=== PATIENT | female | born 1955 | race Caucasian/White ===

== ENCOUNTER 2016-06-16 22:56 | Inpatient (IN) | payer OTHER ==
[2016-06-17] MEDS ORDERED: ONDANSETRON 4 MG/2 ML VIAL IVPUSH ONE ×2 (00:30→09:50)
--- NOTE | 2016-06-17 00:39 | PDOC ---
[id number]/VOMITING Time Seen by Provider: 06/17/16 00:16 - History of Present Illness Travel History: Yes Initial Comments: 06/17/16 00:38 CHIEF COMPLAINT: abdominal pain HISTORY OF PRESENT ILLNESS: 60 year old female with past medical history of chronic pancreatitis, insulin dependent diabetes, and hypertension presents to ED with vomiting and abdominal pain since 5:30 this afternoon. Patient states she has had at least 6 episodes of vomiting. She denies fever but reports chills. She denies diarrhea or rectal bleeding. No recent travel or sick contacts. PAST MEDICAL HISTORY: Denies past medical history FAMILY HISTORY: Denies SOCIAL HISTORY: Lives at home with . Denies tobacco, alcohol, illicit drug use. SURGICAL HISTORY: Denies ALLERGIES: PCN REVIEW OF SYSTEMS General/Constitutional: Chills. Denies fever. Denies weakness, weight change. HEENT: Denies change in vision. Denies ear pain or discharge. Denies sore throat. Cardiovascular: Denies chest pain or shortness of breath. Respiratory: Denies cough, wheezing, or hemoptysis. Gastrointestinal: 6 episodes of vomiting this evening. Denies or constipation. Denies rectal bleeding. Genitourinary: Denies dysuria, frequency, or change in urination. Musculoskeletal: Denies joint or muscle swelling or pain. Denies neck or back pain. Skin: Denies rash or easy bruising. Neurologic: Headache. Denies vertigo, loss of consciousness, or loss of sensation. PHYSICAL EXAM General Appearance: Tearful, appropriately dressed. HEENT: EOMI, PERRLA, normal ENT inspection, normal voice, TMs normal, pharynx normal. No conjunctival pallor. No photophobia, scleral icterus. Neck: Supple. Trachea midline. No tenderness, rigidity, carotid bruit, stridor , lymphadenopathy, or thyromegaly. Respiratory/Chest: Lungs CTAB. Cardiovascular: RRR. S1, S2. Vascular Pulses: Dorsalis-Pedis (R): 2+, Dorsalis-Pedis (L): 2+ Gastrointestinal/Abdominal: Diffuse tenderness to abdomen. Normal bowel sounds. Abdomen soft, non-distended. No organomegaly, pulsatile mass, guarding , hernia, hepatomegaly, splenomegaly. Musculoskeletal/Extremities: Normal inspection. FROM of all extremities, normal capillary refill. Pelvis Stable. No CVA tenderness. No tenderness to extremities, pedal edema, swelling, erythema or deformity. Integumentary: Appropriate color, dry, warm. 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 Fully oriented, alert. Appropriate mood/affect. Motor strength 5/5. No appreciable EOM palsy, facial droop or sensory deficit. 06/17/16 00:39 Past History - Past Medical History Allergies/Adverse Reactions: Allergies Allergy/AdvReac Type Severity Reaction Status Date / Time Penicillins Allergy Verified 11/10/15 15:53 Home Medications: Ambulatory Orders Metformin HCl [Glucophage] 500 mg PO BID 07/06/13 Escitalopram Oxalate [Lexapro -] 10 mg PO DAILY #0 06/22/15 Insulin (Levemir) [Levemir Vial] 33 unit SQ AM #0 11/15/15 Pantoprazole Sodium [Protonix -] 40 mg PO DAILY tablet.ec 11/15/15 Insulin Lispro Protamin/Lispro [Humalog Mix 50-50 Kwikpen] 100 unit SQ ASDIR Telmisartan [Micardis] 80 mg PO DAILY 06/17/16 Levofloxacin [Levaquin -] 500 mg PO DAILY@0600 #2 tablet 06/20/16 Metronidazole [Flagyl -] 500 mg PO TID #6 tablet 06/20/16 Anemia: No Asthma: No Cancer: No CVA: No COPD: No CHF: No Dementia: No Diabetes: Yes GI Disorders: Yes (pancreatitis, sbo, GERD) Disorders: No HTN: Yes Hypercholesterolemia: Yes Liver Disease: No Psychiatric Problems: Yes (DEPRESSION, MEMORY LOSS) Seizures: No Thyroid Disease: No - Surgical History Abdominal Surgery: Yes Appendectomy: Yes Cardiac Surgery: No Cholecystectomy: Yes Lung Surgery: No Neurologic Surgery: No Orthopedic Surgery: No - Family Disease History Family Disease History: Diabetes: Father, Heart Disease: Father - Immunization History Immunization Up to Date: Yes - Psycho/Social/Smoking Cessation Hx Anxiety: No Suicidal Ideation: No Smoking Status: No Smoking History: Never smoked Have you smoked in the past 12 months: No Number of Cigarettes Smoked Daily: 0 If you are a former smoker, when did you quit?: november 2012 Information on smoking cessation initiated: No Hx Alcohol Use: No Drug/Substance Use Hx: No Substance Use Type: None Hx Substance Use Treatment: No *Physical Exam - Vital Signs Last Vital Signs Temp Pulse Resp BP Pulse Ox 98.3 F 86 25 H 138/89 97 06/16/16 23:12 06/16/16 23:12 06/16/16 23:12 06/16/16 23:12 06/16/16 23:12 ED Treatment Course - LABORATORY CBC & Chemistry Diagram: 06/20/16 06:00 06/20/16 06:00 - RADIOLOGY Radiology Studies Ordered: Category Date Time Status ABDOMEN FLAT & UPRIGHT [RAD] Stat Radiology 06/17/16 00:28 Ordered CHEST PA & LAT [RAD] Stat Radiology 06/17/16 00:27 Ordered Medical Decision Making - Medical Decision Making 06/17/16 06:25 60 year old female with past medical history of chronic pancreatitis, insulin dependent diabetes, and hypertension presents to ED with vomiting and abdominal pain since 5:30 this afternoon. -CBC, CMP, lipase, cardiac profile, acetone -CXR, EKG -UA, UCx -IVF, Zofran -4 mg morphine 06/17/16 06:26 Labs: WBC 15.2, BUN 27, otherwise unremarkable Case discussed in detail with oncoming emergency provider including history, physical exam and ancillary studies. In brief, this patient is being seen in the ED for a chief complaint of: abdominal pain, vomiting I have completed the initial assessment interview note and have ordered the following labs: CBC, CMP, lipase, cardiac profile, acetone, CXR, abdominal x-ray I have reviewed the following results: labs, X-rays Pending results: abdomen and pelvis CT Please call PCP: Duy Plan for disposition as follows: pending Oncoming NPA Kristi has assumed care for the patient and will complete the evaluation and treatment. *DC/Admit/Observation/Transfer Diagnosis at time of Disposition: Abdominal pain Qualifiers: Abdominal location: upper abdomen, unspecified Qualified Code(s): R10.10 - Upper abdominal pain, unspecified - Discharge Dispostion Disposition: HOME Condition at time of disposition: Stable - Prescriptions
[2016-06-17] MEDS ORDERED: ONDANSETRON 4 MG/2 ML VIAL ONE ×2 (01:25→09:51)
[2016-06-17 01:59] LABS: BASOPHIL 0.9 % (0-2.0); EOSINOPHIL 0.8 % (0-4.5); MCH 27.6 pg (25.7-33.7); MCHC 33.2 g/dl (32.0-36.0); MEAN CELL VOLUME 83.4 fl (80-96); MEAN PLT VOLUME 7.9 fl (7.5-11.1); NEUTROPHILS 79.4 % (42.8-82.8); PLATELET COUNT 360 K/MM3 (134-434); WHITE BLOOD COUNT 15.2 K/mm3 (4.0-10.0)
[2016-06-17 02:13] LABS: INR 1.05 (0.82-1.09); PROTHROMBIN TIME (PATIENT) 11.6 SEC (9.98-11.88)
[2016-06-17 02:22] LABS: ALBUMIN 4.2 g/dl (3.4-5.0); ALK PHOS 104 U/L (45-117); ANION GAP 13 (8-16); BILIRUBIN,TOTAL 0.7 mg/dL (0.2-1.0); CALCIUM 9.8 mg/dL (8.5-10.1); CO2 26 mmol/L (21-32); GLUCOSE,RANDOM 197 mg/dL (74-106); SGOT/AST 13 U/L (15-37); SGPT/ALT 21 U/L (12-78); TOT PROT 8.1 g/dl (6.4-8.2); TROPONIN I < 0.02 ng/ml (0.00-0.05)
[2016-06-17] MEDS ORDERED: ACETAMINOPHEN 1000 MG/100 ML VIAL (NON FORMULARY) IVPB ONE (02:39)
[2016-06-17] MEDS ORDERED: morphine CARPU-JECT 4 MG/1 ML DISP.SYRIN ONE (02:56)
[2016-06-17] MEDS ORDERED: morphine CARPU-JECT 4 MG/1 ML DISP.SYRIN IVPUSH ONE (02:56)
[2016-06-17] MEDS ORDERED: SODIUM CHLORIDE 0.9% 1000 ML INFUS.BAG IV ONE (03:11)
[2016-06-17 04:15] LABS: URINE APPEARANCE CLEAR; URINE BILIRUBIN NEGATIVE (NEGATIVE); URINE BLOOD NEGATIVE (NEGATIVE); URINE COLOR YELLOW; URINE GLUCOSE (UA) NEGATIVE (NEGATIVE); URINE KETONE TRACE (NEGATIVE); URINE LEUK ESTERASE NEGATIVE (NEGATIVE); URINE NITRITE NEGATIVE (NEGATIVE); URINE UROBILINOGEN NEGATIVE E.U./dl (0.2-1.0)
[2016-06-17 04:18] LABS: URINE PROTEIN 1+ (NEGATIVE)
[2016-06-17 04:19] LABS: URINE HYALINE CAST 4 /lpf; URINE MUCUS FEW; URINE WBC 2 /hpf (3-5)
[2016-06-17] MEDS ORDERED: KETOROLAC TROMETHAMINE 30 MG/1 ML VIAL IVPUSH ONE (07:09)
--- NOTE | 2016-06-17 07:25 | PDOC ---
*Physical Exam - Vital Signs Last Vital Signs Temp Pulse Resp BP Pulse Ox 98.3 F 86 25 H 138/89 97 06/16/16 23:12 06/16/16 23:12 06/16/16 23:12 06/16/16 23:12 06/16/16 23:12 - Physical Exam General Appearance: Yes: Appropriately Dressed. No: Apparent Distress HEENT: positive: Normal Voice Neck: positive: Supple Respiratory/Chest: negative: Respiratory Distress Integumentary: positive: Dry, Warm Neurologic: positive: Fully Oriented, Alert, Normal Mood/Affect ED Treatment Course - LABORATORY CBC & Chemistry Diagram: 06/17/16 01:28 06/17/16 01:28 - ADDITIONAL ORDERS Additional order review: Laboratory Results 06/17/16 06/17/16 06/17/16 04:12 04:08 01:28 INR Sodium Potassium Chloride Carbon Dioxide Anion Gap BUN Creatinine Creat Clearance w eGFR Random Glucose Calcium Total Bilirubin AST ALT Alkaline Phosphatase Creatine Kinase Troponin I Total Protein Albumin Lipase 100 Urine Color Yellow Urine Appearance Clear Urine pH 5.0 Ur Specific [place] 1.026 Urine Protein 1+ H Urine Glucose (UA) Negative Urine Ketones Trace H Urine Blood Negative Urine Nitrite Negative Urine Bilirubin Negative Urine Urobilinogen Negative Ur Leukocyte Esterase Negative Urine RBC None Urine WBC 2 Ur Epithelial Cells Rare Hyaline Casts 4 Urine Mucus Few Acetone, Qual Negative L 06/17/16 06/17/16 01:28 01:28 INR 1.05 Sodium 138 Potassium 4.8 D Chloride 99 Carbon Dioxide 26 Anion Gap 13 BUN 27 H D Creatinine 1.0 D Creat Clearance w eGFR 56.37 Random Glucose 197 H D Calcium 9.8 Total Bilirubin 0.7 D AST 13 L D ALT 21 D Alkaline Phosphatase 104 D Creatine Kinase 115 Troponin I < 0.02 Total Protein 8.1 D Albumin 4.2 D Lipase Urine Color Urine Appearance Urine pH Ur Specific [place] Urine Protein Urine Glucose (UA) Urine Ketones Urine Blood Urine Nitrite Urine Bilirubin Urine Urobilinogen Ur Leukocyte Esterase Urine RBC Urine WBC Ur Epithelial Cells Hyaline Casts Urine Mucus Acetone, Qual 06/17/16 01:28 RBC 5.24 H MCV 83.4 MCHC 33.2 RDW 14.0 MPV 7.9 Neutrophils % 79.4 D Lymphocytes % 13.3 D Monocytes % 5.6 Eosinophils % 0.8 Basophils % 0.9 - Medications Given in the ED: ED Medications Discontinued Medications Generic Name Dose Route Start Last Admin Trade Name Tramaine PRN Reason Stop Dose Admin Acetaminophen 1,000 mg 06/17/16 02:39 06/17/16 04:12 Ofirmev Injection - IVPB 06/17/16 02:40 Not Given ONCE ONE Morphine Sulfate 4 mg 06/17/16 02:56 06/17/16 02:57 Morphine Injection - IVPUSH 06/17/16 02:57 4 mg ONCE ONE Administration Ondansetron HCl 4 mg 06/17/16 00:30 06/17/16 01:40 Zofran Injection IVPUSH 06/17/16 00:31 4 mg ONCE ONE Administration Sodium Chloride 1,000 ml 06/17/16 03:11 06/17/16 04:04 Normal Saline - IV 06/17/16 03:12 1,000 ml ONCE ONE Administration Medical Decision Making - Medical Decision Making 06/17/16 07:23 Signed oout to me by RIDDHI Rai 61-year-old female history of hypertension, diabetes, hyperlipidemia, arthritis , cholecystectomy, chronic pancreatitis, status post bowel obstruction, presenting to the ED with diffuse abdominal pain with nausea vomiting. White count 15, rest of labs unremarkable. CT recently red as cortical hypodensity in lower pole of right kidney, CT, otherwise negative. Will reassess at this time 06/17/16 08:14 Pt continues to c/o pain, mostly located to epigastrium w/ sig ttp on exam. Possibly GERD/Gastritis. Pepcid/maalox and reassess. US r/o R hydro pending 06/17/16 08:16 06/17/16 08:27 06/17/16 09:51 Ultrasound negative for any acute pathology. Patient continues to complain of significant upper abdominal pain,states pain similar to her pancreatitis. Pain meds in progress. Will contact PMD and admit at this time 06/17/16 10:[address] Gordillo, who is covering for patient's PMD Dr. Zuniga. As per Isai, admit to Dr Zuniga *DC/Admit/Observation/Transfer Diagnosis at time of Disposition: Abdominal pain Qualifiers: Abdominal location: upper abdomen, unspecified Qualified Code(s): R10.10 - Upper abdominal pain, unspecified - Discharge Dispostion Condition at time of disposition: Stable Admit: Yes - Referrals Referrals: Preeti Zuniga MD [Primary Care Provider] -
[2016-06-17] MEDS ORDERED: KETOROLAC TROMETHAMINE 30 MG/1 ML VIAL ONE (07:28)
[2016-06-17] MEDS ORDERED: FAMOTIDINE 20 MG/50 ML IVPB 50 ML IVPB ONE ×2 (08:09→08:23)
[2016-06-17] MEDS ORDERED: MAG HYDROX/ALH/SMC/DPHA/LIDO 240 ML MOUTHWASH MM ONE (08:09)
[2016-06-17] MEDS ORDERED: MAG HYDROX/AL HYDROX/SIMETH 30 ML UNIT-DOSE CUP PO ONE (08:09)
[2016-06-17] MEDS ORDERED: MAG HYDROX/AL HYDROX/SIMETH 30 ML UNIT-DOSE CUP ONE (08:23)
[2016-06-17] MEDS ORDERED: HYDROmorphone HCL CARPU-JECT 2 MG/1 ML DISP.SYRIN IVPB ONE (09:50)
[2016-06-17] MEDS ORDERED: HYDROmorphone HCL CARPU-JECT 2 MG/1 ML DISP.SYRIN ONE (09:51)
[2016-06-17] MEDS ORDERED: METOCLOPRAMIDE HCL INJECTION 10 MG/2 ML VIAL IVPB ONE (10:46)
[2016-06-17] MEDS ORDERED: METOCLOPRAMIDE HCL INJECTION 10 MG/2 ML VIAL ONE (11:08)
[2016-06-17 11:17] VITALS: BMI 27.4
--- NOTE | 2016-06-17 11:45 | HP ---
Admitting History and Physical - Admission History of Present Illness: 60 year old female with past medical history of chronic pancreatitis, insulin dependent diabetes, and hypertension presents to ED with vomiting and abdominal pain since 5:30 YESTERDAY Patient states she has had at least 6 episodes of vomiting. She denies fever but reports chills. She denies diarrhea or rectal bleeding. 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 (Pt has been recently w/u for early dementia, which runs in her family.) Cardiovascular: Yes: HTN, Hyperlipdemia Gastrointestinal: Yes: Pancreatitis (?), Other (SBO) ...: No Psych: Yes: Depression, Panic Musculoskeletal: Yes: Osteoarthritis, Other (Knee pain) Endocrine: Yes: Diabetes Mellitus - Past Surgical History Past Surgical History: Yes: Appendectomy, Cholecystectomy, Colonoscopy (neg 2 yrs ago at ), (x2), Hysterectomy - Smoking History Smoking history: Former smoker Have you smoked in the past 12 months: No Aproximately how many cigarettes per day: 0 If you are a former smoker, when did you quit?: november 2012 - Alcohol/Substance Use Hx Alcohol Use: No - Social History ADL: Independent History of Recent Travel: No Home Medications - Allergies Allergies/Adverse Reactions: Allergies Allergy/AdvReac Type Severity Reaction Status Date / Time Penicillins Allergy Verified 11/10/15 15:53 - Home Medications Home Medications: Ambulatory Orders Metformin HCl [Glucophage] 500 mg PO BID 07/06/13 Escitalopram Oxalate [Lexapro -] 10 mg PO DAILY #0 06/22/15 Insulin (Levemir) [Levemir Vial] 33 unit SQ AM #0 11/15/15 Pantoprazole Sodium [Protonix -] 40 mg PO DAILY tablet.ec 11/15/15 Insulin Lispro Protamin/Lispro [Humalog Mix 50-50 Kwikpen] 100 unit SQ ASDIR Telmisartan [Micardis] 80 mg PO DAILY 06/17/16 Family Disease History - Family Disease History Family Disease History: Diabetes: Mother, [place]: Father (pancreatic 78) Review of Systems - Review of Systems Cardiovascular: denies: Chest Pain Respiratory: denies: Cough Gastrointestinal: reports: Abdominal Pain, Diarrhea, Vomiting Physical Examination Vital Signs: Vital Signs Temperature 98.5 F 06/17/16 10:59 Pulse Rate 69 06/17/16 11:32 Respiratory Rate 16 06/17/16 11:32 Blood Pressure 116/79 06/17/16 11:32 O2 Sat by Pulse Oximetry (%) 99 06/17/16 11:32 Cardiovascular: Yes: Regular Rate and Rhythm Respiratory: Yes: Regular, CTA Bilaterally Gastrointestinal: Yes: Normal Bowel Sounds, Soft, Tenderness Imaging - Results Cat Scan: Report Reviewed Problem List - Problems (1) Abdominal pain Assessment/Plan: CT NO SIG FINDINGS--LIPASE NL POSSIBLE GASTRITIS--POSSIBLE GB DS PPI GI CONSULT Code(s): R10.9 - UNSPECIFIED ABDOMINAL PAIN Qualifiers: Abdominal location: upper abdomen, unspecified Qualified Code(s): R10.10 - Upper abdominal pain, unspecified (2) DM2 (diabetes mellitus, type 2) Assessment/Plan: HOLD INSULIN BGM Code(s): E11.9 - TYPE 2 DIABETES MELLITUS WITHOUT COMPLICATIONS (3) Hypertension Assessment/Plan: MONITOR Code(s): I10 - ESSENTIAL (PRIMARY) HYPERTENSION Qualifiers: Hypertension type: essential hypertension Qualified Code(s): I10 - Essential (primary) hypertension (4) Vomiting Assessment/Plan: NPO IVF Code(s): R11.10 - VOMITING, UNSPECIFIED
[2016-06-17] MEDS: SODIUM CHLORIDE 0.45%/POT 1,000 ML IV SCH ×2 (13:00→23:25)
--- NOTE | 2016-06-17 14:40 | CON.GI ---
Consult Consult Specialty:: GASTROENTEROLOGY Reason for Consultation:: VOMITING - History of Present Illness Chief Complaint: VOMITING History of Present Illness: 61 YEAR OLD FEMALE WITH VOMITING SINCE SUNDAY. SHE HAS A HISTORY OF CHRONIC PANCREATITIS. STATES THAT SHE HAD ABDOMINAL DISTENSION, PAIN AND VOMITING. SHE HAD NO HEMATEMESIS AND NO MELENA OR RECTAL BLEEDING. SHE WAS GIVEN ANALGESIA IN THE ed AND NOW FEELS BETTER AND NO FURTHER VOMITING. HER CT SCAN WAS NORMAL WITHOUT PANCREATITIS OR SBO. 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 (Pt has been recently w/u for early dementia, which runs in her family.) Cardio/Vascular: Yes: HTN, Hyperlipdemia Gastrointestinal: Yes: Pancreatitis (?), Other (SBO) ...: No Psych: Yes: Depression, Panic Musculoskeletal: Yes: Osteoarthritis, Other (Knee pain) Endocrine: Yes: Diabetes Mellitus - Past Surgical History Past Surgical History: Yes: Appendectomy, Cholecystectomy, Colonoscopy (neg 2 yrs ago at ), (x2), Hysterectomy - Alcohol/Substance Use Hx Alcohol Use: No - Smoking History Smoking history: Former smoker Have you smoked in the past 12 months: No Aproximately how many cigarettes per day: 0 If you are a former smoker, when did you quit?: november 2012 - Social History Usual Living Arrangement: With Spouse ADL: Independent History of Recent Travel: No Home Medications - Allergies Allergies/Adverse Reactions: Allergies Allergy/AdvReac Type Severity Reaction Status Date / Time Penicillins Allergy Verified 11/10/15 15:53 - Home Medications Home Medications: Ambulatory Orders Metformin HCl [Glucophage] 500 mg PO BID 07/06/13 Escitalopram Oxalate [Lexapro -] 10 mg PO DAILY #0 06/22/15 Insulin (Levemir) [Levemir Vial] 33 unit SQ AM #0 11/15/15 Pantoprazole Sodium [Protonix -] 40 mg PO DAILY tablet.ec 11/15/15 Insulin Lispro Protamin/Lispro [Humalog Mix 50-50 Kwikpen] 100 unit SQ ASDIR Telmisartan [Micardis] 80 mg PO DAILY 06/17/16 Family Disease History - Family Disease History Family Disease History: Diabetes: Mother, [place]: Father (pancreatic 78) Review of Systems - Review of Systems Constitutional: reports: Loss of Appetite, Malaise Eyes: reports: No Symptoms HENT: reports: No Symptoms Neck: reports: No Symptoms Cardiovascular: reports: No Symptoms Respiratory: reports: No Symptoms Gastrointestinal: reports: Abdominal Pain, Vomiting Genitourinary: reports: No Symptoms Musculoskeletal: reports: No Symptoms Integumentary: reports: No Symptoms Neurological: reports: No Symptoms Endocrine: reports: No Symptoms Hematology/Lymphatic: reports: No Symptoms Psychiatric: reports: No Symptoms Physical Exam-GI Vital Signs: Vital Signs Temperature 97.6 F 06/17/16 11:40 Pulse Rate 78 06/17/16 11:40 Respiratory Rate 18 06/17/16 11:40 Blood Pressure 119/60 06/17/16 11:40 O2 Sat by Pulse Oximetry (%) 99 06/17/16 11:32 Constitutional: Yes: Other (OVER SEDATED) Eyes: Yes: Conjunctiva Clear HENT: Yes: Atraumatic Neck: Yes: Supple Cardiovascular: Yes: Regular Rate and Rhythm Respiratory: Yes: Regular Gastrointestinal Inspection: Yes: WNL, Scars ...Auscultate: Yes: Normoactive Bowel Sounds ...Palpate: Yes: Soft Extremities: Yes: WNL Neurological: Yes: Lethargy Psychiatric: Yes: Oriented Labs: INR, PTT INR 1.05 (0.82-1.09) 06/17/16 01:28 Laboratory Tests 06/17/16 06/17/16 06/17/16 01:28 01:28 01:28 WBC 15.2 H D RBC 5.24 H Hgb 14.5 Hct 43.7 MCV 83.4 MCHC 33.2 RDW 14.0 Plt Count 360 MPV 7.9 Lymphocytes % 13.3 D Monocytes % 5.6 Eosinophils % 0.8 Basophils % 0.9 INR 1.05 Sodium 138 Potassium 4.8 D Chloride 99 Carbon Dioxide 26 Anion Gap 13 BUN 27 H D Creatinine 1.0 D Creat Clearance w eGFR 56.37 Random Glucose 197 H D Calcium 9.8 Total Bilirubin 0.7 D AST 13 L D ALT 21 D Alkaline Phosphatase 104 D Creatine Kinase 115 Troponin I < 0.02 Total Protein 8.1 D Albumin 4.2 D Lipase Urine Color Urine Appearance Urine pH Ur Specific [place] Urine Protein Urine Glucose (UA) Urine Ketones Urine Blood Urine Nitrite Urine Bilirubin Urine Urobilinogen Ur Leukocyte Esterase Urine RBC Urine WBC Ur Epithelial Cells Hyaline Casts Urine Mucus Acetone, Qual 06/17/16 06/17/16 06/17/16 01:28 04:08 04:12 WBC RBC Hgb Hct MCV MCHC RDW Plt Count MPV Lymphocytes % Monocytes % Eosinophils % Basophils % INR Sodium Potassium Chloride Carbon Dioxide Anion Gap BUN Creatinine Creat Clearance w eGFR Random Glucose Calcium Total Bilirubin AST ALT Alkaline Phosphatase Creatine Kinase Troponin I Total Protein Albumin Lipase 100 Urine Color Yellow Urine Appearance Clear Urine pH 5.0 Ur Specific [place] 1.026 Urine Protein 1+ H Urine Glucose (UA) Negative Urine Ketones Trace H Urine Blood Negative Urine Nitrite Negative Urine Bilirubin Negative Urine Urobilinogen Negative Ur Leukocyte Esterase Negative Urine RBC None Urine WBC 2 Ur Epithelial Cells Rare Hyaline Casts 4 Urine Mucus Few Acetone, Qual Negative L 06/17/16 12:00 WBC RBC Hgb Hct MCV MCHC RDW Plt Count MPV Lymphocytes % Monocytes % Eosinophils % Basophils % INR Sodium Potassium Chloride Carbon Dioxide Anion Gap BUN Creatinine Creat Clearance w eGFR Random Glucose Calcium Total Bilirubin AST ALT Alkaline Phosphatase Creatine Kinase Troponin I < 0.02 Total Protein Albumin Lipase Urine Color Urine Appearance Urine pH Ur Specific [place] Urine Protein Urine Glucose (UA) Urine Ketones Urine Blood Urine Nitrite Urine Bilirubin Urine Urobilinogen Ur Leukocyte Esterase Urine RBC Urine WBC Ur Epithelial Cells Hyaline Casts Urine Mucus Acetone, Qual Imaging - Results Cat Scan: Image Reviewed (CT NEGATIVE FOR SBO/PANCREATITIS OR ACUTE PATHOLOGY) Problem List - Problems (1) Vomiting bile Assessment/Plan: PROBABLE GASTROENTERITIS ALL STUDIES ARE NEGATIVE! WILL DRAW A LACTATE LEVEL , METFORMIN ON HOLD KEEP NPO FOR NOW AGREE WITH GI PROPHYLAXIS, REPAT LIPASE IN AM Code(s): R11.14 - BILIOUS VOMITING (2) Abdominal pain Code(s): R10.9 - UNSPECIFIED ABDOMINAL PAIN Qualifiers: Abdominal location: upper abdomen, unspecified Qualified Code(s): R10.10 - Upper abdominal pain, unspecified
[2016-06-17] MEDS: INSULIN SLIDING SCALE (NOVOLOG) 1 VIAL SQ SCH ×2 (17:43→22:23)
--- NOTE | 2016-06-17 21:03 | EKG ---
Test Reason : Blood Pressure : / mmHG Vent. Rate : 074 BPM Atrial Rate : 074 BPM P-R Int : 136 ms QRS Dur : 088 ms QT Int : 356 ms P-R-T Axes : 034 025 060 degrees QTc Int : 395 ms NORMAL SINUS RHYTHM CANNOT RULE OUT ANTERIOR INFARCT , AGE UNDETERMINED ABNORMAL ECG WHEN COMPARED WITH ECG OF 13-NOV-2015 09:23, T WAVE AMPLITUDE HAS DECREASED IN ANTERIOR LEADS Confirmed by BARAK GOMEZ, JOSE A ([id number]) on 06/17/2016 9:03:00 PM Referred By: Confirmed By:JOSE A CANCINO MD
[2016-06-17] MEDS: HEPARIN NA (PORCINE) 5,000 UNITS/ML 1ML VIAL SQ SCH (22:21)
--- NOTE | 2016-06-18 00:29 | CONSULT ---
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: Yes: Other (Pt has been recently w/u for early dementia, which runs in her family.) Cardio/Vascular: Yes: HTN, Hyperlipdemia Gastrointestinal: Yes: Pancreatitis (?), Other (SBO) ...: No Psych: Yes: Depression, Panic Musculoskeletal: Yes: Osteoarthritis, Other (Knee pain) Endocrine: Yes: Diabetes Mellitus - Past Surgical History Past Surgical History: Yes: Appendectomy, Cholecystectomy, Colonoscopy (neg 2 yrs ago at ), (x2), Hysterectomy - Alcohol/Substance Use Hx Alcohol Use: No - Smoking History Smoking history: Former smoker Have you smoked in the past 12 months: No Aproximately how many cigarettes per day: 0 If you are a former smoker, when did you quit?: november 2012 - Social History Usual Living Arrangement: With Spouse ADL: Independent History of Recent Travel: No Home Medications - Allergies Allergies/Adverse Reactions: Allergies Allergy/AdvReac Type Severity Reaction Status Date / Time Penicillins Allergy Verified 11/10/15 15:53 - Home Medications Home Medications: Ambulatory Orders Metformin HCl [Glucophage] 500 mg PO BID 07/06/13 Escitalopram Oxalate [Lexapro -] 10 mg PO DAILY #0 06/22/15 Insulin (Levemir) [Levemir Vial] 33 unit SQ AM #0 11/15/15 Pantoprazole Sodium [Protonix -] 40 mg PO DAILY tablet.ec 11/15/15 Insulin Lispro Protamin/Lispro [Humalog Mix 50-50 Kwikpen] 100 unit SQ ASDIR Telmisartan [Micardis] 80 mg PO DAILY 06/17/16 Family Disease History - Family Disease History Family Disease History: Diabetes: Mother, CA: Father (pancreatic 78) Review of Systems - Review of Systems Constitutional: reports: Lethargy Eyes: reports: Blurred Vision HENT: reports: No Symptoms Neck: reports: Decreased ROM Cardiovascular: reports: No Symptoms Respiratory: reports: No Symptoms Gastrointestinal: reports: No Symptoms Genitourinary: reports: No Symptoms Breasts: reports: No Symptoms Reported Musculoskeletal: reports: No Symptoms Integumentary: reports: No Symptoms Neurological: reports: No Symptoms Endocrine: reports: Unexplained Weight Gain Hematology/Lymphatic: reports: No Symptoms Psychiatric: reports: No Symptoms Physical Exam Vital Signs: Vital Signs Temperature 98.6 F 06/17/16 22:00 Pulse Rate 72 06/17/16 22:00 Respiratory Rate 20 06/17/16 22:00 Blood Pressure 109/63 06/17/16 22:00 O2 Sat by Pulse Oximetry (%) 96 06/17/16 20:32 Constitutional: Yes: Anxious Eyes: Yes: EOM Intact HENT: Yes: Normocephalic Neck: Yes: Trachea Midline Respiratory: Yes: CTA Bilaterally Gastrointestinal: Yes: Normal Bowel Sounds ...Rectal Exam: Yes: Deferred Renal/: Yes: WNL Breast(s): Yes: WNL Musculoskeletal: Yes: WNL Extremities: Yes: WNL Integumentary: Yes: WNL Neurological: Yes: Alert, Oriented ...Motor Strength: WNL Problem List - Problems (1) Controlled type 2 diabetes mellitus with diabetic peripheral angiopathy without gangrene Code(s): E11.51 - TYPE 2 DIABETES W DIABETIC PERIPHERAL ANGIOPATH W/O GANGRENE Assessment/Plan Current Active Problems Abdominal pain (Acute) Garza palsy (Acute) Left facial numbness (Acute) UTI (urinary tract infection) (Acute) Vomiting bile (Acute) Zoster (Acute) Zoster encephalitis (Acute) Abnormal Lab Results 06/17/16 06/17/16 06/17/16 01:28 01:28 01:28 WBC 15.2 H D RBC 5.24 H BUN 27 H D Random Glucose 197 H D AST 13 L D Urine Protein Urine Ketones Acetone, Qual Negative L 06/17/16 04:08 WBC RBC BUN Random Glucose AST Urine Protein 1+ H Urine Ketones Trace H Acetone, Qual Laboratory Results - last 24 hr 06/17/16 06/17/16 06/17/16 01:28 01:28 01:28 WBC 15.2 H D RBC 5.24 H Hgb 14.5 Hct 43.7 MCV 83.4 MCHC 33.2 RDW 14.0 Plt Count 360 MPV 7.9 Neutrophils % 79.4 D Lymphocytes % 13.3 D Monocytes % 5.6 Eosinophils % 0.8 Basophils % 0.9 INR 1.05 Sodium 138 Potassium 4.8 D Chloride 99 Carbon Dioxide 26 Anion Gap 13 BUN 27 H D Creatinine 1.0 D Creat Clearance w eGFR 56.37 POC Glucometer Random Glucose 197 H D Lactic Acid Calcium 9.8 Total Bilirubin 0.7 D AST 13 L D ALT 21 D Alkaline Phosphatase 104 D Creatine Kinase 115 Troponin I < 0.02 Total Protein 8.1 D Albumin 4.2 D Lipase Urine Color Urine Appearance Urine pH Ur Specific [place] Urine Protein Urine Glucose (UA) Urine Ketones Urine Blood Urine Nitrite Urine Bilirubin Urine Urobilinogen Ur Leukocyte Esterase Urine RBC Urine WBC Ur Epithelial Cells Hyaline Casts Urine Mucus Acetone, Qual 06/17/16 06/17/16 06/17/16 01:28 04:08 04:12 WBC RBC Hgb Hct MCV MCHC RDW Plt Count MPV Neutrophils % Lymphocytes % Monocytes % Eosinophils % Basophils % INR Sodium Potassium Chloride Carbon Dioxide Anion Gap BUN Creatinine Creat Clearance w eGFR POC Glucometer Random Glucose Lactic Acid Calcium Total Bilirubin AST ALT Alkaline Phosphatase Creatine Kinase Troponin I Total Protein Albumin Lipase 100 Urine Color Yellow Urine Appearance Clear Urine pH 5.0 Ur Specific [place] 1.026 Urine Protein 1+ H Urine Glucose (UA) Negative Urine Ketones Trace H Urine Blood Negative Urine Nitrite Negative Urine Bilirubin Negative Urine Urobilinogen Negative Ur Leukocyte Esterase Negative Urine RBC None Urine WBC 2 Ur Epithelial Cells Rare Hyaline Casts 4 Urine Mucus Few Acetone, Qual Negative L 06/17/16 06/17/16 06/17/16 12:00 15:10 17:42 WBC RBC Hgb Hct MCV MCHC RDW Plt Count MPV Neutrophils % Lymphocytes % Monocytes % Eosinophils % Basophils % INR Sodium Potassium Chloride Carbon Dioxide Anion Gap BUN Creatinine Creat Clearance w eGFR POC Glucometer 139 Random Glucose Lactic Acid 1.308 Calcium Total Bilirubin AST ALT Alkaline Phosphatase Creatine Kinase Troponin I < 0.02 Total Protein Albumin Lipase Urine Color Urine Appearance Urine pH Ur Specific [place] Urine Protein Urine Glucose (UA) Urine Ketones Urine Blood Urine Nitrite Urine Bilirubin Urine Urobilinogen Ur Leukocyte Esterase Urine RBC Urine WBC Ur Epithelial Cells Hyaline Casts Urine Mucus Acetone, Qual 06/17/16 22:21 WBC RBC Hgb Hct MCV MCHC RDW Plt Count MPV Neutrophils % Lymphocytes % Monocytes % Eosinophils % Basophils % INR Sodium Potassium Chloride Carbon Dioxide Anion Gap BUN Creatinine Creat Clearance w eGFR POC Glucometer 142 Random Glucose Lactic Acid Calcium Total Bilirubin AST ALT Alkaline Phosphatase Creatine Kinase Troponin I Total Protein Albumin Lipase Urine Color Urine Appearance Urine pH Ur Specific [place] Urine Protein Urine Glucose (UA) Urine Ketones Urine Blood Urine Nitrite Urine Bilirubin Urine Urobilinogen Ur Leukocyte Esterase Urine RBC Urine WBC Ur Epithelial Cells Hyaline Casts Urine Mucus Acetone, Qual Current Medications Generic Name Dose Route Start Last Admin Trade Name Freq PRN Reason Stop Dose Admin Escitalopram Oxalate 10 mg 06/18/16 10:00 Lexapro - PO DAILY EDILIA Heparin Sodium (Porcine) 5,000 unit 06/17/16 22:00 06/17/16 22:21 Heparin - SQ 5,000 unit BID EDILIA Administration Hydromorphone HCl 1 mg 06/17/16 11:40 Dilaudid Injection - IVPUSH Q4H PRN PAIN Potassium Chloride/Sodium Chloride 1,000 mls @ 83 mls/hr 06/17/16 11:45 23:25 1/2ns+20meq Kcl IV 83 mls/hr ASDIR EDILIA Administration Insulin Aspart 1 vial 06/17/16 16:30 06/17/16 22:23 Novolog Vial Sliding Scale - SQ Not Given ACHS [facility] Protocol Ondansetron HCl 4 mg 06/17/16 11:40 Zofran Injection IVPB Q6H PRN NAUSEA plan: iddm uncontrolled gastroparesis continue bgm insulin sliding scale once tolerating po diet start levemir 15 units am and levemir 10 units hs ck [id number]
[2016-06-18] MEDS: INSULIN SLIDING SCALE (NOVOLOG) 1 VIAL SQ SCH ×4 (06:59→21:33)
[2016-06-18] MEDS: HYDROmorphone HCL CARPU-JECT 1 MG/1 ML DISP.SYRIN IVPUSH PRN ×2 (07:03→11:33)
[2016-06-18 07:11] LABS: BASOPHIL 0.8 % (0-2.0); EOSINOPHIL 0.2 % (0-4.5); MCH 28.5 pg (25.7-33.7); MCHC 33.6 g/dl (32.0-36.0); MEAN CELL VOLUME 84.9 fl (80-96); MEAN PLT VOLUME 7.3 fl (7.5-11.1); NEUTROPHILS 57.8 % (42.8-82.8); PLATELET COUNT 251 K/MM3 (134-434); RDW 13.9 % (11.6-15.6); WHITE BLOOD COUNT 5.5 K/mm3 (4.0-10.0)
[2016-06-18 07:56] LABS: ALBUMIN 3.3 g/dl (3.4-5.0); ANION GAP 8 (8-16); CO2 26 mmol/L (21-32); CREATININE 0.8 mg/dL (0.55-1.02); GLUCOSE,RANDOM 155 mg/dL (74-106); SGOT/AST 166 U/L (15-37); SGPT/ALT 273 U/L (12-78)
[2016-06-18 07:59] LABS: ALK PHOS 178 U/L (45-117); BILIRUBIN,TOTAL 0.8 mg/dL (0.2-1.0); TOT PROT 6.1 g/dl (6.4-8.2)
--- NOTE | 2016-06-18 09:06 | PN ---
Progress Note, Physician History of Present Illness: c/o ruq pain - Current Medication List Current Medications: Active Medications Escitalopram Oxalate (Lexapro -) 10 mg PO DAILY [facility] Heparin Sodium (Porcine) (Heparin -) 5,000 unit SQ BID [facility] Last Admin: 06/17/16 22:21 Dose: 5,000 unit Hydromorphone HCl (Dilaudid Injection -) 1 mg IVPUSH Q4H PRN PRN Reason: PAIN Last Admin: 06/18/16 07:03 Dose: 1 mg Potassium Chloride/Sodium Chloride (1/2ns+20meq Kcl) 1,000 mls @ 83 mls/hr IV ASDIR [facility] Last Admin: 06/17/16 23:25 Dose: 83 mls/hr Insulin Aspart (Novolog Vial Sliding Scale -) 1 vial SQ ACHS [facility] PRN Reason: Protocol Last Admin: 06/18/16 06:59 Dose: Not Given Ondansetron HCl (Zofran Injection) 4 mg IVPB Q6H PRN PRN Reason: NAUSEA - Objective Vital Signs: Vital Signs Temperature 98.8 F 06/18/16 06:00 Pulse Rate 64 06/18/16 06:00 Respiratory Rate 20 06/18/16 06:00 Blood Pressure 141/76 06/18/16 06:00 O2 Sat by Pulse Oximetry (%) 96 06/17/16 20:32 Cardiovascular: Yes: Regular Rate and Rhythm Respiratory: Yes: Regular, CTA Bilaterally Gastrointestinal: Yes: Normal Bowel Sounds, Soft, Tenderness Labs: CBC, BMP 06/18/16 06:00 06/18/16 06:00 INR, PTT INR 1.05 (0.82-1.09) 06/17/16 01:28 Problem List - Problems (1) Abdominal pain Assessment/Plan: CT NO SIG FINDINGS--LIPASE NL POSSIBLE GASTRITIS--US STAT PPI GI CONSULT Code(s): R10.9 - UNSPECIFIED ABDOMINAL PAIN Qualifiers: Abdominal location: upper abdomen, unspecified Qualified Code(s): R10.10 - Upper abdominal pain, unspecified (2) DM2 (diabetes mellitus, type 2) Assessment/Plan: HOLD INSULIN BGM Code(s): E11.9 - TYPE 2 DIABETES MELLITUS WITHOUT COMPLICATIONS (3) Hypertension Assessment/Plan: MONITOR Code(s): I10 - ESSENTIAL (PRIMARY) HYPERTENSION Qualifiers: Hypertension type: essential hypertension Qualified Code(s): I10 - Essential (primary) hypertension (4) Vomiting Assessment/Plan: NPO IVF Code(s): R11.10 - VOMITING, UNSPECIFIED (5) Abnormal LFTs Assessment/Plan: US GI F/U Code(s): R79.89 - OTHER SPECIFIED ABNORMAL FINDINGS OF BLOOD CHEMISTRY
[2016-06-18] MEDS: HEPARIN NA (PORCINE) 5,000 UNITS/ML 1ML VIAL SQ SCH ×2 (11:37→21:32)
[2016-06-18] MEDS: ESCITALOPRAM OXALATE 10 MG TABLET (FP) PO SCH (11:38)
[2016-06-18] MEDS: SODIUM CHLORIDE 0.45%/POT 1,000 ML IV SCH (12:13)
[2016-06-18] MEDS: ONDANSETRON 4 MG/2 ML VIAL IVPB PRN (12:13)
--- NOTE | 2016-06-18 14:14 | PN ---
GI Progress Note Subjective: GASTROENTEROLOGY STILL AD RUQ PAIN TO BACK YESTERDAY WITH NORMAL LFT'S. LFT'S REPEATED THIS AM. STILL HAS RUQ PAIN TO BACK AND NOW ACUTE 10X RISE IN TRANSAMINASES. ALK PHOS HAS ALSO RISEN - Objective Vital Signs: Vital Signs Temperature 98.4 F 06/18/16 09:57 Pulse Rate 66 06/18/16 09:57 Respiratory Rate 18 06/18/16 09:57 Blood Pressure 125/80 06/18/16 09:57 O2 Sat by Pulse Oximetry (%) 96 06/17/16 20:32 Constitutional: Mild Distress Eyes: Yes: Conjunctiva Clear HENT: Yes: Normocephalic Neck: Yes: Supple Cardiovascular: Yes: Regular Rate and Rhythm Respiratory: Yes: Regular ...Auscultate: Yes: Normoactive Bowel Sounds ...Palpate: Yes: Tenderness (RUQ) Musculoskeletal: Yes: WNL Extremities: Yes: WNL Neurological: Yes: Alert, Oriented Labs: CBC, BMP 06/18/16 06:00 06/18/16 06:00 INR, PTT INR 1.05 (0.82-1.09) 06/17/16 01:28 Laboratory Tests 06/17/16 06/17/16 06/18/16 01:28 04:12 06:00 Calcium 8.0 L Total Bilirubin 0.7 D 0.8 AST 13 L D 166 H D ALT 21 D 273 H D Alkaline Phosphatase 104 D 178 H D Total Protein 6.1 L D Albumin 3.3 L D Lipase 100 - ....Imaging Cat Scan: Image Reviewed Ultrasound: Image Reviewed MRI: Pending Problem List - Problems (1) RUQ abdominal pain Assessment/Plan: WITH NEW RISE IN LFT'S AND RUQ PAIN WILL ORDER AN MRI/MRCP SPOKE WITH DAUGHTER AND PATIENT ORDERS PLACED FOR TODAY NURSING INFORMED Code(s): R10.11 - RIGHT UPPER QUADRANT PAIN (2) Elevated LFTs Code(s): R79.89 - OTHER SPECIFIED ABNORMAL FINDINGS OF BLOOD CHEMISTRY (3) Abdominal pain Code(s): R10.9 - UNSPECIFIED ABDOMINAL PAIN Qualifiers: Abdominal location: upper abdomen, unspecified Qualified Code(s): R10.10 - Upper abdominal pain, unspecified (4) Vomiting bile Code(s): R11.14 - BILIOUS VOMITING
[2016-06-18] MEDS: HYDROmorphone HCL CARPU-JECT 2 MG/1 ML DISP.SYRIN IVPB PRN (15:13)
--- NOTE | 2016-06-18 17:52 | PN ---
Progress Note (short form) - Note Progress Note: ID Consult dictated Abdominal pain syndrome, elevated LFTs Leukocytosis- possible sepsis secondary to biliary focus PCN allergy Obtain blood c/s For MRCP Empiric levaquin/ flagyl
[2016-06-18] MEDS: METRONIDAZOLE 500 MG PREMIXED 100 ML IVPB SCH (18:09)
[2016-06-18] MEDS: LEVOFLOXACIN 500 MG IVPB 100 ML IVPB SCH (18:09)
--- NOTE | 2016-06-18 18:31 | CONS ---
DATE OF CONSULTATION: 06/18/2015 The patient is a 61-year-old female with a history of recurrent abdominal pain syndrome, chronic pancreatitis, and diabetes, evaluated for elevated white blood cell count. She was admitted to the hospital on June 17, 2016, with onset of abdominal pain, distention, nausea, and vomiting. She presented to the emergency room where she was found to have an elevated white blood cell count of 15,000. CT scan of the abdomen and pelvis was unrevealing. Her course has been complicated now by elevated liver enzymes. She was seen in consultation by GI and an MRCP is ordered to rule out biliary tract pathology. At the present time, she complains of pain in the epigastrium and right upper quadrant. No history of vomiting of marin red blood, hematemesis, marin red blood per rectum, or melena. She denies any recent febrile illness or shaking chills. PAST MEDICAL HISTORY: Positive for chronic pancreatitis, insulin-dependent diabetes mellitus, hypertension. PAST SURGICAL HISTORY: Status post admission in October of 2015 for bowel obstruction, history of cholecystectomy, appendectomy, section, hysterectomy. ALLERGIES: PENICILLIN. MEDICATIONS: Lexapro, heparin, Dilaudid, NovoLog. SOCIAL HISTORY: Former smoker. Lives at home with family members. SYSTEMS REVIEW: Neurologic: No loss of consciousness, seizure activity, focal weakness. Cardiac: Negative for chest pain or palpitations. Respiratory: Negative for cough or sputum production. Gastrointestinal: As per HPI. Genitourinary: Negative for urinary tract infection. LABORATORY DATA: White count 15.2 on admission, presently 5.5, hematocrit 36.4, platelet count 251, BUN 18, creatinine 0.8, total bilirubin 0.8, alkaline phosphatase 178, AST 166, ALT 273. PHYSICAL EXAMINATION: General: She is lying still in bed, complaining of epigastric discomfort. Vital signs: Temperature 98.3, blood pressure 135/53, pulse 64 and regular, respirations 20 per minute. HEENT: Sclerae anicteric. Heart: S1, S2. Lungs: Clear. Abdomen: Soft. There is epigastric and right upper quadrant tenderness. No rebound or rigidity. Extremities: Negative for edema. IMPRESSION: 1. Abdominal pain syndrome with elevated liver enzymes, possible biliary sepsis. 2. Leukocytosis. 3. PENICILLIN ALLERGY. PLAN: Obtain blood cultures. Empiric antibiotic coverage of biliary tract pathogens in this PENICILLIN ALLERGIC patient with Levaquin and Flagyl. Patient is scheduled for an MRCP. Await culture results. I will follow. Thank you for the kind referral. RICK MUHAMMAD M.D. [id number]
[2016-06-19] MEDS: METRONIDAZOLE 500 MG PREMIXED 100 ML IVPB SCH ×3 (01:04→18:11)
[2016-06-19] MEDS ORDERED: IBUPROFEN 800 MG/8 ML IJ IVPB PRN (01:30)
[2016-06-19] MEDS: SODIUM CHLORIDE 0.45%/POT 1,000 ML IV SCH ×2 (03:49→11:53)
[2016-06-19] MEDS: HYDROmorphone HCL CARPU-JECT 2 MG/1 ML DISP.SYRIN IVPB PRN ×2 (04:10→11:58)
[2016-06-19] MEDS: INSULIN SLIDING SCALE (NOVOLOG) 1 VIAL SQ SCH ×4 (06:24→21:30)
[2016-06-19] MEDS ORDERED: PT OWN MED DRAWER 7, Y5N ONE (10:00)
[2016-06-19] MEDS: ESCITALOPRAM OXALATE 10 MG TABLET (FP) PO SCH (10:18)
[2016-06-19] MEDS: HEPARIN NA (PORCINE) 5,000 UNITS/ML 1ML VIAL SQ SCH ×2 (10:19→21:29)
[2016-06-19] MEDS: LEVOFLOXACIN 500 MG IVPB 100 ML IVPB SCH (10:19)
--- NOTE | 2016-06-19 12:02 | CONSULT ---
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: Other (Pt has been recently w/u for early dementia, which runs in her family.) Cardio/Vascular: Yes: HTN, Hyperlipdemia Gastrointestinal: Yes: Pancreatitis (?), Other (SBO) ...: No Psych: Yes: Depression, Panic Musculoskeletal: Yes: Osteoarthritis, Other (Knee pain) Endocrine: Yes: Diabetes Mellitus - Past Surgical History Past Surgical History: Yes: Appendectomy, Cholecystectomy, Colonoscopy (neg 2 yrs ago at ), (x2), Hysterectomy - Alcohol/Substance Use Hx Alcohol Use: No - Smoking History Smoking history: Former smoker Have you smoked in the past 12 months: No Aproximately how many cigarettes per day: 0 If you are a former smoker, when did you quit?: november 2012 - Social History Usual Living Arrangement: With Spouse ADL: Independent History of Recent Travel: No Home Medications - Allergies Allergies/Adverse Reactions: Allergies Allergy/AdvReac Type Severity Reaction Status Date / Time Penicillins Allergy Verified 11/10/15 15:53 - Home Medications Home Medications: Ambulatory Orders Metformin HCl [Glucophage] 500 mg PO BID 07/06/13 Escitalopram Oxalate [Lexapro -] 10 mg PO DAILY #0 06/22/15 Insulin (Levemir) [Levemir Vial] 33 unit SQ AM #0 11/15/15 Pantoprazole Sodium [Protonix -] 40 mg PO DAILY tablet.ec 11/15/15 Insulin Lispro Protamin/Lispro [Humalog Mix 50-50 Kwikpen] 100 unit SQ ASDIR Telmisartan [Micardis] 80 mg PO DAILY 06/17/16 Family Disease History - Family Disease History Family Disease History: Diabetes: Mother, CA: Father (pancreatic 78) Review of Systems - Review of Systems Constitutional: denies: Chills, Fever HENT: reports: No Symptoms Cardiovascular: denies: Chest Pain Respiratory: denies: Cough Gastrointestinal: reports: Abdominal Pain, Nausea, Vomiting. denies: Diarrhea Genitourinary: reports: No Symptoms Neurological: denies: Change in LOC Pain Intensity: 4 Physical Exam Vital Signs: Vital Signs Temperature 98.5 F 06/19/16 05:51 Pulse Rate 72 06/19/16 05:51 Respiratory Rate 18 06/19/16 05:51 Blood Pressure 148/74 06/19/16 05:51 O2 Sat by Pulse Oximetry (%) 95 06/18/16 20:32 Constitutional: Yes: Calm Neck: Yes: Supple Cardiovascular: Yes: Regular Rate and Rhythm Respiratory: Yes: Diminished Gastrointestinal: Yes: Soft, Abdomen, Obese, Tenderness (Mild RUQ), Tenderness, Epigastrium (Mild). No: Distention, Tenderness, Rebound Neurological: Yes: Alert, Oriented Labs: CBC, BMP 06/18/16 06:00 06/18/16 06:00 Imaging - Results Cat Scan: Report Reviewed, Image Reviewed Ultrasound: Report Reviewed, Image Reviewed MRI: Pending Problem List - Problems (1) Abdominal pain Code(s): R10.9 - UNSPECIFIED ABDOMINAL PAIN Qualifiers: Abdominal location: upper abdomen, unspecified Qualified Code(s): R10.10 - Upper abdominal pain, unspecified (2) Abnormal LFTs Code(s): R79.89 - OTHER SPECIFIED ABNORMAL FINDINGS OF BLOOD CHEMISTRY (3) RUQ abdominal pain Code(s): R10.11 - RIGHT UPPER QUADRANT PAIN Assessment/Plan 61 female with RUQ/epigastric abdominal pain S/P cholecystectomy in the past WBC now normalized- 5 AST/ALT/AP elevated Bilirubin/lipase WNL U/S and CT - s/p cholecystectomy, no ductal dilation, diffuse hepatic steatosis , no pancreatitis GI following MRCP done- read pending If stone seen in CBD may need ERCP Hepatitis panel No acute surgical intervention needed Thank you
[2016-06-19 12:35] LABS: ALBUMIN 3.5 g/dl (3.4-5.0)
[2016-06-19 12:36] LABS: BILIRUBIN,TOTAL 0.8 mg/dL (0.2-1.0); TOT PROT 6.5 g/dl (6.4-8.2)
[2016-06-19 12:48] LABS: BILIRUBIN,DIRECT 0.4 mg/dL (0.0-0.2)
[2016-06-19] MEDS: ONDANSETRON 4 MG/2 ML VIAL IVPB PRN (15:47)
--- NOTE | 2016-06-19 16:50 | PN ---
Progress Note, Physician Chief Complaint: HAD D/W PATIENT & VISITOR/FAMILY AT BEDSIDE C/O HUNGRY -> WANT TO EAT - Current Medication List Current Medications: Active Medications Escitalopram Oxalate (Lexapro -) 10 mg PO DAILY [facility] Last Admin: 06/19/16 10:18 Dose: 10 mg Heparin Sodium (Porcine) (Heparin -) 5,000 unit SQ BID EDILIA Last Admin: 06/19/16 10:19 Dose: 5,000 unit Hydromorphone HCl (Dilaudid Injection -) 2 mg IVPB Q4H PRN PRN Reason: PAIN Last Admin: 06/19/16 11:58 Dose: 2 mg Potassium Chloride/Sodium Chloride (1/2ns+20meq Kcl) 1,000 mls @ 83 mls/hr IV ASDIR [facility] Last Admin: 06/19/16 11:53 Dose: Not Given Levofloxacin (Levaquin 500 Mg Premixed Ivpb -) 100 mls @ 100 mls/hr IVPB DAILY [facility] Last Admin: 06/19/16 10:19 Dose: 100 mls/hr Metronidazole (Flagyl 500mg Premixed Ivpb -) 100 mls @ 100 mls/hr IVPB Q8H-IV [facility]ILIA Last Admin: 06/19/16 10:18 Dose: 100 mls/hr Ibuprofen (Caldolor Injection -) 400 mg IVPB Q8H PRN PRN Reason: FEVER Last Admin: 06/19/16 07:42 Dose: 400 mg Insulin Aspart (Novolog Vial Sliding Scale -) 1 vial SQ ACHS [facility]IL[facility] PRN Reason: Protocol Last Admin: 06/19/16 16:30 Dose: Not Given Ondansetron HCl (Zofran Injection) 4 mg IVPB Q6H PRN PRN Reason: NAUSEA Last Admin: 06/19/16 15:47 Dose: 4 mg - Objective Vital Signs: Vital Signs Temperature 98.3 F 06/19/16 14:31 Pulse Rate 73 06/19/16 14:31 Respiratory Rate 20 06/19/16 14:31 Blood Pressure 149/93 06/19/16 14:31 O2 Sat by Pulse Oximetry (%) 95 06/18/16 20:32 Constitutional: Yes: Calm Cardiovascular: Yes: WNL Respiratory: Yes: WNL Gastrointestinal: Yes: Tenderness. No: Tenderness, Rebound Edema: No Labs: CBC, BMP 06/18/16 06:00 06/18/16 06:00 INR, PTT INR 1.05 (0.82-1.09) 06/17/16 01:28 Problem List - Problems (1) Abdominal pain Code(s): R10.9 - UNSPECIFIED ABDOMINAL PAIN Qualifiers: Abdominal location: upper abdomen, unspecified Qualified Code(s): R10.10 - Upper abdominal pain, unspecified (2) Abnormal LFTs Code(s): R79.89 - OTHER SPECIFIED ABNORMAL FINDINGS OF BLOOD CHEMISTRY (3) Controlled type 2 diabetes mellitus with diabetic peripheral angiopathy without gangrene Code(s): E11.51 - TYPE 2 DIABETES W DIABETIC PERIPHERAL ANGIOPATH W/O GANGRENE (4) Hypertension Code(s): I10 - ESSENTIAL (PRIMARY) HYPERTENSION Qualifiers: Hypertension type: essential hypertension Qualified Code(s): I10 - Essential (primary) hypertension Assessment/Plan (1) Abdominal pain Assessment/Plan: GI & GEN SURG CONSULTS APPRECIATED NO SURGICAL INTERVENTION F/U MRCP REPORT Code(s): R10.9 - UNSPECIFIED ABDOMINAL PAIN Qualifiers: Abdominal location: upper abdomen, unspecified Qualified Code(s): R10.10 - Upper abdominal pain, unspecified (2) DM2 (diabetes mellitus, type 2) Assessment/Plan: ISS BGM Code(s): E11.9 - TYPE 2 DIABETES MELLITUS WITHOUT COMPLICATIONS (3) Hypertension Assessment/Plan: MONITOR Code(s): I10 - ESSENTIAL (PRIMARY) HYPERTENSION Qualifiers: Hypertension type: essential hypertension Qualified Code(s): I10 - Essential (primary) hypertension (4) Vomiting Assessment/Plan: NPO -> CLEARS TRIAL IVF Code(s): R11.10 - VOMITING, UNSPECIFIED (5) Abnormal LFTs Assessment/Plan: US GI F/U Code(s): R79.89 - OTHER SPECIFIED ABNORMAL FINDINGS OF BLOOD CHEMISTRY [facility]ANTU
[2016-06-19] MEDS: D5-1/2NS+20 MEQ KCL - 1,000 ML IV SCH ×2 (18:12→18:23)
--- NOTE | 2016-06-19 19:37 | PN ---
GI Progress Note Subjective: GASTROENTEROLOGY MRCP WAS NEGATIVE, 2014 EUS WAS NEGATIVE INCLUDING FNA LFT'S STILL ELEVATED PAIN LESS - Objective Vital Signs: Vital Signs Temperature 98.3 F 06/19/16 14:31 Pulse Rate 73 06/19/16 14:31 Respiratory Rate 20 06/19/16 14:31 Blood Pressure 149/93 06/19/16 14:31 O2 Sat by Pulse Oximetry (%) 95 06/19/16 09:00 Constitutional: No Distress Eyes: Yes: Conjunctiva Clear HENT: Yes: Normocephalic Cardiovascular: Yes: WNL Respiratory: Yes: WNL Gastrointestinal Inspection: Yes: Distention (LESS DISTENSION) ...Auscultate: Yes: Normoactive Bowel Sounds ...Palpate: Yes: Soft Extremities: Yes: WNL Labs: CBC, BMP 06/18/16 06:00 06/18/16 06:00 INR, PTT INR 1.05 (0.82-1.09) 06/17/16 01:28 Laboratory Tests 06/17/16 06/17/16 06/18/16 01:28 04:12 06:00 Total Bilirubin 0.7 D 0.8 Direct Bilirubin AST 13 L D 166 H D ALT 21 D 273 H D Alkaline Phosphatase 104 D 178 H D Lipase 100 Hepatitis A Ab Total Hep Bs Antigen Hep Bs Antibody Hep B Core Total Ab Hepatitis C Antibody 06/18/16 06/19/16 06/19/16 06:00 06:45 06:45 Total Bilirubin Direct Bilirubin AST ALT Alkaline Phosphatase Lipase 88 Hepatitis A Ab Total Pending Hep Bs Antigen Pending Hep Bs Antibody Pending Hep B Core Total Ab Pending Hepatitis C Antibody Pending 06/19/16 11:45 Total Bilirubin 0.8 Direct Bilirubin 0.4 H D AST 202 H D ALT 215 H D Alkaline Phosphatase 215 H D Lipase 72 L Hepatitis A Ab Total Hep Bs Antigen Hep Bs Antibody Hep B Core Total Ab Hepatitis C Antibody Problem List - Problems (1) RUQ abdominal pain Assessment/Plan: IMPROVED Code(s): R10.11 - RIGHT UPPER QUADRANT PAIN (2) Elevated LFTs Assessment/Plan: TRENEDING DOWN, MRCP NEG ,PRIOR EUS NEGATIVE CK HEPATITIS PROFILE WILL FOLLOW Code(s): R79.89 - OTHER SPECIFIED ABNORMAL FINDINGS OF BLOOD CHEMISTRY (3) Abdominal pain Code(s): R10.9 - UNSPECIFIED ABDOMINAL PAIN Qualifiers: Abdominal location: upper abdomen, unspecified Qualified Code(s): R10.10 - Upper abdominal pain, unspecified (4) Vomiting bile Code(s): R11.14 - BILIOUS VOMITING
[2016-06-20] MEDS: METRONIDAZOLE 500 MG PREMIXED 100 ML IVPB SCH ×2 (01:17→10:18)
[2016-06-20] MEDS: INSULIN SLIDING SCALE (NOVOLOG) 1 VIAL SQ SCH ×2 (06:02→12:21)
[2016-06-20 07:44] LABS: BASOPHIL 1.3 % (0-2.0); EOSINOPHIL 1.2 % (0-4.5); MCH 28.4 pg (25.7-33.7); MCHC 33.8 g/dl (32.0-36.0); MEAN CELL VOLUME 83.9 fl (80-96); MEAN PLT VOLUME 7.3 fl (7.5-11.1); NEUTROPHILS 66.4 % (42.8-82.8); PLATELET COUNT 275 K/MM3 (134-434); RDW 13.5 % (11.6-15.6); WHITE BLOOD COUNT 5.6 K/mm3 (4.0-10.0)
[2016-06-20 09:02] LABS: ALBUMIN 3.5 g/dl (3.4-5.0); ALK PHOS 211 U/L (45-117); ANION GAP 10 (8-16); BILIRUBIN,TOTAL 0.7 mg/dL (0.2-1.0); CALCIUM 8.4 mg/dL (8.5-10.1); CO2 26 mmol/L (21-32); CREATININE 0.7 mg/dL (0.55-1.02); GLUCOSE,RANDOM 194 mg/dL (74-106); SGOT/AST 49 U/L (15-37); SGPT/ALT 162 U/L (12-78); TOT PROT 6.6 g/dl (6.4-8.2)
[2016-06-20] MEDS: HEPARIN NA (PORCINE) 5,000 UNITS/ML 1ML VIAL SQ SCH (10:17)
[2016-06-20] MEDS: ESCITALOPRAM OXALATE 10 MG TABLET (FP) PO SCH (10:18)
[2016-06-20] MEDS: LEVOFLOXACIN 500 MG IVPB 100 ML IVPB SCH (10:18)
--- NOTE | 2016-06-20 11:28 | PN ---
Progress Note, Physician History of Present Illness: OOB in chair No c/o abdominal pain C/O feeling hungry No N/V MRCP results noted - Current Medication List Current Medications: Active Medications Escitalopram Oxalate (Lexapro -) 10 mg PO DAILY [facility] Last Admin: 06/20/16 10:18 Dose: 10 mg Heparin Sodium (Porcine) (Heparin -) 5,000 unit SQ BID EDILIA Last Admin: 06/20/16 10:17 Dose: 5,000 unit Hydromorphone HCl (Dilaudid Injection -) 2 mg IVPB Q4H PRN PRN Reason: PAIN Last Admin: 06/19/16 11:58 Dose: 2 mg Levofloxacin (Levaquin 500 Mg Premixed Ivpb -) 100 mls @ 100 mls/hr IVPB DAILY [facility] Last Admin: 06/20/16 10:18 Dose: 100 mls/hr Metronidazole (Flagyl 500mg Premixed Ivpb -) 100 mls @ 100 mls/hr IVPB Q8H-IV EDILIA Last Admin: 06/20/16 10:18 Dose: 100 mls/hr Potassium Chloride/Dextrose/Sod Cl (D5-1/2ns+20 Meq Kcl -) 1,000 mls @ 60 mls/ hr IV ASDIR [facility] Last Admin: 06/19/16 18:23 Dose: 60 mls/hr Ibuprofen (Caldolor Injection -) 400 mg IVPB Q8H PRN PRN Reason: FEVER Last Admin: 06/19/16 07:42 Dose: 400 mg Insulin Aspart (Novolog Vial Sliding Scale -) 1 vial SQ ACHS EDILIA PRN Reason: Protocol Last Admin: 06/20/16 06:02 Dose: Not Given Ondansetron HCl (Zofran Injection) 4 mg IVPB Q6H PRN PRN Reason: NAUSEA Last Admin: 06/19/16 15:47 Dose: 4 mg - Objective Vital Signs: Vital Signs Temperature 98.3 F 06/20/16 09:00 Pulse Rate 57 L 06/20/16 09:00 Respiratory Rate 18 06/20/16 09:00 Blood Pressure 142/81 06/20/16 09:00 O2 Sat by Pulse Oximetry (%) 96 06/19/16 21:00 Constitutional: Yes: No Distress Eyes: Yes: Conjunctiva Clear Cardiovascular: Yes: Regular Rate and Rhythm, S1, S2 Respiratory: Yes: CTA Bilaterally Gastrointestinal: Yes: Normal Bowel Sounds, Soft. No: Tenderness Edema: No Labs: CBC, BMP 06/20/16 06:00 06/20/16 06:00 INR, PTT INR 1.05 (0.82-1.09) 06/17/16 01:28 Assessment/Plan Abdominal pain syndrome- improved Elevated LFTs-improved Leukocytosis- resolved PCN allergy Switch to po levaquin/flagyl x 24-48hr
[2016-06-20] MEDS ORDERED: metroNIDAZOLE 250 MG TABLET PO SCH (14:00)
[2016-06-20] MEDS ORDERED: INSULIN (NOVOLOG) ASPART 100 UNITS/ML 10ML VIAL ONE (14:06)
[2016-06-20 14:22] VITALS: BP 121/69; PULSE 69; TEMP 98.1
--- NOTE | 2016-06-20 14:55 | DS ---
[id number] Rate 18 06/20/16 14:20 Blood Pressure 121/69 06/20/16 14:20 O2 Sat by Pulse Oximetry (%) 96 06/19/16 21:00 Cardiovascular: Yes: WNL Respiratory: Yes: WNL Gastrointestinal: Yes: WNL Labs: CBC, BMP 06/20/16 06:00 06/20/16 06:00 Discharge Summary Reason For Visit: ABDOMINAL PAIN Current Active Problems Abdominal pain (Acute) Abnormal LFTs (Acute) Garza palsy (Acute) Controlled type 2 diabetes mellitus with diabetic peripheral angiopathy without gangrene (Acute) Elevated LFTs (Acute) Left facial numbness (Acute) RUQ abdominal pain (Acute) UTI (urinary tract infection) (Acute) Vomiting bile (Acute) Zoster (Acute) Zoster encephalitis (Acute) Hospital Course: (1) Abdominal pain Assessment/Plan: GI & GEN SURG CONSULTS APPRECIATED NO SURGICAL INTERVENTION F/U MRCP REPORT -> FATTY LIVER TOLERATING PO LFTs IMPROVING Code(s): R10.9 - UNSPECIFIED ABDOMINAL PAIN Qualifiers: Abdominal location: upper abdomen, unspecified Qualified Code(s): R10.10 - Upper abdominal pain, unspecified (2) DM2 (diabetes mellitus, type 2) Assessment/Plan: ISS BGM Code(s): E11.9 - TYPE 2 DIABETES MELLITUS WITHOUT COMPLICATIONS (3) Hypertension Assessment/Plan: MONITOR Code(s): I10 - ESSENTIAL (PRIMARY) HYPERTENSION Qualifiers: Hypertension type: essential hypertension Qualified Code(s): I10 - Essential (primary) hypertension (4) Vomiting Assessment/Plan: RESOLVED Code(s): R11.10 - VOMITING, UNSPECIFIED (5) Abnormal LFTs Assessment/Plan: US GI F/U Code(s): R79.89 - OTHER SPECIFIED ABNORMAL FINDINGS OF BLOOD CHEMISTRY DISCHARGE NEED F/U WITH PCP IN 1 WEEK & GI F/U IN 4 WEEKS [facility] [employer] [facility] Condition: Stable - Instructions Diet, Activity, Other Instructions: Follow with Dr. Vargas in four weeks at his office. Consume a high fiber diet Referrals: Preeti Zuniga MD [Primary Care Provider] - Al Vargas MD [Staff Physician] - Disposition: HOME - Home Medications Comprehensive Discharge Medication List: Ambulatory Orders Metformin HCl [Glucophage] 500 mg PO BID 07/06/13 Escitalopram Oxalate [Lexapro -] 10 mg PO DAILY #0 06/22/15 Insulin (Levemir) [Levemir Vial] 33 unit SQ AM #0 11/15/15 Pantoprazole Sodium [Protonix -] 40 mg PO DAILY tablet.ec 11/15/15 Insulin Lispro Protamin/Lispro [Humalog Mix 50-50 Kwikpen] 100 unit SQ ASDIR Telmisartan [Micardis] 80 mg PO DAILY 06/17/16
--- NOTE | 2016-06-20 15:26 | EKG ---
Test Reason : Blood Pressure : / mmHG Vent. Rate : 074 BPM Atrial Rate : 074 BPM P-R Int : 134 ms QRS Dur : 086 ms QT Int : 354 ms P-R-T Axes : 029 018 047 degrees QTc Int : 392 ms NORMAL SINUS RHYTHM POSSIBLE INFERIOR INFARCT , AGE UNDETERMINED ABNORMAL ECG WHEN COMPARED WITH ECG OF 13-NOV-2015 09:23, T WAVE VARIATION Confirmed by ANJALI BATISTA MD ([id number]) on 06/20/2016 3:26:09 PM Referred By: Confirmed By:ANJALI BATISTA MD
[2016-06-21 00:06] LABS: HEP B SURFACE AB Non Reactive (.)
[2016-06-21] MEDS ORDERED: LEVOFLOXACIN 500 MG TABLET (FP) PO SCH (06:00)
== END 2016-06-20 15:39 | disposition home or self-care (01) | DRG 249 ==
LOC: JER 22:56 → SUPCPDRO 22:56 → JERBED 06-17 10:08 → J7W 06-17 11:15 → OBSVTOIN 06-17 11:40
PROVIDERS: ADMIT Family Medicine; ATTEND Family Medicine
DX: K52.9 Noninfective gastroenteritis and colitis, unspecified (principal); R10.11 Right upper quadrant pain; E11.51 Type 2 diabetes mellitus with diabetic peripheral angiopathy without gangrene; I10 Essential (primary) hypertension; F32.9 Major depressive disorder, single episode, unspecified; M19.90 Unspecified osteoarthritis, unspecified site; R94.5 Abnormal results of liver function studies; E78.5 Hyperlipidemia, unspecified; K86.1 Other chronic pancreatitis; Z79.4 Long term (current) use of insulin; Z87.891 Personal history of nicotine dependence; K29.60 Other gastritis without bleeding
CPT/HCPCS: 36415; 70450-TC; 71020-TC; 71275-TC; 74020-TC; 74177-TC; 74181-TC; 76700-TC; 76775-TC; 80053; 80076; 81003; 81015; 82009; 82550; 83036; 83605; 83690; 84484; 85025; 85610; 86704; 86706; 86708; 87040; 87086; 87340; 93005; 93010; 99285-25; G0378; J1644; J3480

== ENCOUNTER 2016-10-07 03:51 | Inpatient (IN) | payer OTHER ==
[2016-10-07 04:28] LABS: BASOPHIL 0.8 % (0-2.0); EOSINOPHIL 1.7 % (0-4.5); MCH 27.9 pg (25.7-33.7); MEAN CELL VOLUME 84.4 fl (80-96); MEAN PLT VOLUME 7.8 fl (7.5-11.1); NEUTROPHILS 70.1 % (42.8-82.8); PLATELET COUNT 354 K/MM3 (134-434); RDW 13.4 % (11.6-15.6); WHITE BLOOD COUNT 12.2 K/mm3 (4.0-10.0)
[2016-10-07] MEDS ORDERED: ONDANSETRON 4 MG/2 ML VIAL IVPUSH ONE (04:45)
[2016-10-07] MEDS ORDERED: ONDANSETRON 4 MG/2 ML VIAL ONE ×2 (04:46→11:30)
--- NOTE | 2016-10-07 05:32 | PDOC ---
History of Present Illness - General Chief Complaint: Pain Stated Complaint: ABDOMINAL PAIN Time Seen by Provider: 10/07/16 04:00 - History of Present Illness Initial Comments: 10/07/16 05:32 CHIEF COMPLAINT: abd pain HISTORY OF PRESENT ILLNESS: 61 yo F past medical history of chronic pancreatitis , insulin dependent diabetes, and hypertension presents to ED with vomiting and abdominal pain since yesterday. She reports throwing up once yesterday after drinking soup and eating tacos and today she threw up 4 times. Her last BM was today prior to arrival. She denies fever, diarrhea or rectal bleeding. She reports that this abdominal pain is the same pain that she has "always has" and has been seen multiple times in this ER for the same. PAST MEDICAL HISTORY: as per HPI FAMILY HISTORY: Denies SOCIAL HISTORY: Denies tobacco, alcohol, illicit drug use. SURGICAL HISTORY: "stent placement" per pt records, cholecystectomy ALLERGIES: PCN REVIEW OF SYSTEMS General/Constitutional: Denies fever or chills. Denies weakness, weight change. HEENT: Denies change in vision. Denies ear pain or discharge. Denies sore throat. Cardiovascular: Denies chest pain or shortness of breath. Respiratory: Denies cough, wheezing, or hemoptysis. Gastrointestinal: Vomiting and abd pain x 2 days. Denies diarrhea or constipation. Denies rectal bleeding. Genitourinary: Denies dysuria, frequency, or change in urination. Musculoskeletal: Denies joint or muscle swelling or pain. Denies neck or back pain. Skin and breasts: Denies rash or easy bruising. Neurologic: Denies headache, vertigo loss of consciousness, or loss of sensation. PHYSICAL EXAM General Appearance: Well-appearing, appropriately dressed. No apparent distress. HEENT: EOMI, PERRLA, normal ENT inspection, normal voice, TMs normal, pharynx normal. No conjunctival pallor. No photophobia, scleral icterus. Neck: Supple. Trachea midline. No tenderness, rigidity, carotid bruit, stridor , lymphadenopathy, or thyromegaly. Respiratory/Chest: Lungs CTAB. Cardiovascular: RRR. S1, S2. Gastrointestinal/Abdominal: Epigastric tenderness. Protuberant, soft abdomen. No organomegaly, pulsatile mass, guarding, hernia, hepatomegaly, splenomegaly. Musculoskeletal/Extremities: Normal inspection. FROM of all extremities, normal capillary refill. Pelvis Stable. No CVA tenderness. No tenderness to extremities, pedal edema, swelling, erythema or deformity. Integumentary: Appropriate color, dry, warm. 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 Fully oriented, alert. Appropriate mood/affect. Motor strength 5/5. No appreciable EOM palsy, facial droop or sensory deficit. 10/07/16 05:33 Past History - Past Medical History Allergies/Adverse Reactions: Allergies Allergy/AdvReac Type Severity Reaction Status Date / Time Penicillins Allergy Verified 10/07/16 04:04 Home Medications: Ambulatory Orders Metformin HCl [Glucophage] 500 mg PO BID 07/06/13 Pantoprazole Sodium [Protonix -] 40 mg PO DAILY tablet.ec 11/15/15 Telmisartan [Micardis] 80 mg PO DAILY 06/17/16 Escitalopram Oxalate [Lexapro -] 20 mg PO DAILY 10/07/16 Humalog Mix 50-50 Kwikpen 10 unit SQ DAILY 10/07/16 Insulin (Levemir) [Levemir Vial] 30 unit SQ AM 10/07/16 Anemia: No Asthma: No Cancer: No CVA: No COPD: No CHF: No Dementia: No Diabetes: Yes GI Disorders: Yes (pancreatitis, sbo, GERD) Disorders: No HTN: Yes Hypercholesterolemia: Yes Liver Disease: No Psychiatric Problems: Yes (DEPRESSION, MEMORY LOSS) Seizures: No Thyroid Disease: No - Surgical History Abdominal Surgery: Yes Appendectomy: Yes Cardiac Surgery: No Cholecystectomy: Yes Lung Surgery: No Neurologic Surgery: No Orthopedic Surgery: No - Family Disease History Family Disease History: Diabetes: Father, Heart Disease: Father - Immunization History Immunization Up to Date: Yes - Psycho/Social/Smoking Cessation Hx Anxiety: No Suicidal Ideation: No Smoking Status: No Smoking History: Never smoked Have you smoked in the past 12 months: No Number of Cigarettes Smoked Daily: 0 If you are a former smoker, when did you quit?: november 2012 Information on smoking cessation initiated: No Hx Alcohol Use: No Drug/Substance Use Hx: No Substance Use Type: None Hx Substance Use Treatment: No *Physical Exam - Vital Signs Last Vital Signs Temp Pulse Resp BP Pulse Ox 98.2 F 81 18 145/102 97 10/07/16 04:05 10/07/16 04:05 10/07/16 04:05 10/07/16 04:05 10/07/16 04:05 ED Treatment Course - LABORATORY CBC & Chemistry Diagram: 10/09/16 06:30 10/09/16 06:30 - ADDITIONAL ORDERS Additional order review: Laboratory Results 10/07/16 10/07/16 10/07/16 04:16 04:16 04:16 Sodium Cancelled Potassium Cancelled Chloride Cancelled Carbon Dioxide Cancelled Anion Gap Cancelled BUN Cancelled Creatinine Cancelled Creat Clearance w eGFR Cancelled Random Glucose Cancelled Calcium Cancelled Total Bilirubin Cancelled AST Cancelled ALT Cancelled Alkaline Phosphatase Cancelled Creatine Kinase Cancelled Troponin I Cancelled Total Protein Cancelled Albumin Cancelled Lipase Cancelled Acetone, Qual Cancelled 10/07/16 04:16 RBC 4.57 MCV 84.4 MCHC 33.0 RDW 13.4 MPV 7.8 Neutrophils % 70.1 Lymphocytes % 21.9 Monocytes % 5.5 Eosinophils % 1.7 Basophils % 0.8 - RADIOLOGY Radiology Studies Ordered: Category Date Time Status ABDOMEN US [US] Stat Ultrasound 10/07/16 05:25 Ordered - Medications Given in the ED: ED Medications Discontinued Medications Generic Name Dose Route Start Last Admin Trade Name Freq PRN Reason Stop Dose Admin Ondansetron HCl 8 mg 10/07/16 04:45 10/07/16 04:53 Zofran Injection IVPUSH 10/07/16 04:46 8 mg ONCE ONE Administration Medical Decision Making - Medical Decision Making 10/07/16 04:37 61 yo F past medical history of chronic pancreatitis, insulin dependent diabetes , and hypertension presents to ED with vomiting and abdominal pain since yesterday. Patient recent MRI with MRCP with no evidence of choledocholethiasis or biliary ductal dilatation. Severe fatty infiltration of liver seen on MRI. -CBC, CMP, lipase, acetone, card profile -Toradol, Zofran -EKG -Abdomen US for eval of biliary duct 10/07/16 05:05 CMP/trop/acetone hemolyzed, will reorder. 10/07/16 06:34 Labs: WBC 12.2, otherwise unremarkable. Case discussed in detail with oncoming emergency provider including history, physical exam and ancillary studies. In brief, this patient is being seen in the ED for a chief complaint of: I have completed the initial assessment interview note and have ordered the following labs: CBC, CMP, lipase, acetone, card profile I have reviewed the following results: all Pending results: Abdomen US Please call the PCP: Efrain Plan for disposition as follows: Oncoming NPA Kristi has assumed care for the patient and will complete the evaluation and treatment. *DC/Admit/Observation/Transfer Diagnosis at time of Disposition: Pancreatitis Qualifiers: Chronicity: acute Pancreatitis type: unspecified pancreatitis type Acute pancreatitis complication: no infection or necrosis Qualified Code(s): K85.90 - Acute pancreatitis without necrosis or infection, unspecified - Discharge Dispostion Disposition: HOME Condition at time of disposition: Improved
[2016-10-07 05:57] LABS: ALBUMIN 3.6 g/dl (3.4-5.0); ANION GAP 12 (8-16); BILIRUBIN,TOTAL 0.5 mg/dL (0.2-1.0); CALCIUM 8.8 mg/dL (8.5-10.1); CO2 26 mmol/L (21-32); CREATININE 0.8 mg/dL (0.55-1.02); GLUCOSE,RANDOM 184 mg/dL (74-106); SGOT/AST 9 U/L (15-37); SGPT/ALT 22 U/L (12-78); TOT PROT 6.7 g/dl (6.4-8.2)
[2016-10-07 06:00] LABS: ALK PHOS 89 U/L (45-117); TROPONIN I < 0.02 ng/ml (0.00-0.05)
[2016-10-07] MEDS ORDERED: KETOROLAC TROMETHAMINE 30 MG/1 ML VIAL IVPUSH ONE (06:07)
[2016-10-07 06:08] LABS: ACETONE SERUM NEGATIVE (NEGATIVE)
[2016-10-07] MEDS ORDERED: KETOROLAC TROMETHAMINE 30 MG/1 ML VIAL ONE (06:16)
[2016-10-07 06:49] LABS: URINE APPEARANCE CLEAR; URINE BILIRUBIN NEGATIVE (NEGATIVE); URINE BLOOD NEGATIVE (NEGATIVE); URINE COLOR LTYELLOW; URINE GLUCOSE (UA) NEGATIVE (NEGATIVE); URINE KETONE NEGATIVE (NEGATIVE); URINE LEUK ESTERASE NEGATIVE (NEGATIVE); URINE NITRITE NEGATIVE (NEGATIVE); URINE PROTEIN NEGATIVE (NEGATIVE); URINE UROBILINOGEN NEGATIVE E.U./dl (0.2-1.0)
--- NOTE | 2016-10-07 07:23 | PDOC ---
*Physical Exam - Vital Signs Last Vital Signs Temp Pulse Resp BP Pulse Ox 98.2 F 81 18 145/102 97 10/07/16 04:05 10/07/16 04:05 10/07/16 04:05 10/07/16 04:05 10/07/16 04:05 - Physical Exam General Appearance: Yes: Appropriately Dressed. No: Apparent Distress HEENT: positive: Normal Voice Neck: positive: Supple Respiratory/Chest: negative: Respiratory Distress Gastrointestinal/Abdominal: positive: Tender (to epigatrium), Soft. negative: Distended, Guarding, Rebound Musculoskeletal: negative: CVA Tenderness Extremity: positive: Normal Inspection Integumentary: positive: Dry, Warm Neurologic: positive: Fully Oriented, Alert, Normal Mood/Affect ED Treatment Course - LABORATORY CBC & Chemistry Diagram: 10/07/16 04:16 10/07/16 05:20 - ADDITIONAL ORDERS Additional order review: Laboratory Results 10/07/16 10/07/16 10/07/16 06:38 06:20 05:20 Sodium 141 Potassium 3.9 Chloride 103 Carbon Dioxide 26 Anion Gap 12 BUN 14 D Creatinine 0.8 Creat Clearance w eGFR > 60 Random Glucose 184 H Calcium 8.8 Total Bilirubin 0.5 D AST 9 L D ALT 22 D Alkaline Phosphatase 89 D Creatine Kinase 49 Troponin I < 0.02 Total Protein 6.7 Albumin 3.6 Lipase 208 Urine Color Ltyellow Urine Appearance Clear Urine pH 5.0 Urine Protein Negative Urine Glucose (UA) Negative Urine Ketones Negative Urine Blood Negative Urine Nitrite Negative Urine Bilirubin Negative Urine Urobilinogen Negative Ur Leukocyte Esterase Negative Acetone, Qual Negative L 10/07/16 10/07/16 10/07/16 04:16 04:16 04:16 Sodium Cancelled Potassium Cancelled Chloride Cancelled Carbon Dioxide Cancelled Anion Gap Cancelled BUN Cancelled Creatinine Cancelled Creat Clearance w eGFR Cancelled Random Glucose Cancelled Calcium Cancelled Total Bilirubin Cancelled AST Cancelled ALT Cancelled Alkaline Phosphatase Cancelled Creatine Kinase Cancelled Troponin I Cancelled Total Protein Cancelled Albumin Cancelled Lipase Cancelled Urine Color Urine Appearance Urine pH Urine Protein Urine Glucose (UA) Urine Ketones Urine Blood Urine Nitrite Urine Bilirubin Urine Urobilinogen Ur Leukocyte Esterase Acetone, Qual Cancelled 10/07/16 04:16 RBC 4.57 MCV 84.4 MCHC 33.0 RDW 13.4 MPV 7.8 Neutrophils % 70.1 Lymphocytes % 21.9 Monocytes % 5.5 Eosinophils % 1.7 Basophils % 0.8 - Medications Given in the ED: ED Medications Discontinued Medications Generic Name Dose Route Start Last Admin Trade Name Tramaine PRN Reason Stop Dose Admin Ketorolac Tromethamine 30 mg 10/07/16 06:07 10/07/16 06:20 Toradol Injection - IVPUSH 10/07/16 06:08 30 mg ONCE ONE Administration Ondansetron HCl 8 mg 10/07/16 04:45 10/07/16 04:53 Zofran Injection IVPUSH 10/07/16 04:46 8 mg ONCE ONE Administration Medical Decision Making - Medical Decision Making 10/07/16 07:22 Patient signed out to me at 7 AM Patient is a 61-year-old female, history of insulin-dependent diabetes, status post svetlana, chronic pancreatitis, s/p ?pancreatic stent 1 month ago per pt, with multiple ER visits and admissions for abdominal pain, presents with abdominal pain with nausea/vomiting simialr to her pancreatitis per pt. Labs unremarkable in ED. Currently c/o epigastric pain radiating to her back. US ordered by prior team and pending. Will continue to manage pain in ED. Will c/s GI 10/07/16 08:20 10/07/16 08:38 10/07/16 09:25 US unremarkable. Pt continues c/o pain despite multiple attempts at pain control. Will contact Dr Zuniga and admit at this time 10/07/16 10:09 Case d/w ART DEALER for Dr Zuniga, rec CT in ED. Admit to inpt vs OBs based on CT results 10/07/16 12:[address] As per d/w Dr Zuniga's ART DEALER, will admit pt to in-pt at this time *DC/Admit/Observation/Transfer Diagnosis at time of Disposition: Pancreatitis Qualifiers: Chronicity: acute Pancreatitis type: unspecified pancreatitis type Acute pancreatitis complication: no infection or necrosis Qualified Code(s): K85.90 - Acute pancreatitis without necrosis or infection, unspecified - Discharge Dispostion Condition at time of disposition: Fair Admit: Yes - Referrals Referrals: Preeti Zuniga MD [Primary Care Provider] -
[2016-10-07] MEDS ORDERED: morphine CARPU-JECT 4 MG/1 ML DISP.SYRIN IVPUSH ONE (08:28)
[2016-10-07] MEDS ORDERED: HYDROmorphone HCL CARPU-JECT 2 MG/1 ML DISP.SYRIN IVPUSH ONE (09:24)
--- NOTE | 2016-10-07 09:54 | EKG ---
Test Reason : Blood Pressure : / mmHG Vent. Rate : 066 BPM Atrial Rate : 066 BPM P-R Int : 126 ms QRS Dur : 082 ms QT Int : 424 ms P-R-T Axes : 029 024 046 degrees QTc Int : 444 ms POOR DATA QUALITY, INTERPRETATION MAY BE ADVERSELY AFFECTED NORMAL SINUS RHYTHM NONSPECIFIC T WAVE ABNORMALITY Confirmed by RICK MATIAS MD ([id number]) on 10/07/2016 9:54:29 AM Referred By: Confirmed By:RICK MATIAS MD
[2016-10-07] MEDS ORDERED: morphine CARPU-JECT 4 MG/1 ML DISP.SYRIN ONE (10:12)
[2016-10-07] MEDS ORDERED: HYDROmorphone HCL CARPU-JECT 2 MG/1 ML DISP.SYRIN IVPUSH PRN (17:22)
--- NOTE | 2016-10-07 17:29 | PN ---
Progress Note, Physician Chief Complaint: ABDOMINAL PAIN/PANCREATITIS History of Present Illness: 61 yo F past medical history of chronic pancreatitis, insulin dependent diabetes , and hypertension presents to ED with vomiting and abdominal pain since yesterday. She reports throwing up once yesterday after drinking soup and eating tacos and today she threw up 4 times. Her last BM was today prior to arrival. She denies fever, diarrhea or rectal bleeding. She reports that this abdominal pain is the same pain that she has "always has" and has been seen multiple times in this ER for the same. CT abdomen showed acute pancreatitis. Admission decided for symptoms management. - Current Medication List Current Medications: Active Medications Hydromorphone HCl (Dilaudid Injection -) 2 mg IVPUSH Q4H PRN PRN Reason: PAIN Lactated Ringer's (Lactated Ringers Solution) 1,000 mls @ 75 mls/hr IV ASDIR EDILIA Insulin Aspart (Novolog Vial Sliding Scale -) 0 vial SQ ACHS EDILIA PRN Reason: Protocol - Objective Vital Signs: Vital Signs Temperature 98.2 F 10/07/16 14:58 Pulse Rate 64 10/07/16 14:58 Respiratory Rate 16 10/07/16 14:58 Blood Pressure 108/56 10/07/16 14:58 O2 Sat by Pulse Oximetry (%) 96 10/07/16 14:58 Constitutional: Yes: Well Nourished, Mild Distress Cardiovascular: Yes: Regular Rate and Rhythm Respiratory: Yes: Regular Gastrointestinal: Yes: Normal Bowel Sounds, Tenderness, Tenderness, Epigastrium Edema: No Peripheral Pulses WNL: Yes Neurological: Yes: Alert, Oriented Problem List - Problems (1) Abdominal pain Assessment/Plan: PAIN MANAGEMENT-MORPHINE, NPO, IVF Code(s): R10.9 - UNSPECIFIED ABDOMINAL PAIN (2) Controlled type 2 diabetes mellitus with diabetic peripheral angiopathy without gangrene Assessment/Plan: BGM MONITORING. NPO, IVF. Code(s): E11.51 - TYPE 2 DIABETES W DIABETIC PERIPHERAL ANGIOPATH W/O GANGRENE (3) Pancreatitis Assessment/Plan: ON CT ABDOMEN, PAIN MANAGEMENT-MORPHINE, IVF, NPO Code(s): K85.9 - ACUTE PANCREATITIS, UNSPECIFIED * DO NOT USE * Qualifiers: Chronicity: acute Pancreatitis type: unspecified pancreatitis type Acute pancreatitis complication: no infection or necrosis Qualified Code( s): K85.90 - Acute pancreatitis without necrosis or infection, unspecified Assessment/Plan CT ABDMONE- ACUTE PANCREATITIS IVF, PAIN MANAGEMENT, LABS IN AM MONITOR BLOOD GLUCOSE GI CONSULT.
[2016-10-07] MEDS ORDERED: LACTATED RINGERS SOLUTION 1,000 ML IV SCH ×2 (17:30→18:39)
[2016-10-07] MEDS ORDERED: morphine CARPU-JECT 4 MG/1 ML DISP.SYRIN IVPUSH PRN ×2 (17:35→21:40)
[2016-10-07 18:05] VITALS: BMI 28.5
--- NOTE | 2016-10-07 18:29 | CON.GI ---
Consult Consult Specialty:: GASTROENTEROLOGY Reason for Consultation:: ABDOMINAL PAIN PERIPANCREATIC FLUID - History of Present Illness Chief Complaint: ABDOMINAL PAIN History of Present Illness: 61 YEAR OLD FEMALE WITH HISTORY OF RECURRENT PANCREATITIS WITH ELEVATED TRANSAMINASES ADMITTED WITH RECURRENT PAIN, NORMAL LABS BUT FLUID SEEN AROUND PANCREATIC HEAD. SHE STARTED TO GET PAIN EARLIER IN THE WEEK. SHE ALSO HAS C/ O REFLUX. SHE HAS HAD AN EUS MORE THAN 2 YEARS AGO AND IT DID NOT REVEAL A MASS. SHE WAS TREATED BY OUR GROUP AT [facility] IN JULY/ AUGUST WHEN SHE HAD AN ERCP WITH SPHINCTEROTOMY AND PLACEMENT OF A PANCREATIC STENT. SHE HAS BEEN WELL UNTIL TODAY. PATIENT DENIES ETOH BUT PROBABLY NOT VERY COMPLIANT WITH DIET. 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: Other (Pt has been recently w/u for early dementia, which runs in her family.) Cardio/Vascular: Yes: HTN, Hyperlipdemia Gastrointestinal: Yes: Pancreatitis (?), Other (SBO) Psych: Yes: Depression, Panic Musculoskeletal: Yes: Osteoarthritis, Other (Knee pain) Endocrine: Yes: Diabetes Mellitus - Past Surgical History Past Surgical History: Yes: Appendectomy, Cholecystectomy, Colonoscopy (neg 2 yrs ago at ), (x2), Hysterectomy Additional Surgical History: HPI - Alcohol/Substance Use Hx Alcohol Use: No - Smoking History Smoking history: Former smoker Have you smoked in the past 12 months: No Aproximately how many cigarettes per day: 0 If you are a former smoker, when did you quit?: november 2012 - Social History Usual Living Arrangement: With Spouse ADL: Independent History of Recent Travel: No Home Medications - Allergies Allergies/Adverse Reactions: Allergies Allergy/AdvReac Type Severity Reaction Status Date / Time Penicillins Allergy Verified 10/07/16 04:04 - Home Medications Home Medications: Ambulatory Orders Metformin HCl [Glucophage] 500 mg PO BID 07/06/13 Pantoprazole Sodium [Protonix -] 40 mg PO DAILY tablet.ec 11/15/15 Telmisartan [Micardis] 80 mg PO DAILY 06/17/16 Escitalopram Oxalate [Lexapro -] 20 mg PO DAILY 10/07/16 Humalog Mix 50-50 Kwikpen 10 unit SQ DAILY 10/07/16 Insulin (Levemir) [Levemir Vial] 30 unit SQ AM 10/07/16 Family Disease History - Family Disease History Family Disease History: Diabetes: Mother, CA: Father (pancreatic 78) Review of Systems - Review of Systems Constitutional: reports: Loss of Appetite Eyes: reports: No Symptoms HENT: reports: No Symptoms Neck: reports: No Symptoms Cardiovascular: reports: No Symptoms Respiratory: reports: No Symptoms Gastrointestinal: reports: Abdominal Pain, Nausea, Other (REFLUX) Neurological: reports: No Symptoms Endocrine: reports: No Symptoms Hematology/Lymphatic: reports: No Symptoms Psychiatric: reports: No Symptoms Physical Exam-GI Vital Signs: Vital Signs Temperature 98.6 F 10/07/16 15:55 Pulse Rate 53 L 10/07/16 15:55 Respiratory Rate 16 10/07/16 15:55 Blood Pressure 127/71 10/07/16 15:55 O2 Sat by Pulse Oximetry (%) 96 10/07/16 15:55 Constitutional: Yes: Well Nourished Eyes: Yes: Conjunctiva Clear HENT: Yes: Atraumatic Neck: Yes: Supple Cardiovascular: Yes: Regular Rate and Rhythm Respiratory: Yes: Regular Gastrointestinal Inspection: Yes: Distention ...Auscultate: Yes: Hypoactive Bowel Sounds ...Palpate: Yes: Soft, Tenderness, Epigastium, Other (RUQ PAIN) Extremities: Yes: WNL Edema: No Imaging - Results Cat Scan: Image Reviewed Problem List - Problems (1) Recurrent acute pancreatitis Assessment/Plan: NPO, IVF (LR) AT 175 CC/HR FOR 6 HOURS THEN DROP TO 150 CC/HR TILL 8AM, THEN 125 CC/ HR IF STILL NPO CHANGE MORPHINE TO DILAUDID REPEAT LABS IN AM ADVANCE DIET IF IMPROVED IN AM REPEAT IMAGING (MRI) IN 6 WEEKS, POSSIBLE NEW EUS IN NEXT 2 MONTHS (R/O SMALL NEOPLASM) BRET CASTILLO MD Code(s): K85.90 - ACUTE PANCREATITIS WITHOUT NECROSIS OR INFECTION, UNSP
[2016-10-07] MEDS ORDERED: HYDROmorphone HCL CARPU-JECT 2 MG/1 ML DISP.SYRIN IVPB PRN (18:37)
[2016-10-07] MEDS ORDERED: INSULIN SLIDING SCALE (NOVOLOG) 1 VIAL SQ SCH (22:00)
[2016-10-07] MEDS: PANTOPRAZOLE SODIUM 40 MG/100 ML PRE-DOCKED IVPB SCH (22:06)
[2016-10-08] MEDS: LACTATED RINGERS SOLUTION 1,000 ML IV SCH ×2 (00:38→09:40)
[2016-10-08 08:06] LABS: BASOPHIL 1.1 % (0-2.0); EOSINOPHIL 1.3 % (0-4.5); MCH 29.1 pg (25.7-33.7); MCHC 34.3 g/dl (32.0-36.0); MEAN CELL VOLUME 84.7 fl (80-96); MEAN PLT VOLUME 7.8 fl (7.5-11.1); NEUTROPHILS 56.5 % (42.8-82.8); PLATELET COUNT 272 K/MM3 (134-434); RDW 13.7 % (11.6-15.6); WHITE BLOOD COUNT 6.8 K/mm3 (4.0-10.0)
[2016-10-08 08:08] LABS: ALK PHOS 88 U/L (45-117); ANION GAP 10 (8-16); BILIRUBIN,TOTAL 0.6 mg/dL (0.2-1.0); CALCIUM 8.4 mg/dL (8.5-10.1); CO2 28 mmol/L (21-32); CREATININE 0.8 mg/dL (0.55-1.02); GLUCOSE,RANDOM 144 mg/dL (74-106); SGOT/AST 16 U/L (15-37); SGPT/ALT 22 U/L (12-78)
[2016-10-08] MEDS: PANTOPRAZOLE SODIUM 40 MG/100 ML PRE-DOCKED IVPB SCH (09:40)
[2016-10-08] MEDS ORDERED: PANTOPRAZOLE SODIUM 100 ML IVPB SCH (10:00)
--- NOTE | 2016-10-08 12:07 | PN ---
GI Progress Note Subjective: GASTROENTEROLOGY HAD "TERRIBLE " PAIN LAST NIGHT WAS SWITCHED BACK TO MORPHINE WITH RELIEF STILL ASKING FOR MEDS PER NURSING REPEAT LFT'S AND LIPASE ARE NORMAL - Objective Vital Signs: Vital Signs Temperature 98.4 F 10/08/16 09:38 Pulse Rate 61 10/08/16 09:38 Respiratory Rate 18 10/08/16 09:38 Blood Pressure 148/77 10/08/16 09:38 O2 Sat by Pulse Oximetry (%) 97 10/07/16 21:00 Constitutional: No Distress, Calm Eyes: Yes: Conjunctiva Clear HENT: Yes: Normocephalic Cardiovascular: Yes: Regular Rate and Rhythm Respiratory: Yes: Regular Gastrointestinal Inspection: Yes: Distention ...Auscultate: Yes: Normoactive Bowel Sounds ...Palpate: Yes: Soft, Other (FULLNESS UPPER ABDOMEN) Extremities: Yes: WNL Neurological: Yes: Alert, Oriented Labs: CBC, BMP 10/08/16 06:00 10/08/16 06:00 Laboratory Tests 10/07/16 10/08/16 10/08/16 06:20 06:00 06:00 WBC 6.8 D RBC 3.99 Hgb 11.6 Hct 33.8 MCV 84.7 MCHC 34.3 RDW 13.7 Plt Count 272 D Sodium 142 Potassium 4.2 Chloride 104 Carbon Dioxide 28 Anion Gap 10 BUN 13 Creatinine 0.8 Creat Clearance w eGFR > 60 Random Glucose 144 H D Calcium 8.4 L Total Bilirubin 0.6 AST 16 D ALT 22 Alkaline Phosphatase 88 Total Protein 6.0 L Albumin 3.0 L Lipase 208 133 Problem List - Problems (1) Abdominal pain Assessment/Plan: STILL HAVING PAIN DESPITE NORMAL LABS AND MILD CHANGES AROUND PANCREAS ON CT SCAN WILL PERFORM EGD IN AM TO RULE OUT PUD RISKS AND BENEFITS EXPLAINED TO PATIENT AND HER DAUGHTER WHO IS A PHYSICIAN. THE PATIENT AGREES TO THE ENDOSCOPY Code(s): R10.9 - UNSPECIFIED ABDOMINAL PAIN (2) Recurrent acute pancreatitis Code(s): K85.90 - ACUTE PANCREATITIS WITHOUT NECROSIS OR INFECTION, UNSP
[2016-10-08] MEDS: SODIUM CHLORIDE 1,000 ML IV SCH (15:09)
--- NOTE | 2016-10-08 18:39 | HP ---
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 (Pt has been recently w/u for early dementia, which runs in her family.) Cardiovascular: Yes: HTN, Hyperlipdemia Gastrointestinal: Yes: Pancreatitis (?), Other (SBO) Psych: Yes: Depression, Panic Musculoskeletal: Yes: Osteoarthritis, Other (Knee pain) Endocrine: Yes: Diabetes Mellitus - Past Surgical History Past Surgical History: Yes: Appendectomy, Cholecystectomy, Colonoscopy (neg 2 yrs ago at ), (x2), Hysterectomy - Smoking History Smoking history: Former smoker Have you smoked in the past 12 months: No Aproximately how many cigarettes per day: 0 If you are a former smoker, when did you quit?: november 2012 - Alcohol/Substance Use Hx Alcohol Use: No - Social History ADL: Independent History of Recent Travel: No Home Medications - Allergies Allergies/Adverse Reactions: Allergies Allergy/AdvReac Type Severity Reaction Status Date / Time Penicillins Allergy Verified 10/07/16 04:04 - Home Medications Home Medications: Ambulatory Orders Metformin HCl [Glucophage] 500 mg PO BID 07/06/13 Pantoprazole Sodium [Protonix -] 40 mg PO DAILY tablet.ec 11/15/15 Telmisartan [Micardis] 80 mg PO DAILY 06/17/16 Escitalopram Oxalate [Lexapro -] 20 mg PO DAILY 10/07/16 Humalog Mix 50-50 Kwikpen 10 unit SQ DAILY 10/07/16 Insulin (Levemir) [Levemir Vial] 30 unit SQ AM 10/07/16 Family Disease History - Family Disease History Family Disease History: Diabetes: Mother, CA: Father (pancreatic 78) Review of Systems Findings/Remarks: 61 yo F past medical history of chronic pancreatitis, insulin dependent diabetes , and hypertension presents to ED with vomiting and abdominal pain since yesterday. She reports throwing up once yesterday after drinking soup and eating tacos and today she threw up 4 times. Her last BM was today prior to arrival. She denies fever, diarrhea or rectal bleeding. She report of epigastric and LUQ pain on palpation. her labs are unremarkable, CT of the abdomen showed likely pancreatitis. - Review of Systems Constitutional: reports: Loss of Appetite Eyes: reports: No Symptoms HENT: reports: No Symptoms Neck: reports: No Symptoms Cardiovascular: reports: No Symptoms Respiratory: reports: No Symptoms Gastrointestinal: reports: Abdominal Pain, Diarrhea, Nausea, Vomiting Genitourinary: reports: No Symptoms Breasts: reports: No Symptoms Reported Musculoskeletal: reports: No Symptoms Integumentary: reports: No Symptoms Neurological: reports: No Symptoms Endocrine: reports: No Symptoms Hematology/Lymphatic: reports: No Symptoms Psychiatric: reports: No Symptoms Physical Examination Vital Signs: Vital Signs Temperature 98.8 F 10/08/16 18:06 Pulse Rate 62 10/08/16 18:06 Respiratory Rate 18 10/08/16 18:06 Blood Pressure 125/74 10/08/16 18:06 O2 Sat by Pulse Oximetry (%) 98 10/08/16 09:40 Constitutional: Yes: Well Nourished, Calm, Mild Distress Cardiovascular: Yes: Regular Rate and Rhythm Respiratory: Yes: Regular Gastrointestinal: Yes: Normal Bowel Sounds, Tenderness (LUQ), Tenderness, Epigastrium Musculoskeletal: Yes: WNL Extremities: Yes: WNL Edema: No Peripheral Pulses WNL: Yes Neurological: Yes: Alert Psychiatric: Yes: Alert Labs: CBC, BMP 10/08/16 06:00 10/08/16 06:00 Problem List - Problems (1) Abdominal pain Assessment/Plan: PAIN MANAGEMENT-MORPHINE, NPO, IVF GOING FOR ENDOSCOPY IN AM. Code(s): R10.9 - UNSPECIFIED ABDOMINAL PAIN (2) Controlled type 2 diabetes mellitus with diabetic peripheral angiopathy without gangrene Assessment/Plan: BGM MONITORING. NPO, IVF. Code(s): E11.51 - TYPE 2 DIABETES W DIABETIC PERIPHERAL ANGIOPATH W/O GANGRENE (3) Pancreatitis Assessment/Plan: ON CT ABDOMEN, PAIN MANAGEMENT-MORPHINE, IVF, NPO LABS UNREMARKABLE Code(s): K85.9 - ACUTE PANCREATITIS, UNSPECIFIED * DO NOT USE * Qualifiers: Chronicity: acute Pancreatitis type: unspecified pancreatitis type Acute pancreatitis complication: no infection or necrosis Qualified Code( s): K85.90 - Acute pancreatitis without necrosis or infection, unspecified Assessment/Plan ENDOSCOPY IN AM IVF, PAIN MANAGEMENT, LABS IN AM MONITOR BLOOD GLUCOSE
--- NOTE | 2016-10-08 18:41 | PN ---
Progress Note, Physician Chief Complaint: ABDOMINAL PAIN/PANCREATITIS History of Present Illness: COMFORTABLE IN BED. HAS NOT USED MORPHINE SINCE LAST NIGHT. PAIN HAS REDUCED. - Current Medication List Current Medications: Active Medications Sodium Chloride (Normal Saline -) 1,000 mls @ 100 mls/hr IV ASDIR EDILIA Last Admin: 10/08/16 15:09 Dose: 100 mls/hr Pantoprazole Sodium (Protonix 40mg Ivpb (Pre-Docked)) 100 mls @ 200 mls/hr IVPB BID EDILIA Morphine Sulfate (Morphine Injection -) 4 mg IVPUSH Q6H PRN Last Admin: 10/07/16 22:05 Dose: 4 mg - Objective Vital Signs: Vital Signs Temperature 98.8 F 10/08/16 18:06 Pulse Rate 62 10/08/16 18:06 Respiratory Rate 18 10/08/16 18:06 Blood Pressure 125/74 10/08/16 18:06 O2 Sat by Pulse Oximetry (%) 98 10/08/16 09:40 Constitutional: Yes: Well Nourished, No Distress, Calm Cardiovascular: Yes: Regular Rate and Rhythm Respiratory: Yes: Regular Gastrointestinal: Yes: Tenderness (LUQ), Tenderness, Epigastrium Musculoskeletal: Yes: WNL Extremities: Yes: WNL Edema: No Peripheral Pulses WNL: Yes Labs: CBC, BMP 10/08/16 06:00 10/08/16 06:00 Problem List - Problems (1) Abdominal pain Assessment/Plan: PAIN MANAGEMENT-MORPHINE, NPO, IVF GOING FOR ENDOSCOPY IN AM. Code(s): R10.9 - UNSPECIFIED ABDOMINAL PAIN (2) Controlled type 2 diabetes mellitus with diabetic peripheral angiopathy without gangrene Assessment/Plan: BGM MONITORING. NPO, IVF. Code(s): E11.51 - TYPE 2 DIABETES W DIABETIC PERIPHERAL ANGIOPATH W/O GANGRENE (3) Pancreatitis Assessment/Plan: ON CT ABDOMEN, PAIN MANAGEMENT-MORPHINE, IVF, NPO LABS UNREMARKABLE Code(s): K85.9 - ACUTE PANCREATITIS, UNSPECIFIED * DO NOT USE * Qualifiers: Chronicity: acute Pancreatitis type: unspecified pancreatitis type Acute pancreatitis complication: no infection or necrosis Qualified Code( s): K85.90 - Acute pancreatitis without necrosis or infection, unspecified Assessment/Plan ENDOSCOPY IN AM IVF, PAIN MANAGEMENT, LABS IN AM MONITOR BLOOD GLUCOSE
[2016-10-08] MEDS: PANTOPRAZOLE SODIUM 100 ML IVPB SCH (21:29)
[2016-10-09] MEDS: SODIUM CHLORIDE 1,000 ML IV SCH ×2 (02:07→18:42)
[2016-10-09 07:52] LABS: BASOPHIL 1.3 % (0-2.0); EOSINOPHIL 1.8 % (0-4.5); MCH 28.6 pg (25.7-33.7); MCHC 33.9 g/dl (32.0-36.0); MEAN CELL VOLUME 84.4 fl (80-96); MEAN PLT VOLUME 7.8 fl (7.5-11.1); NEUTROPHILS 65.2 % (42.8-82.8); PLATELET COUNT 264 K/MM3 (134-434); RDW 13.5 % (11.6-15.6); WHITE BLOOD COUNT 7.6 K/mm3 (4.0-10.0)
[2016-10-09 08:11] LABS: AMYLASE 29 U/L (25-115)
[2016-10-09 08:57] LABS: ALK PHOS 89 U/L (45-117); ANION GAP 15 (8-16); BILIRUBIN,TOTAL 0.5 mg/dL (0.2-1.0); CO2 21 mmol/L (21-32); CREATININE 0.7 mg/dL (0.55-1.02); GLUCOSE,RANDOM 123 mg/dL (74-106); SGOT/AST 16 U/L (15-37); SGPT/ALT 22 U/L (12-78)
[2016-10-09] MEDS: PANTOPRAZOLE SODIUM 100 ML IVPB SCH (09:58)
[2016-10-09] MEDS ORDERED: PROPOFOL 20 ML ONE ×2 (11:12)
--- NOTE | 2016-10-09 11:55 | PN ---
Progress Note (short form) - Note Progress Note: GASTROENTEROLOGY SEE EGD REPORT: NO ULCERS , MODERATE NODULAR GASTRITIS LIPASE NORMAL START CHANGING PAIN MEDS START CLEAR LIQUID DIET AWAIT BIOPSIES NO ASA/NSAIDS FOR 5 DAYS. MRI IN 2 TO 3 MONTHS BRET CASTILLO MD Problem List - Problems (1) Abdominal pain Code(s): R10.9 - UNSPECIFIED ABDOMINAL PAIN (2) Recurrent acute pancreatitis Code(s): K85.90 - ACUTE PANCREATITIS WITHOUT NECROSIS OR INFECTION, UNSP
--- NOTE | 2016-10-09 19:12 | PN ---
Progress Note, Physician Chief Complaint: AWAKE ALERT EGD REPORT REVIEWED CLEAR DIET STARTED - Current Medication List Current Medications: Active Medications Sodium Chloride (Normal Saline -) 1,000 mls @ 100 mls/hr IV ASDIR EDILIA Last Admin: 10/09/16 18:42 Dose: 100 mls/hr Morphine Sulfate (Morphine Injection -) 4 mg IVPUSH Q6H PRN Last Admin: 10/07/16 22:05 Dose: 4 mg Pantoprazole Sodium (Protonix -) 40 mg PO DAILY [facility] - Objective Vital Signs: Vital Signs Temperature 98.8 F 10/09/16 14:00 Pulse Rate 56 L 10/09/16 14:00 Respiratory Rate 18 10/09/16 14:00 Blood Pressure 164/77 10/09/16 14:00 O2 Sat by Pulse Oximetry (%) 98 10/09/16 12:15 Constitutional: Yes: No Distress Eyes: Yes: WNL HENT: Yes: WNL Neck: Yes: WNL Cardiovascular: Yes: WNL Respiratory: Yes: WNL Gastrointestinal: Yes: WNL Genitourinary: Yes: WNL Musculoskeletal: Yes: WNL Extremities: Yes: WNL Edema: No Peripheral Pulses WNL: Yes Integumentary: Yes: WNL Wound/Incision: Yes: Clean/Dry Neurological: Yes: WNL ...Motor Strength: WNL Psychiatric: Yes: WNL Labs: CBC, BMP 10/09/16 06:30 10/09/16 06:30 Problem List - Problems (1) Abdominal pain Code(s): R10.9 - UNSPECIFIED ABDOMINAL PAIN (2) Controlled type 2 diabetes mellitus with diabetic peripheral angiopathy without gangrene Code(s): E11.51 - TYPE 2 DIABETES W DIABETIC PERIPHERAL ANGIOPATH W/O GANGRENE (3) Elevated LFTs Code(s): R79.89 - OTHER SPECIFIED ABNORMAL FINDINGS OF BLOOD CHEMISTRY (4) Pancreatitis Code(s): K85.9 - ACUTE PANCREATITIS, UNSPECIFIED * DO NOT USE * Qualifiers: Chronicity: acute Pancreatitis type: unspecified pancreatitis type Acute pancreatitis complication: no infection or necrosis Qualified Code( s): K85.90 - Acute pancreatitis without necrosis or infection, unspecified Assessment/Plan ADVANCE DIET TOLERATED AVOID NSAIDS AND ASA DC TOMORROW
[2016-10-10] MEDS: SODIUM CHLORIDE 1,000 ML IV SCH (05:18)
[2016-10-10] MEDS ORDERED: PANTOPRAZOLE 40 MG TABLET (FP) PO SCH (10:00)
--- NOTE | 2016-10-10 11:47 | PATH ---
Surgical Pathology Report Patient Name: ABELINO BETANCUR Med. Rec. #: [id number] /Age/Gender: 1955 (Age: 61) / F Account: [id number] Location: [facility] MED/SURG Taken: 10/09/2016 Received: 10/09/2016 Reported: 10/10/2016 Physicians: Al Vargas M.D. Specimen(s) Received BX STOMACH Clinical History Abdominal pain Nodular gastritis Final Diagnosis STOMACH, BIOPSY: GASTRIC MUCOSA WITH MODERATE CHRONIC GASTRITIS. IMMUNOSTAIN FOR H. PYLORI IS NEGATIVE FOR ORGANISMS. Electronically Signed Fernando Armenta M.D. Gross Description Received in formalin, labeled "biopsy stomach" are 2 sherman, irregular portions of soft tissue measuring 0.2 and 0.5 cm in greatest dimension. The specimens are submitted in toto in one cassette. /10/09/201610/09/2016
[2016-10-10 14:41] VITALS: BP 148/93; PULSE 57; TEMP 98.9
--- NOTE | 2016-10-10 14:55 | DS ---
Physical Examination Vital Signs: Vital Signs Temperature 98.9 F 10/10/16 14:39 Pulse Rate 57 L 10/10/16 14:39 Respiratory Rate 20 10/10/16 14:39 Blood Pressure 148/93 10/10/16 14:39 O2 Sat by Pulse Oximetry (%) 98 10/09/16 21:00 Constitutional: Yes: No Distress Eyes: Yes: WNL HENT: Yes: WNL Neck: Yes: WNL Cardiovascular: Yes: WNL Respiratory: Yes: WNL Gastrointestinal: Yes: WNL Musculoskeletal: Yes: WNL Extremities: Yes: WNL Edema: No Peripheral Pulses WNL: Yes Integumentary: Yes: WNL Wound/Incision: Yes: Clean/Dry Neurological: Yes: WNL ...Motor Strength: WNL Psychiatric: Yes: Other Labs: CBC, BMP 10/09/16 06:30 10/09/16 06:30 Discharge Summary Reason For Visit: PANCREATITIS Current Active Problems Abdominal pain (Acute) Abnormal LFTs (Acute) Garza palsy (Acute) Controlled type 2 diabetes mellitus with diabetic peripheral angiopathy without gangrene (Acute) Elevated LFTs (Acute) Left facial numbness (Acute) Pancreatitis (Acute) RUQ abdominal pain (Acute) Recurrent acute pancreatitis (Acute) UTI (urinary tract infection) (Acute) Vomiting bile (Acute) Zoster (Acute) Zoster encephalitis (Acute) Procedures: Principal: egd Other Procedures: labs Hospital Course: admitted and worked up for abd pain, acute gastritis, acute pancreatitis, egd and biopsy done, no cancer on biopst all benign. will need mri abd 3 months, avoid nsaids, see dr vigil 4-6 weeks Condition: Improved - Instructions Diet, Activity, Other Instructions: liquid ada, advance slowly Referrals: Preeti Vigil MD [Primary Care Provider] - Disposition: HOME - Home Medications Comprehensive Discharge Medication List: Ambulatory Orders Metformin HCl [Glucophage] 500 mg PO BID 07/06/13 Pantoprazole Sodium [Protonix -] 40 mg PO DAILY tablet.ec 11/15/15 Telmisartan [Micardis] 80 mg PO DAILY 06/17/16 Escitalopram Oxalate [Lexapro -] 20 mg PO DAILY 10/07/16 Humalog Mix 50-50 Kwikpen 10 unit SQ DAILY 10/07/16 Insulin (Levemir) [Levemir Vial] 30 unit SQ AM 10/07/16
== END 2016-10-10 15:38 | disposition home or self-care (01) | DRG 282 ==
LOC: JER 03:51 → JERBED 12:55 → J7W 15:51
PROVIDERS: ADMIT Family Medicine; ATTEND Family Medicine
PROC: 0DB68ZX Excision of Stomach, Via Natural or Artificial Opening Endoscopic, Diagnostic (ICD-10-PCS; principal; 2016-10-09 10:30)
DX: K85.90 Acute pancreatitis without necrosis or infection, unspecified (principal); E11.51 Type 2 diabetes mellitus with diabetic peripheral angiopathy without gangrene; I10 Essential (primary) hypertension; E78.5 Hyperlipidemia, unspecified; F41.0 Panic disorder [episodic paroxysmal anxiety]; F32.9 Major depressive disorder, single episode, unspecified; M25.569 Pain in unspecified knee; M19.90 Unspecified osteoarthritis, unspecified site; R79.89 Other specified abnormal findings of blood chemistry; K29.00 Acute gastritis without bleeding; F03.90 Unspecified dementia, unspecified severity, without behavioral disturbance, psychotic disturbance, mood disturbance, and anxiety; Z79.4 Long term (current) use of insulin; Z87.891 Personal history of nicotine dependence
CPT/HCPCS: 36415; 74177-TC; 76705-TC; 80053; 81003; 82009; 82150; 82550; 83690; 84484; 85025; 87086; 88305-TC; 93005; 93010; 99283-25; C1887; Q9967

== ENCOUNTER 2016-11-27 01:39 | Inpatient (IN) | payer OTHER ==
[2016-11-27 02:02] VITALS: BMI 27.1
[2016-11-27] MEDS ORDERED: ONDANSETRON 4 MG/2 ML VIAL IVPB ONE (02:07)
[2016-11-27] MEDS ORDERED: SODIUM CHLORIDE 1,000 ML IV STA (02:07)
[2016-11-27] MEDS ORDERED: morphine CARPU-JECT 4 MG/1 ML DISP.SYRIN IVPUSH ONE ×2 (02:07→03:55)
--- NOTE | 2016-11-27 02:07 | PDOC ---
History of Present Illness - General History Source: Patient Exam Limitations: No Limitations - History of Present Illness Initial Comments: 11/27/16 04:19 The patient is a 61 year old female with a significant past medical history of chronic pancreatitis and DM (IDDM) who presents to the ED with 2 days of right lower quadrant pain. Patient reports a gradual onset of right lower quadrant pain radiating upwards 2 days ago. She states she feels like she has a mass in her right lower quadrant that moves up. Patient reports her right lower quadrant pain is progressively worsening and started radiating down her right leg several hours ago. She states her right lower quadrant pain is alleviated when standing up and worsened when laying down. Patient also reports multiple episodes of NBNB vomiting, productive of yellow-colored sputum, and watery stool since yesterday. She states she has a loose bowel movement every time she eats and injects her insulin. Patient states her blood sugar levels are between 112-120 at baseline. Denies fever or chills. Denies dysuria or changes in urination. Denies chest pain or shortness of breath. Denies CP, SOB. Surgical hx: gallbladder sx, tubal ligation <Tremaine Salas - Last Filed: 11/27/16 05:59> <Nile Esteves - Last Filed: 11/27/16 06:13> - General Chief Complaint: Pain Stated Complaint: PAIN, VOMITING Time Seen by Provider: 11/27/16 02:06 Past History <Tremaine Salas - Last Filed: 11/27/16 05:59> - Past Medical History Anemia: No Asthma: No Cancer: No CVA: No COPD: No CHF: No Dementia: No Diabetes: Yes GI Disorders: Yes (pancreatitis, sbo, GERD) Disorders: No HTN: Yes Hypercholesterolemia: Yes Liver Disease: No Psychiatric Problems: Yes (DEPRESSION, MEMORY LOSS) Seizures: No Thyroid Disease: No - Surgical History Abdominal Surgery: Yes Appendectomy: Yes Cardiac Surgery: No Cholecystectomy: Yes Lung Surgery: No Neurologic Surgery: No Orthopedic Surgery: No - Family Disease History Family Disease History: Diabetes: Father, Heart Disease: Father - Immunization History Immunization Up to Date: Yes - Psycho/Social/Smoking Cessation Hx Anxiety: No Suicidal Ideation: No Smoking Status: No Smoking History: Never smoked Have you smoked in the past 12 months: No Number of Cigarettes Smoked Daily: 0 If you are a former smoker, when did you quit?: november 2012 Information on smoking cessation initiated: No Hx Alcohol Use: No Drug/Substance Use Hx: No Substance Use Type: None Hx Substance Use Treatment: No <Nile Esteves - Last Filed: 11/27/16 06:13> - Past Medical History Allergies/Adverse Reactions: Allergies Allergy/AdvReac Type Severity Reaction Status Date / Time Penicillins Allergy Verified 11/27/16 01:59 Home Medications: Ambulatory Orders Metformin HCl [Glucophage] 500 mg PO BID 07/06/13 Pantoprazole Sodium [Protonix -] 40 mg PO DAILY tablet.ec 11/15/15 Telmisartan [Micardis] 80 mg PO DAILY 06/17/16 Escitalopram Oxalate [Lexapro -] 20 mg PO DAILY 10/07/16 Insulin (Levemir) [Levemir Vial] 30 unit SQ AM 10/07/16 Review of Systems - Review of Systems Able to Perform ROS?: Yes Comments:: 11/27/16 04:19 GENERAL/CONSTITUTIONAL: No fever or chills. No weakness. HEAD, EYES, EARS, NOSE AND THROAT: No change in vision. No ear pain or discharge. No sore throat. CARDIOVASCULAR: No chest pain or shortness of breath. RESPIRATORY: No cough, wheezing, or hemoptysis. GASTROINTESTINAL: + right lower quadrant pain, nausea, vomiting, diarrhea.No constipation. GENITOURINARY: No dysuria, frequency, or change in urination. MUSCULOSKELETAL: No joint or muscle swelling or pain. No neck or back pain. SKIN: No rash NEUROLOGIC: No headache, vertigo, loss of consciousness, or change in strength/ sensation. ENDOCRINE: No increased thirst. No abnormal weight change. HEMATOLOGIC/LYMPHATIC: No anemia, easy bleeding, or history of blood clots. ALLERGIC/IMMUNOLOGIC: No hives or skin allergy. All Other Systems: Reviewed and Negative <Tremaine Salas - Last Filed: 11/27/16 05:59> *Physical Exam - Vital Signs Last Vital Signs Temp Pulse Resp BP Pulse Ox 98.0 F 89 20 120/84 100 11/27/16 01:59 11/27/16 01:59 11/27/16 01:59 11/27/16 01:59 11/27/16 01:59 - Physical Exam Comments: 11/27/16 04:19 GENERAL:appears uncomfortable, tearful pointing to RLQ. Awake, alert, and fully oriented HEAD: No signs of trauma EYES: PERRLA, EOMI, sclera anicteric, conjunctiva clear ENT: Auricles normal inspection, hearing grossly normal, nares patent, oropharynx clear without exudates. Moist mucosa NECK: Normal ROM, supple, no lymphadenopathy, JVD, or masses LUNGS: Breath sounds equal, clear to auscultation bilaterally. No wheezes, and no crackles HEART: Regular rate and rhythm, normal S1 and S2, no murmurs, rubs or gallops ABDOMEN:+ Tender to palpation to right lower quadrant, no rebound or guarding. Soft, nontender, normoactive bowel sounds. No masses, no CVAT EXTREMITIES: Normal range of motion, no edema. No clubbing or cyanosis. No cords, erythema, or tenderness NEUROLOGICAL: Normal speech SKIN:+old appearing midline abdominal scar extending from xiphoid to pubic symphysis, clean, dry, intact. Warm, normal turgor, no rashes noted. <Tremaine Salas - Last Filed: 11/27/16 05:59> - Vital Signs Last Vital Signs Temp Pulse Resp BP Pulse Ox 98.0 F 89 20 120/84 100 11/27/16 01:59 11/27/16 01:59 11/27/16 01:59 11/27/16 01:59 11/27/16 01:59 <Nile Esteves - Last Filed: 11/27/16 06:13> ED Treatment Course - LABORATORY CBC & Chemistry Diagram: 11/27/16 02:30 11/27/16 02:30 - ADDITIONAL ORDERS Additional order review: Laboratory Results 11/27/16 11/27/16 11/27/16 02:30 02:30 02:30 INR 0.96 PTT (Actin FS) 23.4 L Sodium 136 Potassium 4.1 Chloride 103 Carbon Dioxide 26 D Anion Gap 7 L BUN 19 H D Creatinine 0.9 D Creat Clearance w eGFR > 60 Random Glucose 221 H D Calcium 8.9 Total Bilirubin 0.3 D AST 8 L D ALT 21 Alkaline Phosphatase 106 Total Protein 7.2 Albumin 3.7 D Lipase 1060 H Urine Color Urine Appearance Urine pH Urine Protein Urine Glucose (UA) Urine Ketones Urine Blood Urine Nitrite Urine Bilirubin Urine Urobilinogen Ur Leukocyte Esterase Urine RBC Urine WBC Ur Epithelial Cells Hyaline Casts Urine Mucus Anti-A Titer Cancelled Blood Type Cancelled Antibody Screen Cancelled Spec Expiration Date Cancelled 11/27/16 02:30 INR PTT (Actin FS) Sodium Potassium Chloride Carbon Dioxide Anion Gap BUN Creatinine Creat Clearance w eGFR Random Glucose Calcium Total Bilirubin AST ALT Alkaline Phosphatase Total Protein Albumin Lipase Urine Color Yellow Urine Appearance Clear Urine pH 5.0 Urine Protein Negative Urine Glucose (UA) 1+ H Urine Ketones Negative Urine Blood Negative Urine Nitrite Negative Urine Bilirubin Negative Urine Urobilinogen Negative Ur Leukocyte Esterase Trace Urine RBC <1 Urine WBC 3 Ur Epithelial Cells Rare Hyaline Casts 1 Urine Mucus Rare Anti-A Titer Blood Type Antibody Screen Spec Expiration Date 11/27/16 02:30 RBC 4.52 MCV 83.9 MCHC 33.9 RDW 13.4 MPV 7.7 Neutrophils % 62.6 Lymphocytes % 27.4 Monocytes % 6.5 Eosinophils % 2.4 Basophils % 1.1 - RADIOLOGY Radiograph Interpretation: 11/27/16 05:24 EXAM: CTABDOMEN & PELVIS CT WITH CONTR IMPRESSION: There is stranding in the subcutaneous fat of the anterior abdominal wall possibly related to injections, or minor trauma. No acute findings REPORTED BY: Imaging program control analyst - Medications Given in the ED: ED Medications Discontinued Medications Generic Name Dose Route Start Last Admin Trade Name Freq PRN Reason Stop Dose Admin Sodium Chloride 1,000 mls @ 1,000 mls/hr 11/27/16 02:07 11/27/16 02:38 Normal Saline - IV 11/27/16 03:06 1,000 mls/hr ASDIR STA Administration Morphine Sulfate 4 mg 11/27/16 02:07 11/27/16 02:38 Morphine Injection - IVPUSH 11/27/16 02:08 4 mg ONCE ONE Administration Morphine Sulfate 4 mg 11/27/16 03:55 11/27/16 04:12 Morphine Injection - IVPUSH 11/27/16 03:56 4 mg ONCE ONE Administration Ondansetron HCl 4 mg 11/27/16 02:07 11/27/16 02:38 Zofran Injection IVPB 11/27/16 02:08 4 mg ONCE ONE Administration <Tremaine Salas - Last Filed: 11/27/16 05:59> - LABORATORY CBC & Chemistry Diagram: 11/27/16 02:30 11/27/16 02:30 <Nile Esteves - Last Filed: 11/27/16 06:13> Medical Decision Making - Medical Decision Making 11/27/16 05:59 Case discussed with RIDDHI Hunt, covering for Dr. Zuniga, at 05:59 <Tremaine Salas - Last Filed: 11/27/16 05:59> - Medical Decision Making 11/27/16 05:01 61yo F hx DM, chronic pancreatitis, cholecystectomy p/w progressive RLQ pain x 2days. On exam, +RLQ ttp, no rebound or guarding. DDx includes appendicitis vs renal colic vs pyelonephritis. -labs -UA -CTAP -pain control -reassess 11/27/16 06:08 CTAP with no acute findings Lipase up to 1060 up from low 100s in September 2016 Got 1L NS bolus, now ordered for fluids at 125cc/hr Will admit to Dr. Zuniga for acute on chronic pancreatitis (per my conversation w RIDDHI Hunt) Consulted GI Dr. Forrester as requested by RIDDHI Hunt <Nile Esteves - Last Filed: 11/27/16 06:13> *DC/Admit/Observation/Transfer - Attestations Scribe Attestion: 11/27/16 04:20 Documentation prepared by Tremaine Salas, acting as certified medical coder for Nile Esteves MD <Tremaine Salas - Last Filed: 11/27/16 05:59> - Discharge Dispostion Admit: Yes - Attestations Physician Attestion: 11/27/16 06:13 I, Dr. Nile Esteves MD, attest that this document has been prepared under my direction and personally reviewed by me in its entirety. I further attest, that it accurately reflects all work, treatment, procedures and medical decision -making performed by me. <Nile Esteves - Last Filed: 11/27/16 06:13> Diagnosis at time of Disposition: Abdominal pain in female Pancreatitis, acute Qualifiers: Pancreatitis type: unspecified pancreatitis type Acute pancreatitis complication: unspecified Qualified Code(s): K85.90 - Acute pancreatitis without necrosis or infection, unspecified - Discharge Dispostion Condition at time of disposition: Stable - Referrals Referrals: Preeti Zuniga MD [Primary Care Provider] -
[2016-11-27] MEDS ORDERED: morphine CARPU-JECT 4 MG/1 ML DISP.SYRIN ONE ×2 (02:19→04:07)
[2016-11-27] MEDS ORDERED: ONDANSETRON 4 MG/2 ML VIAL ONE (02:19)
[2016-11-27 02:41] LABS: BASOPHIL 1.1 % (0-2.0); EOSINOPHIL 2.4 % (0-4.5); MCH 28.4 pg (25.7-33.7); MCHC 33.9 g/dl (32.0-36.0); MEAN CELL VOLUME 83.9 fl (80-96); MEAN PLT VOLUME 7.7 fl (7.5-11.1); NEUTROPHILS 62.6 % (42.8-82.8); PLATELET COUNT 341 K/MM3 (134-434); RDW 13.4 % (11.6-15.6); WHITE BLOOD COUNT 10.8 K/mm3 (4.0-10.0)
[2016-11-27 02:42] LABS: URINE APPEARANCE CLEAR; URINE BILIRUBIN NEGATIVE (NEGATIVE); URINE BLOOD NEGATIVE (NEGATIVE); URINE COLOR YELLOW; URINE GLUCOSE (UA) 1+ (NEGATIVE); URINE KETONE NEGATIVE (NEGATIVE); URINE LEUK ESTERASE TRACE (NEGATIVE); URINE NITRITE NEGATIVE (NEGATIVE); URINE PROTEIN NEGATIVE (NEGATIVE); URINE UROBILINOGEN NEGATIVE mg/dL (0.2-1.0)
[2016-11-27 02:50] LABS: URINE HYALINE CAST 1 /lpf; URINE MUCUS RARE; URINE RBC <1 /hpf (0-3); URINE WBC 3 /hpf (3-5)
[2016-11-27 03:01] LABS: INR 0.96 (0.82-1.09); PROTHROMBIN TIME (PATIENT) 10.5 SEC (9.98-11.88)
[2016-11-27 03:04] LABS: ACTIVATED PTT 23.4 SECONDS (26.9-34.4)
[2016-11-27 03:19] LABS: ALBUMIN 3.7 g/dl (3.4-5.0); ALK PHOS 106 U/L (45-117); ANION GAP 7 (8-16); BILIRUBIN,TOTAL 0.3 mg/dL (0.2-1.0); CALCIUM 8.9 mg/dL (8.5-10.1); CO2 26 mmol/L (21-32); CREATININE 0.9 mg/dL (0.55-1.02); GLUCOSE,RANDOM 221 mg/dL (74-106); SGOT/AST 8 U/L (15-37); SGPT/ALT 21 U/L (12-78); TOT PROT 7.2 g/dl (6.4-8.2)
[2016-11-27] MEDS ORDERED: SODIUM CHLORIDE 0.9% 500 ML INFUS.BAG IV ONE (04:36)
[2016-11-27] MEDS: SODIUM CHLORIDE 1,000 ML IV SCH (10:07)
[2016-11-27] MEDS ORDERED: morphine CARPU-JECT 4 MG/1 ML DISP.SYRIN IVPB ONE (10:15)
[2016-11-27] MEDS: HEPARIN NA (PORCINE) 5,000 UNITS/ML 1ML VIAL SQ SCH ×2 (10:46→22:03)
[2016-11-27 11:07] LABS: AMYLASE 72 U/L (25-115)
[2016-11-27] MEDS ORDERED: HYDROmorphone HCL CARPU-JECT 1 MG/1 ML DISP.SYRIN IVPB PRN (12:19)
[2016-11-27] MEDS ORDERED: ONDANSETRON 4 MG/2 ML VIAL IVPUSH PRN (12:20)
[2016-11-27] MEDS ORDERED: PANTOPRAZOLE SODIUM 40 MG VIAL ONE ×2 (12:35→21:09)
[2016-11-27] MEDS ORDERED: SODIUM CHLORIDE 100 ML IVPB ONE ×2 (12:35→21:10)
[2016-11-27] MEDS: VALSARTAN 160 MG TABLET (UD) PO SCH (12:39)
[2016-11-27] MEDS: PANTOPRAZOLE SODIUM 40 MG in SODIUM CHLORIDE 100 ML IVPB SCH ×2 (12:40→22:03)
--- NOTE | 2016-11-27 16:04 | HP ---
Admitting History and Physical - Primary Care Physician PCP: Preeti Zuniga - Admission Chief Complaint: ABD PAIN/NAUSEA AND VOMITING History of Present Illness: 61 Y/O FEMALE WITH DMII, HTN, LIPIDEMIA, OBESITY, NON-COMPLIANT WITH HER DIET HERE WITH ABD PAIN NAUSEA AND VOMITING FOR 2 DAYS. 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 (Pt has been recently w/u for early dementia, which runs in her family.) Cardiovascular: Yes: HTN, Hyperlipdemia Gastrointestinal: Yes: Pancreatitis (?), Other (SBO) Psych: Yes: Depression, Panic Musculoskeletal: Yes: Osteoarthritis, Other (Knee pain) Endocrine: Yes: Diabetes Mellitus - Past Surgical History Past Surgical History: Yes: Appendectomy, Cholecystectomy, Colonoscopy (neg 2 yrs ago at ), (x2), Hysterectomy - Smoking History Smoking history: Never smoked Have you smoked in the past 12 months: No Aproximately how many cigarettes per day: 0 If you are a former smoker, when did you quit?: november 2012 - Alcohol/Substance Use Hx Alcohol Use: No - Social History ADL: Independent History of Recent Travel: No Home Medications - Allergies Allergies/Adverse Reactions: Allergies Allergy/AdvReac Type Severity Reaction Status Date / Time Penicillins Allergy Verified 11/27/16 01:59 - Home Medications Home Medications: Ambulatory Orders Metformin HCl [Glucophage] 500 mg PO BIDAC 07/06/13 Pantoprazole Sodium [Protonix -] 40 mg PO DAILY tablet.ec 11/15/15 Telmisartan [Micardis] 80 mg PO DAILY 06/17/16 Escitalopram Oxalate [Lexapro -] 20 mg PO DAILY 10/07/16 Insulin (Levemir) [Levemir Vial] 30 unit SQ ACBK 10/07/16 Family Disease History - Family Disease History Family Disease History: Diabetes: Mother, [place]: Father (pancreatic 78) Review of Systems - Review of Systems Constitutional: reports: Weakness Eyes: reports: No Symptoms HENT: reports: No Symptoms Neck: reports: No Symptoms Cardiovascular: reports: No Symptoms Respiratory: reports: No Symptoms Gastrointestinal: reports: Indigestion, Nausea, Vomiting Genitourinary: reports: No Symptoms Musculoskeletal: reports: No Symptoms Integumentary: reports: No Symptoms Neurological: reports: No Symptoms Endocrine: reports: No Symptoms Hematology/Lymphatic: reports: No Symptoms Psychiatric: reports: Anxiety Physical Examination Vital Signs: Vital Signs Temperature 98.0 F 11/27/16 14:45 Pulse Rate 64 11/27/16 14:45 Respiratory Rate 20 11/27/16 14:45 Blood Pressure 112/63 11/27/16 14:45 O2 Sat by Pulse Oximetry (%) 98 11/27/16 11:36 Constitutional: Yes: Mild Distress Eyes: Yes: WNL HENT: Yes: WNL Neck: Yes: WNL Cardiovascular: Yes: WNL Respiratory: Yes: WNL Gastrointestinal: Yes: Tenderness Renal/: Yes: WNL Musculoskeletal: Yes: WNL Extremities: Yes: WNL Edema: No Peripheral Pulses WNL: No Integumentary: Yes: WNL Wound/Incision: Yes: Clean/Dry Neurological: Yes: WNL ...Motor Strength: WNL Psychiatric: Yes: WNL Imaging - Results Cat Scan: Report Reviewed Problem List - Problems (1) Abdominal pain in female Code(s): R10.9 - UNSPECIFIED ABDOMINAL PAIN (2) Abnormal LFTs Code(s): R79.89 - OTHER SPECIFIED ABNORMAL FINDINGS OF BLOOD CHEMISTRY (3) Controlled type 2 diabetes mellitus with diabetic peripheral angiopathy without gangrene Code(s): E11.51 - TYPE 2 DIABETES W DIABETIC PERIPHERAL ANGIOPATH W/O GANGRENE (4) Elevated LFTs Code(s): R79.89 - OTHER SPECIFIED ABNORMAL FINDINGS OF BLOOD CHEMISTRY (5) Pancreatitis, acute Code(s): K85.90 - ACUTE PANCREATITIS WITHOUT NECROSIS OR INFECTION, UNSP Qualifiers: Pancreatitis type: unspecified pancreatitis type Acute pancreatitis complication: unspecified Qualified Code(s): K85.90 - Acute pancreatitis without necrosis or infection, unspecified Assessment/Plan IV FLUIDS IV PROTONIX LABS GI EVAL RECHECK LABS IN AM NPO
--- NOTE | 2016-11-27 17:25 | CON.GI ---
Consult Consult Specialty:: GASTROENTEROLOGY - History of Present Illness Chief Complaint: ABDOMINAL PAIN /PANCREATITIS History of Present Illness: 61 YEAR OLD FEMALE WITH MILD DEMENTIA ADMITTED UNDER OBSERVATION WITH ABDOMINAL PAIN AND LIPASE >1000. CT SCAN DOES NOT SHOW PANCREATIC EDEMA AND THE SMALL BOWEL AND COLON WERE NORMAL. SHE STILL HAD PAIN NOT CONTROLLED WITH DILAUDID 1MG Q 6 HOURS. SHE STATES MAIN PAIN IS EPIGASTRIC AND RLQ. NO RECTAL BLEEDING. SHE HAD A RECENT PANCREATIC STENT PLACED FROM OUR GROUP SEVERAL MONTHS AGO WITH IMPROVEMENT IN HER PAIN. SHE WAS TO SEE DR VASQUEZ INN THE OFFICE BUT SHE DOES NOT REMEMBER IF SHE MADE IT TO THE OFFICE. 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 (Pt has been recently w/u for early dementia, which runs in her family.) Cardio/Vascular: Yes: HTN, Hyperlipdemia Gastrointestinal: Yes: Pancreatitis (?), Other (SBO) Psych: Yes: Depression, Panic Musculoskeletal: Yes: Osteoarthritis, Other (Knee pain) Endocrine: Yes: Diabetes Mellitus - Past Surgical History Past Surgical History: Yes: Appendectomy, Cholecystectomy, Colonoscopy (neg 2 yrs ago at ), (x2), Hysterectomy - Alcohol/Substance Use Hx Alcohol Use: No - Smoking History Smoking history: Never smoked Have you smoked in the past 12 months: No Aproximately how many cigarettes per day: 0 If you are a former smoker, when did you quit?: november 2012 - Social History Usual Living Arrangement: With Spouse ADL: Independent History of Recent Travel: No Home Medications - Allergies Allergies/Adverse Reactions: Allergies Allergy/AdvReac Type Severity Reaction Status Date / Time Penicillins Allergy Verified 11/27/16 01:59 - Home Medications Home Medications: Ambulatory Orders Metformin HCl [Glucophage] 500 mg PO BIDAC 07/06/13 Pantoprazole Sodium [Protonix -] 40 mg PO DAILY tablet.ec 11/15/15 Telmisartan [Micardis] 80 mg PO DAILY 06/17/16 Escitalopram Oxalate [Lexapro -] 20 mg PO DAILY 10/07/16 Insulin (Levemir) [Levemir Vial] 30 unit SQ ACBK 10/07/16 Family Disease History - Family Disease History Family Disease History: Diabetes: Mother, [place]: Father (pancreatic 78) Review of Systems - Review of Systems Constitutional: reports: Loss of Appetite Eyes: reports: No Symptoms HENT: reports: No Symptoms Neck: reports: No Symptoms Cardiovascular: reports: No Symptoms Respiratory: reports: No Symptoms Gastrointestinal: reports: Abdominal Pain Musculoskeletal: reports: No Symptoms Integumentary: reports: No Symptoms Neurological: reports: No Symptoms Endocrine: reports: No Symptoms Physical Exam-GI Vital Signs: Vital Signs Temperature 98.0 F 11/27/16 14:45 Pulse Rate 64 11/27/16 14:45 Respiratory Rate 20 11/27/16 14:45 Blood Pressure 112/63 11/27/16 14:45 O2 Sat by Pulse Oximetry (%) 98 11/27/16 11:36 Constitutional: Yes: Obese Eyes: Yes: Conjunctiva Clear HENT: Yes: Normocephalic Neck: Yes: Supple Cardiovascular: Yes: Regular Rate and Rhythm Respiratory: Yes: WNL ...Auscultate: Yes: Normoactive Bowel Sounds ...Palpate: Yes: Tenderness (EPIGASTRIC AND RU AND RL QUADRANT) Extremities: Yes: WNL Labs: INR, PTT INR 0.96 (0.82-1.09) 11/27/16 02:30 Laboratory Tests 11/27/16 11/27/16 02:30 02:30 Total Amylase 72 D Lipase 1060 H Urine Glucose (UA) 1+ H Urine Blood Negative Imaging - Results Chest X-ray: Image Reviewed Problem List - Problems (1) Pancreatitis, acute Assessment/Plan: PROBABLE INTERSTITIAL PANCREATITIS CONTINUE CURRENT CARE, INCREASE DILAUDID TO 2 MG Q 4 HOURS PRN CAN'T DISCHARGE HER SHE STILL HAS PAIN REPEAT LIPASE IN AM WILL CHECK RECORD OF LAST COLONOSCOPY BECAUSE THE AREAS OF PAIN DO NOT CLINICALLY MAKE SENSE Code(s): K85.90 - ACUTE PANCREATITIS WITHOUT NECROSIS OR INFECTION, UNSP Qualifiers: Pancreatitis type: unspecified pancreatitis type Acute pancreatitis complication: unspecified Qualified Code(s): K85.90 - Acute pancreatitis without necrosis or infection, unspecified (2) Abdominal pain Assessment/Plan: ABOVE, IS ALL HER PAIN RELATED TO PANCREATITS??? Code(s): R10.9 - UNSPECIFIED ABDOMINAL PAIN (3) RUQ abdominal pain Code(s): R10.11 - RIGHT UPPER QUADRANT PAIN (4) RLQ abdominal pain Code(s): R10.31 - RIGHT LOWER QUADRANT PAIN
[2016-11-27] MEDS: HYDROmorphone HCL CARPU-JECT 2 MG/1 ML DISP.SYRIN IVPB PRN (18:28)
[2016-11-28] MEDS: HYDROmorphone HCL CARPU-JECT 2 MG/1 ML DISP.SYRIN IVPB PRN ×3 (08:25→23:32)
[2016-11-28 09:02] LABS: MCH 28.6 pg (25.7-33.7); MEAN CELL VOLUME 84.2 fl (80-96); MEAN PLT VOLUME 7.8 fl (7.5-11.1); PLATELET COUNT 282 K/MM3 (134-434); RDW 13.3 % (11.6-15.6); WHITE BLOOD COUNT 7.2 K/mm3 (4.0-10.0)
[2016-11-28 09:30] LABS: AMYLASE 45 U/L (25-115); ANION GAP 9 (8-16); CALCIUM 8.2 mg/dL (8.5-10.1); CO2 26 mmol/L (21-32); CREATININE 0.6 mg/dL (0.55-1.02); GLUCOSE,RANDOM 202 mg/dL (74-106)
[2016-11-28] MEDS ORDERED: SODIUM CHLORIDE 100 ML IVPB ONE ×2 (10:00→21:09)
[2016-11-28] MEDS ORDERED: PANTOPRAZOLE SODIUM 40 MG VIAL ONE ×2 (10:00→21:08)
[2016-11-28] MEDS: SODIUM CHLORIDE 1,000 ML IV SCH (10:08)
[2016-11-28] MEDS: PANTOPRAZOLE SODIUM 40 MG in SODIUM CHLORIDE 100 ML IVPB SCH ×2 (10:10→21:29)
[2016-11-28] MEDS: HEPARIN NA (PORCINE) 5,000 UNITS/ML 1ML VIAL SQ SCH ×2 (10:10→21:30)
[2016-11-28] MEDS: VALSARTAN 160 MG TABLET (UD) PO SCH (10:11)
[2016-11-28] MEDS: INSULIN SLIDING SCALE (NOVOLOG) 1 VIAL SQ SCH ×3 (11:53→21:32)
--- NOTE | 2016-11-28 17:49 | PN ---
Progress Note, Physician Chief Complaint: awake in pain seen in morning - Current Medication List Current Medications: Active Medications Heparin Sodium (Porcine) (Heparin -) 5,000 unit SQ BID [facility] Last Admin: 11/28/16 10:10 Dose: 5,000 unit Hydromorphone HCl (Dilaudid Injection -) 2 mg IVPB Q6H PRN PRN Reason: PAIN Last Admin: 11/28/16 14:56 Dose: 2 mg Sodium Chloride (Normal Saline -) 1,000 mls @ 75 mls/hr IV ASDIR [facility] Last Admin: 11/28/16 10:08 Dose: Not Given Pantoprazole Sodium 40 mg/ (Sodium Chloride) 100 mls @ 200 mls/hr IVPB BID [facility] Last Admin: 11/28/16 10:10 Dose: 200 mls/hr Insulin Aspart (Novolog Vial Sliding Scale -) 1 vial SQ ACHS EDILIA PRN Reason: Protocol Last Admin: 11/28/16 11:53 Dose: Not Given Ondansetron HCl (Zofran Injection) 4 mg IVPUSH Q6H PRN PRN Reason: NAUSEA Valsartan (Diovan -) 160 mg PO DAILY [facility] Last Admin: 11/28/16 10:11 Dose: 160 mg - Objective Vital Signs: Vital Signs Temperature 98.2 F 11/28/16 14:38 Pulse Rate 60 11/28/16 14:38 Respiratory Rate 18 11/28/16 14:38 Blood Pressure 124/56 11/28/16 14:38 O2 Sat by Pulse Oximetry (%) 98 11/27/16 11:36 Constitutional: Yes: Mild Distress Eyes: Yes: WNL HENT: Yes: WNL Neck: Yes: WNL Cardiovascular: Yes: WNL Respiratory: Yes: WNL Gastrointestinal: Yes: Tenderness Genitourinary: Yes: WNL Musculoskeletal: Yes: Muscle Weakness Extremities: Yes: WNL Edema: No Peripheral Pulses WNL: Yes Integumentary: Yes: WNL Wound/Incision: Yes: Clean/Dry Neurological: Yes: WNL ...Motor Strength: WNL Psychiatric: Yes: Other Labs: CBC, BMP 11/28/16 07:35 11/28/16 07:35 INR, PTT INR 0.96 (0.82-1.09) 11/27/16 02:30 Problem List - Problems (1) Abdominal pain in female Code(s): R10.9 - UNSPECIFIED ABDOMINAL PAIN (2) Abnormal LFTs Code(s): R79.89 - OTHER SPECIFIED ABNORMAL FINDINGS OF BLOOD CHEMISTRY (3) Controlled type 2 diabetes mellitus with diabetic peripheral angiopathy without gangrene Code(s): E11.51 - TYPE 2 DIABETES W DIABETIC PERIPHERAL ANGIOPATH W/O GANGRENE (4) Elevated LFTs Code(s): R79.89 - OTHER SPECIFIED ABNORMAL FINDINGS OF BLOOD CHEMISTRY (5) Pancreatitis, acute Code(s): K85.90 - ACUTE PANCREATITIS WITHOUT NECROSIS OR INFECTION, UNSP Qualifiers: Pancreatitis type: unspecified pancreatitis type Acute pancreatitis complication: unspecified Qualified Code(s): K85.90 - Acute pancreatitis without necrosis or infection, unspecified Assessment/Plan ivf npo pain control gi f/u
[2016-11-28] MEDS ORDERED: INSULIN (NOVOLOG) ASPART 100 UNITS/ML 10ML VIAL ONE (21:10)
[2016-11-29] MEDS: INSULIN SLIDING SCALE (NOVOLOG) 1 VIAL SQ SCH ×4 (06:07→21:58)
[2016-11-29] MEDS ORDERED: PANTOPRAZOLE SODIUM 40 MG VIAL ONE (09:32)
[2016-11-29] MEDS ORDERED: SODIUM CHLORIDE 100 ML IVPB ONE (09:32)
[2016-11-29] MEDS ORDERED: PT OWN MED DRAWER 7, Y5N ONE (09:32)
[2016-11-29] MEDS: VALSARTAN 160 MG TABLET (UD) PO SCH (09:37)
[2016-11-29] MEDS: PANTOPRAZOLE SODIUM 40 MG in SODIUM CHLORIDE 100 ML IVPB SCH (09:37)
[2016-11-29] MEDS: SODIUM CHLORIDE 1,000 ML IV SCH (09:38)
[2016-11-29] MEDS ORDERED: oxyCODONE HCL 5 MG TABLET PO PRN (10:42)
--- NOTE | 2016-11-29 10:48 | PN ---
Progress Note, Physician Chief Complaint: AWAKE ALERT LESS DISTRESS SAT HER UP INTO A CHAIR NO CP NO SOB NO N/V C/O LEFT ARM NUMBNESS SINCE WAKING UP THIS AM - Current Medication List Current Medications: Active Medications Heparin Sodium (Porcine) (Heparin -) 5,000 unit SQ BID [facility] Last Admin: 11/28/16 21:30 Dose: 5,000 unit Sodium Chloride (Normal Saline -) 1,000 mls @ 75 mls/hr IV ASDIR [facility] Last Admin: 11/29/16 09:38 Dose: 75 mls/hr Pantoprazole Sodium 40 mg/ (Sodium Chloride) 100 mls @ 200 mls/hr IVPB BID [facility] Last Admin: 11/29/16 09:37 Dose: 200 mls/hr Insulin Aspart (Novolog Vial Sliding Scale -) 1 vial SQ ACHS EDILIA PRN Reason: Protocol Last Admin: 11/29/16 06:07 Dose: Not Given Ondansetron HCl (Zofran Injection) 4 mg IVPUSH Q6H PRN PRN Reason: NAUSEA Last Admin: 11/29/16 01:11 Dose: 4 mg Valsartan (Diovan -) 160 mg PO DAILY [facility] Last Admin: 11/29/16 09:37 Dose: Not Given - Objective Vital Signs: Vital Signs Temperature 98.1 F 11/29/16 06:00 Pulse Rate 60 11/29/16 06:00 Respiratory Rate 18 11/29/16 06:00 Blood Pressure 131/71 11/29/16 06:00 O2 Sat by Pulse Oximetry (%) 98 11/27/16 11:36 Constitutional: Yes: Mild Distress Eyes: Yes: WNL HENT: Yes: WNL Neck: Yes: WNL Cardiovascular: Yes: WNL Respiratory: Yes: WNL Gastrointestinal: Yes: Tenderness (RUQ TENDERNESS) Genitourinary: Yes: WNL Musculoskeletal: Yes: WNL Extremities: Yes: WNL Edema: No Peripheral Pulses WNL: Yes Integumentary: Yes: WNL Wound/Incision: Yes: Clean/Dry Neurological: Yes: WNL ...Motor Strength: LUE (ROM DECREASED) Psychiatric: Yes: Other (ANXIOUS) Labs: CBC, BMP 11/28/16 07:35 11/28/16 07:35 INR, PTT INR 0.96 (0.82-1.09) 11/27/16 02:30 Problem List - Problems (1) Abdominal pain in female Code(s): R10.9 - UNSPECIFIED ABDOMINAL PAIN (2) Abnormal LFTs Code(s): R79.89 - OTHER SPECIFIED ABNORMAL FINDINGS OF BLOOD CHEMISTRY (3) Controlled type 2 diabetes mellitus with diabetic peripheral angiopathy without gangrene Code(s): E11.51 - TYPE 2 DIABETES W DIABETIC PERIPHERAL ANGIOPATH W/O GANGRENE (4) Elevated LFTs Code(s): R79.89 - OTHER SPECIFIED ABNORMAL FINDINGS OF BLOOD CHEMISTRY (5) Pancreatitis, acute Code(s): K85.90 - ACUTE PANCREATITIS WITHOUT NECROSIS OR INFECTION, UNSP Qualifiers: Pancreatitis type: unspecified pancreatitis type Acute pancreatitis complication: unspecified Qualified Code(s): K85.90 - Acute pancreatitis without necrosis or infection, unspecified (6) Neuropathy Assessment/Plan: LEFT ARM NUMBNESS LIKELY FROM SLEEPING ON HER LEFT SIDE OCCURRED WHEN AWAKENING THIS HAPPENED LAST ADMISSION ALSO Code(s): G62.9 - POLYNEUROPATHY, UNSPECIFIED Assessment/Plan START CLEAR DIABETIC LOW NA+ DIET MONITOR OOB TO CHAIR INCENTIVE SPIROMETRY GI FOLLOW UP NEUROPATHY LEFT SELF RESOLVING
[2016-11-29] MEDS: HEPARIN NA (PORCINE) 5,000 UNITS/ML 1ML VIAL SQ SCH ×2 (11:53→21:58)
[2016-11-29] MEDS ORDERED: INSULIN (NOVOLOG) ASPART 100 UNITS/ML 10ML VIAL ONE (16:39)
[2016-11-29] MEDS: MAGNESIUM HYDROX 2400MG/30ML ORAL SUSPENSION 30 ML CUP PO ONE ×2 (17:29→17:49)
--- NOTE | 2016-11-29 17:44 | PN ---
GI Progress Note Subjective: GASTROENTEROLOGY LESS ABDOMINAL PAIN CT SCAN COLON SIGNIFICANT STOOL BURDEN, HAD BM TODAY AND PAIN IS LESS - Objective Vital Signs: Vital Signs Temperature 98.7 F 11/29/16 15:14 Pulse Rate 62 11/29/16 15:14 Respiratory Rate 18 11/29/16 15:14 Blood Pressure 144/73 11/29/16 08:25 O2 Sat by Pulse Oximetry (%) 98 11/27/16 11:36 Constitutional: No Distress Eyes: Yes: Conjunctiva Clear HENT: Yes: Normocephalic Neck: Yes: Supple Cardiovascular: Yes: Regular Rate and Rhythm Respiratory: Yes: Regular Gastrointestinal Inspection: Yes: WNL ...Auscultate: Yes: Normoactive Bowel Sounds ...Palpate: Yes: Tenderness, Other (MINOR TENDERNESS RIGHT SIDE ABDOMEN WITHOUT GUARDING OR REBOUND) Extremities: Yes: Other (LEFT FOREARM HAND SWOLLEN AND REDDENED (STATES HAD IV THERE)) Labs: CBC, BMP 11/28/16 07:35 11/28/16 07:35 INR, PTT INR 0.96 (0.82-1.09) 11/27/16 02:30 Problem List - Problems (1) Abdominal pain Assessment/Plan: RELATED MOSTLY NOW TO CONSTIPATION MOM TODAY AND FLEET ENEMA IN AM Code(s): R10.9 - UNSPECIFIED ABDOMINAL PAIN (2) Pancreatitis, acute Assessment/Plan: RESOLVED Code(s): K85.90 - ACUTE PANCREATITIS WITHOUT NECROSIS OR INFECTION, UNSP Qualifiers: Pancreatitis type: unspecified pancreatitis type Acute pancreatitis complication: unspecified Qualified Code(s): K85.90 - Acute pancreatitis without necrosis or infection, unspecified (3) RLQ abdominal pain Code(s): R10.31 - RIGHT LOWER QUADRANT PAIN (4) Left arm swelling Assessment/Plan: CELLULITIS CALL PLACED TO PMD Code(s): M79.89 - OTHER SPECIFIED SOFT TISSUE DISORDERS
--- NOTE | 2016-11-29 18:49 | HOSP ---
Subjective - Review of Symptoms General: No: Chills, Malaise HEENT: No: Head Aches Pulmonary: No: Cough Cardiovascular: No: Chest Pain, Palpitations Gastrointestinal: No: Nausea, Vomiting Musculoskeletal: Yes: Joint Pain, Joint Swelling Neurological: No: Weakness, Numbness Physical Examination Vital Signs: Vital Signs Temperature 98.1 F 11/29/16 16:30 Pulse Rate 60 11/29/16 16:30 Respiratory Rate 20 11/29/16 16:30 Blood Pressure 135/78 11/29/16 16:30 O2 Sat by Pulse Oximetry (%) 98 11/27/16 11:36 Constitutional: Yes: Well Nourished, No Distress, Calm Eyes: Yes: Conjunctiva Clear, EOM Intact HENT: Yes: Atraumatic, Normocephalic. No: Pharyngeal Erythema Neck: Yes: Trachea Midline Cardiovascular: Yes: Regular Rate and Rhythm Respiratory: Yes: Regular, CTA Bilaterally Gastrointestinal: Yes: Soft Extremities: Yes: Erythema Edema: No Peripheral Pulses WNL: Yes Peripheral Pulses: Left Radial: 2+, Right Radial: 2+ Integumentary: Yes: Other (left medial wrist extending circumferentially with erythema, swelling(largest circumference [id number]) and tenderness with palpation and movement(marked with abduction) Right medial forearm with current IV site with erythema/swelling and tenderness to palpation.) Neurological: Yes: Alert Psychiatric: Yes: Alert Labs: CBC, BMP 11/28/16 07:35 11/28/16 07:35 Hospitalist Encounter Assessment: Patient in no acute distress. Since last night has been having gradual increase in erythema and swelling. This was the site of a previous IV, removed yesterday afternoon. Current IV site on left forearm with erythema at insertion site with tenderness to palpation. no discharge, no underlying fluctuation. Area outlined with pen. Patient denies fevers, nausea, vomiting, headache, chest pain. has been tolerating liquid diet well. discussed with Dr. Zuniga. Primary Physician Notified: Preeti Zuniga Time PMD Notified: 06:30 Recommendations/Interventions: DC IVF and IV medications and peripheral lines protonix IV changed to po apply warm compress to both sites, bacitracin TP, ibuprofen 600mg po BID f/u by primary team to assess sites in the AM and f/u CBC Visit type - Emergency Visit Emergency Visit: No - New Patient This patient is new to me today: Yes Date on this admission: 11/29/16 - Critical Care Critical Care patient: No
[2016-11-29] MEDS ORDERED: IBUPROFEN 600 MG TABLET (FP) PO PRN (18:53)
[2016-11-29] MEDS: BACITRACIN 15 GM TUBE TOPICAL OINTMENT TP SCH (19:15)
[2016-11-29] MEDS: PANTOPRAZOLE 40 MG TABLET (FP) PO SCH (21:58)
[2016-11-30] MEDS: INSULIN SLIDING SCALE (NOVOLOG) 1 VIAL SQ SCH ×2 (06:13→11:55)
[2016-11-30] MEDS ORDERED: SODIUM PHOSPHATE/NA BIPHOS 133 ML ENEMA PR ONE (08:00)
--- NOTE | 2016-11-30 08:52 | DS ---
Physical Examination Vital Signs: Vital Signs Temperature 98.7 F 11/30/16 07:15 Pulse Rate 69 11/30/16 07:15 Respiratory Rate 18 11/30/16 07:15 Blood Pressure 131/78 11/30/16 07:15 O2 Sat by Pulse Oximetry (%) 98 11/29/16 21:00 Findings/Remarks: AWAKE ALERT DENIES PAIN TOLERATING LIQUIDS, ADVANCED FULL LIQUID ADA Constitutional: Yes: No Distress Eyes: Yes: WNL HENT: Yes: WNL Neck: Yes: WNL Cardiovascular: Yes: WNL Respiratory: Yes: WNL Gastrointestinal: Yes: WNL Renal/: Yes: WNL Musculoskeletal: Yes: WNL Extremities: Yes: WNL Edema: No Peripheral Pulses WNL: Yes Integumentary: Yes: WNL Wound/Incision: Yes: Clean/Dry Neurological: Yes: WNL ...Motor Strength: WNL Psychiatric: Yes: WNL Labs: CBC, BMP 11/28/16 07:35 Discharge Summary Reason For Visit: PANCREATITIS Current Active Problems Abdominal pain (Acute) Abdominal pain in female (Acute) Abnormal LFTs (Acute) Garza palsy (Acute) Controlled type 2 diabetes mellitus with diabetic peripheral angiopathy without gangrene (Acute) Elevated LFTs (Acute) Left arm swelling (Acute) Left facial numbness (Acute) Neuropathy (Acute) Pancreatitis, acute (Acute) RLQ abdominal pain (Acute) RUQ abdominal pain (Acute) UTI (urinary tract infection) (Acute) Vomiting bile (Acute) Zoster (Acute) Zoster encephalitis (Acute) Procedures: Principal: CT SCAN Other Procedures: LABS/CX Hospital Course: ADMITTED FOR ACUTE ON CHRONIC PANCREATITIS, ADMITTED FOR IVF, IV PAIN CONTROLS, ADVANCED DIET SLOWLY, EDUCATION AND DIETARY DISCUSSED NO FAT DIET. Condition: Stable - Instructions Diet, Activity, Other Instructions: NO FAT LIQUID DIET ADA LOW NA+ SEE DR ZUNIGA IN 1 WEEK ADVANCE YOUR DIET SLOWLY TOLERATED Referrals: Preeti Zuniga MD [Primary Care Provider] - Disposition: VNS/HOME HEALTH CARE - Home Medications Comprehensive Discharge Medication List: Ambulatory Orders Metformin HCl [Glucophage] 500 mg PO BIDAC 07/06/13 Pantoprazole Sodium [Protonix -] 40 mg PO DAILY tablet.ec 11/15/15 Telmisartan [Micardis] 80 mg PO DAILY 06/17/16 Escitalopram Oxalate [Lexapro -] 20 mg PO DAILY 10/07/16 Insulin (Levemir) [Levemir Vial] 30 unit SQ ACBK 10/07/16 Bacitracin - [Bacitracin Topical Ointment -] 1 applic TP DAILY #90 tube Ibuprofen [Motrin -] 600 mg PO Q12H PRN #30 tablet 11/30/16
[2016-11-30 09:21] LABS: BASOPHIL 1.1 % (0-2.0); MCH 28.3 pg (25.7-33.7); MEAN CELL VOLUME 83.4 fl (80-96); MEAN PLT VOLUME 8.5 fl (7.5-11.1); NEUTROPHILS 58.6 % (42.8-82.8); PLATELET COUNT 308 K/MM3 (134-434); RDW 13.2 % (11.6-15.6); WHITE BLOOD COUNT 6.3 K/mm3 (4.0-10.0)
[2016-11-30] MEDS: VALSARTAN 160 MG TABLET (UD) PO SCH (10:27)
[2016-11-30] MEDS: PANTOPRAZOLE 40 MG TABLET (FP) PO SCH (10:27)
[2016-11-30] MEDS: HEPARIN NA (PORCINE) 5,000 UNITS/ML 1ML VIAL SQ SCH (10:28)
[2016-11-30] MEDS: BACITRACIN 15 GM TUBE TOPICAL OINTMENT TP SCH (10:28)
[2016-11-30 11:35] VITALS: BP 130/80; PULSE 60; TEMP 97.9
[2016-11-30] MEDS ORDERED: INSULIN (NOVOLOG) ASPART 100 UNITS/ML 10ML VIAL ONE (11:54)
== END 2016-11-30 13:15 | disposition home health service (06) | DRG 440 ==
LOC: JER 01:39 → JERBED 06:14 → OBSVTOIN 08:16 → J8W 08:27
PROVIDERS: ADMIT Family Medicine; ATTEND Family Medicine
DX: K85.90 Acute pancreatitis without necrosis or infection, unspecified (principal); K86.1 Other chronic pancreatitis; Z79.4 Long term (current) use of insulin; Z68.27 Body mass index [BMI] 27.0-27.9, adult; E78.00 Pure hypercholesterolemia, unspecified; E66.9 Obesity, unspecified; I10 Essential (primary) hypertension; E11.51 Type 2 diabetes mellitus with diabetic peripheral angiopathy without gangrene; M17.10 Unilateral primary osteoarthritis, unspecified knee; Z79.84 Long term (current) use of oral hypoglycemic drugs; M79.89 Other specified soft tissue disorders
CPT/HCPCS: 36415; 70450-TC; 74177-TC; 80048; 80053; 81003; 81015; 82150; 83690; 85025; 85027; 85610; 85730; 99284-25; G0378; J1644

== ENCOUNTER 2017-03-15 22:07 | Inpatient (IN) | payer OTHER ==
--- NOTE | 2017-03-15 23:15 | PDOC ---
History of Present Illness - General History Source: Patient Exam Limitations: No Limitations - History of Present Illness Initial Comments: 03/15/17 23:26 The patient is a 61 year old female with a significant past medical history of chronic pancreatitis and diabetes who presents to the ED with complaints of nausea, vomiting, or diarrhea since yesterday. The patient reports multiple episodes of progressively worsening vomiting and loose stool since yesterday morning. The patient states she was unable to eat yesterday secondary to present symptoms and notes she attempted to eat this afternoon but vomited. She also reports epigastric pain and pain in her right upper and left upper quadrant associated with present symptoms. Patients last admission was in November 2016 for pancreatitis. Denies fever or chills. Denies chest pain or shortness of breath. Denies dysuria or change in urinary output. Denies any other symptoms. PCP: Dr. Zuniga <Tremaine Salas - Last Filed: 03/16/17 02:44> - General History Source: Patient <Jerry Kaba - Last Filed: 03/16/17 02:53> - General Chief Complaint: Nausea/Vomiting Stated Complaint: STOMACH PAIN,VOMITTING Time Seen by Provider: 03/15/17 23:12 Past History <Tremaine Salas - Last Filed: 03/16/17 02:44> - Past Medical History Anemia: No Asthma: No Cancer: No Cardiac Disorders: No CVA: No COPD: No CHF: No DVT: No Dementia: No Diabetes: Yes Dialysis: No GI Disorders: Yes (pancreatitis, SBO, GERD) Disorders: No HTN: Yes Hypercholesterolemia: Yes Kidney Stones: No Liver Disease: No Psychiatric Problems: No Seizures: No Thyroid Disease: No Lung CA: No Other medical history: chronic pancreatitis - Surgical History Abdominal Surgery: Yes Appendectomy: Yes Cardiac Surgery: No Cholecystectomy: Yes Gastric Stapling: No Lung Surgery: No Neurologic Surgery: No Orthopedic Surgery: No - Family Disease History Family Disease History: Diabetes: Father, Heart Disease: Father - Immunization History Immunization Up to Date: Yes - Suicide/Smoking/Psychosocial Hx Smoking Status: No Smoking History: Never smoked Have you smoked in the past 12 months: No Number of Cigarettes Smoked Daily: 0 If you are a former smoker, when did you quit?: november 2012 Information on smoking cessation initiated: No Hx Alcohol Use: No Drug/Substance Use Hx: No Substance Use Type: None Hx Substance Use Treatment: No <Jerry Kaba - Last Filed: 03/16/17 02:53> - Past Medical History Allergies/Adverse Reactions: Allergies Allergy/AdvReac Type Severity Reaction Status Date / Time Penicillins Allergy Verified 11/27/16 01:59 Home Medications: Ambulatory Orders Metformin HCl [Glucophage] 500 mg PO BIDAC 07/06/13 Pantoprazole Sodium [Protonix -] 40 mg PO DAILY tablet.ec 11/15/15 Telmisartan [Micardis] 80 mg PO DAILY 06/17/16 Escitalopram Oxalate [Lexapro -] 20 mg PO DAILY 10/07/16 Insulin (Levemir) [Levemir Vial] 30 unit SQ ACBK 10/07/16 Insulin Lispro Protamin/Lispro [Humalog Mix 50-50 Kwikpen] 10 unit SQ BID Review of Systems - Review of Systems Able to Perform ROS?: Yes Comments:: 03/15/17 23:26 CONSTITUTIONAL: No reported: Fever, Chills, Diaphoresis, Generalized Weakness, Malaise, Loss of Appetite HEENT: No reported: Rhinorrhea, Nasal Congestion, Throat Pain, Throat Swelling, Difficulty Swallowing, Mouth Swelling, Ear Pain, Eye Pain, Visual Changes CARDIOVASCULAR: No reported: Chest Pain, Syncope, Palpitations, Irregular Heart Rate, Lightheadedness, Peripheral Edema RESPIRATORY: No reported: Cough, Shortness of Breath, SOB with Exertion, Orthopnea, Wheezing , Stridor, Hemoptysis GASTROINTESTINAL: + nausea, vomiting, diarrhea, abdominal pain No reported: Abdominal Distension, Constipation, Melena, Hematochezia GENITOURINARY: No reported: Dysuria, Frequency, Urgency, Hesitancy, Flank Pain, Genital Pain MUSCULOSKELETAL: No reported: Myalgia, Arthralgia, Joint Swelling, Back pain, Neck Pain SKIN: No reported: Rash, Itching, Pallor HEMEATOLOGIC/IMMUNOLOGIC: No reported: Easy Bleeding, Easy Bruising, Lymphadenopathy, Frequent infections ENDOCRINE: No reported: Unexplained Weight Gain, Unexplained Weight Loss, Heat Intolerance , Cold Intolerance NEUROLOGIC: No reported: Headache, Focal Weakness, Paresthesias, Vertigo, Lightheadedness, Unsteady Gait, Seizure, Mental Status Changes, Incontinence PSYCHIATRIC: No reported: Anxiety, Depression All Other Systems: Reviewed and Negative <Tremaine Salas - Last Filed: 03/16/17 02:44> *Physical Exam - Vital Signs Last Vital Signs Temp Pulse Resp BP Pulse Ox 98.1 F 83 18 151/93 97 03/15/17 22:50 03/15/17 22:50 03/15/17 22:50 03/15/17 22:50 03/15/17 22:50 - Physical Exam Comments: 03/15/17 23:26 GENERAL: + Moderate distress. The patient is awake, alert, and fully oriented, Nontoxic HEAD: Normocephalic, atraumatic. EYES: extraocular movements intact, sclera anicteric, conjunctiva clear. ENT: Normal voice, Moist mucous membranes. NECK: Normal range of motion, supple LUNGS: Breath sounds equal, clear to auscultation bilaterally. No wheezes, no rhonchi, no rales. HEART: Regular rate and rhythm, without murmur, rub or gallop. ABDOMEN:+ Diffuse moderate tenderness in the abdomen. Soft, normoactive bowel sounds. No guarding, no rebound.No CVA tenderness EXTREMITIES: Normal range of motion, no edema. No clubbing or cyanosis. No cords, erythema, or tenderness. NEUROLOGICAL: No facial assymetry, Normal speech, PSYCH: Normal mood, normal affect. SKIN: Warm, Dry, normal turgor, <Tremaine Salas - Last Filed: 03/16/17 02:44> - Vital Signs Last Vital Signs Temp Pulse Resp BP Pulse Ox 98.1 F 83 18 151/93 97 03/15/17 22:50 03/15/17 22:50 03/15/17 22:50 03/15/17 22:50 03/15/17 22:50 <Jerry Kaba - Last Filed: 03/16/17 02:53> Heart Score/ECG Review #1 03/16/17 00:16 Vent. rate 64 bpm CO interval 138 ms QRS duration 86 ms Normal sinus rhythm <Tremaine Salas - Last Filed: 03/16/17 02:44> ED Treatment Course - LABORATORY CBC & Chemistry Diagram: 03/15/17 23:36 03/15/17 23:36 - RADIOLOGY Radiograph Interpretation: 03/16/17 00:17 EXAM: Chest x-ray AP portable FINDINGS: No pulmonary infiltrates are identified. No acute pulmonary abnormality. Osseous structures are intact. Heart is normal. Mild atherosclerotic calcification of the aorta. No acute abnormalities. Reported by: Imaging patient registration specialist 03/16/17 02:44 EXAM: CT abdomen and pelvis FINDINGS: Discussed with Dr. Kaba. The lipase is elevated above 1000. There is some very subtle haziness of the fat near the head and body of the pancreas. When considering the lipase result, this probably represents early acute pancreatitis. No pseudocyst. No abscess. No free fluid. No acute abnormality of bowel. Normal liver. Normal spleen. Normal adrenal glands. Normal kidneys urinary tract and urinary bladder. Reported by: Imaging patient registration specialist <Tremaine Salas - Last Filed: 03/16/17 02:44> - LABORATORY CBC & Chemistry Diagram: 03/15/17 23:36 03/15/17 23:36 <Jerry Kaba - Last Filed: 03/16/17 02:53> Medical Decision Making - Medical Decision Making 03/16/17 02:25 Dr. Kaba: The scribe's documentation has been prepared under my direction and personally reviewed by me in its entirery. I confirm that the note above accurately reflects all work, treatment, procedures, and medical decision making performed by me. Pt with evidence of recurring pancreatitis. Lipase 1326, Pt sill having pain. Will admit to [facility] <Jerry Kaba - Last Filed: 03/16/17 02:53> *DC/Admit/Observation/Transfer - Attestations Scribe Attestion: 03/15/17 23:26 Documentation prepared by Tremaine Salas, acting as medical diagnostic radiographer for Jerry Kaba MD <Tremaine Salas - Last Filed: 03/16/17 02:44> - Discharge Dispostion Admit: Yes <Jerry Kaba - Last Filed: 03/16/17 02:53> Diagnosis at time of Disposition: Chronic pancreatitis - Discharge Dispostion Condition at time of disposition: Stable - Referrals Referrals: Preeti Zuniga MD [Primary Care Provider] - - Patient Instructions - Post Discharge Activity
[2017-03-15] MEDS ORDERED: SODIUM CHLORIDE 1,000 ML IV STA (23:18)
[2017-03-15] MEDS ORDERED: morphine CARPU-JECT 2 MG/1 ML DISP.SYRIN IVPUSH ONE (23:19)
[2017-03-15] MEDS ORDERED: ONDANSETRON 4 MG/2 ML VIAL IVPUSH STA (23:19)
[2017-03-15] MEDS ORDERED: FAMOTIDINE 20 MG/50 ML IVPB 20 MG in PREMIX 50 IVPB ONE (23:19)
[2017-03-15] MEDS ORDERED: FAMOTIDINE 20 MG/50 ML IVPB 20 MG/50 ML MG IVPB ONE (23:27)
[2017-03-15 23:29] LABS: URINE APPEARANCE SLCLOUDY; URINE BILIRUBIN NEGATIVE (NEGATIVE); URINE BLOOD NEGATIVE (NEGATIVE); URINE COLOR LTYELLOW; URINE GLUCOSE (UA) NEGATIVE (NEGATIVE); URINE KETONE NEGATIVE (NEGATIVE); URINE NITRITE NEGATIVE (NEGATIVE); URINE PROTEIN NEGATIVE (NEGATIVE); URINE UROBILINOGEN NEGATIVE mg/dL (0.2-1.0)
[2017-03-15] MEDS ORDERED: morphine CARPU-JECT 10 MG/1 ML DISP.SYRIN ONE (23:46)
[2017-03-15] MEDS ORDERED: ONDANSETRON 4 MG/2 ML VIAL ONE (23:46)
[2017-03-15 23:49] LABS: VENOUS BLOOD GAS HCO3 24.7 meq/L (19-25); VENOUS PH 7.38 (7.32-7.42)
[2017-03-15 23:56] LABS: BASOPHIL 0.8 % (0-2.0); EOSINOPHIL 1.4 % (0-4.5); MCH 28.1 pg (25.7-33.7); MCHC 33.7 g/dl (32.0-36.0); MEAN CELL VOLUME 83.4 fl (80-96); NEUTROPHILS 69.9 % (42.8-82.8); PLATELET COUNT 347 K/MM3 (134-434); RDW 13.9 % (11.6-15.6); WHITE BLOOD COUNT 11.9 K/mm3 (4.0-10.0)
[2017-03-16 00:13] LABS: MAGNESIUM 1.8 mg/dL (1.8-2.4)
[2017-03-16 00:28] LABS: ALBUMIN 3.6 g/dl (3.4-5.0); ANION GAP 7 (8-16); BILIRUBIN,TOTAL 0.2 mg/dL (0.2-1.0); CALCIUM 8.7 mg/dL (8.5-10.1); CO2 28 mmol/L (21-32); CREATININE 1.1 mg/dL (0.55-1.02); GLUCOSE,RANDOM 199 mg/dL (74-106); SGOT/AST 11 U/L (15-37); SGPT/ALT 22 U/L (12-78); TOT PROT 7.2 g/dl (6.4-8.2)
[2017-03-16 00:30] LABS: ALK PHOS 109 U/L (45-117); CPK 88 IU/L (26-192); TROPONIN I < 0.02 ng/ml (0.00-0.05)
[2017-03-16] MEDS ORDERED: ONDANSETRON 4 MG/2 ML VIAL IVPUSH STA (02:17)
[2017-03-16] MEDS ORDERED: morphine CARPU-JECT 2 MG/1 ML DISP.SYRIN IVPUSH ONE (02:17)
[2017-03-16 02:42] LABS: ACETONE SERUM NEGATIVE (NEGATIVE)
[2017-03-16] MEDS ORDERED: morphine CARPU-JECT 10 MG/1 ML DISP.SYRIN ONE (03:04)
[2017-03-16] MEDS ORDERED: ONDANSETRON 4 MG/2 ML VIAL ONE (03:04)
[2017-03-16 04:34] VITALS: BMI 32.1
[2017-03-16] MEDS ORDERED: HYDROmorphone HCL CARPU-JECT 2 MG/1 ML DISP.SYRIN IVPUSH PRN (08:24)
[2017-03-16] MEDS ORDERED: ONDANSETRON 4 MG/2 ML VIAL IVPUSH PRN (08:24)
[2017-03-16] MEDS ORDERED: ACETAMINOPHEN 325 MG TABLET (FP) PO PRN (08:24)
[2017-03-16] MEDS ORDERED: LACTATED RINGERS SOLUTION 1,000 ML IV SCH ×2 (08:30→12:24)
[2017-03-16] MEDS ORDERED: HYDROmorphone HCL CARPU-JECT 2 MG/1 ML DISP.SYRIN IVPB PRN (08:34)
[2017-03-16 09:27] LABS: BASOPHIL 1.5 % (0-2.0); MCH 27.7 pg (25.7-33.7); MCHC 32.8 g/dl (32.0-36.0); MEAN CELL VOLUME 84.5 fl (80-96); MEAN PLT VOLUME 7.6 fl (7.5-11.1); NEUTROPHILS 61.5 % (42.8-82.8); PLATELET COUNT 315 K/MM3 (134-434); RDW 13.9 % (11.6-15.6); WHITE BLOOD COUNT 10.5 K/mm3 (4.0-10.0)
[2017-03-16 09:36] LABS: INR 0.99 (0.82-1.09); PROTHROMBIN TIME (PATIENT) 11.2 SEC (9.98-11.88)
[2017-03-16 09:43] LABS: ALBUMIN 3.3 g/dl (3.4-5.0); AMYLASE 74 U/L (25-115); ANION GAP 7 (8-16); CALCIUM 8.1 mg/dL (8.5-10.1); CO2 26 mmol/L (21-32); CREATININE 0.9 mg/dL (0.55-1.02); GLUCOSE,RANDOM 166 mg/dL (74-106); SGOT/AST 10 U/L (15-37); SGPT/ALT 22 U/L (12-78)
[2017-03-16 09:46] LABS: ALK PHOS 98 U/L (45-117); BILIRUBIN,TOTAL 0.5 mg/dL (0.2-1.0); TOT PROT 6.5 g/dl (6.4-8.2)
[2017-03-16] MEDS: HEPARIN NA (PORCINE) 5,000 UNITS/ML 1ML VIAL SQ SCH ×2 (09:51→21:28)
[2017-03-16] MEDS: ESCITALOPRAM OXALATE 10 MG TABLET (FP) PO SCH (09:54)
[2017-03-16 10:20] LABS: URINE LEUK ESTERASE TRACE (NEGATIVE)
--- NOTE | 2017-03-16 10:21 | CON.GI ---
Consult Consult Specialty:: GI Reason for Consultation:: Pancreatitis - History of Present Illness History of Present Illness: A 61 yof with history of recurrent, ?chronic pancreatitis s/p extensive work up including genetics, MRCP, ERCP with normal PD, per daughter, who is also translating. Family history of pancreatic ca in pts father. No history of alcohol, biliary pathology, gallstones, or liver disease. No history of autoimmune diseases. Prior to the admission, multiple episodes of progressively worsening vomiting and loose stool x 1 day. Unable to eat yesterday secondary to present symptoms and notes she attempted to eat this afternoon but vomited. She also reports epigastric pain and pain in her right upper and left upper quadrant associated with present symptoms. Last admission was in November 2016 for pancreatitis. Denies fever or chills. Denies chest pain or shortness of breath. Denies dysuria or change in urinary output. Lose stools x 1 week, w/o melena, mucous, hematochezia. Denies any other symptoms. On admission lipase 1300, today 400. Normal liver chemistry, ALP, bilirubin. CT suggestive of pancreatitis, w/o omnious signs. MRI in December of this year showed fatty liver, normal CBD, PD - History Source History Provided By: Patient, Family Member, Medical Record Limitations to Obtaining History: Language Barrier - Past Medical History AS[employer]: Yes: Other (Pt has been recently w/u for early dementia, which runs in her family.) Cardio/Vascular: Yes: HTN, Hyperlipdemia Gastrointestinal: Yes: Pancreatitis (?), Other (SBO) Psych: Yes: Depression, Panic Musculoskeletal: Yes: Osteoarthritis, Other (Knee pain) Endocrine: Yes: Diabetes Mellitus - Past Surgical History Past Surgical History: Yes: Appendectomy, Cholecystectomy, Colonoscopy (neg 2 yrs ago at ), (x2), Hysterectomy - Alcohol/Substance Use Hx Alcohol Use: No - Smoking History Smoking history: Never smoked Have you smoked in the past 12 months: No Aproximately how many cigarettes per day: 0 If you are a former smoker, when did you quit?: november 2012 - Social History Usual Living Arrangement: With Spouse ADL: Independent History of Recent Travel: No Home Medications - Allergies Allergies/Adverse Reactions: Allergies Allergy/AdvReac Type Severity Reaction Status Date / Time Penicillins Allergy Verified 11/27/16 01:59 - Home Medications Home Medications: Ambulatory Orders Metformin HCl [Glucophage] 500 mg PO BIDAC 07/06/13 Pantoprazole Sodium [Protonix -] 40 mg PO DAILY tablet.ec 11/15/15 Telmisartan [Micardis] 80 mg PO DAILY 06/17/16 Escitalopram Oxalate [Lexapro -] 20 mg PO DAILY 10/07/16 Insulin (Levemir) [Levemir Vial] 30 unit SQ ACBK 10/07/16 Insulin Lispro Protamin/Lispro [Humalog Mix 50-50 Kwikpen] 10 unit SQ BID Family Disease History - Family Disease History Family Disease History: Diabetes: Mother, CA: Father (pancreatic 78) Review of Systems Findings/Remarks: Please refer to H&P Physical Exam-GI Vital Signs: Vital Signs Temperature 98.4 F 03/16/17 09:41 Pulse Rate 72 03/16/17 09:41 Respiratory Rate 20 03/16/17 09:41 Blood Pressure 96/54 03/16/17 09:41 O2 Sat by Pulse Oximetry (%) 93 L 03/16/17 04:44 Constitutional: Yes: Well Nourished, Mild Distress Eyes: Yes: Conjunctiva Clear HENT: Yes: Atraumatic Neck: Yes: Supple Cardiovascular: Yes: Regular Rate and Rhythm Respiratory: Yes: Regular Gastrointestinal Inspection: Yes: Distention ...Auscultate: Yes: Normoactive Bowel Sounds ...Palpate: Yes: Guarding, Tenderness, Epigastium. No: Tenderness, Rebound Musculoskeletal: No: Joint Swelling Edema: No Integumentary: No: Jaundice Neurological: Yes: Alert, Oriented Labs: CBC, BMP 03/16/17 09:00 03/16/17 09:00 INR, PTT INR 0.99 (0.82-1.09) 03/16/17 09:00 Laboratory Results - last 24 hr 03/15/17 03/15/17 03/15/17 23:21 23:36 23:36 WBC 11.9 H D RBC 4.72 Hgb 13.3 Hct 39.4 MCV 83.4 MCH 28.1 MCHC 33.7 RDW 13.9 Plt Count 347 MPV 8.0 Neutrophils % 69.9 Lymphocytes % 21.4 D Monocytes % 6.5 Eosinophils % 1.4 D Basophils % 0.8 PT with INR INR VBG pH POC VBG pCO2 POC VBG pO2 Mixed VBG HCO3 Sodium 138 Potassium 4.4 Chloride 103 Carbon Dioxide 28 Anion Gap 7 L BUN 19 H Creatinine 1.1 H Creat Clearance w eGFR 50.50 Random Glucose 199 H Calcium 8.7 Magnesium Total Bilirubin 0.2 D AST 11 L D ALT 22 Alkaline Phosphatase 109 Creatine Kinase 88 Troponin I < 0.02 Total Protein 7.2 Albumin 3.6 Total Amylase Lipase Urine Color Ltyellow Urine Appearance Slcloudy Urine pH 5.0 Ur Specific Morris 1.020 Urine Protein Negative Urine Glucose (UA) Negative Urine Ketones Negative Urine Blood Negative Urine Nitrite Negative Urine Bilirubin Negative Urine Urobilinogen Negative Ur Leukocyte Esterase Trace H Urine RBC 0-3 Urine WBC 3-5 Ur Epithelial Cells Few Calcium Oxalate Crystal Moderate Urine Bacteria Moderate Acetone, Qual Negative L 03/15/17 03/15/17 03/16/17 23:36 23:42 09:00 WBC 10.5 H RBC 4.49 Hgb 12.5 Hct 37.9 MCV 84.5 MCH 27.7 MCHC 32.8 RDW 13.9 Plt Count 315 MPV 7.6 Neutrophils % 61.5 Lymphocytes % 28.5 D Monocytes % 6.5 Eosinophils % 2.0 Basophils % 1.5 PT with INR INR VBG pH 7.38 POC VBG pCO2 42.6 POC VBG pO2 40.4 Mixed VBG HCO3 24.7 Sodium Potassium Chloride Carbon Dioxide Anion Gap BUN Creatinine Creat Clearance w eGFR Random Glucose Calcium Magnesium 1.8 Total Bilirubin AST ALT Alkaline Phosphatase Creatine Kinase Troponin I Total Protein Albumin Total Amylase Lipase 1362 H Urine Color Urine Appearance Urine pH Ur Specific Morris Urine Protein Urine Glucose (UA) Urine Ketones Urine Blood Urine Nitrite Urine Bilirubin Urine Urobilinogen Ur Leukocyte Esterase Urine RBC Urine WBC Ur Epithelial Cells Calcium Oxalate Crystal Urine Bacteria Acetone, Qual 03/16/17 03/16/17 09:00 09:00 WBC RBC Hgb Hct MCV MCH MCHC RDW Plt Count MPV Neutrophils % Lymphocytes % Monocytes % Eosinophils % Basophils % PT with INR 11.20 INR 0.99 VBG pH POC VBG pCO2 POC VBG pO2 Mixed VBG HCO3 Sodium 140 Potassium 4.2 Chloride 107 Carbon Dioxide 26 Anion Gap 7 L BUN 15 D Creatinine 0.9 Creat Clearance w eGFR > 60 Random Glucose 166 H Calcium 8.1 L Magnesium Total Bilirubin 0.5 D AST 10 L ALT 22 Alkaline Phosphatase 98 Creatine Kinase Troponin I Total Protein 6.5 Albumin 3.3 L Total Amylase 74 D Lipase 418 H Urine Color Urine Appearance Urine pH Ur Specific Morris Urine Protein Urine Glucose (UA) Urine Ketones Urine Blood Urine Nitrite Urine Bilirubin Urine Urobilinogen Ur Leukocyte Esterase Urine RBC Urine WBC Ur Epithelial Cells Calcium Oxalate Crystal Urine Bacteria Acetone, Qual Imaging - Results Cat Scan: Report Reviewed MRI: Report Reviewed (12/2016 - fatty liver, normal CBD, PD, s/p svetlana) Problem List - Problems (1) Acute pancreatitis Code(s): K85.90 - ACUTE PANCREATITIS WITHOUT NECROSIS OR INFECTION, UNSP Qualifiers: Pancreatitis type: idiopathic Assessment/Plan A recurrent, idiopathic pancreatitis, possibly underlying chronic pancreatis as well. No obvious culprits, or risk factors identified. S/p Extensive, negative work up. No significant PMH other than HTN. Pt was hypotensive on admission with BUN 19, Cr 1.1, normal HCt, WBC 11, and loose stools. Increase IVF to 250/hr x 8-12 hrs and reevaluate Antiemetics Pain management CMP/CBC this evening NPO today C. diff toxin PCR Discussed with pt's daughter
[2017-03-16 10:35] LABS: URINE RBC 0-3 /hpf (0-3)
[2017-03-16 10:36] LABS: CALCIUM OXALATE CRYSTALS MODERATE /hpf (NONE SEEN); URINE BACTERIA MODERATE /hpf (NEGATIVE)
--- NOTE | 2017-03-16 12:39 | HP ---
Admitting History and Physical - Primary Care Physician PCP: Preeti Zuniga - Admission Chief Complaint: abdominal pain nausea started yesterday History of Present Illness: The patient is a 61 year old female with a significant past medical history of chronic pancreatitis and diabetes who presents to the ED with complaints of nausea, vomiting, or diarrhea since yesterday. The patient reports multiple episodes of progressively worsening vomiting and loose stool since yesterday morning. The patient states she was unable to eat yesterday secondary to present symptoms and notes she attempted to eat this afternoon but vomited. She also reports epigastric pain and pain in her right upper and left upper quadrant associated with present symptoms. Patients last admission was in November 2016 for pancreatitis. Denies fever or chills. Denies chest pain or shortness of breath. Denies dysuria or change in urinary output. Denies any other symptoms. PCP: Dr. Zuniga IN ER noted to have elevated Lipase,WBC count CT scan shows hazziness around the body of pancreas patient NPO on iv fluids History Source: Family Member Limitations to Obtaining History: Language Barrier - Past Medical History HEADER BOSS: Yes: Other (Pt has been recently w/u for early dementia, which runs in her family.) Cardiovascular: Yes: HTN, Hyperlipdemia Gastrointestinal: Yes: Pancreatitis (?), Other (SBO) Psych: Yes: Depression, Panic Musculoskeletal: Yes: Osteoarthritis, Other (Knee pain) Endocrine: Yes: Diabetes Mellitus - Past Surgical History Past Surgical History: Yes: Appendectomy, Cholecystectomy, Colonoscopy (neg 2 yrs ago at ), (x2), Hysterectomy - Smoking History Smoking history: Never smoked Have you smoked in the past 12 months: No Aproximately how many cigarettes per day: 0 If you are a former smoker, when did you quit?: november 2012 - Alcohol/Substance Use Hx Alcohol Use: No - Social History ADL: Independent History of Recent Travel: No Home Medications - Allergies Allergies/Adverse Reactions: Allergies Allergy/AdvReac Type Severity Reaction Status Date / Time Penicillins Allergy Verified 11/27/16 01:59 - Home Medications Home Medications: Ambulatory Orders Metformin HCl [Glucophage] 500 mg PO BIDAC 07/06/13 Pantoprazole Sodium [Protonix -] 40 mg PO DAILY tablet.ec 11/15/15 Telmisartan [Micardis] 80 mg PO DAILY 06/17/16 Escitalopram Oxalate [Lexapro -] 20 mg PO DAILY 10/07/16 Insulin (Levemir) [Levemir Vial] 30 unit SQ ACBK 10/07/16 Insulin Lispro Protamin/Lispro [Humalog Mix 50-50 Kwikpen] 10 unit SQ BID Family Disease History - Family Disease History Family Disease History: Diabetes: Mother, CA: Father (pancreatic 78) Review of Systems - Review of Systems Gastrointestinal: reports: Abdominal Pain, Nausea Physical Examination Vital Signs: Vital Signs Temperature 98.4 F 03/16/17 09:41 Pulse Rate 69 03/16/17 12:12 Respiratory Rate 20 03/16/17 12:12 Blood Pressure 102/65 03/16/17 12:12 O2 Sat by Pulse Oximetry (%) 93 L 03/16/17 04:44 Constitutional: Yes: Mild Distress Cardiovascular: Yes: Regular Rate and Rhythm, S1, S2 Respiratory: Yes: CTA Bilaterally Gastrointestinal: Yes: Hypoactive Bowel Sounds, Tenderness, Tenderness, Epigastrium Edema: No Neurological: Yes: Alert, Oriented Labs: CBC, BMP 03/16/17 09:00 03/16/17 09:00 Imaging - Results Cat Scan: Report Reviewed (hazziness around the body of pancreas) Problem List - Problems (1) Acute pancreatitis Assessment/Plan: NPO ivf pain control zofran for nausea DVT ppx trend lipase GI on board Code(s): K85.90 - ACUTE PANCREATITIS WITHOUT NECROSIS OR INFECTION, UNSP Qualifiers: Pancreatitis type: idiopathic (2) Abdominal pain Assessment/Plan: sec to pancreatits see above Code(s): R10.9 - UNSPECIFIED ABDOMINAL PAIN
[2017-03-16] MEDS ORDERED: SODIUM CHLORIDE 250 ML IV STA (12:56)
[2017-03-16] MEDS: LACTATED RINGERS SOLUTION 1,000 ML/1,000 ML INFUS.BAG IV SCH ×2 (12:57→20:28)
--- NOTE | 2017-03-16 14:35 | PN ---
Progress Note (short form) - Note Progress Note: sleepy complaining of abdominal pain on ivf recheck labs ID eval Problem List - Problems (1) Acute pancreatitis Code(s): K85.90 - ACUTE PANCREATITIS WITHOUT NECROSIS OR INFECTION, UNSP Qualifiers: Pancreatitis type: idiopathic (2) Abdominal pain Code(s): R10.9 - UNSPECIFIED ABDOMINAL PAIN
[2017-03-16] MEDS ORDERED: LEVOFLOXACIN 500 MG IVPB 500 MG/100 ML BAG IVPB SCH (14:45)
--- NOTE | 2017-03-16 16:10 | PN ---
Progress Note (short form) - Note Progress Note: ID consult imp/reccd 61 year old female with history of pancreatitis admitted last night after she developed midepigasric pain and vomiting after thanskgiving dinner no etoh no travel had diarrhea that has resolved continues with midepigastric pain lipase in ED over 1300 today 400 acute pancreatitis- management per GI no need for antibiotics at this time send stools for cdiff and culture if diarrhea recurs please call back if ID f/u is needed Problem List - Problems (1) Acute pancreatitis Code(s): K85.90 - ACUTE PANCREATITIS WITHOUT NECROSIS OR INFECTION, UNSP Qualifiers: Pancreatitis type: idiopathic
[2017-03-16] MEDS ORDERED: IBUPROFEN 400 MG TABLET (FP) PO PRN (16:23)
[2017-03-16 16:48] LABS: MCH 28.2 pg (25.7-33.7); MCHC 33.4 g/dl (32.0-36.0); MEAN CELL VOLUME 84.5 fl (80-96); MEAN PLT VOLUME 8.2 fl (7.5-11.1); PLATELET COUNT 296 K/MM3 (134-434); RDW 13.8 % (11.6-15.6); WHITE BLOOD COUNT 8.1 K/mm3 (4.0-10.0)
[2017-03-16 16:59] LABS: ALBUMIN 3.3 g/dl (3.4-5.0); ANION GAP 6 (8-16); CALCIUM 8.5 mg/dL (8.5-10.1); CO2 29 mmol/L (21-32); CREATININE 0.8 mg/dL (0.55-1.02); GLUCOSE,RANDOM 162 mg/dL (74-106); SGOT/AST 11 U/L (15-37); SGPT/ALT 18 U/L (12-78)
[2017-03-16 17:01] LABS: ALK PHOS 92 U/L (45-117); BILIRUBIN,TOTAL 0.4 mg/dL (0.2-1.0); TOT PROT 6.1 g/dl (6.4-8.2)
--- NOTE | 2017-03-16 17:31 | CONS ---
DATE OF CONSULTATION: 03/16/2017 DATE OF DICTATION: 03/16/2017 REQUESTED BY: Jeannine Langley MD This is a 61-year-old woman who developed the acute onset of mid-epigastric abdominal pain with multiple episodes of vomiting and loose stools that started last night. The diarrhea has resolved. The vomiting has resolved. She continues to have mid-epigastric pain. She has a history of recurrent pancreatitis and has had an extensive workup in the past. She denies any fevers or chills. There is no history of any travel. She has no shortness of breath. She has no cough. She has no dysuria or hematuria. On admission, her lipase was 1300. Today, it is 400. She is otherwise feeling well. PAST MEDICAL HISTORY: Notable for a history of hypertension, hyperlipidemia and pancreatitis. She was last in the hospital in November for pancreatitis. She has a history of GERD, hypertension, hypercholesterolemia and diabetes. PAST SURGICAL HISTORY: Notable for appendectomy, cholecystectomy, and hysterectomy. ALLERGIES: PENICILLIN, which gives her a rash. MEDICATIONS AT HOME: Metformin, Protonix, Micardis, Lexapro and insulin. SOCIAL HISTORY: She is and lives with her spouse. There is no history of recent travel. She is from [facility]. She denies any alcohol use. FAMILY HISTORY: Notable for early dementia, which runs in her family. Her father has a history of pancreatic cancer. REVIEW OF SYSTEMS: As per HPI. PHYSICAL EXAMINATION: General: She is awake and alert. She is lying comfortably in bed. She complains of mid-epigastric pain. Vital Signs: T-max is 99.7, current temperature is 98, pulse is 66, blood pressure 115/71, respiratory rate 20. HEENT: She is normocephalic. Her eyes are anicteric. Neck: Supple. Lungs: Clear to auscultation. Heart: Regular rate and rhythm. Abdomen: Soft. She has mid-epigastric discomfort to palpation. Extremities: Without edema. LABS: White count today is 10.5, hemoglobin 12.5, platelets 315, BUN 15, creatinine 0.9. Glucose 166. Her lipase went from 1362 to 418 today. Urinalysis has 3-5 white cells and some red cells. SUMMARY: This is a 61-year-old woman admitted with acute pancreatitis. I do not think there is a role for antibiotics at this time. I would stop her Levaquin and suggest followup per GI. Please call back if further followup is needed. ROOPA PORTER M.D. [id number]
[2017-03-17] MEDS: LACTATED RINGERS SOLUTION 1,000 ML/1,000 ML INFUS.BAG IV SCH (05:14)
[2017-03-17 08:28] LABS: BASOPHIL 1.1 % (0-2.0); EOSINOPHIL 1.8 % (0-4.5); MCH 27.9 pg (25.7-33.7); MCHC 33.2 g/dl (32.0-36.0); MEAN CELL VOLUME 84.2 fl (80-96); MEAN PLT VOLUME 7.8 fl (7.5-11.1); NEUTROPHILS 59.7 % (42.8-82.8); PLATELET COUNT 269 K/MM3 (134-434); RDW 13.6 % (11.6-15.6); WHITE BLOOD COUNT 7.5 K/mm3 (4.0-10.0)
[2017-03-17 09:25] LABS: ALK PHOS 91 U/L (45-117); AMYLASE 70 U/L (25-115); ANION GAP 7 (8-16); BILIRUBIN,TOTAL 0.8 mg/dL (0.2-1.0); CALCIUM 8.3 mg/dL (8.5-10.1); CO2 28 mmol/L (21-32); CREATININE 0.7 mg/dL (0.55-1.02); GLUCOSE,RANDOM 156 mg/dL (74-106); SGOT/AST 9 U/L (15-37); SGPT/ALT 19 U/L (12-78); TOT PROT 6.1 g/dl (6.4-8.2)
[2017-03-17] MEDS: HEPARIN NA (PORCINE) 5,000 UNITS/ML 1ML VIAL SQ SCH ×2 (09:52→22:12)
[2017-03-17] MEDS: ESCITALOPRAM OXALATE 10 MG TABLET (FP) PO SCH (09:52)
--- NOTE | 2017-03-17 12:38 | PN ---
Progress Note, Physician History of Present Illness: less pain still with ruq pain - Current Medication List Current Medications: Active Medications Acetaminophen (Tylenol -) 650 mg PO Q4H PRN PRN Reason: FEVER OR PAIN Last Admin: 03/16/17 21:27 Dose: 650 mg Escitalopram Oxalate (Lexapro -) 20 mg PO DAILY [facility] Last Admin: 03/17/17 09:52 Dose: 20 mg Heparin Sodium (Porcine) (Heparin -) 5,000 unit SQ BID [facility] Last Admin: 03/17/17 09:52 Dose: 5,000 unit Hydromorphone HCl (Dilaudid Injection -) 1 mg IVPB Q4H PRN PRN Reason: PAIN Lactated Ringer's (Lactated Ringers Solution) 1,000 ml in 1,000 mls @ 125 mls/ hr IV ASDIR [facility] Last Admin: 03/17/17 05:14 Dose: 125 mls/hr Ibuprofen (Motrin -) 400 mg PO Q6H PRN PRN Reason: PAIN Last Admin: 03/16/17 17:18 Dose: 400 mg Ondansetron HCl (Zofran Injection) 4 mg IVPUSH Q6H PRN PRN Reason: NAUSEA Last Admin: 03/16/17 09:59 Dose: 4 mg - Objective Vital Signs: Vital Signs Temperature 98.2 F 03/17/17 05:52 Pulse Rate 67 03/17/17 05:52 Respiratory Rate 18 03/17/17 05:52 Blood Pressure 110/67 03/17/17 05:52 O2 Sat by Pulse Oximetry (%) 96 03/16/17 21:00 Cardiovascular: Yes: Regular Rate and Rhythm Respiratory: Yes: Regular, CTA Bilaterally Gastrointestinal: Yes: Normal Bowel Sounds, Soft, Tenderness (mild ruq no guarding) Labs: CBC, BMP 03/17/17 07:00 03/17/17 07:00 INR, PTT INR 0.99 (0.82-1.09) 03/16/17 09:00 Problem List - Problems (1) Acute pancreatitis Assessment/Plan: FOLLOW LABS NPO IVF GI ON BOARD Code(s): K85.90 - ACUTE PANCREATITIS WITHOUT NECROSIS OR INFECTION, UNSP Qualifiers: Pancreatitis type: idiopathic (2) Abdominal pain Assessment/Plan: --RUQ--? ETIOLOGY US OF ABD GI F/U Code(s): R10.9 - UNSPECIFIED ABDOMINAL PAIN (3) DM2 (diabetes mellitus, type 2) Assessment/Plan: [facility] Code(s): E11.9 - TYPE 2 DIABETES MELLITUS WITHOUT COMPLICATIONS
--- NOTE | 2017-03-17 14:32 | PN ---
GI Progress Note Subjective: GI F/U FOR DR HAHN PT REPORTS THAT SHE FEELS BETTER TODAY O N/V/F/C/S LESS EPIGASTRIC PAIN AND REPORTS ONLY MILD RLQ PAIN NO DIARRHEA, BUT SHE HAD BM X 2 WITHOUT BLOOD - Objective Vital Signs: Vital Signs Temperature 98.4 F 03/17/17 11:00 Pulse Rate 71 03/17/17 11:00 Respiratory Rate 18 03/17/17 11:00 Blood Pressure 146/82 03/17/17 11:00 O2 Sat by Pulse Oximetry (%) 96 03/16/17 21:00 Constitutional: Well Nourished, No Distress, Calm HENT: Yes: WNL (+BS/ VERY SOFT/ ONLY TENDER TO PLAPATION SLIGHTLY IN THE RLQ) Labs: CBC, BMP 03/17/17 07:00 03/17/17 07:00 INR, PTT INR 0.99 (0.82-1.09) 03/16/17 09:00 Assessment/Plan 61F WITH RECURRENT PANCREATITIS OF UNCLEAR ETIOLOGY SONOGRAM TODAY UNREVEALING CLINICALLY AND BIOCHEMICALLY IMPROVED WITH DROP IN WBC TO NORAL RANGE OVERALL APPEARS MUCH IMPROVED WOULD START CLEARS PO AND ADVANCE DIET TOLERATED F/U LABS/ OBSERVATION WILL NEED CONTINUED EVALUATION OF RECURRENT PANCREATITIS OF UNCLEAR ETIOLOGY S/P CHOLECYSTECTOMY--MAY NEED ELECTIVE EUS EXAM MD KYMBERLY
[2017-03-17] MEDS ORDERED: amLODIPine BESYLATE 5 MG TABLET (FP) PO ONE (21:15)
[2017-03-18] MEDS: LACTATED RINGERS SOLUTION 1,000 ML/1,000 ML INFUS.BAG IV SCH (01:32)
[2017-03-18 08:07] LABS: EOSINOPHIL 1.2 % (0-4.5); MCH 27.8 pg (25.7-33.7); MCHC 33.3 g/dl (32.0-36.0); MEAN CELL VOLUME 83.4 fl (80-96); MEAN PLT VOLUME 7.7 fl (7.5-11.1); PLATELET COUNT 287 K/MM3 (134-434); RDW 13.4 % (11.6-15.6); WHITE BLOOD COUNT 7.5 K/mm3 (4.0-10.0)
[2017-03-18 09:17] LABS: ALBUMIN 3.3 g/dl (3.4-5.0); ALK PHOS 94 U/L (45-117); AMYLASE 68 U/L (25-115); ANION GAP 9 (8-16); BILIRUBIN,TOTAL 0.8 mg/dL (0.2-1.0); CALCIUM 8.6 mg/dL (8.5-10.1); CO2 27 mmol/L (21-32); CREATININE 0.7 mg/dL (0.55-1.02); GLUCOSE,RANDOM 191 mg/dL (74-106); SGOT/AST 9 U/L (15-37); SGPT/ALT 18 U/L (12-78); TOT PROT 6.5 g/dl (6.4-8.2)
[2017-03-18] MEDS: ESCITALOPRAM OXALATE 10 MG TABLET (FP) PO SCH (10:38)
[2017-03-18] MEDS: HEPARIN NA (PORCINE) 5,000 UNITS/ML 1ML VIAL SQ SCH ×2 (10:38→21:29)
--- NOTE | 2017-03-18 13:36 | PN ---
Progress Note, Physician History of Present Illness: less pain still with ruq pain - Current Medication List Current Medications: Active Medications Acetaminophen (Tylenol -) 650 mg PO Q4H PRN PRN Reason: FEVER OR PAIN Last Admin: 03/16/17 21:27 Dose: 650 mg Escitalopram Oxalate (Lexapro -) 20 mg PO DAILY [facility] Last Admin: 03/18/17 10:38 Dose: 20 mg Heparin Sodium (Porcine) (Heparin -) 5,000 unit SQ BID [facility] Last Admin: 03/18/17 10:38 Dose: 5,000 unit Hydromorphone HCl (Dilaudid Injection -) 1 mg IVPB Q4H PRN PRN Reason: PAIN Lactated Ringer's (Lactated Ringers Solution) 1,000 ml in 1,000 mls @ 125 mls/ hr IV ASDIR [facility] Last Admin: 03/18/17 01:32 Dose: 125 mls/hr Ibuprofen (Motrin -) 400 mg PO Q6H PRN PRN Reason: PAIN Last Admin: 03/16/17 17:18 Dose: 400 mg Ondansetron HCl (Zofran Injection) 4 mg IVPUSH Q6H PRN PRN Reason: NAUSEA Last Admin: 03/16/17 09:59 Dose: 4 mg - Objective Vital Signs: Vital Signs Temperature 98.6 F 03/18/17 06:00 Pulse Rate 70 03/18/17 06:00 Respiratory Rate 18 03/18/17 06:00 Blood Pressure 144/67 03/18/17 06:00 O2 Sat by Pulse Oximetry (%) 96 03/17/17 22:00 Cardiovascular: Yes: Regular Rate and Rhythm Respiratory: Yes: Regular, CTA Bilaterally Gastrointestinal: Yes: Normal Bowel Sounds, Soft Labs: CBC, BMP 03/18/17 07:00 03/18/17 07:00 INR, PTT INR 0.99 (0.82-1.09) 03/16/17 09:00 Problem List - Problems (1) Acute pancreatitis Assessment/Plan: FOLLOW LABS NPO IVF GI ON BOARD Code(s): K85.90 - ACUTE PANCREATITIS WITHOUT NECROSIS OR INFECTION, UNSP Qualifiers: Pancreatitis type: idiopathic (2) Abdominal pain Assessment/Plan: --RUQ--? ETIOLOGY US OF ABD GI F/U Code(s): R10.9 - UNSPECIFIED ABDOMINAL PAIN (3) DM2 (diabetes mellitus, type 2) Assessment/Plan: [facility] Code(s): E11.9 - TYPE 2 DIABETES MELLITUS WITHOUT COMPLICATIONS
--- NOTE | 2017-03-18 15:49 | PN ---
GI Progress Note Subjective: GI FOR DR HAHN NO C/O FEELS MUCH IMPROVED NO PAIN HAD A FEW LOOSE BM'S TODAY NO RECTAL BLEEDING NO N/V/F/C/S NO ABD PAIN TOLERATING CLEARS AND REPORTS THAT SHE IS STARVING FOR SOLID FOOD - Objective Vital Signs: Vital Signs Temperature 98.8 F 03/18/17 14:55 Pulse Rate 65 03/18/17 14:55 Respiratory Rate 20 03/18/17 14:55 Blood Pressure 136/78 03/18/17 14:55 O2 Sat by Pulse Oximetry (%) 96 03/17/17 22:00 Constitutional: Well Nourished, No Distress, Calm Eyes: Yes: WNL (+BS, VERY SOFT/ NT TO PALPATION NO M/R/G) Labs: CBC, BMP 03/18/17 07:00 03/18/17 07:00 INR, PTT INR 0.99 (0.82-1.09) 03/16/17 09:00 Assessment/Plan 61F WITH RESOLVING CLINICAL, BIOCHEMICAL EVIDENCE OF RESOLVING PANCREATITIS NO PAIN OR FEVERS HAVING SOME DIARRHEA OF ? ETIOLOGY WOULD SEND OFF STOOLS FOR C. DIFFICILE/ CX ADVANCE DIET TO LOW RESIDUE, LACTOSE FREE SOLID ALL LABS MUCH IMPROVED F/U LYTES PT WITH DIARRHEA OBSERVE DR HAHN TO RESUME COVERAGE ON 03/19 MD KYMBERLY
[2017-03-19] MEDS: LACTATED RINGERS SOLUTION 1,000 ML/1,000 ML INFUS.BAG IV SCH ×2 (04:00→12:08)
--- NOTE | 2017-03-19 09:30 | PN ---
Progress Note, Physician History of Present Illness: No events. Pain-free. Comfortable. Formed stools this am. Tolerating current food/diet - Current Medication List Current Medications: Active Medications Acetaminophen (Tylenol -) 650 mg PO Q4H PRN PRN Reason: FEVER OR PAIN Last Admin: 03/16/17 21:27 Dose: 650 mg Escitalopram Oxalate (Lexapro -) 20 mg PO DAILY [facility] Last Admin: 03/18/17 10:38 Dose: 20 mg Heparin Sodium (Porcine) (Heparin -) 5,000 unit SQ BID [facility] Last Admin: 03/18/17 21:29 Dose: 5,000 unit Lactated Ringer's (Lactated Ringers Solution) 1,000 ml in 1,000 mls @ 125 mls/ hr IV ASDIR [facility] Last Admin: 03/19/17 04:00 Dose: 125 mls/hr Ibuprofen (Motrin -) 400 mg PO Q6H PRN PRN Reason: PAIN Last Admin: 03/16/17 17:18 Dose: 400 mg Ondansetron HCl (Zofran Injection) 4 mg IVPUSH Q6H PRN PRN Reason: NAUSEA Last Admin: 03/16/17 09:59 Dose: 4 mg - Objective Vital Signs: Vital Signs Temperature 98.2 F 03/19/17 06:00 Pulse Rate 64 03/19/17 06:00 Respiratory Rate 18 03/19/17 06:00 Blood Pressure 145/64 03/19/17 06:00 O2 Sat by Pulse Oximetry (%) 98 03/18/17 21:00 Constitutional: Yes: Well Nourished, No Distress, Calm Eyes: Yes: Conjunctiva Clear HENT: Yes: Atraumatic Neck: Yes: Supple Cardiovascular: Yes: Regular Rate and Rhythm Respiratory: Yes: Regular Gastrointestinal: Yes: Normal Bowel Sounds, Soft. No: Tenderness Neurological: Yes: Alert, Oriented Labs: CBC, BMP 03/18/17 07:00 03/18/17 07:00 INR, PTT INR 0.99 (0.82-1.09) 03/16/17 09:00 Laboratory Results - last 24 hr 03/19/17 06:30 Lipase 686 H Problem List - Problems (1) Acute pancreatitis Code(s): K85.90 - ACUTE PANCREATITIS WITHOUT NECROSIS OR INFECTION, UNSP Qualifiers: Pancreatitis type: idiopathic Assessment/Plan Lipase is up, however asymptomatic Agressive hydration (PO/IV) Continue the same diet and observe
[2017-03-19] MEDS: ESCITALOPRAM OXALATE 10 MG TABLET (FP) PO SCH (10:12)
[2017-03-19] MEDS: HEPARIN NA (PORCINE) 5,000 UNITS/ML 1ML VIAL SQ SCH (10:12)
[2017-03-19 11:16] VITALS: PULSE 70; TEMP 98.4
[2017-03-19 14:51] VITALS: BP 145/86
--- NOTE | 2017-03-19 17:00 | DS ---
Physical Examination Vital Signs: Vital Signs Temperature 98.4 F 03/19/17 14:49 Pulse Rate 70 03/19/17 14:49 Respiratory Rate 18 03/19/17 14:49 Blood Pressure 145/86 03/19/17 14:49 O2 Sat by Pulse Oximetry (%) 98 03/19/17 09:00 Findings/Remarks: TOLERATING MEALS, NO DISTRESS Constitutional: Yes: No Distress Eyes: Yes: WNL HENT: Yes: WNL Neck: Yes: WNL Cardiovascular: Yes: WNL Respiratory: Yes: WNL Gastrointestinal: Yes: WNL Renal/: Yes: WNL Musculoskeletal: Yes: WNL Extremities: Yes: WNL Edema: No Peripheral Pulses WNL: Yes Integumentary: Yes: WNL Wound/Incision: Yes: Clean/Dry Neurological: Yes: WNL ...Motor Strength: WNL Psychiatric: Yes: WNL Labs: CBC, BMP 03/18/17 07:00 03/18/17 07:00 Discharge Summary Reason For Visit: CHRONIC PAINCREATITIS Current Active Problems Acute pancreatitis (Acute) Chronic pancreatitis (Acute) Procedures: Principal: CT ABD Hospital Course: ACUTE PANCREATITIS, TREATED IVF, LABS, PAIN MEDS, CAN DC HOME F/U 2-3 DAYS MY OFFICE Condition: Stable - Instructions Diet, Activity, Other Instructions: LOW FAT/ADA LIQUID DIET FOR 2-3 DAYS, SEE DR ZUNIGA SUNDAY 12PM Referrals: Preeti Zuniga MD [Primary Care Provider] - Disposition: HOME - Home Medications Comprehensive Discharge Medication List: Ambulatory Orders Metformin HCl [Glucophage] 500 mg PO BIDAC 07/06/13 Pantoprazole Sodium [Protonix -] 40 mg PO DAILY tablet.ec 11/15/15 Telmisartan [Micardis] 80 mg PO DAILY 06/17/16 Escitalopram Oxalate [Lexapro -] 20 mg PO DAILY 10/07/16 Insulin (Levemir) [Levemir Vial] 30 unit SQ ACBK 10/07/16 Insulin Lispro Protamin/Lispro [Humalog Mix 50-50 Kwikpen] 10 unit SQ BID
--- NOTE | 2017-03-19 23:10 | EKG ---
Test Reason : Blood Pressure : / mmHG Vent. Rate : 068 BPM Atrial Rate : 068 BPM P-R Int : 134 ms QRS Dur : 090 ms QT Int : 398 ms P-R-T Axes : 025 029 038 degrees QTc Int : 423 ms NORMAL SINUS RHYTHM NORMAL ECG WHEN COMPARED WITH ECG OF 16-MAR-2017 00:07, NO SIGNIFICANT CHANGE WAS FOUND Confirmed by ANJALI BATISTA MD ([id number]) on 03/19/2017 11:09:52 PM Referred By: Confirmed By:ANJALI BATISTA MD
--- NOTE | 2017-03-19 23:17 | EKG ---
Test Reason : Blood Pressure : / mmHG Vent. Rate : 064 BPM Atrial Rate : 064 BPM P-R Int : 138 ms QRS Dur : 086 ms QT Int : 440 ms P-R-T Axes : 034 017 047 degrees QTc Int : 453 ms NORMAL SINUS RHYTHM NORMAL ECG WHEN COMPARED WITH ECG OF 07-OCT-2016 04:29, NO SIGNIFICANT CHANGE WAS FOUND Confirmed by ANJALI BATISTA MD ([id number]) on 03/19/2017 11:17:25 PM Referred By: Confirmed By:ANJALI BATISTA MD
== END 2017-03-19 18:07 | disposition home or self-care (01) | DRG 440 ==
LOC: JER 22:07 → JERBED 03-16 02:25 → UNDOADMIN 03-16 02:34 → JERBED 03-16 02:34 → J5S 03-16 04:00
PROVIDERS: ADMIT Family Medicine; ATTEND Family Medicine
DX: K85.90 Acute pancreatitis without necrosis or infection, unspecified (principal); K86.1 Other chronic pancreatitis; E11.9 Type 2 diabetes mellitus without complications; Z88.0 Allergy status to penicillin; Z79.4 Long term (current) use of insulin
CPT/HCPCS: 36415; 71010-TC; 74177-TC; 76705-TC; 80053; 81003; 81015; 82009; 82150; 82550; 82803; 83605; 83690; 83735; 84484; 85025; 85027; 85610; 85651; 87040; 87045; 87046; 87086; 93005; 93010; 99282-25; J1644

== ENCOUNTER 2017-11-30 15:51 | Emergency (ER) | payer OTHER ==
--- NOTE | 2017-11-30 16:15 | PDOC ---
Rapid Medical Evaluation Time Seen by Provider: 11/30/17 16:13 Medical Evaluation: Allergies Allergy/AdvReac Type Severity Reaction Status Date / Time Penicillins Allergy Verified 11/27/16 01:59 11/30/17 16:13 I have performed a brief in-person evaluation of this patient. The patient presents with a chief complaint of:R facial/temporal BERNAL w/ nausea x 2 days w/ lost of vision to R eye this am. H/o DM, pancreatitis, R facial farris' s in 2014 Pertinent physical exam findings:Stable w/ no facial droop and no focal deficits but unable to see anything from R eye I have ordered the following:CTH (not cva protocol given duration of sxs), labs The patient will proceed to the ED for further evaluation. Discharge Disposition - Diagnosis Vision loss of left eye Headache Qualifiers: Headache type: unspecified Headache chronicity pattern: acute headache Intractability: intractable Qualified Code(s): R51 - Headache - Referrals - Patient Instructions - Post Discharge Activity
[2017-11-30 16:19] VITALS: TEMP 98.2; BMI 26.4
--- NOTE | 2017-11-30 17:35 | PDOC ---
History of Present Illness - General Chief Complaint: Difficulty with Vision Stated Complaint: PAIN/ HEAD, EYE Time Seen by Provider: 11/30/17 16:13 History Source: Patient - History of Present Illness Initial Comments: 11/30/17 17:35 Patient is a 62 year old female with a PMH of IDDM and chronic pancreatitis presents with acute onset of monolocular (R sided) visual loss. Visual loss started acutely yesterday and associated with some sharp, stabbing pain. Patient's daughter noted patient was evaluated by sales office assistant today who told her she needed to see an opthalmologist. Patient's last opthalmologic exam was 2-3 years previous. Patient denies chest pain, shortness of breath, abdominal pain, nausea/vomiting , diarrhea/constipation, dysuria/hematuria. NKDA Surgical: hysterectomy, cholecystectomy Social: denies toxic habits PMD: Dr. Zuniga Past History - Past Medical History Allergies/Adverse Reactions: Allergies Allergy/AdvReac Type Severity Reaction Status Date / Time Penicillins Allergy Verified 11/30/17 16:14 Home Medications: Ambulatory Orders metFORMIN HCL [Glucophage] 500 mg PO BIDAC 07/06/13 Pantoprazole Sodium [Protonix -] 40 mg PO DAILY tablet.ec 11/15/15 Telmisartan [Micardis] 80 mg PO DAILY 06/17/16 Escitalopram Oxalate [Lexapro -] 10 mg PO DAILY 10/07/16 Insulin (Levemir) [Levemir Vial] 30 unit SQ ACBK 10/07/16 Insulin Lispro Protamin/Lispro [Humalog Mix 50-50 Kwikpen] 10 unit SQ BID Anemia: No Asthma: No Cancer: No Cardiac Disorders: No CVA: No COPD: No CHF: No DVT: No Dementia: No Diabetes: Yes Dialysis: No GI Disorders: Yes (pancreatitis, SBO, GERD) Disorders: No HTN: Yes Hypercholesterolemia: Yes Kidney Stones: No Liver Disease: No Psychiatric Problems: No Seizures: No Thyroid Disease: No Lung CA: No - Surgical History Abdominal Surgery: Yes Appendectomy: Yes Cardiac Surgery: No Cholecystectomy: Yes Gastric Stapling: No Lung Surgery: No Neurologic Surgery: No Orthopedic Surgery: No - Family Disease History Family Disease History: Diabetes: Father, Heart Disease: Father - Immunization History Immunization Up to Date: Yes - Suicide/Smoking/Psychosocial Hx Smoking Status: No Smoking History: Never smoked Have you smoked in the past 12 months: No Number of Cigarettes Smoked Daily: 0 If you are a former smoker, when did you quit?: november 2012 Hx Alcohol Use: No Drug/Substance Use Hx: No Substance Use Type: None Hx Substance Use Treatment: No Review of Systems - Review of Systems Constitutional: No: See HPI, Fever HEENTM: Yes: Eye Pain, Recent change in vision Respiratory: No: Orthopnea, Shortness of Breath Cardiac (ROS): No: Chest Pain, Lightheadedness, Palpitations, Syncope ABD/GI: No: Constipated, Diarrhea, Nausea, Vomiting, Abdominal cramping : No: Burning, Dysuria *Physical Exam - Vital Signs Last Vital Signs Temp Pulse Resp BP Pulse Ox 98.2 F 83 19 155/91 98 11/30/17 16:14 11/30/17 16:14 11/30/17 16:14 11/30/17 16:14 11/30/17 16:14 - Physical Exam General Appearance: Yes: Nourished, Appropriately Dressed HEENT: positive: Other (R sided visual loss) Neck: positive: Trachea midline, Supple Respiratory/Chest: positive: Lungs Clear, Normal Breath Sounds Cardiovascular: positive: S1, S2. negative: JVD Extremity: positive: Normal Capillary Refill, Normal Inspection Integumentary: positive: Normal Color, Dry, Warm Neurologic: positive: Fully Oriented, Alert ED Treatment Course - LABORATORY CBC & Chemistry Diagram: 11/30/17 19:00 11/30/17 19:00 Medical Decision Making - Medical Decision Making 11/30/17 18:20 62 year old female with monocular (R) sided visual loss. Frontal diagnosis: amaurosis fugax 2/2 to retinal/carotid emboli, giant cell arteritis, retinal detachment, TIA (less likely). Labs, coags, ESR/CRP. CT and MRI. Reassess. 11/30/17 18:45 Case d/w Dr. Pinzon (opthamology) will come evaluate patient @ bedside 11/30/17 19:32 Dr. Pinzon @ bedside - fundoscopic exam shows partial retinal detachment [facility] Transfer center contacted 11/30/17 20:05 BS 300s; will give 5 units regular insulin 11/30/17 20:17 Bedside U/S confirms retinal detachment Call to transfer center; awaiting ED attending call back 11/30/17 20:56 Patient accepted to [facility] - ED physician Dr. Imer Montero BLS transfer - prakash and audrey 11/30/17 21:[address] Sundeep Nice, opthalmology-retinal service at [facility], recommends transfer to [facility]; contacted [facility] transfer center. 11/30/17 22:04 Case d/w ophthalmology resident, Dr. Adrián Kimball. Awaiting confirmation of transfer. 11/30/17 22:29 Case d/w Dr. Edel Jay, opthalmologist, will operate on patient tomorrow () @ 7:30 a.m. Recommend discharge home w/artificial tears. Dr. Edel Jay 11/30/17 22:44 Dr. Jay discusses plan of care with patient and patient's daughter over phone. 11/30/17 22:50 Repeat BS 122 Will discharge home with strict return precautions and instruction to f/u tomorrow morning @ 7:30 a.m. w/Dr. Jay @ [facility]. I discussed the physical exam findings, ancillary test results and final diagnoses with the patient. I answered all of the patient's questions. The patient was satisfied with the care received and felt comfortable with the discharge plan and treatment plan. The patient will return to the Emergency Department with any new, persistent or worsening symptoms. *DC/Admit/Observation/Transfer Diagnosis at time of Disposition: Vision loss of left eye - Discharge Dispostion Disposition: HOME Condition at time of disposition: Fair Decision to Admit order: No - Referrals Referrals: Preeti Zuniga MD [Primary Care Provider] - - Patient Instructions Printed Discharge Instructions: DI for Visual Field Disturbances Additional Instructions: Please use artificial tear drops every 1-[address] Edel Dawn's office @ [facility] tomorrow morning at 7:30 a.m. Should your symptoms become more severe overnight return to our ED immediately. - Post Discharge Activity
[2017-11-30 19:27] LABS: BASO % 0.7 % (0-2.0); EOS % 1.8 % (0-4.5); HEMATOCRIT 37.3 % (32.4-45.2); HEMOGLOBIN 12.5 GM/dL (10.7-15.3); LYMPH % 28.1 % (8-40); MCH 28.5 pg (25.7-33.7); MCHC 33.5 g/dl (32.0-36.0); MEAN CELL VOLUME 85.2 fl (80-96); MONO % 6.7 % (3.8-10.2); NEUT % 62.7 % (42.8-82.8); PLATELET COUNT 349 K/MM3 (134-434); RBC 4.38 M/mm3 (3.60-5.2); RDW 13.2 % (11.6-15.6); WHITE BLOOD COUNT 8.8 K/mm3 (4.0-10.0)
[2017-11-30 19:39] LABS: INR 0.98 (0.83-1.09); PROTHROMBIN TIME (PATIENT) 11.1 SEC (9.7-13.0)
[2017-11-30 19:53] LABS: ALBUMIN 3.7 g/dl (3.4-5.0); ANION GAP 9 (8-16); BILIRUBIN,TOTAL 0.2 mg/dL (0.2-1.0); BLOOD UREA NITROGEN 16 mg/dL (7-18); CALCIUM 8.9 mg/dL (8.5-10.1); CHLORIDE 102 mmol/L (98-107); CO2 26 mmol/L (21-32); SGPT/ALT 32 U/L (12-78); SODIUM 137 mmol/L (136-145); TOT PROT 7.3 g/dl (6.4-8.2)
[2017-11-30 19:54] LABS: ALK PHOS 98 U/L (45-117)
[2017-11-30 19:56] LABS: POTASSIUM 5.2 mmol/L (3.5-5.1); SGOT/AST 28 U/L (15-37)
[2017-11-30 19:57] LABS: GLUCOSE,RANDOM 364 mg/dL (74-106)
[2017-11-30] MEDS ORDERED: INSULIN REGULAR HUMAN 100 UNITS/ML *VIAL IVPUSH ONE (20:05)
[2017-11-30] MEDS ORDERED: INSULIN REGULAR HUMAN 100 UNITS/ML *VIAL ONE (20:59)
[2017-11-30 21:08] VITALS: BP 153/96; PULSE 72
--- NOTE | 2017-11-30 21:53 | PDOC ---
Attending Attestation - Resident Resident Name: Brandee Martinez - ED Attending Attestation I have performed the following: I have examined & evaluated the patient, The case was reviewed & discussed with the resident, I agree w/resident's findings & plan, Exceptions are as noted - HPI HPI: 11/30/17 21:43 "62F with h/o chronic pancreatitis and IIDM, hysterectomy, cholecystectomy, presenting with sudden R sided vision loss. Pt states that she was sitting at home this morning when her R eye suddenly went black. She reports mild pain in the R eye as well. Denies any trauma. Denies BERNAL. Denies L eye visual changes. Patient denies chest pain, shortness of breath, abdominal pain, nausea/vomiting , diarrhea/constipation, dysuria/hematuria. " - Physicial Exam PE: 11/30/17 21:53 "GENERAL: Awake, alert, and fully oriented, in no acute distress. HEAD: No signs of trauma EYES: PERRLA, EOMI, sclera anicteric, conjunctiva clear, VA in R eye severely diminished, L eye normal ENT: Auricles normal inspection, hearing grossly normal, nares patent, oropharynx clear without exudates. Moist mucosa NECK: Nontender, no stepoffs, Normal ROM, supple, no lymphadenopathy, JVD, or masses LUNGS: Breath sounds equal, clear to auscultation bilaterally. No wheezes, and no crackles HEART: Regular rate and rhythm, normal S1 and S2, no murmurs, rubs or gallops ABDOMEN: Soft, nontender, normoactive bowel sounds. No guarding, no rebound. No masses EXTREMITIES: Normal range of motion, no edema. No clubbing or cyanosis. No cords, erythema, or tenderness NEUROLOGICAL: Cranial nerves II through XII intact. 5/5 strength and sensation in all extremities, Normal speech, normal gait, normal cerebellar function SKIN: Warm, Dry, normal turgor, no rashes or lesions noted." - Medical Decision Making 11/30/17 21:54 62 F with sudden R eye vision loss. Retinal detachment vs CRVO/CRAO. Temporal arteritis unlikely as pt with no temporal pain or tenderness. Amaurosis fugax unlikely as pt with no other neuro deficits, no stuttering symptoms. - Labs - Ophtho consult 11/30/17 22:32 Labs unremarkable Pt evaluated by Dr. Pinzon, ophtho, who believes pt has acute retinal detachment. Confirmed using bedside ocular US with visualization of detached retina inside globe. Attempted to transfer to [facility] but refused by their residential collections, as he "does not operate on pts that are not his own" Dr. Martinez spoke with residential collections at [facility], who states she can take pt for surgery tomorrow morning at 7:30AM.
== END 2017-11-30 23:10 | disposition home or self-care (01) ==
LOC: JER 15:51
PROC: 3E033VG Introduction of Insulin into Peripheral Vein, Percutaneous Approach (ICD-10-PCS; principal; 2017-11-30)
DX: H54.62 Unqualified visual loss, left eye, normal vision right eye (principal)
CPT/HCPCS: 36415; 80053; 82962; 85025; 85610; 85651; 86140; 86850; 86900; 86901; 99283-25

== ENCOUNTER 2018-04-09 11:40 | Emergency (ER) | payer OTHER ==
[2018-04-09 11:58] VITALS: BP 128/74; PULSE 82; TEMP 97.9; BMI 33.5
--- NOTE | 2018-04-09 12:48 | PDOC ---
History of Present Illness - General Chief Complaint: Wound Stated Complaint: ABSCESS,FACE Time Seen by Provider: 04/09/18 12:26 - History of Present Illness Initial Comments: 04/09/18 12:39 62-year-old female with history of diabetes on insulin presents for evaluation of left cheek swelling and right knee pain. She states her left cheek is been swollen for the last 4 days. There was no penetrating trauma. And she injured her right knee while walking into the emergency room. Past History - Past Medical History Allergies/Adverse Reactions: Allergies Allergy/AdvReac Type Severity Reaction Status Date / Time Penicillins Allergy Verified 04/09/18 11:58 Home Medications: Ambulatory Orders metFORMIN HCL [Glucophage] 500 mg PO BIDAC 07/06/13 Pantoprazole Sodium [Protonix -] 40 mg PO DAILY tablet.ec 11/15/15 Telmisartan [Micardis] 80 mg PO DAILY 06/17/16 Escitalopram Oxalate [Lexapro -] 10 mg PO DAILY 10/07/16 Insulin (Levemir) [Levemir Vial] 30 unit SQ ACBK 10/07/16 Insulin Lispro Protamin/Lispro [Humalog Mix 50-50 Kwikpen] 10 unit SQ BID Clindamycin [Cleocin -] 300 mg PO TID #21 capsule 04/09/18 Anemia: No Asthma: No Cancer: No Cardiac Disorders: No CVA: No COPD: No CHF: No DVT: No Dementia: No Diabetes: Yes Dialysis: No GI Disorders: Yes (pancreatitis, SBO, GERD) Disorders: No HTN: Yes Hypercholesterolemia: Yes Kidney Stones: No Liver Disease: No Psychiatric Problems: No Seizures: No Thyroid Disease: No Lung CA: No - Surgical History Abdominal Surgery: Yes Appendectomy: Yes Cardiac Surgery: No Cholecystectomy: Yes Gastric Stapling: No Lung Surgery: No Neurologic Surgery: No Orthopedic Surgery: No - Family Disease History Family Disease History: Diabetes: Father, Heart Disease: Father - Immunization History Immunization Up to Date: Yes - Suicide/Smoking/Psychosocial Hx Smoking Status: No Smoking History: Never smoked Have you smoked in the past 12 months: No Number of Cigarettes Smoked Daily: 0 If you are a former smoker, when did you quit?: november 2012 Information on smoking cessation initiated: No Hx Alcohol Use: No Drug/Substance Use Hx: No Substance Use Type: None Hx Substance Use Treatment: No Review of Systems - Review of Systems Constitutional: No: Fever, Malaise, Night Sweats HEENTM: Yes: See HPI, Mouth Pain. No: Dental Problems, Difficulty Swallowing, Mouth Swelling Musculoskeletal: Yes: See HPI, Joint Pain *Physical Exam - Vital Signs Last Vital Signs Temp Pulse Resp BP Pulse Ox 97.9 F 82 16 128/74 100 04/09/18 11:56 04/09/18 11:56 04/09/18 11:56 04/09/18 11:56 04/09/18 11:56 - Physical Exam Comments: 04/09/18 12:40 There is a warm erythematous area on the right cheek without fluctuance or induration. The area is firm and palpable from the inside of the mouth. Right knee skin color and temperature are normal there is a superficial abrasion on the anterior aspect of the right knee there is full range of motion without swelling or tenderness. There are no gross sensory or motor deficits in the right lower extremity Moderate Sedation - Procedure Monitoring Vital Signs: Procedure Monitoring Vital Signs Temperature 97.9 F 04/09/18 11:56 Pulse Rate 82 04/09/18 11:56 Respiratory Rate 16 04/09/18 11:56 Blood Pressure 128/74 04/09/18 11:56 O2 Sat by Pulse Oximetry (%) 100 04/09/18 11:56 Medical Decision Making - Medical Decision Making 04/09/18 12:41 This appears to be an abscess on the right cheek I recommend warm compresses. She has a penicillin ALLERGY I will use clindamycin and have her follow-up with oral maxillary facial surgery and orthopedics for her right knee should she require further treatment *DC/Admit/Observation/Transfer Diagnosis at time of Disposition: Abscess of external cheek, left, Abrasion of knee, right - Discharge Dispostion Disposition: HOME Condition at time of disposition: Stable Decision to Admit order: No - Referrals Referrals: Preeti Zuniga MD [Primary Care Provider] - Jim Sanchez MD [Staff Physician] - Cory Harvey [Staff Physician] - Star Arce [Non Staff, Medical] - Jun Tucker [Staff Physician] - Ramiro Bunn MD [Non Staff, Medical] - Jose Luis Charles MD [Non Staff, Medical] - Geovanni Jacobson MD [Non Staff, Medical] - Francis Cordova MD [Non Staff, Medical] - Damien Stock MD [Non Staff, Medical] - Ubaldo Knapp DDS [Non Staff, Medical] - Titus Artis [Non Staff, Medical] - Agusto Quiroz [Non Staff, Medical] - Denise Springer DMD [Staff Physician] - Agusto Rose MD [Non Staff, Medical] - Shima Javier MD [Non Staff, Medical] - - Patient Instructions Printed Discharge Instructions: DI for Abrasion, DI for Skin Abscess Additional Instructions: vuelva a la lydia de emergencias si los sntomas empeoran o no se resuelven. Por favor use compresas tibias en wayne mejilla cecilia lo discutimos. l puede nahum Tylenol para el dolor segn las indicaciones. Por favor tome los antibiticos segn las indicaciones. Seguimiento con ciruga facial en kari o dos null para juliet evaluacin adicional y opciones de tratamiento. Juliet ciruga ortopdica en hue de que necesite ms evaluacin y tratamiento de la abrasin en wayne rodilla. return to the emergency room should symptoms worsen or go unresolved. Please use warm compresses on your cheek as we discussed. He may take Tylenol for pain as directed. Please take the antibiotics as directed. follow-up with facial surgery in one to 2 days for further evaluation and treatment options. An orthopedic surgery should you require further evaluation and treatment of the abrasion on her knee. - Post Discharge Activity
== END 2018-04-09 13:05 | disposition home or self-care (01) ==
LOC: JERFT 11:40
PROC: 0H91XZZ Drainage of Face Skin, External Approach (ICD-10-PCS; principal; 2018-04-09)
DX: L02.01 Cutaneous abscess of face (principal)
CPT/HCPCS: 99281-25

== ENCOUNTER 2018-06-06 06:55 | Emergency (ER) | payer OTHER ==
[2018-06-06 07:33] VITALS: BP 117/79; PULSE 87; TEMP 98.5; BMI 30.4
--- NOTE | 2018-06-06 07:40 | PDOC ---
History of Present Illness - General Chief Complaint: Cold Symptoms Stated Complaint: FEVER/SORE THROAT Time Seen by Provider: 06/06/18 07:40 - History of Present Illness Initial Comments: 63 year old female with PMH of IDDM, GERD, and depression presenting with nausea , vomiting, cough, fevers, arm pain, and mild throat soreness for the past three days. States that she first had a mild cough with some nausea after which she vomiting on Sunday. She then began to have tactile fevers. She took some Tylenol last night which improved her pain and fevers but was still feeling sick this morning so she came to the hospital. She also admits to shoulder and leg pain bilaterally with mild headache. Denies any bloody sputum or emesis. Her cough is slightly productive of clear/ white sputum. 06/06/18 07:42 Past History - Past Medical History Allergies/Adverse Reactions: Allergies Allergy/AdvReac Type Severity Reaction Status Date / Time Penicillins Allergy Verified 06/06/18 07:26 Home Medications: Ambulatory Orders metFORMIN HCL [Glucophage] 500 mg PO BIDAC 07/06/13 Pantoprazole Sodium [Protonix -] 40 mg PO DAILY tablet.ec 11/15/15 Telmisartan [Micardis] 80 mg PO DAILY 06/17/16 Escitalopram Oxalate [Lexapro -] 10 mg PO DAILY 10/07/16 Insulin Lispro Protamin/Lispro [Humalog Mix 50-50 Kwikpen] 10 unit SQ ASDIR Oseltamivir Phosphate [Tamiflu -] 75 mg PO BID #10 capsule 06/06/18 Anemia: No Asthma: No Cancer: No Cardiac Disorders: No CVA: No COPD: No CHF: No DVT: No Dementia: No Diabetes: Yes Dialysis: No GI Disorders: Yes (pancreatitis, SBO, GERD) Disorders: No HTN: Yes Hypercholesterolemia: Yes Kidney Stones: No Liver Disease: No Psychiatric Problems: No Seizures: No Thyroid Disease: No Lung CA: No - Surgical History Abdominal Surgery: Yes Appendectomy: Yes Cardiac Surgery: No Cholecystectomy: Yes Gastric Stapling: No Lung Surgery: No Neurologic Surgery: No Orthopedic Surgery: No - Family Disease History Family Disease History: Diabetes: Father, Heart Disease: Father - Immunization History Immunization Up to Date: Yes - Suicide/Smoking/Psychosocial Hx Smoking Status: No Smoking History: Current every day smoker Have you smoked in the past 12 months: No Number of Cigarettes Smoked Daily: 0 If you are a former smoker, when did you quit?: november 2012 Information on smoking cessation initiated: No Hx Alcohol Use: No Drug/Substance Use Hx: No Substance Use Type: None Hx Substance Use Treatment: No Review of Systems - Review of Systems Constitutional: Yes: Chills, Loss of Appetite. No: Diaphoresis HEENTM: No: Blurred Vision, Tearing Respiratory: Yes: Cough. No: Shortness of Breath, SOB with Exertion Cardiac (ROS): No: Chest Pain, Edema, Irregular Heart Rate, Lightheadedness, Palpitations ABD/GI: Yes: Nausea, Vomiting. No: Diarrhea : No: Dysuria, Discharge, Frequency Musculoskeletal: Yes: Muscle Pain Neurological: Yes: Headache. No: Numbness, Paresthesia, Tingling Psychiatric: Yes: Depression Hematologic/Lymphatic: No: Anemia, Easy Bleeding *Physical Exam - Vital Signs Last Vital Signs Temp Pulse Resp BP Pulse Ox 98.5 F 87 16 117/79 97 06/06/18 07:26 06/06/18 07:26 06/06/18 07:26 06/06/18 07:26 06/06/18 07:26 - Physical Exam General Appearance: Yes: Nourished, Appropriately Dressed. No: Apparent Distress HEENT: positive: EOMI, SHARRI, Normal Voice, Pharyngeal Erythema, Nasal Congestion. negative: Normal ENT Inspection (nasal congestion), Pharynx Normal (ertythematous but not swollen), Photophobia Neck: positive: Trachea midline, Normal Thyroid, Supple, Lymphadenopathy (R), Lymphadenopathy (L). negative: Tender, Rigid Respiratory/Chest: positive: Lungs Clear, Normal Breath Sounds. negative: Chest Tender, Respiratory Distress, Accessory Muscle Use Cardiovascular: positive: Regular Rhythm, Regular Rate Gastrointestinal/Abdominal: positive: Normal Bowel Sounds, Flat, Soft. negative : Tender Lymphatic: negative: Adenopathy, Tenderness Musculoskeletal: positive: Normal Inspection Extremity: positive: Normal Capillary Refill, Normal Inspection, Normal Range of Motion. negative: Tender Integumentary: positive: Normal Color, Dry, Warm Neurologic: positive: Fully Oriented, Alert, Normal Mood/Affect, Normal Response , Motor Strength 5/5 Moderate Sedation - Procedure Monitoring Vital Signs: Procedure Monitoring Vital Signs Temperature 98.5 F 06/06/18 07:26 Pulse Rate 87 06/06/18 07:26 Respiratory Rate 16 06/06/18 07:26 Blood Pressure 117/79 06/06/18 07:26 O2 Sat by Pulse Oximetry (%) 97 06/06/18 07:26 Medical Decision Making - Medical Decision Making 63 year old with subjective warmth, cough, congestion, mild myalgias, headaches , nausea, vomiting, but no vital sign abnormalities. She was flu negative but her was flu positive. She agreed to tamiflu treatment despite side effects. She drank an entire juice without issue prior to discharge. She meets extended CDC guidelines for treatment. 06/06/18 09:33 *DC/Admit/Observation/Transfer Diagnosis at time of Disposition: Nausea & vomiting Qualifiers: Vomiting type: unspecified Vomiting Intractability: non-intractable Qualified Code(s): R11.2 - Nausea with vomiting, unspecified - Discharge Dispostion Disposition: HOME Condition at time of disposition: Improved Decision to Admit order: No - Prescriptions Prescriptions: Oseltamivir Phosphate [Tamiflu -] 75 mg PO BID #10 capsule - Referrals Referrals: Preeti Zuniga MD [Primary Care Provider] - - Patient Instructions Printed Discharge Instructions: Influenza Additional Instructions: Please take tylenol every 6 hours as needed for your fever and pains. Please use the tamiflu twice a day for 5 days. See your primary care physician early next week. Please return to the ED if you have new or worsening symptoms. - Post Discharge Activity
[2018-06-06] MEDS ORDERED: ACETAMINOPHEN 325 MG TABLET (FP) ONE (07:52)
[2018-06-06] MEDS ORDERED: ACETAMINOPHEN 500 MG TABLET (FP) PO ONE (07:52)
--- NOTE | 2018-06-06 08:11 | PDOC ---
Attending Attestation - Resident Resident Name: Emily Munroe - ED Attending Attestation I have performed the following: I have examined & evaluated the patient, The case was reviewed & discussed with the resident, I agree w/resident's findings & plan - HPI HPI: 06/06/18 08:10 63 year old female with PMH of IDDM, GERD, and depression presenting with nausea , vomiting, cough, fevers, arm pain, and mild throat soreness for the past three days. +mild productive cough and congestion. - Physicial Exam PE: 06/06/18 08:57 NAD, well appearing, nontoxic. PERRL, EOMI, MMM, nl conjunctiva, anicteric; neck supple. lungs clear, RRR, abdomen soft nontender. JOE x4, no focal neuro deficits. No peripheral edema. normal color for ethnicity, WWP. - Medical Decision Making 06/06/18 08:57 See HPI for details Vital signs reviewed, wnl. no fever, no respiratory distress Prior notes reviewed, including admissions, discharges and consultations. CXR_clear, no e/o pneumonia or infiltrate or effusion/edema. EKG normal sinus rhythm, no interval abnormalities, narrow QRS, ST and T wave segments and morphology normal. Nonspecific T wave abnormalities ED course: Influenza neg, but here with similar sx +positive for flu discussed risks and benefits of chemoppx vs close monitoring for worsening sx/ respiratory sx pt elects for tamiflu ppx given with same sx, flu positive and some comorbidities and short term benefits, prevention of complications. risk of respiratory complications discussed, return sooner if they occur Pt informed of my clinical impression, treatment recommendations and disposition plan. All questions answered to patient's satisfaction and expressed understanding and comfort with this. Reasons for returning to the ED sooner discussed with the patient otherwise, follow up with primary care physician. At the time of discharge, the patient is alert, clinically improved, tolerating po and verbalizes understanding of instructions. Patient does not suffer from an acute life-threatening medical condition at this time she is safe for outpatient follow-up. 06/06/18 08:59 06/08/18 22:43 Heart Score/ECG Review - ECG Impressions Normal ECG: Yes Comment:: 06/06/18 09:01 EKG normal sinus rhythm, no interval abnormalities, narrow QRS, ST and T wave segments and morphology normal. Nonspecific T wave abnormalities
[2018-06-06] MEDS ORDERED: KETOROLAC TROMETHAMINE 15 MG/ML VIAL IM ONE (09:23)
[2018-06-06] MEDS ORDERED: KETOROLAC TROMETHAMINE 15 MG/ML VIAL ONE (09:37)
--- NOTE | 2018-06-18 10:54 | EKG ---
Test Reason : Blood Pressure : / mmHG Vent. Rate : 083 BPM Atrial Rate : 083 BPM P-R Int : 126 ms QRS Dur : 090 ms QT Int : 370 ms P-R-T Axes : 023 027 042 degrees QTc Int : 434 ms NORMAL SINUS RHYTHM NORMAL ECG WHEN COMPARED WITH ECG OF 16-MAR-2017 14:49, NO SIGNIFICANT CHANGE WAS FOUND Confirmed by Mario Griffith MD ([id number]) on 06/18/2018 10:53:45 AM Referred By: Confirmed By:Mario Griffith MD
== END 2018-06-06 09:50 | disposition home or self-care (01) ==
LOC: JER 06:55
PROC: 3E0233Z Introduction of Anti-inflammatory into Muscle, Percutaneous Approach (ICD-10-PCS; principal; 2018-06-06)
DX: J11.1 Influenza due to unidentified influenza virus with other respiratory manifestations (principal); R11.2 Nausea with vomiting, unspecified; I10 Essential (primary) hypertension; E78.00 Pure hypercholesterolemia, unspecified; E11.9 Type 2 diabetes mellitus without complications; Z79.4 Long term (current) use of insulin
CPT/HCPCS: 71046-TC-FY; 87804; 93005; 93010; 99282-25

== ENCOUNTER 2019-01-31 13:46 | Inpatient (IN) | payer OTHER ==
[2019-01-31] MEDS ORDERED: methylPREDNISolone NA SUCC 125 MG/2 ML VIAL IVPB ONE (14:12)
[2019-01-31] MEDS ORDERED: ALBUTEROL SO4 2.5/IPRATROPIUM 0.5 INH SOL 3 ML VIAL.NEB. NEB ONE (14:32)
[2019-01-31] MEDS ORDERED: methylPREDNISolone NA SUCC 125 MG/2 ML VIAL ONE (14:33)
--- NOTE | 2019-01-31 14:33 | PDOC ---
History of Present Illness - General Chief Complaint: Asthma Stated Complaint: ASTHMA ATTACK Time Seen by Provider: 01/31/19 14:12 - History of Present Illness Initial Comments: 01/31/19 14:24 63 F with h/o chronic pancreatitis and IIDM, hysterectomy, cholecystectomy, presenting to ED with 5 days of SOB. Pt reports that her symptoms started gradually with a cough. She was seen by her PMD 4 days ago and prescribed albuterol nebulizer, levaquin, flonase, and cough syrup. She does not know what she was diagnosed with. Pt states she has been taking her medications. However, today, while at a friend's house, she suddenly felt very short of breath while going upstairs. States that she used a nebulizer without relief. Pt denies chest pain but states she feels a "lump" in her chest. Denies throat swelling or tongue swelling. Denies difficulty swallowing. Pt denies any recent travel/ immobilization. No leg swelling. Past History - Past Medical History Allergies/Adverse Reactions: Allergies Allergy/AdvReac Type Severity Reaction Status Date / Time Penicillins Allergy Verified 08/19/18 09:27 Home Medications: Ambulatory Orders metFORMIN HCL [Glucophage] 500 mg PO BIDAC 07/06/13 Telmisartan [Micardis] 80 mg PO DAILY 06/17/16 Escitalopram Oxalate [Lexapro -] 10 mg PO DAILY 10/07/16 Insulin Lispro Protamin/Lispro [Humalog Mix 50-50 Kwikpen] 10 unit SQ ASDIR Insulin Glargine,Hum.rec.anlog [[place] Solostar] 30 unit SQ HS 01/31/19 Anemia: No Asthma: No Cancer: No Cardiac Disorders: No CVA: No COPD: No CHF: No DVT: No Dementia: No Diabetes: Yes Dialysis: No GI Disorders: Yes (pancreatitis, SBO, GERD) Disorders: No HTN: Yes Hypercholesterolemia: Yes Kidney Stones: No Liver Disease: No Psychiatric Problems: No Seizures: No Thyroid Disease: No Lung CA: No - Surgical History Abdominal Surgery: Yes Appendectomy: Yes Cardiac Surgery: No Cholecystectomy: Yes Gastric Stapling: No Lung Surgery: No Neurologic Surgery: No Orthopedic Surgery: No - Immunization History Immunization Up to Date: Yes - Psycho Social/Smoking Cessation Hx Smoking Status: No Smoking History: Never smoked Have you smoked in the past 12 months: No Number of Cigarettes Smoked Daily: 0 If you are a former smoker, when did you quit?: november 2012 Information on smoking cessation initiated: No Hx Alcohol Use: No Drug/Substance Use Hx: No Substance Use Type: None Hx Substance Use Treatment: No Review of Systems - Review of Systems Comments:: 01/31/19 14:27 GENERAL/CONSTITUTIONAL: No fever or chills. No weakness. HEAD, EYES, EARS, NOSE AND THROAT: No change in vision. No ear pain or discharge. No sore throat. CARDIOVASCULAR: No chest pain, no loss of consciousness RESPIRATORY: + SOB GASTROINTESTINAL: No nausea, vomiting, diarrhea or constipation. GENITOURINARY: No dysuria, frequency, or change in urination. MUSCULOSKELETAL: No joint or muscle swelling or pain. No neck or back pain. SKIN: No rash NEUROLOGIC: No vertigo, no change in strength/sensation. ENDOCRINE: No increased thirst. No abnormal weight change. HEMATOLOGIC/LYMPHATIC: No anemia, easy bleeding, or history of blood clots. ALLERGIC/IMMUNOLOGIC: No hives or skin allergy. *Physical Exam - Vital Signs Last Vital Signs Temp Pulse Resp BP Pulse Ox 98 F 123 H 33 H 168/103 H 100 01/31/19 13:50 01/31/19 13:50 01/31/19 13:50 01/31/19 13:50 01/31/19 13:50 - Physical Exam Comments: 01/31/19 14:27 "GENERAL: Awake, alert, and fully oriented, in severe respiratory distress. HEAD: No signs of trauma EYES: PERRLA, EOMI, sclera anicteric, conjunctiva clear ENT: Auricles normal inspection, hearing grossly normal, nares patent, oropharynx clear without exudates. Moist mucosa NECK: Nontender, no stepoffs, Normal ROM, supple, no lymphadenopathy, JVD, or masses LUNGS: + Coarse breath sounds bilaterally, mild expiratory wheezing HEART: Regular rate and rhythm, normal S1 and S2, no murmurs, rubs or gallops ABDOMEN: Soft, nontender, normoactive bowel sounds. No guarding, no rebound. No masses EXTREMITIES: Normal range of motion, no edema. No clubbing or cyanosis. No cords, erythema, or tenderness NEUROLOGICAL: Cranial nerves II through XII intact. 5/5 strength and sensation in all extremities, Normal speech, normal gait, normal cerebellar function SKIN: Warm, Dry, normal turgor, no rashes or lesions noted. ED Treatment Course - LABORATORY CBC & Chemistry Diagram: 02/01/19 07:10 02/01/19 07:10 - RADIOLOGY Radiology Studies Ordered: Category Date Time Status CHEST X-RAY PORTABLE* [RAD] Stat Radiology 01/31/19 14:12 Ordered Medical Decision Making - Critical Care Time Total Critical Care Time (minutes): 120 Critical Care Statement: The care of this patient involved high complexity decision making to prevent further life threatening deterioration of the patient 's condition and/or to evaluate & treat vital organ system(s) failure or risk of failure. - Medical Decision Making 01/31/19 14:27 63 F with acute onset SOB. Coarse breath sounds, mild wheezing on exam. Possible asthma/COPD/bronchitis. Pt in significant distress in ED but with normal O2 sat. Possible anxiety component. Will also need to r/o PE given tachycardia. - Labs, trop, D dimer, BNP - CXR - Nebs, steroids 01/31/19 16:31 Labs notable for elevated lactate 3.2 Ddimer also mildly elevated Upon re-evaluation pt no longer in respiratory distress. O2 sat 100% on RA. However, per daughter, pt now becoming more confused, possibly hallucinating. Pt with no focal deficits on exam. ?toxic/metabolic cause of pt's delirium. Pt denies BERNAL or neck stiffness. Pt with elevated sugar but normal AG, no evidence of DKA. Will check Utox, ammonia CT head ordered 01/31/19 18:54 CT head negative CTA chest/abd/pelvis all unremarkable Pt reassessed - now has returned to baseline mentation, though reporting some persistent SOB. Vitals normalized, HR 90, O2 99% on RA Given elevated lactate, mild leukocytosis, will cover empirically for sepsis with vanc and myles (pen allergy) 01/31/19 19:04 Pt admitted to hospitalist Discharge - Discharge Information Problems reviewed: Yes Clinical Impression/Diagnosis: SOB (shortness of breath) - Admission Yes - Follow up/Referral - Patient Discharge Instructions - Post Discharge Activity
[2019-01-31] MEDS: ALBUTEROL SO4 2.5/IPRATROPIUM 0.5 INH SOL 3 ML VIAL.NEB. NEB SCH ×3 (14:37→15:32)
[2019-01-31 15:07] LABS: BASO % 0.6 % (0-2.0); EOS % 0.8 % (0-4.5); HEMATOCRIT 41.6 % (32.4-45.2); HEMOGLOBIN 13.9 GM/dL (10.7-15.3); LYMPH % 21.6 % (8-40); MCHC 33.3 g/dl (32.0-36.0); MEAN CELL VOLUME 83.8 fl (80-96); MEAN PLT VOLUME 7.8 fl (7.5-11.1); MONO % 5.1 % (3.8-10.2); NEUT % 71.9 % (42.8-82.8); PLATELET COUNT 368 K/MM3 (134-434); RBC 4.96 M/mm3 (3.60-5.2); RDW 13.7 % (11.6-15.6); WHITE BLOOD COUNT 11.8 K/mm3 (4.0-10.0)
[2019-01-31 15:11] LABS: VENOUS PC02 34.5 mmHg (38-52); VENOUS PH 7.46 (7.31-7.41)
[2019-01-31 15:17] LABS: VENOUS PO2 < 49 mmHg (28-48)
[2019-01-31 15:25] LABS: INR 1.01 (0.83-1.09); PROTHROMBIN TIME (PATIENT) 11.9 SEC (9.7-13.0)
[2019-01-31 15:27] LABS: ACTIVATED PTT 31.3 SECONDS (25.2-36.5)
[2019-01-31 15:40] LABS: ALBUMIN 3.8 g/dl (3.4-5.0); BILIRUBIN,TOTAL 0.3 mg/dL (0.2-1); BLOOD UREA NITROGEN 20.8 mg/dL (7-18); CALCIUM 9.3 mg/dL (8.5-10.1); CREATININE 1.2 mg/dL (0.55-1.3); MAGNESIUM 1.5 mg/dL (1.8-2.4); POTASSIUM 4.1 mmol/L (3.5-5.1); TOT PROT 7.6 g/dl (6.4-8.2)
[2019-01-31] MEDS ORDERED: SODIUM CHLORIDE 500 ML IV STA (15:53)
[2019-01-31] MEDS ORDERED: ACETAMINOPHEN 1000 MG/100 ML VIAL (NON FORMULARY) IVPB ONE (16:00)
[2019-01-31] MEDS ORDERED: ACETAMINOPHEN INJECTION 100 ML IVPB ONE (16:04)
[2019-01-31] MEDS ORDERED: VANCOMYCIN 1 GM in D5W (PRE-DOCKED) 1,000 MG/250 ML IVPB ONE (18:59)
[2019-01-31] MEDS ORDERED: MEROPENEM 1 GM in DEXTROSE 5%-WATER 100 ML IVPB ONE (19:01)
[2019-01-31 19:45] LABS: URINE COLOR YELLOW
[2019-01-31 19:46] LABS: EPI CELLS 0.5 /HPF (0-5/HPF); HYALINE CASTS 0.35 /lpf (0-8); URINE APPEARANCE CLEAR; URINE BACTERIA 8.9 /hpf (NEGATIVE); URINE BILIRUBIN NEGATIVE (NEGATIVE); URINE GLUCOSE (UA) >1000 (NEGATIVE); URINE KETONE NEGATIVE (NEGATIVE); URINE LEUK ESTERASE NEGATIVE (NEGATIVE); URINE NITRITE NEGATIVE (NEGATIVE); URINE PROTEIN NEGATIVE (NEGATIVE); URINE RBC 0.9 /hpf (0-4); URINE UROBILINOGEN 0.2 mg/dL (0.2-1.0); URINE WBC 1.2 /hpf (0-5)
[2019-01-31 20:01] LABS: COCAINE, UR NEGATIVE ng/ml (CUTOFF=300); METHADONE, UR NEGATIVE ng/ml (CUTOFF=300); PHENCYCLIDINE,URINE NEGATIVE ng/ml (CUTOFF=25); URINE AMPHETAMINES NEGATIVE ng/ml (CUTOFF=500); URINE BARBITURATES NEGATIVE ng/ml (CUTOFF=200); URINE BENZODIAZEPINES NEGATIVE ng/ml (CUTOFF=200)
[2019-01-31] MEDS ORDERED: MEROPENEM 1 GM VIAL (RESTRICTED TO ID) IVPB ONE (20:04)
[2019-01-31 20:05] LABS: OPIATES, URI POSITIVE ng/ml (CUTOFF=300)
[2019-01-31] MEDS ORDERED: VANCOMYCIN 1 GRAM (PRE-DOCKED) 1,000 MG/250 ML BAG IVPB ONE (21:12)
[2019-01-31 21:48] VITALS: BMI 34.4
[2019-01-31] MEDS ORDERED: MAGNESIUM SULF 50% (8.12 MEQ/2 ML-1 GM VIAL) IVPB ONE (21:51)
[2019-01-31] MEDS ORDERED: PIPERACILLIN/TAZOB 3.375 GM 3.375 GM in DEXTROSE 5%-WATER - 50 ML IVPB SCH (22:00)
--- NOTE | 2019-01-31 22:09 | HP ---
<Agusto Grant - Last Filed: 02/01/19 03:28> CHIEF COMPLAINT: shortness of breath PCP: Dr. Zuniga HISTORY OF PRESENT ILLNESS: 63 year old female with a past medical history of chronic pancreatitis and diabetes mellitus type II initially presented to the hospital for 1 week history of shortness of breath that initially began as a mild productive cough that progressed to acute dyspnea this morning, prompting her to come to the emergency room. She reportedly saw her doctor only a couple days ago, was given levaquin, flonase and cough syrup, which she reported did not help her. During her evaluation in the ER, patient became acutely delirious, far off of baseline per family. She reported severe headache and neck pain as well as diffuse abdominal pain. Denied any fevers or chills, nausea, vomiting, or diarrhea. Reports recent travel to the [facility] area, no international travel. Denies sick contacts. Denies tick bites/rashes. ER course was notable for: (1) lactic acidosis 3.6 -> 5.5 (2) VBG in ED ph 7.46, pCO2 34.5 (3) Mg 1.5 Recent Travel: reports visiting [facility] recently PAST MEDICAL HISTORY: chronic pancreatitis, DMII PAST SURGICAL HISTORY: hx of hysterectomy/cholecystectomy Social History: Smoking: denies Alcohol: denies Drugs: denies Family History: denies family hx of heart disease/DM/cancer Allergies Penicillins Allergy (Verified 08/19/18 09:27) HOME MEDICATIONS: Home Medications Medication Instructions Recorded metFORMIN HCL [Glucophage] 500 mg PO BIDAC 07/06/13 Telmisartan [Micardis] 80 mg PO DAILY 06/17/16 Escitalopram Oxalate [Lexapro -] 10 mg PO DAILY 10/07/16 Insulin Lispro Protamin/Lispro 10 unit SQ ASDIR 03/15/17 [Humalog Mix 50-50 Kwikpen] Insulin Glargine,Hum.rec.anlog 30 unit SQ HS 01/31/19 [Tex Reeves] REVIEW OF SYSTEMS CONSTITUTIONAL: Absent: fever, chills, diaphoresis, generalized weakness, malaise, loss of appetite, weight change HEENT: Absent: rhinorrhea, nasal congestion, throat pain, throat swelling, difficulty swallowing, mouth swelling, ear pain, eye pain, visual changes CARDIOVASCULAR: Absent: chest pain, syncope, palpitations, irregular heart rate, lightheadedness , peripheral edema RESPIRATORY: cough, shortness of breath Absent: dyspnea with exertion, orthopnea, wheezing, stridor, hemoptysis GASTROINTESTINAL:abdominal pain Absent: abdominal distension, nausea, vomiting, diarrhea, constipation, melena , hematochezia GENITOURINARY: Absent: dysuria, frequency, urgency, hesitancy, hematuria, flank pain, genital pain MUSCULOSKELETAL: neck pain Absent: myalgia, arthralgia, joint swelling, back pain, SKIN: Absent: rash, itching, pallor HEMATOLOGIC/IMMUNOLOGIC: Absent: easy bleeding, easy bruising, lymphadenopathy, frequent infections ENDOCRINE: Absent: unexplained weight gain, unexplained weight loss, heat intolerance, cold intolerance NEUROLOGIC: headache, mental status changes, Absent: focal weakness or paresthesias, dizziness, unsteady gait, seizure, bladder or bowel incontinence PSYCHIATRIC: hallucinations Absent: anxiety, depression, suicidal or homicidal ideation, PHYSICAL EXAMINATION Vital Signs - 24 hr 01/31/19 01/31/19 01/31/19 13:50 14:10 16:02 Temperature 98 F 98.5 F Pulse Rate 123 H Pulse Rate [ 89 Left Radial] Respiratory 33 H 19 Rate Blood Pressure 168/103 H Blood Pressure 136/78 [Right Arm] O2 Sat by Pulse 100 98 98 Oximetry (%) 01/31/19 01/31/19 20:34 21:39 Temperature 98.5 F 98.6 F Pulse Rate 107 H Pulse Rate [ 88 Left Radial] Respiratory 19 19 Rate Blood Pressure 140/82 Blood Pressure 137/68 [Right Arm] O2 Sat by Pulse 100 Oximetry (%) GENERAL: A&Ox1, moderate distress EYES: PERRLA, EOMI ENT: Moist mucus membranes NECK: No JVD, neck stiffness and tenderness was elicited LUNGS: CTA, no wheezes, tachypneic on exam HEART: RRR, no murmurs ABDOMEN: Soft, tender to palpation diffusely, BS present MUSCULOSKELETAL: No CVA Tenderness EXTREMITIES: 2+ pulses, no edema. NEUROLOGICAL: No focal deficits, no photophobia Laboratory Results - last 24 hr 01/31/19 01/31/19 01/31/19 14:42 14:42 14:42 WBC 11.8 H RBC 4.96 Hgb 13.9 Hct 41.6 MCV 83.8 MCH 28.0 MCHC 33.3 RDW 13.7 Plt Count 368 MPV 7.8 Absolute Neuts (auto) 8.5 H Neutrophils % 71.9 Lymphocytes % 21.6 D Monocytes % 5.1 Eosinophils % 0.8 Basophils % 0.6 Nucleated RBC % 0 PT with INR INR PTT (Actin FS) D-Dimer VBG pH POC VBG pCO2 POC VBG pO2 VBG HCO3 VBG O2 Sat (Yaima) VBG Base Excess Carboxyhemoglobin Methemoglobin Sodium 135 L Potassium 4.1 Chloride 100 Carbon Dioxide 23 Anion Gap 12 BUN 20.8 H Creatinine 1.2 Est GFR (CKD-EPI)AfAm 55.70 Est GFR (CKD-EPI)NonAf 48.06 POC Glucometer Random Glucose 392 H Lactic Acid Calcium 9.3 Phosphorus 3.0 Magnesium 1.5 L Total Bilirubin 0.3 AST 12 L ALT 26 Alkaline Phosphatase 106 Ammonia Creatine Kinase 105 Troponin I < 0.02 B-Natriuretic Peptide 109.0 Total Protein 7.6 Albumin 3.8 Beta-Hydroxybutyrate Urine Color Urine Appearance Urine pH Ur Specific [place] Urine Protein Urine Glucose (UA) Urine Ketones Urine Blood Urine Nitrite Urine Bilirubin Urine Urobilinogen Ur Leukocyte Esterase Urine WBC (Auto) Urine RBC (Auto) Urine Casts (Auto) U Epithel Cells (Auto) Urine Bacteria (Auto) Opiates Screen Methadone Screen Barbiturate Screen Phencyclidine Screen Ur Amphetamines Screen MDMA (Ecstasy) Screen Benzodiazepines Screen Cocaine Screen U Marijuana (THC) Screen 01/31/19 01/31/19 01/31/19 14:42 14:42 14:43 WBC RBC Hgb Hct MCV MCH MCHC RDW Plt Count MPV Absolute Neuts (auto) Neutrophils % Lymphocytes % Monocytes % Eosinophils % Basophils % Nucleated RBC % PT with INR 11.90 INR 1.01 PTT (Actin FS) 31.3 D-Dimer 513 H VBG pH POC VBG pCO2 POC VBG pO2 VBG HCO3 VBG O2 Sat (Yaima) VBG Base Excess Carboxyhemoglobin Methemoglobin Sodium Potassium Chloride Carbon Dioxide Anion Gap BUN Creatinine Est GFR (CKD-EPI)AfAm Est GFR (CKD-EPI)NonAf POC Glucometer Random Glucose Lactic Acid 3.6 H* Calcium Phosphorus Magnesium Total Bilirubin AST ALT Alkaline Phosphatase Ammonia Creatine Kinase Troponin I B-Natriuretic Peptide Total Protein Albumin Beta-Hydroxybutyrate Urine Color Urine Appearance Urine pH Ur Specific [place] Urine Protein Urine Glucose (UA) Urine Ketones Urine Blood Urine Nitrite Urine Bilirubin Urine Urobilinogen Ur Leukocyte Esterase Urine WBC (Auto) Urine RBC (Auto) Urine Casts (Auto) U Epithel Cells (Auto) Urine Bacteria (Auto) Opiates Screen Methadone Screen Barbiturate Screen Phencyclidine Screen Ur Amphetamines Screen MDMA (Ecstasy) Screen Benzodiazepines Screen Cocaine Screen U Marijuana (THC) Screen 01/31/19 01/31/19 01/31/19 14:45 15:16 18:47 WBC RBC Hgb Hct MCV MCH MCHC RDW Plt Count MPV Absolute Neuts (auto) Neutrophils % Lymphocytes % Monocytes % Eosinophils % Basophils % Nucleated RBC % PT with INR INR PTT (Actin FS) D-Dimer VBG pH 7.46 H POC VBG pCO2 34.5 L POC VBG pO2 < 49 H VBG HCO3 24.0 VBG O2 Sat (Yaima) 83.3 H VBG Base Excess 1.0 Carboxyhemoglobin Cancelled Methemoglobin Cancelled Sodium Potassium Chloride Carbon Dioxide Anion Gap BUN Creatinine Est GFR (CKD-EPI)AfAm Est GFR (CKD-EPI)NonAf POC Glucometer Random Glucose Lactic Acid Calcium Phosphorus Magnesium Total Bilirubin AST ALT Alkaline Phosphatase Ammonia Creatine Kinase Troponin I B-Natriuretic Peptide Total Protein Albumin Beta-Hydroxybutyrate Urine Color Yellow Urine Appearance Clear Urine pH 5.0 Ur Specific [place] 1.059 H Urine Protein Negative Urine Glucose (UA) >1000 Urine Ketones Negative Urine Blood Negative Urine Nitrite Negative Urine Bilirubin Negative Urine Urobilinogen 0.2 Ur Leukocyte Esterase Negative Urine WBC (Auto) 1.2 Urine RBC (Auto) 0.9 Urine Casts (Auto) 0.35 U Epithel Cells (Auto) 0.5 Urine Bacteria (Auto) 8.9 Opiates Screen Methadone Screen Barbiturate Screen Phencyclidine Screen Ur Amphetamines Screen MDMA (Ecstasy) Screen Benzodiazepines Screen Cocaine Screen U Marijuana (THC) Screen 01/31/19 01/31/19 01/31/19 18:47 19:00 19:00 WBC RBC Hgb Hct MCV MCH MCHC RDW Plt Count MPV Absolute Neuts (auto) Neutrophils % Lymphocytes % Monocytes % Eosinophils % Basophils % Nucleated RBC % PT with INR INR PTT (Actin FS) D-Dimer VBG pH POC VBG pCO2 POC VBG pO2 VBG HCO3 VBG O2 Sat (Yaima) VBG Base Excess Carboxyhemoglobin Methemoglobin Sodium Potassium Chloride Carbon Dioxide Anion Gap BUN Creatinine Est GFR (CKD-EPI)AfAm Est GFR (CKD-EPI)NonAf POC Glucometer Random Glucose Lactic Acid Calcium Phosphorus Magnesium Total Bilirubin AST ALT Alkaline Phosphatase Ammonia 34.60 H Creatine Kinase Troponin I B-Natriuretic Peptide Total Protein Albumin Beta-Hydroxybutyrate 2.3 Urine Color Urine Appearance Urine pH Ur Specific [place] Urine Protein Urine Glucose (UA) Urine Ketones Urine Blood Urine Nitrite Urine Bilirubin Urine Urobilinogen Ur Leukocyte Esterase Urine WBC (Auto) Urine RBC (Auto) Urine Casts (Auto) U Epithel Cells (Auto) Urine Bacteria (Auto) Opiates Screen Positive A* Methadone Screen Negative Barbiturate Screen Negative Phencyclidine Screen Negative Ur Amphetamines Screen Negative MDMA (Ecstasy) Screen Negative Benzodiazepines Screen Negative Cocaine Screen Negative U Marijuana (THC) Screen Negative 01/31/19 01/31/19 20:24 21:51 WBC RBC Hgb Hct MCV MCH MCHC RDW Plt Count MPV Absolute Neuts (auto) Neutrophils % Lymphocytes % Monocytes % Eosinophils % Basophils % Nucleated RBC % PT with INR INR PTT (Actin FS) D-Dimer VBG pH POC VBG pCO2 POC VBG pO2 VBG HCO3 VBG O2 Sat (Yaima) VBG Base Excess Carboxyhemoglobin Methemoglobin Sodium Potassium Chloride Carbon Dioxide Anion Gap BUN Creatinine Est GFR (CKD-EPI)AfAm Est GFR (CKD-EPI)NonAf POC Glucometer 560 Random Glucose Lactic Acid 5.5 H* Calcium Phosphorus Magnesium Total Bilirubin AST ALT Alkaline Phosphatase Ammonia Creatine Kinase Troponin I B-Natriuretic Peptide Total Protein Albumin Beta-Hydroxybutyrate Urine Color Urine Appearance Urine pH Ur Specific Tenstrike Urine Protein Urine Glucose (UA) Urine Ketones Urine Blood Urine Nitrite Urine Bilirubin Urine Urobilinogen Ur Leukocyte Esterase Urine WBC (Auto) Urine RBC (Auto) Urine Casts (Auto) U Epithel Cells (Auto) Urine Bacteria (Auto) Opiates Screen Methadone Screen Barbiturate Screen Phencyclidine Screen Ur Amphetamines Screen MDMA (Ecstasy) Screen Benzodiazepines Screen Cocaine Screen U Marijuana (THC) Screen ASSESSMENT/PLAN: 63 year old female with a past medical history of chronic pancreatitis and diabetes mellitus type II initially presented to the hospital for 1 week history of shortness of breath and admitted for sepsis and meningeal signs, will need to r/o meningitis #Sepsis: unclear etiology at present time, due to neck stiffness, headache, and acute encephalopathy, will need to r/o meningitis -LP was performed and studies sent -infectious diseases consulted -ICU admission for hemodynamic monitoring -vancomycin/meropenem ordered -dexamethasone ordered -head CT negative -trend lactate -UA negative for UTI -CXR/CTA negative for pulmonary process, no pneumonia or PE -normal saline @ 150cc/hr -lipase normal, no evidence of acute pancreatitis #Acute Encephalopathy: will need to rule out metabolic causes vs infectious causes -head CT negative -LP studies are pending -on antibiotics/fluids #Acute Respiratory Failure: possibly related to septic etiology -CXR/CTA showed no signs of pulmonary process -O2 as needed -ICU monitoring -ABG showed metabolic acidosis, compensated #Lactic Acidosis: from 3.6 up to 5.5 -will continue to trend lactate -fluid hydration @ 150 cc/hr #Uncontrolled Diabetes Mellitus: blood glucose elevated > 500, could be related to infectious process -ISS -BGMs #FEN -NS @ 150cc/hr -lytes normal -NPO for now, give diet in AM #Prophylaxis -lovenox #Disposition -admit ICU Visit type - Emergency Visit Emergency Visit: Yes ED Registration Date: 01/31/19 Care time: The patient presented to the Emergency Department on the above date and was hospitalized for further evaluation of their emergent condition. - New Patient This patient is new to me today: Yes Date on this admission: 02/01/19 - Critical Care Critical Care patient: Yes Total Critical Care Time (in minutes): 36 Critical Care Statement: The care of this patient involved high complexity decision making to prevent further life threatening deterioration of the patient 's condition and/or to evaluate & treat vital organ system(s) failure or risk of failure. ATTENDING PHYSICIAN STATEMENT I saw and evaluated the patient. I reviewed the resident's note and discussed the case with the resident. I agree with the resident's findings and plan as documented. SUBJECTIVE: OBJECTIVE: ASSESSMENT AND PLAN: <Fernando Moon - Last Filed: 02/01/19 12:30> Seen and examined; agree with resident note. Personally verified all gaytan exam findings and historical information. Was seen on the floor with Dr. Grant and was found to have worsening tachycardia with uncontrolled glucose and increasing lactate. She is noted to have hallucinations and 1x day history of headache; neerhas had these issues before. Denies EtOH abuse. History of recurring pancreatitis the family tells me is secondary to diet issues. She is noted to have neck stiffness and positive kernigs on exam. Given clinical instability bringing to ICU for LP to r/o sepsis 2/2 [employer] source. 10 sys ROS done and negative aside from HPI PMH, PSH, FH, SH reviewed VS, labs, imaging reviewed NAD, AAO x2, resting in bed RRR s1/2 Lungs CTAB, w/ sym exp NT ND +BS +B/K meningeal signs, CN2-12 wnl, occasional hallucinations No asterixis -Sepsis secondary to unknown source, r/o meningitis -AMS (likely toxic metabolic encephalopathy) -Acute metabolic acidosis with respiratory compensation -Uncontrolled DM with hyperglycemia -Hepatic Steatosis with elevated NH4, r/o cirrhosis -History of recurring pancreatitis -Elevated lactate Full Code ATTENDING PHYSICIAN STATEMENT I saw and evaluated the patient. I reviewed the resident's note and discussed the case with the resident. I agree with the resident's findings and plan as documented. SUBJECTIVE: OBJECTIVE: ASSESSMENT AND PLAN:
[2019-01-31 22:16] LABS: ARTERIAL BLD GAS O2 SATURATION 96.8 % (95-98); ARTERIAL BLOOD GAS BASE EXCESS -5.2 meq/l (-2-2); ARTERIAL BLOOD GAS PCO2 33.8 mmHg (35-45); ARTERIAL BLOOD GAS PO2 86.9 mmHg (80-100); ARTERIAL BLOOD GAS pH 7.37 (7.35-7.45)
[2019-01-31 22:17] LABS: ALLENS TEST POSITIVE
[2019-01-31] MEDS: INSULIN SLIDING SCALE (NOVOLOG) 1 VIAL SQ SCH (22:20)
--- NOTE | 2019-01-31 22:40 | CONSULT ---
Consultation: REQUESTING PROVIDER: Dr Moon CONSULT REQUEST: We have been asked to medically evaluate this patient for (r/o Meningitis). HISTORY OF PRESENT ILLNESS: Pt is a 63 y/o F with a significant past medical history of chronic pancreatitis and IDDM who presented [place] [facility] [place] due to a 1 week history of SOB that was associated with a productive cough. Pt endorses that she visited her PCP who prescribed pt ABx and cough syrup. Pt's SOB progressively became worse which prompted her visit to our ED. While in ED, pt's mental status was observed to steadily decline. Per family at bedside, pt has been experiencing hallucinations. In addition, pt began to experience severe neck pain, abdominal pain, as well as headache. Family denies any recent illnesses or sick contacts. REVIEW OF SYSTEMS: CONSTITUTIONAL: Absent: fever, chills, diaphoresis, generalized weakness, malaise, loss of appetite, weight change HEENT: present: visual changes, headache, blurry vision CARDIOVASCULAR: Absent: chest pain, syncope, palpitations, irregular heart rate, lightheadedness , peripheral edema RESPIRATORY: Absent: cough, shortness of breath, dyspnea with exertion, orthopnea, wheezing, stridor, hemoptysis GASTROINTESTINAL: present abdominal pain, abdominal distension, nausea, vomiting GENITOURINARY: Absent: dysuria, frequency, urgency, hesitancy, hematuria, flank pain, genital pain MUSCULOSKELETAL: Absent: myalgia, arthralgia, joint swelling, back pain, neck pain SKIN: Absent: rash, itching, pallor HEMATOLOGIC/IMMUNOLOGIC: Absent: easy bleeding, easy bruising, lymphadenopathy, frequent infections ENDOCRINE: Absent: unexplained weight gain, unexplained weight loss, heat intolerance, cold intolerance NEUROLOGIC: Absent: headache, focal weakness or paresthesias, dizziness, unsteady gait, seizure, mental status changes, bladder or bowel incontinence PSYCHIATRIC: Absent: anxiety, depression, suicidal or homicidal ideation, hallucinations. PHYSICAL EXAMINATION Vital Signs - 24 hr 01/31/19 01/31/19 01/31/19 13:50 14:10 16:02 Temperature 98 F 98.5 F Pulse Rate 123 H Pulse Rate [ 89 Left Radial] Respiratory 33 H 19 Rate Blood Pressure 168/103 H Blood Pressure 136/78 [Right Arm] O2 Sat by Pulse 100 98 98 Oximetry (%) 01/31/19 01/31/19 20:34 21:39 Temperature 98.5 F 98.6 F Pulse Rate 107 H Pulse Rate [ 88 Left Radial] Respiratory 19 19 Rate Blood Pressure 140/82 Blood Pressure 137/68 [Right Arm] O2 Sat by Pulse 100 Oximetry (%) GENERAL: Acute distress, Hallucinating HEAD: Atraumatic/Nomocephalic. Brudzinski's + EYES: EOMI Sclera Clear. Blurred vision EARS, NOSE, THROAT: MMM NECK: Supple LUNGS: CTAB HEART: RRR S1S2 ABDOMEN: Diffuse tenderness, obese, distended LOWER EXTREMITIES: No CCE. PSYCHIATRIC: Hallucinating. SKIN: Warm, dry, normal turgor, no rashes or lesions noted. Laboratory Results - last 24 hr 01/31/19 01/31/19 01/31/19 14:42 14:42 14:42 WBC 11.8 H RBC 4.96 Hgb 13.9 Hct 41.6 MCV 83.8 MCH 28.0 MCHC 33.3 RDW 13.7 Plt Count 368 MPV 7.8 Absolute Neuts (auto) 8.5 H Neutrophils % 71.9 Lymphocytes % 21.6 D Monocytes % 5.1 Eosinophils % 0.8 Basophils % 0.6 Nucleated RBC % 0 PT with INR INR PTT (Actin FS) D-Dimer Puncture Site ABG pH ABG pCO2 at Pt Temp ABG pO2 at Pt Temp ABG HCO3 ABG O2 Sat (Measured) ABG O2 Content ABG Base Excess George Test VBG pH POC VBG pCO2 POC VBG pO2 VBG HCO3 VBG O2 Sat (Yaima) VBG Base Excess Carboxyhemoglobin Methemoglobin O2 Delivery Device Oxygen Flow Rate Sodium 135 L Potassium 4.1 Chloride 100 Carbon Dioxide 23 Anion Gap 12 BUN 20.8 H Creatinine 1.2 Est GFR (CKD-EPI)AfAm 55.70 Est GFR (CKD-EPI)NonAf 48.06 POC Glucometer Random Glucose 392 H Lactic Acid Calcium 9.3 Phosphorus 3.0 Magnesium 1.5 L Total Bilirubin 0.3 AST 12 L ALT 26 Alkaline Phosphatase 106 Ammonia Creatine Kinase 105 Troponin I < 0.02 B-Natriuretic Peptide 109.0 Total Protein 7.6 Albumin 3.8 Lipase Beta-Hydroxybutyrate Urine Color Urine Appearance Urine pH Ur Specific [place] Urine Protein Urine Glucose (UA) Urine Ketones Urine Blood Urine Nitrite Urine Bilirubin Urine Urobilinogen Ur Leukocyte Esterase Urine WBC (Auto) Urine RBC (Auto) Urine Casts (Auto) U Epithel Cells (Auto) Urine Bacteria (Auto) Opiates Screen Methadone Screen Barbiturate Screen Phencyclidine Screen Ur Amphetamines Screen MDMA (Ecstasy) Screen Benzodiazepines Screen Cocaine Screen U Marijuana (THC) Screen 01/31/19 01/31/19 01/31/19 14:42 14:42 14:43 WBC RBC Hgb Hct MCV MCH MCHC RDW Plt Count MPV Absolute Neuts (auto) Neutrophils % Lymphocytes % Monocytes % Eosinophils % Basophils % Nucleated RBC % PT with INR 11.90 INR 1.01 PTT (Actin FS) 31.3 D-Dimer 513 H Puncture Site ABG pH ABG pCO2 at Pt Temp ABG pO2 at Pt Temp ABG HCO3 ABG O2 Sat (Measured) ABG O2 Content ABG Base Excess George Test VBG pH POC VBG pCO2 POC VBG pO2 VBG HCO3 VBG O2 Sat (Yaima) VBG Base Excess Carboxyhemoglobin Methemoglobin O2 Delivery Device Oxygen Flow Rate Sodium Potassium Chloride Carbon Dioxide Anion Gap BUN Creatinine Est GFR (CKD-EPI)AfAm Est GFR (CKD-EPI)NonAf POC Glucometer Random Glucose Lactic Acid 3.6 H* Calcium Phosphorus Magnesium Total Bilirubin AST ALT Alkaline Phosphatase Ammonia Creatine Kinase Troponin I B-Natriuretic Peptide Total Protein Albumin Lipase Beta-Hydroxybutyrate Urine Color Urine Appearance Urine pH Ur Specific [place] Urine Protein Urine Glucose (UA) Urine Ketones Urine Blood Urine Nitrite Urine Bilirubin Urine Urobilinogen Ur Leukocyte Esterase Urine WBC (Auto) Urine RBC (Auto) Urine Casts (Auto) U Epithel Cells (Auto) Urine Bacteria (Auto) Opiates Screen Methadone Screen Barbiturate Screen Phencyclidine Screen Ur Amphetamines Screen MDMA (Ecstasy) Screen Benzodiazepines Screen Cocaine Screen U Marijuana (THC) Screen 01/31/19 01/31/19 01/31/19 14:45 15:16 18:47 WBC RBC Hgb Hct MCV MCH MCHC RDW Plt Count MPV Absolute Neuts (auto) Neutrophils % Lymphocytes % Monocytes % Eosinophils % Basophils % Nucleated RBC % PT with INR INR PTT (Actin FS) D-Dimer Puncture Site ABG pH ABG pCO2 at Pt Temp ABG pO2 at Pt Temp ABG HCO3 ABG O2 Sat (Measured) ABG O2 Content ABG Base Excess George Test VBG pH 7.46 H POC VBG pCO2 34.5 L POC VBG pO2 < 49 H VBG HCO3 24.0 VBG O2 Sat (Yaima) 83.3 H VBG Base Excess 1.0 Carboxyhemoglobin Cancelled Methemoglobin Cancelled O2 Delivery Device Oxygen Flow Rate Sodium Potassium Chloride Carbon Dioxide Anion Gap BUN Creatinine Est GFR (CKD-EPI)AfAm Est GFR (CKD-EPI)NonAf POC Glucometer Random Glucose Lactic Acid Calcium Phosphorus Magnesium Total Bilirubin AST ALT Alkaline Phosphatase Ammonia Creatine Kinase Troponin I B-Natriuretic Peptide Total Protein Albumin Lipase Beta-Hydroxybutyrate Urine Color Yellow Urine Appearance Clear Urine pH 5.0 Ur Specific [place] 1.059 H Urine Protein Negative Urine Glucose (UA) >1000 Urine Ketones Negative Urine Blood Negative Urine Nitrite Negative Urine Bilirubin Negative Urine Urobilinogen 0.2 Ur Leukocyte Esterase Negative Urine WBC (Auto) 1.2 Urine RBC (Auto) 0.9 Urine Casts (Auto) 0.35 U Epithel Cells (Auto) 0.5 Urine Bacteria (Auto) 8.9 Opiates Screen Methadone Screen Barbiturate Screen Phencyclidine Screen Ur Amphetamines Screen MDMA (Ecstasy) Screen Benzodiazepines Screen Cocaine Screen U Marijuana (THC) Screen 01/31/19 01/31/19 01/31/19 18:47 19:00 19:00 WBC RBC Hgb Hct MCV MCH MCHC RDW Plt Count MPV Absolute Neuts (auto) Neutrophils % Lymphocytes % Monocytes % Eosinophils % Basophils % Nucleated RBC % PT with INR INR PTT (Actin FS) D-Dimer Puncture Site ABG pH ABG pCO2 at Pt Temp ABG pO2 at Pt Temp ABG HCO3 ABG O2 Sat (Measured) ABG O2 Content ABG Base Excess George Test VBG pH POC VBG pCO2 POC VBG pO2 VBG HCO3 VBG O2 Sat (Yaima) VBG Base Excess Carboxyhemoglobin Methemoglobin O2 Delivery Device Oxygen Flow Rate Sodium Potassium Chloride Carbon Dioxide Anion Gap BUN Creatinine Est GFR (CKD-EPI)AfAm Est GFR (CKD-EPI)NonAf POC Glucometer Random Glucose Lactic Acid Calcium Phosphorus Magnesium Total Bilirubin AST ALT Alkaline Phosphatase Ammonia 34.60 H Creatine Kinase Troponin I B-Natriuretic Peptide Total Protein Albumin Lipase 315 Beta-Hydroxybutyrate 2.3 Urine Color Urine Appearance Urine pH Ur Specific [place] Urine Protein Urine Glucose (UA) Urine Ketones Urine Blood Urine Nitrite Urine Bilirubin Urine Urobilinogen Ur Leukocyte Esterase Urine WBC (Auto) Urine RBC (Auto) Urine Casts (Auto) U Epithel Cells (Auto) Urine Bacteria (Auto) Opiates Screen Positive A* Methadone Screen Negative Barbiturate Screen Negative Phencyclidine Screen Negative Ur Amphetamines Screen Negative MDMA (Ecstasy) Screen Negative Benzodiazepines Screen Negative Cocaine Screen Negative U Marijuana (THC) Screen Negative 01/31/19 01/31/19 01/31/19 20:24 21:51 22:10 WBC RBC Hgb Hct MCV MCH MCHC RDW Plt Count MPV Absolute Neuts (auto) Neutrophils % Lymphocytes % Monocytes % Eosinophils % Basophils % Nucleated RBC % PT with INR INR PTT (Actin FS) D-Dimer Puncture Site Right radial ABG pH 7.37 ABG pCO2 at Pt Temp 33.8 L ABG pO2 at Pt Temp 86.9 ABG HCO3 18.9 L ABG O2 Sat (Measured) 96.8 ABG O2 Content 16.1 ABG Base Excess -5.2 L George Test Positive VBG pH POC VBG pCO2 POC VBG pO2 VBG HCO3 VBG O2 Sat (Yaima) VBG Base Excess Carboxyhemoglobin Methemoglobin O2 Delivery Device Nasal Oxygen Flow Rate 2l Sodium Potassium Chloride Carbon Dioxide Anion Gap BUN Creatinine Est GFR (CKD-EPI)AfAm Est GFR (CKD-EPI)NonAf POC Glucometer 560 Random Glucose Lactic Acid 5.5 H* Calcium Phosphorus Magnesium Total Bilirubin AST ALT Alkaline Phosphatase Ammonia Creatine Kinase Troponin I B-Natriuretic Peptide Total Protein Albumin Lipase Beta-Hydroxybutyrate Urine Color Urine Appearance Urine pH Ur Specific [place] Urine Protein Urine Glucose (UA) Urine Ketones Urine Blood Urine Nitrite Urine Bilirubin Urine Urobilinogen Ur Leukocyte Esterase Urine WBC (Auto) Urine RBC (Auto) Urine Casts (Auto) U Epithel Cells (Auto) Urine Bacteria (Auto) Opiates Screen Methadone Screen Barbiturate Screen Phencyclidine Screen Ur Amphetamines Screen MDMA (Ecstasy) Screen Benzodiazepines Screen Cocaine Screen U Marijuana (THC) Screen Active Medications Generic Name Dose Route Start Last Admin Trade Name Freq PRN Reason Stop Dose Admin Enoxaparin Sodium 40 mg 02/01/19 10:00 Lovenox - SQ DAILY EDILIA Meropenem 1 gm/ Dextrose 100 mls @ 200 mls/hr 02/01/19 02:00 IVPB Q8H-IV EDILIA Meropenem 1 gm/ Sodium 100 mls @ 200 mls/hr 02/01/19 02:00 Chloride IVPB 10/12/19 18:29 Q8H-IV EDILIA Insulin Aspart 1 vial 01/31/19 22:15 01/31/19 22:20 Novolog Vial Sliding Scale - SQ 12 units Q3H EDILIA Administration Protocol ASSESSMENT/PLAN: Pt is a 63 y/o F with a significant past medical history of chronic pancreatitis and IDDM who presented to [facility] [place] due to a 1 week history of SOB that was associated with a productive cough. #Sepsis 2/2 unknown etiology, Possible Meningitis -WBC 11.7, HR 123 on admission. + Brudzinski, Photophobia. -LP performed by Dr Boyd and copy writer at bedside. - CSF lab studies ordered. -Infectious Disease consulted-Dr Song. Agree with Vanco, Merrem, Acyclovir, and Decadron at this juncture -Head Ct Neg Trend Lactate -Urinalysis neg for infection, CXr CTA Neg #NIDDM -BGM >500 -hold oral hypoglycemics -ISS -BGMs #FEN -NS @ 150cc/hr -Monitor Electrolytes -NPO #DVT ppx -lovenox Dispo: We will continue to follow the patient. Thank you for this consultative opportunity. Visit type - Emergency Visit Emergency Visit: Yes ED Registration Date: 01/31/19 Care time: The patient presented to the Emergency Department on the above date and was hospitalized for further evaluation of their emergent condition. - New Patient This patient is new to me today: Yes Date on this admission: 01/31/19 - Critical Care Critical Care patient: Yes Total Critical Care Time (in minutes): 35 Critical Care Statement: The care of this patient involved high complexity decision making to prevent further life threatening deterioration of the patient 's condition and/or to evaluate & treat vital organ system(s) failure or risk of failure. ATTENDING PHYSICIAN STATEMENT I saw and evaluated the patient. I reviewed the resident's note and discussed the case with the resident. I agree with the resident's findings and plan as documented. SUBJECTIVE: OBJECTIVE: ASSESSMENT AND PLAN:
[2019-01-31] MEDS ORDERED: SODIUM CHLORIDE 1,000 ML IV SCH ×2 (23:00→23:01)
[2019-01-31] MEDS ORDERED: LACTATED RINGERS SOLUTION 1000 ML INFUS.BAG IV ONE (23:06)
[2019-01-31] MEDS ORDERED: DEXAMETHASONE SOD PHOSPHATE 10 MG/1 ML VIAL IM SCH (23:15)
[2019-01-31] MEDS ORDERED: SODIUM CHLORIDE 1,000 ML IV ONE (23:49)
[2019-02-01] MEDS: VANCOMYCIN HCL 1,500 MG/500 ML BAG IVPB SCH ×2 (00:04→15:11)
[2019-02-01] MEDS: DEXAMETHASONE SOD PHOSPHATE 10 MG/1 ML VIAL IVPUSH SCH ×5 (00:06→22:06)
[2019-02-01 00:26] LABS: INR 1.03 (0.83-1.09); PROTHROMBIN TIME (PATIENT) 12.2 SEC (9.7-13.0)
[2019-02-01] MEDS ORDERED: MORPHINE SULFATE 2 MG/ML VIAL ONE (01:06)
[2019-02-01 01:16] LABS: BLOOD UREA NITROGEN 25.2 mg/dL (7-18); CALCIUM 8.7 mg/dL (8.5-10.1); CREATININE 1.4 mg/dL (0.55-1.3); POTASSIUM 4.3 mmol/L (3.5-5.1)
--- NOTE | 2019-02-01 01:30 | PN ---
Progress Note (short form) - Note Progress Note: Patient suspected of meningitis so ICU resident called me to do the lumber puncture.After getting consent from the patients family i did lumber puncture at L3-L4 under sterile conditions with 22G spinal needle.Clear CSF 4 tubes of 2cc each drawn and sent to the lab.Patient tolerated the procedure well.Dr Boyd.
[2019-02-01] MEDS: INSULIN SLIDING SCALE (NOVOLOG) 1 VIAL SQ SCH ×7 (01:53→22:05)
[2019-02-01] MEDS: SODIUM CHLORIDE 1,000 ML IV SCH ×2 (01:54→20:53)
[2019-02-01] MEDS ORDERED: SODIUM CHLORIDE 100 ML IVPB ONE ×2 (02:30→10:39)
[2019-02-01] MEDS ORDERED: MEROPENEM 1 GM VIAL (RESTRICTED TO ID) IVPB ONE ×2 (02:30→10:39)
[2019-02-01] MEDS: MEROPENEM 1 GM in SODIUM CHLORIDE 100 ML IVPB SCH ×2 (02:38→10:45)
[2019-02-01] MEDS ORDERED: MAGNESIUM SULF 50% (8.12 MEQ/2 ML-1 GM VIAL) IVPB ONE (02:45)
[2019-02-01] MEDS ORDERED: ACYCLOVIR 500 MG (50MG/ML) VIAL IVPUSH SCH (03:45)
[2019-02-01 03:46] LABS: CSF APPEARANCE CLEAR; CSF COLOR COLORLESS; CSF WBC 1
[2019-02-01] MEDS ORDERED: ACYCLOVIR INJECTION 800 MG in DEXTROSE 5%-WATER - 100 ML IVPB SCH (04:00)
[2019-02-01 04:27] LABS: BF GLUCOSE (CSF ONLY) 203 mg/dL (40-70)
[2019-02-01] MEDS: SODIUM CHLORIDE IVPB SCH ×3 (06:25→18:02)
[2019-02-01] MEDS: ACYCLOVIR IVPB SCH ×3 (06:25→18:02)
[2019-02-01 07:47] LABS: HEMATOCRIT 34.2 % (32.4-45.2); HEMOGLOBIN 11.5 GM/dL (10.7-15.3); MCH 28.2 pg (25.7-33.7); MCHC 33.5 g/dl (32.0-36.0); MEAN CELL VOLUME 84.2 fl (80-96); MEAN PLT VOLUME 7.7 fl (7.5-11.1); PLATELET COUNT 316 K/MM3 (134-434); RBC 4.06 M/mm3 (3.60-5.2); RDW 13.7 % (11.6-15.6); WHITE BLOOD COUNT 14.6 K/mm3 (4.0-10.0)
[2019-02-01 08:06] LABS: BLOOD UREA NITROGEN 20.5 mg/dL (7-18); MAGNESIUM 2.3 mg/dL (1.8-2.4); POTASSIUM 4.6 mmol/L (3.5-5.1)
[2019-02-01] MEDS ORDERED: INSULIN (LEVEMIR) 100 UNITS/ML UNITS SQ ONE (08:30)
--- NOTE | 2019-02-01 08:48 | PN ---
Progress Note, Physician Chief Complaint: AWAKE ALERT DAUGHTER IS BEDSIDE DENIES CP OR SOB NO FEVER OR CHILLS - Current Medication List Current Medications: Active Medications Dexamethasone Sodium Phosphate (Decadron Injection -) 10 mg IVPUSH Q6H-IV EDILIA Last Admin: 02/01/19 03:49 Dose: 10 mg Enoxaparin Sodium (Lovenox -) 40 mg SQ DAILY EDILIA Meropenem 1 gm/ Dextrose 100 mls @ 200 mls/hr IVPB Q8H-IV EDILIA Meropenem 1 gm/ Sodium (Chloride) 100 mls @ 200 mls/hr IVPB Q8H-IV EDILIA Stop: 02/01/19 18:29 Last Admin: 02/01/19 02:38 Dose: 200 mls/hr Sodium Chloride (Normal Saline -) 1,000 mls @ 150 mls/hr IV ASDIR EDILIA Last Admin: 02/01/19 01:54 Dose: 150 mls/hr Vancomycin HCl 1,500 mg/ (Dextrose) 250 mls @ 125 mls/hr IVPB Q12H EDILIA; Protocol Vancomycin HCl (Vancomycin (Pre-Docked)) 1,500 mg in 500 mls @ 250 mls/hr IVPB Q12H EDILIA Stop: 02/01/19 13:44 Last Admin: 02/01/19 00:04 Dose: 250 mls/hr Acyclovir 800 mg/ Sodium (Chloride) 116 mls @ 116 mls/hr IVPB Q8H-IV EDILIA Last Admin: 02/01/19 06:25 Dose: 116 mls/hr Insulin Aspart (Novolog Vial Sliding Scale -) 1 vial SQ Q3H EDILIA; Protocol Last Admin: 02/01/19 06:29 Dose: 4 units - Objective Vital Signs: Vital Signs Temperature 97.8 F 02/01/19 06:00 Pulse Rate 69 02/01/19 06:00 Respiratory Rate 15 02/01/19 06:00 Blood Pressure 124/77 02/01/19 06:00 O2 Sat by Pulse Oximetry (%) 100 02/01/19 03:00 Constitutional: Yes: Mild Distress Cardiovascular: Yes: Regular Rate and Rhythm Respiratory: Yes: Regular Gastrointestinal: Yes: WNL ...Rectal Exam: Yes: WNL Genitourinary: Yes: WNL Musculoskeletal: Yes: Muscle Weakness Edema: No Peripheral Pulses WNL: Yes Integumentary: Yes: WNL Wound/Incision: Yes: Clean/Dry Neurological: Yes: Pre-Existing Deficit ...Motor Strength: LLE, RLE Psychiatric: Yes: Other Labs: CBC, BMP 02/01/19 07:10 02/01/19 07:10 INR, PTT INR 1.03 (0.83-1.09) 01/31/19 23:35 Problem List - Problems (1) SOB (shortness of breath) Code(s): R06.02 - SHORTNESS OF BREATH (2) Abdominal pain Code(s): R10.9 - UNSPECIFIED ABDOMINAL PAIN (3) Abnormal LFTs Code(s): R79.89 - OTHER SPECIFIED ABNORMAL FINDINGS OF BLOOD CHEMISTRY (4) DM2 (diabetes mellitus, type 2) Code(s): E11.9 - TYPE 2 DIABETES MELLITUS WITHOUT COMPLICATIONS (5) Neuropathy Code(s): G62.9 - POLYNEUROPATHY, UNSPECIFIED (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 DISCUSSED FOR OVER 30 MINS WITH DAUGHTER
[2019-02-01] MEDS ORDERED: ENOXAPARIN NA (PORCINE) 40 MG/0.4 ML DISP.SYRIN SQ SCH (10:00)
--- NOTE | 2019-02-01 10:22 | PN ---
Teaching Attending Note Name of Resident: Arnold Yin ATTENDING PHYSICIAN STATEMENT I saw and evaluated the patient. I reviewed the resident's note and discussed the case with the resident. I agree with the resident's findings and plan as documented. SUBJECTIVE: Patient seen and examined in the ICU. Awake and alert. Reports generalized malaise and sore throat. No CP or SOB. BERNAL is better. No BOV, dizziness, etc. Intake & Output 01/29/19 01/30/19 01/31/19 02/01/19 23:59 23:59 23:59 23:59 Intake Total 2350 Output Total 1100 Balance 1250 Weight 182 lb 3.2 oz Last Vital Signs Temp Pulse Resp BP Pulse Ox 97.8 F 69 15 124/77 100 02/01/19 06:00 02/01/19 06:00 02/01/19 06:00 02/01/19 06:00 02/01/19 03:00 Active Medications Dexamethasone Sodium Phosphate (Decadron Injection -) 10 mg IVPUSH Q6H-IV EDILIA Last Admin: 02/01/19 03:49 Dose: 10 mg Enoxaparin Sodium (Lovenox -) 40 mg SQ DAILY EDILIA Meropenem 1 gm/ Dextrose 100 mls @ 200 mls/hr IVPB Q8H-IV EDILIA Meropenem 1 gm/ Sodium (Chloride) 100 mls @ 200 mls/hr IVPB Q8H-IV EDILIA Stop: 02/01/19 18:29 Last Admin: 02/01/19 02:38 Dose: 200 mls/hr Sodium Chloride (Normal Saline -) 1,000 mls @ 150 mls/hr IV ASDIR EDILIA Last Admin: 02/01/19 01:54 Dose: 150 mls/hr Vancomycin HCl 1,500 mg/ (Dextrose) 250 mls @ 125 mls/hr IVPB Q12H EDILIA; Protocol Vancomycin HCl (Vancomycin (Pre-Docked)) 1,500 mg in 500 mls @ 250 mls/hr IVPB Q12H EDILIA Stop: 02/01/19 13:44 Last Admin: 02/01/19 00:04 Dose: 250 mls/hr Acyclovir 800 mg/ Sodium (Chloride) 116 mls @ 116 mls/hr IVPB Q8H-IV EDILIA Last Admin: 02/01/19 06:25 Dose: 116 mls/hr Insulin Aspart (Novolog Vial Sliding Scale -) 1 vial SQ Q3H COUNTS INCLUDE 234 BEDS AT THE [facility]; Protocol Last Admin: 02/01/19 06:29 Dose: 4 units GENERAL: Awake and alert, NAD HEAD: Atraumatic/Nomocephalic. EYES: EOMI Sclera Clear. Blurred vision EARS, NOSE, THROAT: MMM NECK: Supple LUNGS: Clear HEART: RRR S1S2 ABDOMEN: Soft, obese, (+) BS, mild non-specific tenderness to palpation LOWER EXTREMITIES: No CCE. PSYCHIATRIC: Cooperative NEURO: Non-focal SKIN: Warm, dry, normal turgor, no rashes or lesions noted. Laboratory Results - last 24 hr 01/31/19 01/31/19 01/31/19 14:42 14:42 14:42 WBC 11.8 H RBC 4.96 Hgb 13.9 Hct 41.6 MCV 83.8 MCH 28.0 MCHC 33.3 RDW 13.7 Plt Count 368 MPV 7.8 Absolute Neuts (auto) 8.5 H Neutrophils % 71.9 Lymphocytes % 21.6 D Monocytes % 5.1 Eosinophils % 0.8 Basophils % 0.6 Nucleated RBC % 0 PT with INR INR PTT (Actin FS) D-Dimer Puncture Site ABG pH ABG pCO2 at Pt Temp ABG pO2 at Pt Temp ABG HCO3 ABG O2 Sat (Measured) ABG O2 Content ABG Base Excess George Test VBG pH POC VBG pCO2 POC VBG pO2 VBG HCO3 VBG O2 Sat (Yaima) VBG Base Excess Carboxyhemoglobin Methemoglobin O2 Delivery Device Oxygen Flow Rate Sodium 135 L Potassium 4.1 Chloride 100 Carbon Dioxide 23 Anion Gap 12 BUN 20.8 H Creatinine 1.2 Est GFR (CKD-EPI)AfAm 55.70 Est GFR (CKD-EPI)NonAf 48.06 POC Glucometer Random Glucose 392 H Lactic Acid Calcium 9.3 Phosphorus 3.0 Magnesium 1.5 L Total Bilirubin 0.3 AST 12 L ALT 26 Alkaline Phosphatase 106 Ammonia Creatine Kinase 105 Troponin I < 0.02 B-Natriuretic Peptide 109.0 Total Protein 7.6 Albumin 3.8 Lipase Beta-Hydroxybutyrate Urine Color Urine Appearance Urine pH Ur Specific [place] Urine Protein Urine Glucose (UA) Urine Ketones Urine Blood Urine Nitrite Urine Bilirubin Urine Urobilinogen Ur Leukocyte Esterase Urine WBC (Auto) Urine RBC (Auto) Urine Casts (Auto) U Epithel Cells (Auto) Urine Bacteria (Auto) Opiates Screen Methadone Screen Barbiturate Screen Phencyclidine Screen Ur Amphetamines Screen MDMA (Ecstasy) Screen Benzodiazepines Screen Cocaine Screen U Marijuana (THC) Screen 01/31/19 01/31/19 01/31/19 14:42 14:42 14:43 WBC RBC Hgb Hct MCV MCH MCHC RDW Plt Count MPV Absolute Neuts (auto) Neutrophils % Lymphocytes % Monocytes % Eosinophils % Basophils % Nucleated RBC % PT with INR 11.90 INR 1.01 PTT (Actin FS) 31.3 D-Dimer 513 H Puncture Site ABG pH ABG pCO2 at Pt Temp ABG pO2 at Pt Temp ABG HCO3 ABG O2 Sat (Measured) ABG O2 Content ABG Base Excess George Test VBG pH POC VBG pCO2 POC VBG pO2 VBG HCO3 VBG O2 Sat (Yaima) VBG Base Excess Carboxyhemoglobin Methemoglobin O2 Delivery Device Oxygen Flow Rate Sodium Potassium Chloride Carbon Dioxide Anion Gap BUN Creatinine Est GFR (CKD-EPI)AfAm Est GFR (CKD-EPI)NonAf POC Glucometer Random Glucose Lactic Acid 3.6 H* Calcium Phosphorus Magnesium Total Bilirubin AST ALT Alkaline Phosphatase Ammonia Creatine Kinase Troponin I B-Natriuretic Peptide Total Protein Albumin Lipase Beta-Hydroxybutyrate Urine Color Urine Appearance Urine pH Ur Specific [place] Urine Protein Urine Glucose (UA) Urine Ketones Urine Blood Urine Nitrite Urine Bilirubin Urine Urobilinogen Ur Leukocyte Esterase Urine WBC (Auto) Urine RBC (Auto) Urine Casts (Auto) U Epithel Cells (Auto) Urine Bacteria (Auto) Opiates Screen Methadone Screen Barbiturate Screen Phencyclidine Screen Ur Amphetamines Screen MDMA (Ecstasy) Screen Benzodiazepines Screen Cocaine Screen U Marijuana (THC) Screen 01/31/19 01/31/19 01/31/19 14:45 15:16 18:47 WBC RBC Hgb Hct MCV MCH MCHC RDW Plt Count MPV Absolute Neuts (auto) Neutrophils % Lymphocytes % Monocytes % Eosinophils % Basophils % Nucleated RBC % PT with INR INR PTT (Actin FS) D-Dimer Puncture Site ABG pH ABG pCO2 at Pt Temp ABG pO2 at Pt Temp ABG HCO3 ABG O2 Sat (Measured) ABG O2 Content ABG Base Excess George Test VBG pH 7.46 H POC VBG pCO2 34.5 L POC VBG pO2 < 49 H VBG HCO3 24.0 VBG O2 Sat (Yaima) 83.3 H VBG Base Excess 1.0 Carboxyhemoglobin Cancelled Methemoglobin Cancelled O2 Delivery Device Oxygen Flow Rate Sodium Potassium Chloride Carbon Dioxide Anion Gap BUN Creatinine Est GFR (CKD-EPI)AfAm Est GFR (CKD-EPI)NonAf POC Glucometer Random Glucose Lactic Acid Calcium Phosphorus Magnesium Total Bilirubin AST ALT Alkaline Phosphatase Ammonia Creatine Kinase Troponin I B-Natriuretic Peptide Total Protein Albumin Lipase Beta-Hydroxybutyrate Urine Color Yellow Urine Appearance Clear Urine pH 5.0 Ur Specific [place] 1.059 H Urine Protein Negative Urine Glucose (UA) >1000 Urine Ketones Negative Urine Blood Negative Urine Nitrite Negative Urine Bilirubin Negative Urine Urobilinogen 0.2 Ur Leukocyte Esterase Negative Urine WBC (Auto) 1.2 Urine RBC (Auto) 0.9 Urine Casts (Auto) 0.35 U Epithel Cells (Auto) 0.5 Urine Bacteria (Auto) 8.9 Opiates Screen Methadone Screen Barbiturate Screen Phencyclidine Screen Ur Amphetamines Screen MDMA (Ecstasy) Screen Benzodiazepines Screen Cocaine Screen U Marijuana (THC) Screen 01/31/19 01/31/19 01/31/19 18:47 19:00 19:00 WBC RBC Hgb Hct MCV MCH MCHC RDW Plt Count MPV Absolute Neuts (auto) Neutrophils % Lymphocytes % Monocytes % Eosinophils % Basophils % Nucleated RBC % PT with INR INR PTT (Actin FS) D-Dimer Puncture Site ABG pH ABG pCO2 at Pt Temp ABG pO2 at Pt Temp ABG HCO3 ABG O2 Sat (Measured) ABG O2 Content ABG Base Excess George Test VBG pH POC VBG pCO2 POC VBG pO2 VBG HCO3 VBG O2 Sat (Yaima) VBG Base Excess Carboxyhemoglobin Methemoglobin O2 Delivery Device Oxygen Flow Rate Sodium Potassium Chloride Carbon Dioxide Anion Gap BUN Creatinine Est GFR (CKD-EPI)AfAm Est GFR (CKD-EPI)NonAf POC Glucometer Random Glucose Lactic Acid Calcium Phosphorus Magnesium Total Bilirubin AST ALT Alkaline Phosphatase Ammonia 34.60 H Creatine Kinase Troponin I B-Natriuretic Peptide Total Protein Albumin Lipase 315 Beta-Hydroxybutyrate 2.3 Urine Color Urine Appearance Urine pH Ur Specific [place] Urine Protein Urine Glucose (UA) Urine Ketones Urine Blood Urine Nitrite Urine Bilirubin Urine Urobilinogen Ur Leukocyte Esterase Urine WBC (Auto) Urine RBC (Auto) Urine Casts (Auto) U Epithel Cells (Auto) Urine Bacteria (Auto) Opiates Screen Positive A* Methadone Screen Negative Barbiturate Screen Negative Phencyclidine Screen Negative Ur Amphetamines Screen Negative MDMA (Ecstasy) Screen Negative Benzodiazepines Screen Negative Cocaine Screen Negative U Marijuana (THC) Screen Negative 01/31/19 01/31/19 01/31/19 20:24 21:51 22:10 WBC RBC Hgb Hct MCV MCH MCHC RDW Plt Count MPV Absolute Neuts (auto) Neutrophils % Lymphocytes % Monocytes % Eosinophils % Basophils % Nucleated RBC % PT with INR INR PTT (Actin FS) D-Dimer Puncture Site Right radial ABG pH 7.37 ABG pCO2 at Pt Temp 33.8 L ABG pO2 at Pt Temp 86.9 ABG HCO3 18.9 L ABG O2 Sat (Measured) 96.8 ABG O2 Content 16.1 ABG Base Excess -5.2 L George Test Positive VBG pH POC VBG pCO2 POC VBG pO2 VBG HCO3 VBG O2 Sat (Yaima) VBG Base Excess Carboxyhemoglobin Methemoglobin O2 Delivery Device Nasal Oxygen Flow Rate 2l Sodium Potassium Chloride Carbon Dioxide Anion Gap BUN Creatinine Est GFR (CKD-EPI)AfAm Est GFR (CKD-EPI)NonAf POC Glucometer 560 Random Glucose Lactic Acid 5.5 H* Calcium Phosphorus Magnesium Total Bilirubin AST ALT Alkaline Phosphatase Ammonia Creatine Kinase Troponin I B-Natriuretic Peptide Total Protein Albumin Lipase Beta-Hydroxybutyrate Urine Color Urine Appearance Urine pH Ur Specific [place] Urine Protein Urine Glucose (UA) Urine Ketones Urine Blood Urine Nitrite Urine Bilirubin Urine Urobilinogen Ur Leukocyte Esterase Urine WBC (Auto) Urine RBC (Auto) Urine Casts (Auto) U Epithel Cells (Auto) Urine Bacteria (Auto) Opiates Screen Methadone Screen Barbiturate Screen Phencyclidine Screen Ur Amphetamines Screen MDMA (Ecstasy) Screen Benzodiazepines Screen Cocaine Screen U Marijuana (THC) Screen ASSESSMENT/PLAN: Low clinical suspicion of Meningitis Suspected Viral illness History of chronic pancreatitis IDDM Sepsis ABX/anti-viral per ID Follow CSF analysis O2 as needed VTE prophylaxis PO as tolerated Glycemic control Isolation per ID Floor Dr Negron
[2019-02-01] MEDS: MEROPENEM 1 GM in DEXTROSE 5%-WATER 100 ML IVPB SCH ×2 (11:00→15:12)
--- NOTE | 2019-02-01 11:10 | PN ---
Physical Exam: SUBJECTIVE: Patient seen and examined at bed , no acute events over night , denies any fever or chills, reports slight headache other guardado felling much better , there is some UR congestion. OBJECTIVE: Vital Signs Period Temp Pulse Resp BP Sys/Curtis Pulse Ox Last 24 Hr 97.6 F-98.6 F 69-123 15-33 112-168/68-103 98-100 GENERAL: AAOx3 in NAD HEAD: NC/AT, no neck stiffness EYES: EOMI, Conjunctiva clear, sclera anicteric ENT: moist mucous membrane NECK: Supple, no JVD LUNGS: CTA B/L, no crackles no wheezing no accessory muscle use. HEART: RRR, NSR, normal s1, s2, murmur no M/R/G ABDOMEN: Soft, ND, NT, +BS 4 Q, no CVA Tenderness LOWER EXTREMITIES: no edema, +2DP pulse, NEUROLOGICAL: No focal deficit. Normal speech. gait not observed. PSYCHIATRIC: Cooperative. Good eye contact. Appropriate mood and affect. SKIN: Warm, dry, Laboratory Results - last 24 hr 01/31/19 01/31/19 01/31/19 14:42 14:42 14:42 WBC 11.8 H RBC 4.96 Hgb 13.9 Hct 41.6 MCV 83.8 MCH 28.0 MCHC 33.3 RDW 13.7 Plt Count 368 MPV 7.8 Absolute Neuts (auto) 8.5 H Neutrophils % 71.9 Lymphocytes % 21.6 D Monocytes % 5.1 Eosinophils % 0.8 Basophils % 0.6 Nucleated RBC % 0 PT with INR INR PTT (Actin FS) D-Dimer Puncture Site ABG pH ABG pCO2 at Pt Temp ABG pO2 at Pt Temp ABG HCO3 ABG O2 Sat (Measured) ABG O2 Content ABG Base Excess George Test VBG pH POC VBG pCO2 POC VBG pO2 VBG HCO3 VBG O2 Sat (Yaima) VBG Base Excess Carboxyhemoglobin Methemoglobin O2 Delivery Device Oxygen Flow Rate Sodium 135 L Potassium 4.1 Chloride 100 Carbon Dioxide 23 Anion Gap 12 BUN 20.8 H Creatinine 1.2 Est GFR (CKD-EPI)AfAm 55.70 Est GFR (CKD-EPI)NonAf 48.06 POC Glucometer Random Glucose 392 H Lactic Acid Calcium 9.3 Phosphorus 3.0 Magnesium 1.5 L Total Bilirubin 0.3 AST 12 L ALT 26 Alkaline Phosphatase 106 Ammonia Creatine Kinase 105 Troponin I < 0.02 B-Natriuretic Peptide 109.0 Total Protein 7.6 Albumin 3.8 Lipase Vitamin B12 Beta-Hydroxybutyrate TSH Urine Color Urine Appearance Urine pH Ur Specific [place] Urine Protein Urine Glucose (UA) Urine Ketones Urine Blood Urine Nitrite Urine Bilirubin Urine Urobilinogen Ur Leukocyte Esterase Urine WBC (Auto) Urine RBC (Auto) Urine Casts (Auto) U Epithel Cells (Auto) Urine Bacteria (Auto) CSF Appearance CSF Color CSF WBC CSF RBC CSF Neutrophils CSF Lymphocytes CSF Eosinophils CSF Basophils CSF Macrophages CSF Plasma Cells CSF Other Cells CSF Diff Comment CSF Comment CSF Glucose CSF Total Protein Opiates Screen Methadone Screen Barbiturate Screen Phencyclidine Screen Ur Amphetamines Screen MDMA (Ecstasy) Screen Benzodiazepines Screen Cocaine Screen U Marijuana (THC) Screen 01/31/19 01/31/19 01/31/19 14:42 14:42 14:43 WBC RBC Hgb Hct MCV MCH MCHC RDW Plt Count MPV Absolute Neuts (auto) Neutrophils % Lymphocytes % Monocytes % Eosinophils % Basophils % Nucleated RBC % PT with INR 11.90 INR 1.01 PTT (Actin FS) 31.3 D-Dimer 513 H Puncture Site ABG pH ABG pCO2 at Pt Temp ABG pO2 at Pt Temp ABG HCO3 ABG O2 Sat (Measured) ABG O2 Content ABG Base Excess George Test VBG pH POC VBG pCO2 POC VBG pO2 VBG HCO3 VBG O2 Sat (Yaima) VBG Base Excess Carboxyhemoglobin Methemoglobin O2 Delivery Device Oxygen Flow Rate Sodium Potassium Chloride Carbon Dioxide Anion Gap BUN Creatinine Est GFR (CKD-EPI)AfAm Est GFR (CKD-EPI)NonAf POC Glucometer Random Glucose Lactic Acid 3.6 H* Calcium Phosphorus Magnesium Total Bilirubin AST ALT Alkaline Phosphatase Ammonia Creatine Kinase Troponin I B-Natriuretic Peptide Total Protein Albumin Lipase Vitamin B12 Beta-Hydroxybutyrate TSH Urine Color Urine Appearance Urine pH Ur Specific [place] Urine Protein Urine Glucose (UA) Urine Ketones Urine Blood Urine Nitrite Urine Bilirubin Urine Urobilinogen Ur Leukocyte Esterase Urine WBC (Auto) Urine RBC (Auto) Urine Casts (Auto) U Epithel Cells (Auto) Urine Bacteria (Auto) CSF Appearance CSF Color CSF WBC CSF RBC CSF Neutrophils CSF Lymphocytes CSF Eosinophils CSF Basophils CSF Macrophages CSF Plasma Cells CSF Other Cells CSF Diff Comment CSF Comment CSF Glucose CSF Total Protein Opiates Screen Methadone Screen Barbiturate Screen Phencyclidine Screen Ur Amphetamines Screen MDMA (Ecstasy) Screen Benzodiazepines Screen Cocaine Screen U Marijuana (THC) Screen 01/31/19 01/31/19 01/31/19 14:45 15:16 18:47 WBC RBC Hgb Hct MCV MCH MCHC RDW Plt Count MPV Absolute Neuts (auto) Neutrophils % Lymphocytes % Monocytes % Eosinophils % Basophils % Nucleated RBC % PT with INR INR PTT (Actin FS) D-Dimer Puncture Site ABG pH ABG pCO2 at Pt Temp ABG pO2 at Pt Temp ABG HCO3 ABG O2 Sat (Measured) ABG O2 Content ABG Base Excess George Test VBG pH 7.46 H POC VBG pCO2 34.5 L POC VBG pO2 < 49 H VBG HCO3 24.0 VBG O2 Sat (Yaima) 83.3 H VBG Base Excess 1.0 Carboxyhemoglobin Cancelled Methemoglobin Cancelled O2 Delivery Device Oxygen Flow Rate Sodium Potassium Chloride Carbon Dioxide Anion Gap BUN Creatinine Est GFR (CKD-EPI)AfAm Est GFR (CKD-EPI)NonAf POC Glucometer Random Glucose Lactic Acid Calcium Phosphorus Magnesium Total Bilirubin AST ALT Alkaline Phosphatase Ammonia Creatine Kinase Troponin I B-Natriuretic Peptide Total Protein Albumin Lipase Vitamin B12 Beta-Hydroxybutyrate TSH Urine Color Yellow Urine Appearance Clear Urine pH 5.0 Ur Specific [place] 1.059 H Urine Protein Negative Urine Glucose (UA) >1000 Urine Ketones Negative Urine Blood Negative Urine Nitrite Negative Urine Bilirubin Negative Urine Urobilinogen 0.2 Ur Leukocyte Esterase Negative Urine WBC (Auto) 1.2 Urine RBC (Auto) 0.9 Urine Casts (Auto) 0.35 U Epithel Cells (Auto) 0.5 Urine Bacteria (Auto) 8.9 CSF Appearance CSF Color CSF WBC CSF RBC CSF Neutrophils CSF Lymphocytes CSF Eosinophils CSF Basophils CSF Macrophages CSF Plasma Cells CSF Other Cells CSF Diff Comment CSF Comment CSF Glucose CSF Total Protein Opiates Screen Methadone Screen Barbiturate Screen Phencyclidine Screen Ur Amphetamines Screen MDMA (Ecstasy) Screen Benzodiazepines Screen Cocaine Screen U Marijuana (THC) Screen 01/31/19 01/31/19 01/31/19 18:47 19:00 19:00 WBC RBC Hgb Hct MCV MCH MCHC RDW Plt Count MPV Absolute Neuts (auto) Neutrophils % Lymphocytes % Monocytes % Eosinophils % Basophils % Nucleated RBC % PT with INR INR PTT (Actin FS) D-Dimer Puncture Site ABG pH ABG pCO2 at Pt Temp ABG pO2 at Pt Temp ABG HCO3 ABG O2 Sat (Measured) ABG O2 Content ABG Base Excess George Test VBG pH POC VBG pCO2 POC VBG pO2 VBG HCO3 VBG O2 Sat (Yaima) VBG Base Excess Carboxyhemoglobin Methemoglobin O2 Delivery Device Oxygen Flow Rate Sodium Potassium Chloride Carbon Dioxide Anion Gap BUN Creatinine Est GFR (CKD-EPI)AfAm Est GFR (CKD-EPI)NonAf POC Glucometer Random Glucose Lactic Acid Calcium Phosphorus Magnesium Total Bilirubin AST ALT Alkaline Phosphatase Ammonia 34.60 H Creatine Kinase Troponin I B-Natriuretic Peptide Total Protein Albumin Lipase 315 Vitamin B12 Beta-Hydroxybutyrate 2.3 TSH Urine Color Urine Appearance Urine pH Ur Specific [place] Urine Protein Urine Glucose (UA) Urine Ketones Urine Blood Urine Nitrite Urine Bilirubin Urine Urobilinogen Ur Leukocyte Esterase Urine WBC (Auto) Urine RBC (Auto) Urine Casts (Auto) U Epithel Cells (Auto) Urine Bacteria (Auto) CSF Appearance CSF Color CSF WBC CSF RBC CSF Neutrophils CSF Lymphocytes CSF Eosinophils CSF Basophils CSF Macrophages CSF Plasma Cells CSF Other Cells CSF Diff Comment CSF Comment CSF Glucose CSF Total Protein Opiates Screen Positive A* Methadone Screen Negative Barbiturate Screen Negative Phencyclidine Screen Negative Ur Amphetamines Screen Negative MDMA (Ecstasy) Screen Negative Benzodiazepines Screen Negative Cocaine Screen Negative U Marijuana (THC) Screen Negative 01/31/19 01/31/19 01/31/19 20:24 21:51 22:10 WBC RBC Hgb Hct MCV MCH MCHC RDW Plt Count MPV Absolute Neuts (auto) Neutrophils % Lymphocytes % Monocytes % Eosinophils % Basophils % Nucleated RBC % PT with INR INR PTT (Actin FS) D-Dimer Puncture Site Right radial ABG pH 7.37 ABG pCO2 at Pt Temp 33.8 L ABG pO2 at Pt Temp 86.9 ABG HCO3 18.9 L ABG O2 Sat (Measured) 96.8 ABG O2 Content 16.1 ABG Base Excess -5.2 L George Test Positive VBG pH POC VBG pCO2 POC VBG pO2 VBG HCO3 VBG O2 Sat (Yaima) VBG Base Excess Carboxyhemoglobin Methemoglobin O2 Delivery Device Nasal Oxygen Flow Rate 2l Sodium Potassium Chloride Carbon Dioxide Anion Gap BUN Creatinine Est GFR (CKD-EPI)AfAm Est GFR (CKD-EPI)NonAf POC Glucometer 560 Random Glucose Lactic Acid 5.5 H* Calcium Phosphorus Magnesium Total Bilirubin AST ALT Alkaline Phosphatase Ammonia Creatine Kinase Troponin I B-Natriuretic Peptide Total Protein Albumin Lipase Vitamin B12 Beta-Hydroxybutyrate TSH Urine Color Urine Appearance Urine pH Ur Specific [place] Urine Protein Urine Glucose (UA) Urine Ketones Urine Blood Urine Nitrite Urine Bilirubin Urine Urobilinogen Ur Leukocyte Esterase Urine WBC (Auto) Urine RBC (Auto) Urine Casts (Auto) U Epithel Cells (Auto) Urine Bacteria (Auto) CSF Appearance CSF Color CSF WBC CSF RBC CSF Neutrophils CSF Lymphocytes CSF Eosinophils CSF Basophils CSF Macrophages CSF Plasma Cells CSF Other Cells CSF Diff Comment CSF Comment CSF Glucose CSF Total Protein Opiates Screen Methadone Screen Barbiturate Screen Phencyclidine Screen Ur Amphetamines Screen MDMA (Ecstasy) Screen Benzodiazepines Screen Cocaine Screen U Marijuana (THC) Screen 01/31/19 01/31/19 01/31/19 23:35 23:35 23:35 WBC RBC Hgb Hct MCV MCH MCHC RDW Plt Count MPV Absolute Neuts (auto) Neutrophils % Lymphocytes % Monocytes % Eosinophils % Basophils % Nucleated RBC % PT with INR 12.20 INR 1.03 PTT (Actin FS) D-Dimer Puncture Site ABG pH ABG pCO2 at Pt Temp ABG pO2 at Pt Temp ABG HCO3 ABG O2 Sat (Measured) ABG O2 Content ABG Base Excess George Test VBG pH POC VBG pCO2 POC VBG pO2 VBG HCO3 VBG O2 Sat (Yaima) VBG Base Excess Carboxyhemoglobin Methemoglobin O2 Delivery Device Oxygen Flow Rate Sodium 134 L Potassium 4.3 Chloride 103 Carbon Dioxide 20 L Anion Gap 11 BUN 25.2 H Creatinine 1.4 H Est GFR (CKD-EPI)AfAm 46.23 Est GFR (CKD-EPI)NonAf 39.89 POC Glucometer Random Glucose 480 H* Lactic Acid 5.3 H* Calcium 8.7 Phosphorus Magnesium Total Bilirubin AST ALT Alkaline Phosphatase Ammonia Creatine Kinase Troponin I B-Natriuretic Peptide Total Protein Albumin Lipase Vitamin B12 678 Beta-Hydroxybutyrate TSH 0.80 Urine Color Urine Appearance Urine pH Ur Specific [place] Urine Protein Urine Glucose (UA) Urine Ketones Urine Blood Urine Nitrite Urine Bilirubin Urine Urobilinogen Ur Leukocyte Esterase Urine WBC (Auto) Urine RBC (Auto) Urine Casts (Auto) U Epithel Cells (Auto) Urine Bacteria (Auto) CSF Appearance CSF Color CSF WBC CSF RBC CSF Neutrophils CSF Lymphocytes CSF Eosinophils CSF Basophils CSF Macrophages CSF Plasma Cells CSF Other Cells CSF Diff Comment CSF Comment CSF Glucose CSF Total Protein Opiates Screen Methadone Screen Barbiturate Screen Phencyclidine Screen Ur Amphetamines Screen MDMA (Ecstasy) Screen Benzodiazepines Screen Cocaine Screen U Marijuana (THC) Screen 01/31/19 01/31/19 02/01/19 23:35 23:35 01:35 WBC RBC Hgb Hct MCV MCH MCHC RDW Plt Count MPV Absolute Neuts (auto) Neutrophils % Lymphocytes % Monocytes % Eosinophils % Basophils % Nucleated RBC % PT with INR INR PTT (Actin FS) D-Dimer Puncture Site ABG pH ABG pCO2 at Pt Temp ABG pO2 at Pt Temp ABG HCO3 ABG O2 Sat (Measured) ABG O2 Content ABG Base Excess George Test VBG pH POC VBG pCO2 POC VBG pO2 VBG HCO3 VBG O2 Sat (Yaima) VBG Base Excess Carboxyhemoglobin Methemoglobin O2 Delivery Device Oxygen Flow Rate Sodium Potassium Chloride Carbon Dioxide Anion Gap BUN Creatinine Est GFR (CKD-EPI)AfAm Est GFR (CKD-EPI)NonAf POC Glucometer Random Glucose Lactic Acid Calcium Phosphorus Magnesium Total Bilirubin AST ALT Alkaline Phosphatase Ammonia 15.70 Creatine Kinase Troponin I B-Natriuretic Peptide Total Protein Albumin Lipase 237 Vitamin B12 Beta-Hydroxybutyrate TSH Urine Color Urine Appearance Urine pH Ur Specific [place] Urine Protein Urine Glucose (UA) Urine Ketones Urine Blood Urine Nitrite Urine Bilirubin Urine Urobilinogen Ur Leukocyte Esterase Urine WBC (Auto) Urine RBC (Auto) Urine Casts (Auto) U Epithel Cells (Auto) Urine Bacteria (Auto) CSF Appearance Clear CSF Color Colorless CSF WBC 1 CSF RBC 59 CSF Neutrophils No Result Required. CSF Lymphocytes No Result Required. CSF Eosinophils No Result Required. CSF Basophils No Result Required. CSF Macrophages No Result Required. CSF Plasma Cells No Result Required. CSF Other Cells CSF Diff Comment No Result Required. CSF Comment Tube 4 CSF Glucose 203 H CSF Total Protein 52 H Opiates Screen Methadone Screen Barbiturate Screen Phencyclidine Screen Ur Amphetamines Screen MDMA (Ecstasy) Screen Benzodiazepines Screen Cocaine Screen U Marijuana (THC) Screen 02/01/19 02/01/19 02/01/19 03:53 06:27 07:10 WBC 14.6 H RBC 4.06 Hgb 11.5 Hct 34.2 D MCV 84.2 MCH 28.2 MCHC 33.5 RDW 13.7 Plt Count 316 MPV 7.7 Absolute Neuts (auto) Neutrophils % Lymphocytes % Monocytes % Eosinophils % Basophils % Nucleated RBC % PT with INR INR PTT (Actin FS) D-Dimer Puncture Site ABG pH ABG pCO2 at Pt Temp ABG pO2 at Pt Temp ABG HCO3 ABG O2 Sat (Measured) ABG O2 Content ABG Base Excess George Test VBG pH POC VBG pCO2 POC VBG pO2 VBG HCO3 VBG O2 Sat (Yaima) VBG Base Excess Carboxyhemoglobin Methemoglobin O2 Delivery Device Oxygen Flow Rate Sodium Potassium Chloride Carbon Dioxide Anion Gap BUN Creatinine Est GFR (CKD-EPI)AfAm Est GFR (CKD-EPI)NonAf POC Glucometer 303 233 Random Glucose Lactic Acid Calcium Phosphorus Magnesium Total Bilirubin AST ALT Alkaline Phosphatase Ammonia Creatine Kinase Troponin I B-Natriuretic Peptide Total Protein Albumin Lipase Vitamin B12 Beta-Hydroxybutyrate TSH Urine Color Urine Appearance Urine pH Ur Specific [place] Urine Protein Urine Glucose (UA) Urine Ketones Urine Blood Urine Nitrite Urine Bilirubin Urine Urobilinogen Ur Leukocyte Esterase Urine WBC (Auto) Urine RBC (Auto) Urine Casts (Auto) U Epithel Cells (Auto) Urine Bacteria (Auto) CSF Appearance CSF Color CSF WBC CSF RBC CSF Neutrophils CSF Lymphocytes CSF Eosinophils CSF Basophils CSF Macrophages CSF Plasma Cells CSF Other Cells CSF Diff Comment CSF Comment CSF Glucose CSF Total Protein Opiates Screen Methadone Screen Barbiturate Screen Phencyclidine Screen Ur Amphetamines Screen MDMA (Ecstasy) Screen Benzodiazepines Screen Cocaine Screen U Marijuana (THC) Screen 02/01/19 02/01/19 02/01/19 07:10 09:10 10:44 WBC RBC Hgb Hct MCV MCH MCHC RDW Plt Count MPV Absolute Neuts (auto) Neutrophils % Lymphocytes % Monocytes % Eosinophils % Basophils % Nucleated RBC % PT with INR INR PTT (Actin FS) D-Dimer Puncture Site ABG pH ABG pCO2 at Pt Temp ABG pO2 at Pt Temp ABG HCO3 ABG O2 Sat (Measured) ABG O2 Content ABG Base Excess George Test VBG pH POC VBG pCO2 POC VBG pO2 VBG HCO3 VBG O2 Sat (Yaima) VBG Base Excess Carboxyhemoglobin Methemoglobin O2 Delivery Device Oxygen Flow Rate Sodium 139 Potassium 4.6 Chloride 109 H Carbon Dioxide 22 Anion Gap 8 BUN 20.5 H Creatinine 1.0 Est GFR (CKD-EPI)AfAm 69.44 Est GFR (CKD-EPI)NonAf 59.91 POC Glucometer 222 Random Glucose 246 H Lactic Acid 2.8 H* Calcium 8.0 L Phosphorus 3.0 Magnesium 2.3 Total Bilirubin AST ALT Alkaline Phosphatase Ammonia Creatine Kinase Troponin I B-Natriuretic Peptide Total Protein Albumin Lipase Vitamin B12 Beta-Hydroxybutyrate TSH Urine Color Urine Appearance Urine pH Ur Specific [place] Urine Protein Urine Glucose (UA) Urine Ketones Urine Blood Urine Nitrite Urine Bilirubin Urine Urobilinogen Ur Leukocyte Esterase Urine WBC (Auto) Urine RBC (Auto) Urine Casts (Auto) U Epithel Cells (Auto) Urine Bacteria (Auto) CSF Appearance CSF Color CSF WBC CSF RBC CSF Neutrophils CSF Lymphocytes CSF Eosinophils CSF Basophils CSF Macrophages CSF Plasma Cells CSF Other Cells CSF Diff Comment CSF Comment CSF Glucose CSF Total Protein Opiates Screen Methadone Screen Barbiturate Screen Phencyclidine Screen Ur Amphetamines Screen MDMA (Ecstasy) Screen Benzodiazepines Screen Cocaine Screen U Marijuana (THC) Screen Active Medications Generic Name Dose Route Start Last Admin Trade Name Freq PRN Reason Stop Dose Admin Dexamethasone Sodium Phosphate 10 mg 01/31/19 23:15 02/01/19 10:45 Decadron Injection - IVPUSH 10 mg Q6H-IV EDILIA Administration Enoxaparin Sodium 40 mg 02/01/19 10:00 02/01/19 10:45 Lovenox - SQ 40 mg DAILY EDILIA Administration Meropenem 1 gm/ Dextrose 100 mls @ 200 mls/hr 02/01/19 02:00 IVPB Q8H-IV EDILIA Meropenem 1 gm/ Sodium 100 mls @ 200 mls/hr 02/01/19 02:00 02/01/19 10:45 Chloride IVPB 02/01/19 18:29 200 mls/hr Q8H-IV EDILIA Administration Sodium Chloride 1,000 mls @ 150 mls/hr 01/31/19 23:00 02/01/19 01:54 Normal Saline - IV 150 mls/hr ASDIR EDILIA Administration Vancomycin HCl 1,500 mg/ 250 mls @ 125 mls/hr 01/31/19 23:45 Dextrose IVPB Q12H EDILIA Protocol Vancomycin HCl 1,500 mg in 500 mls @ 250 mls/hr 01/31/19 23:45 02/01/19 00:04 Vancomycin (Pre-Docked) IVPB 02/01/19 13:44 250 mls/hr Q12H EDILIA Administration Acyclovir 800 mg/ Sodium 116 mls @ 116 mls/hr 02/01/19 05:45 02/01/19 11:04 Chloride IVPB 116 mls/hr Q8H-IV EDILIA Administration Insulin Aspart 1 vial 01/31/19 22:15 02/01/19 10:45 Novolog Vial Sliding Scale - SQ 4 units Q3H EDILIA Administration Protocol CBC, BMP 02/01/19 07:10 02/01/19 07:10 ASSESSMENT/PLAN: Pt is a 63 y/o F with a significant past medical history of chronic pancreatitis and IDDM who presented to [facility]NOTE 3] due to a 1 week history of SOB that was associated with a productive cough. #Sepsis 2/2 Possible Meningitis vs viral URI -WBC 11.7, HR 123 on admission. + Brudzinski, Photophobia. resolved today -LP performed by Dr Boyd and financial writer at bedside. - CSF lab studies ordered.follow result , CSF glucose elevated unlikley bacterial -Infectious Disease consulted-Dr Song. Agree with Vanco, Merrem, Acyclovir, and Decadron at this juncture -Head Ct Neg Trend Lactate -Urinalysis neg for infection, CXr CTA Neg #NIDDM -BGM >500 -hold oral hypoglycemics -ISS -BGMs #FEN -NS @ 150cc/hr -Monitor Electrolytes -NPO #DVT ppx -lovenox can be monitored in M/S Visit type - Emergency Visit Emergency Visit: Yes ED Registration Date: 01/31/19 Care time: The patient presented to the Emergency Department on the above date and was hospitalized for further evaluation of their emergent condition. - New Patient This patient is new to me today: Yes Date on this admission: 02/01/19 - Critical Care Critical Care patient: Yes Total Critical Care Time (in minutes): 45 Critical Care Statement: The care of this patient involved high complexity decision making to prevent further life threatening deterioration of the patient 's condition and/or to evaluate & treat vital organ system(s) failure or risk of failure. ATTENDING PHYSICIAN STATEMENT I saw and evaluated the patient. I reviewed the resident's note and discussed the case with the resident. I agree with the resident's findings and plan as documented. SUBJECTIVE: OBJECTIVE: ASSESSMENT AND PLAN:
--- NOTE | 2019-02-01 12:04 | CON.NEURO ---
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: Other (Pt has been recently w/u for early dementia, which runs in her family.) Cardio/Vascular: Yes: HTN, Hyperlipdemia Gastrointestinal: Yes: Pancreatitis (?), Other (SBO) ...: No Psych: Yes: Depression, Panic Musculoskeletal: Yes: Osteoarthritis, Other (Knee pain) Endocrine: Yes: Diabetes Mellitus - Past Surgical History Past Surgical History: Yes: Appendectomy, Cholecystectomy, Colonoscopy (neg 2 yrs ago at ), (x2), Hysterectomy - Alcohol/Substance Use Hx Alcohol Use: No - Smoking History Smoking history: Former smoker Have you smoked in the past 12 months: No Aproximately how many cigarettes per day: 0 If you are a former smoker, when did you quit?: november 2012 - Social History Usual Living Arrangement: With Spouse ADL: Independent History of Recent Travel: No Home Medications - Allergies Allergies/Adverse Reactions: Allergies Allergy/AdvReac Type Severity Reaction Status Date / Time Penicillins Allergy Verified 08/19/18 09:27 - Home Medications Home Medications: Ambulatory Orders metFORMIN HCL [Glucophage] 500 mg PO BIDAC 07/06/13 Telmisartan [Micardis] 80 mg PO DAILY 06/17/16 Escitalopram Oxalate [Lexapro -] 10 mg PO DAILY 10/07/16 Insulin Lispro Protamin/Lispro [Humalog Mix 50-50 Kwikpen] 10 unit SQ ASDIR Insulin Glargine,Hum.rec.anlog [Toujeo Solostar] 30 unit SQ HS 01/31/19 Physical Exam-Neuro Vital Signs: Vital Signs Temperature 97.7 F 02/01/19 10:00 Pulse Rate 70 02/01/19 10:00 Respiratory Rate 16 02/01/19 10:00 Blood Pressure 112/68 02/01/19 10:00 O2 Sat by Pulse Oximetry (%) 100 02/01/19 03:00 Labs: CBC, BMP 02/01/19 07:10 02/01/19 07:10 INR, PTT INR 1.03 (0.83-1.09) 01/31/19 23:35 Assessment/Plan cc Altered mental status HPI 63 year old male history of chronic pancreatiis, DM, Patient was presented for URI in Dr Zuniga office and later she become lethargic and confused. She has spinal tap and it showed there is high rbc. Patient has normal ct head, she was afebrile and her bp was normal. Patient denies any acute headache and her mental status has improved. Recent Travel: reports visiting [place] recently PAST MEDICAL HISTORY: chronic pancreatitis, DMII PAST SURGICAL HISTORY: hx of hysterectomy/cholecystectomy Social History: Smoking: denies Alcohol: denies Drugs: denies Family History: denies family hx of heart disease/DM/cancer Allergies Penicillins Allergy (Verified 08/19/18 09:27) HOME MEDICATIONS: Home Medications Medication Instructions Recorded metFORMIN HCL [Glucophage] 500 mg PO BIDAC 07/06/13 Telmisartan [Micardis] 80 mg PO DAILY 06/17/16 Escitalopram Oxalate [Lexapro -] 10 mg PO DAILY 10/07/16 Insulin Lispro Protamin/Lispro 10 unit SQ ASDIR 03/15/17 [Humalog Mix 50-50 Kwikpen] Insulin Glargine,Hum.rec.anlog 30 unit SQ HS 01/31/19 [Toujeo Solostar] NEUROLOGICAL EXAMINATION Alert oriented x 3 , neck is supple vss afebrile csf eomi, pupils reactive no face asymmetry moving all extremity sensation is noraml gait not tested ct head isunremarkable csf protein is 52 wbc 1 rbc 59 Assessment/Plan 63 year old female history of DM, Chronic Pancreatitis came with altered mental status chage, lactic acidosis on metformin, recenlty has URI. Patient has spinal tap and wbc is 1, protein is 52 and rbc is 59, her blood sugar on admission was 480. Most likley she has viral meningitis vs metabolic encpehalopathy ( lactic acidosis and blood sugar is 480) Plan: patient is back to her baseline - suggest to add HSV pcr - no need for mri at this time - continue acyclovir Thanking you so much Miguel Arizmendi MD
--- NOTE | 2019-02-01 13:03 | CON.ID ---
Consult - History of Present Illness History of Present Illness: 63 y.o. female with PMH of pancreatitis, IDDM, HTN, HLD, OA, panic disorder, s/ p hysterectomy, GERD, s/p cholecystectomy and appendectomy presents with c/o SOB and developing cough for about 1 wk. She saw her PMD who prescribed her albuterol, levaquin, and cough syrup 5 days ago. She states she initially felt better but then began having progressive SOB and worsening cough. Yesterday she came to the ER for severe SOB. She was noted to be afebrile, but in respiratory distress and wheezing, with an elevated wbc and lactic acid level. In addition, pt reported to begin hallucinating as per family member and had H/A and neck stiffness and mild photophobia during examination. Daughter currently in ICU at bedside provided translation. States her mother 2 days ago was c/o H/A which was relieved by tylenol. She denies any recent sick contacts, did travel to [place] but was feeling well. Denies tick bites. Otherwise pt denies that despite cough there has been no sputum production, no abd pain/n/v/d, no urinary F/U/D or any other specific complaints. Pt was started on empiric broad spectrum antibiotics for possible viral/bacterial meningitis. LP was done, results are pending. Imaging studies of Head/Chest/Abd/Pelvis without specific findings. Today patient and family member states she feels much better and is less SOB but cough persists. Daughter states she is no longer hallucinating, has no H/A/ neck stiffness/photophobia. 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 (Pt has been recently w/u for early dementia, which runs in her family.) Cardio/Vascular: Yes: HTN, Hyperlipdemia Gastrointestinal: Yes: Pancreatitis (?), Other (SBO) Hepatobiliary: No: Cirrhosis, Cholelithiasis, Cholecystitis, Choledocholithiasis , Hepatitis A, Hepatitis B, Hepatitis C, Other Renal/: No: Renal Failure, Renal Inusuff, BPH, Cancer, Hematuria, Hemodialysis , Neurogenic Bladder, Renal Calculi, UTI, Other Reproductive: No: Ectopic , Endometriosis, Fibroids, PID, Polycystic Ovary Syndrome, Postmenopausal, Other ...: No Psych: Yes: Depression, Panic Musculoskeletal: Yes: Osteoarthritis, Other (Knee pain) Endocrine: Yes: Diabetes Mellitus - Past Surgical History Past Surgical History: Yes: Appendectomy, Cholecystectomy, Colonoscopy (neg 2 yrs ago at ), (x2), Hysterectomy - Alcohol/Substance Use Hx Alcohol Use: No - Smoking History Smoking history: Former smoker Have you smoked in the past 12 months: No Aproximately how many cigarettes per day: 0 If you are a former smoker, when did you quit?: november 2012 - Social History Usual Living Arrangement: With Spouse ADL: Independent History of Recent Travel: Yes ([place], [place]) Home Medications - Allergies Allergies/Adverse Reactions: Allergies Allergy/AdvReac Type Severity Reaction Status Date / Time Penicillins Allergy Verified 08/19/18 09:27 - Home Medications Home Medications: Ambulatory Orders metFORMIN HCL [Glucophage] 500 mg PO BIDAC 07/06/13 Telmisartan [Micardis] 80 mg PO DAILY 06/17/16 Escitalopram Oxalate [Lexapro -] 10 mg PO DAILY 10/07/16 Insulin Lispro Protamin/Lispro [Humalog Mix 50-50 Kwikpen] 10 unit SQ ASDIR Insulin Glargine,Hum.rec.anlog [Toujeo Solostar] 30 unit SQ HS 01/31/19 Review of Systems - Review of Systems Constitutional: reports: No Symptoms. denies: Chills, Diaphoresis, Fever, Lethargy, Loss of Appetite, Malaise, Night Sweats, Unintentional Wgt. Loss, Weakness, Other Eyes: reports: No Symptoms. denies: Blind Spots, Blurred Vision, Double Vision , Eye Pain, Floaters, Photophobia, Recent Change in Vision, Other HENT: reports: No Symptoms. denies: Difficult Swallowing, Ear Discharge, Ear Pain, Epistaxis, Gingival Bleeding, Hearing Loss, Mouth Swelling, Nasal Congestion, Ocular Prosthesis, Throat Pain, Toothache, Ringing in Ears, Other Neck: reports: No Symptoms. denies: Decreased ROM, Lumps, Pain on Movement, Stiffness, Swollen Glands, Tenderness, Other Cardiovascular: reports: No Symptoms. denies: Chest Pain, Edema, Palpitations, Shortness of Breath, Other Respiratory: reports: Cough, Wheezing. denies: No Symptoms, Exercise Intolerance, Hemoptysis, Orthopnea, PND, Snoring, SOB, SOB on Exertion, Other Gastrointestinal: reports: No Symptoms. denies: Abdominal Pain, Bloating, Constipation, Diarrhea, Dysphagia, Indigestion, Melena, Nausea, Rectal Bleeding , Vomiting, Vomiting Blood, Other Genitourinary: reports: No Symptoms. denies: Burning, Discharge, Dysuria, Flank Pain, Frequency, Hematuria, Incontinence, Lesions, Menses, Pain, Testicular Mass, Testicular Pain, Testicular Swelling, Urgency, Vaginal Bleeding , Other Breasts: reports: No Symptoms Reported. denies: See HPI, Breast Implants, Discharge from Nipple, Lumps, Pain, Skin Changes, Other Musculoskeletal: reports: No Symptoms. denies: Back Pain, Crepitus, Decreased ROM, Extremity Pain, Joint Pain, Joint Swelling, Muscle Pain, Muscle Cramps, Muscle Weakness, Other Integumentary: reports: No Symptoms. denies: Blister, Bruising, Change in Color , Eczema, Erythema, Incision, Lesions, Lump, Pallor, Pruritis, Rash, Wound, Other Neurological: reports: No Symptoms. denies: Change in LOC, Change in Speech, Confusion, Dizziness, Headache, Incoordination, Numbness, Parasthesia, Pre- Existing Deficit, Seizure, Syncope, Tremors, Unsteady Gait, Weakness, Other Endocrine: reports: No Symptoms. denies: Excessive Sweating, Flushing, Increased Hunger, Increased Thirst, Intolerance to Cold, Intolerance to Heat, Unexplained Weight Gain, Unexplained Weight Loss, Other Hematology/Lymphatic: reports: No Symptoms. denies: Easily Bruised, Excessive Bleeding, Swollen Glands, Other Psychiatric: reports: Anxiety (mild) Physical Exam Vital Signs: Vital Signs Temperature 97.7 F 02/01/19 10:00 Pulse Rate 70 02/01/19 10:00 Respiratory Rate 16 02/01/19 10:00 Blood Pressure 112/68 02/01/19 10:00 O2 Sat by Pulse Oximetry (%) 100 02/01/19 03:00 Constitutional: Yes: No Distress, Calm Eyes: Yes: Conjunctiva Clear, EOM Intact HENT: Yes: Atraumatic Neck: Yes: Supple, Trachea Midline Cardiovascular: Yes: Regular Rate and Rhythm Respiratory: Yes: Wheezes (expiratory) Gastrointestinal: Yes: Normal Bowel Sounds, Soft Renal/: Yes: WNL Musculoskeletal: Yes: WNL Extremities: Yes: WNL Edema: No Integumentary: Yes: WNL Neurological: Yes: Alert, Oriented Psychiatric: Yes: Alert Labs: CBC, BMP 02/01/19 07:10 02/01/19 07:10 Microbiology 02/01/19 01:35 Cerebral Spinal Fluid - Lumbar Puncture Gram Stain - Final Laboratory Tests 01/31/19 01/31/19 01/31/19 14:42 14:42 14:42 WBC 11.8 H RBC 4.96 Hgb 13.9 Hct 41.6 MCV 83.8 MCH 28.0 MCHC 33.3 RDW 13.7 Plt Count 368 MPV 7.8 Absolute Neuts (auto) 8.5 H Neutrophils % 71.9 Lymphocytes % 21.6 D Monocytes % 5.1 Eosinophils % 0.8 Basophils % 0.6 Nucleated RBC % 0 PT with INR INR PTT (Actin FS) D-Dimer Puncture Site ABG pH ABG pCO2 at Pt Temp ABG pO2 at Pt Temp ABG HCO3 ABG O2 Sat (Measured) ABG O2 Content ABG Base Excess George Test VBG pH POC VBG pCO2 POC VBG pO2 VBG HCO3 VBG O2 Sat (Yaima) VBG Base Excess Carboxyhemoglobin Methemoglobin O2 Delivery Device Oxygen Flow Rate Sodium 135 L Potassium 4.1 Chloride 100 Carbon Dioxide 23 Anion Gap 12 BUN 20.8 H Creatinine 1.2 Est GFR (CKD-EPI)AfAm 55.70 Est GFR (CKD-EPI)NonAf 48.06 POC Glucometer Random Glucose 392 H Lactic Acid Calcium 9.3 Phosphorus 3.0 Magnesium 1.5 L Total Bilirubin 0.3 AST 12 L ALT 26 Alkaline Phosphatase 106 Ammonia Creatine Kinase 105 Troponin I < 0.02 B-Natriuretic Peptide 109.0 Total Protein 7.6 Albumin 3.8 Lipase Vitamin B12 Beta-Hydroxybutyrate TSH Urine Color Urine Appearance Urine pH Ur Specific Walker Urine Protein Urine Glucose (UA) Urine Ketones Urine Blood Urine Nitrite Urine Bilirubin Urine Urobilinogen Ur Leukocyte Esterase Urine WBC (Auto) Urine RBC (Auto) Urine Casts (Auto) U Epithel Cells (Auto) Urine Bacteria (Auto) CSF Appearance CSF Color CSF WBC CSF RBC CSF Neutrophils CSF Lymphocytes CSF Eosinophils CSF Basophils CSF Macrophages CSF Plasma Cells CSF Other Cells CSF Diff Comment CSF Comment CSF Glucose CSF Total Protein Opiates Screen Methadone Screen Barbiturate Screen Phencyclidine Screen Ur Amphetamines Screen MDMA (Ecstasy) Screen Benzodiazepines Screen Cocaine Screen U Marijuana (THC) Screen 01/31/19 01/31/19 01/31/19 14:42 14:42 14:43 WBC RBC Hgb Hct MCV MCH MCHC RDW Plt Count MPV Absolute Neuts (auto) Neutrophils % Lymphocytes % Monocytes % Eosinophils % Basophils % Nucleated RBC % PT with INR 11.90 INR 1.01 PTT (Actin FS) 31.3 D-Dimer 513 H Puncture Site ABG pH ABG pCO2 at Pt Temp ABG pO2 at Pt Temp ABG HCO3 ABG O2 Sat (Measured) ABG O2 Content ABG Base Excess George Test VBG pH POC VBG pCO2 POC VBG pO2 VBG HCO3 VBG O2 Sat (Yaima) VBG Base Excess Carboxyhemoglobin Methemoglobin O2 Delivery Device Oxygen Flow Rate Sodium Potassium Chloride Carbon Dioxide Anion Gap BUN Creatinine Est GFR (CKD-EPI)AfAm Est GFR (CKD-EPI)NonAf POC Glucometer Random Glucose Lactic Acid 3.6 H* Calcium Phosphorus Magnesium Total Bilirubin AST ALT Alkaline Phosphatase Ammonia Creatine Kinase Troponin I B-Natriuretic Peptide Total Protein Albumin Lipase Vitamin B12 Beta-Hydroxybutyrate TSH Urine Color Urine Appearance Urine pH Ur Specific Walker Urine Protein Urine Glucose (UA) Urine Ketones Urine Blood Urine Nitrite Urine Bilirubin Urine Urobilinogen Ur Leukocyte Esterase Urine WBC (Auto) Urine RBC (Auto) Urine Casts (Auto) U Epithel Cells (Auto) Urine Bacteria (Auto) CSF Appearance CSF Color CSF WBC CSF RBC CSF Neutrophils CSF Lymphocytes CSF Eosinophils CSF Basophils CSF Macrophages CSF Plasma Cells CSF Other Cells CSF Diff Comment CSF Comment CSF Glucose CSF Total Protein Opiates Screen Methadone Screen Barbiturate Screen Phencyclidine Screen Ur Amphetamines Screen MDMA (Ecstasy) Screen Benzodiazepines Screen Cocaine Screen U Marijuana (THC) Screen 01/31/19 01/31/19 01/31/19 14:45 15:16 18:47 WBC RBC Hgb Hct MCV MCH MCHC RDW Plt Count MPV Absolute Neuts (auto) Neutrophils % Lymphocytes % Monocytes % Eosinophils % Basophils % Nucleated RBC % PT with INR INR PTT (Actin FS) D-Dimer Puncture Site ABG pH ABG pCO2 at Pt Temp ABG pO2 at Pt Temp ABG HCO3 ABG O2 Sat (Measured) ABG O2 Content ABG Base Excess George Test VBG pH 7.46 H POC VBG pCO2 34.5 L POC VBG pO2 < 49 H VBG HCO3 24.0 VBG O2 Sat (Yaima) 83.3 H VBG Base Excess 1.0 Carboxyhemoglobin Cancelled Methemoglobin Cancelled O2 Delivery Device Oxygen Flow Rate Sodium Potassium Chloride Carbon Dioxide Anion Gap BUN Creatinine Est GFR (CKD-EPI)AfAm Est GFR (CKD-EPI)NonAf POC Glucometer Random Glucose Lactic Acid Calcium Phosphorus Magnesium Total Bilirubin AST ALT Alkaline Phosphatase Ammonia Creatine Kinase Troponin I B-Natriuretic Peptide Total Protein Albumin Lipase Vitamin B12 Beta-Hydroxybutyrate TSH Urine Color Yellow Urine Appearance Clear Urine pH 5.0 Ur Specific Walker 1.059 H Urine Protein Negative Urine Glucose (UA) >1000 Urine Ketones Negative Urine Blood Negative Urine Nitrite Negative Urine Bilirubin Negative Urine Urobilinogen 0.2 Ur Leukocyte Esterase Negative Urine WBC (Auto) 1.2 Urine RBC (Auto) 0.9 Urine Casts (Auto) 0.35 U Epithel Cells (Auto) 0.5 Urine Bacteria (Auto) 8.9 CSF Appearance CSF Color CSF WBC CSF RBC CSF Neutrophils CSF Lymphocytes CSF Eosinophils CSF Basophils CSF Macrophages CSF Plasma Cells CSF Other Cells CSF Diff Comment CSF Comment CSF Glucose CSF Total Protein Opiates Screen Methadone Screen Barbiturate Screen Phencyclidine Screen Ur Amphetamines Screen MDMA (Ecstasy) Screen Benzodiazepines Screen Cocaine Screen U Marijuana (THC) Screen 01/31/19 01/31/19 01/31/19 18:47 19:00 19:00 WBC RBC Hgb Hct MCV MCH MCHC RDW Plt Count MPV Absolute Neuts (auto) Neutrophils % Lymphocytes % Monocytes % Eosinophils % Basophils % Nucleated RBC % PT with INR INR PTT (Actin FS) D-Dimer Puncture Site ABG pH ABG pCO2 at Pt Temp ABG pO2 at Pt Temp ABG HCO3 ABG O2 Sat (Measured) ABG O2 Content ABG Base Excess George Test VBG pH POC VBG pCO2 POC VBG pO2 VBG HCO3 VBG O2 Sat (Yaima) VBG Base Excess Carboxyhemoglobin Methemoglobin O2 Delivery Device Oxygen Flow Rate Sodium Potassium Chloride Carbon Dioxide Anion Gap BUN Creatinine Est GFR (CKD-EPI)AfAm Est GFR (CKD-EPI)NonAf POC Glucometer Random Glucose Lactic Acid Calcium Phosphorus Magnesium Total Bilirubin AST ALT Alkaline Phosphatase Ammonia 34.60 H Creatine Kinase Troponin I B-Natriuretic Peptide Total Protein Albumin Lipase 315 Vitamin B12 Beta-Hydroxybutyrate 2.3 TSH Urine Color Urine Appearance Urine pH Ur Specific Walker Urine Protein Urine Glucose (UA) Urine Ketones Urine Blood Urine Nitrite Urine Bilirubin Urine Urobilinogen Ur Leukocyte Esterase Urine WBC (Auto) Urine RBC (Auto) Urine Casts (Auto) U Epithel Cells (Auto) Urine Bacteria (Auto) CSF Appearance CSF Color CSF WBC CSF RBC CSF Neutrophils CSF Lymphocytes CSF Eosinophils CSF Basophils CSF Macrophages CSF Plasma Cells CSF Other Cells CSF Diff Comment CSF Comment CSF Glucose CSF Total Protein Opiates Screen Positive A* Methadone Screen Negative Barbiturate Screen Negative Phencyclidine Screen Negative Ur Amphetamines Screen Negative MDMA (Ecstasy) Screen Negative Benzodiazepines Screen Negative Cocaine Screen Negative U Marijuana (THC) Screen Negative 01/31/19 01/31/19 01/31/19 20:24 21:51 22:10 WBC RBC Hgb Hct MCV MCH MCHC RDW Plt Count MPV Absolute Neuts (auto) Neutrophils % Lymphocytes % Monocytes % Eosinophils % Basophils % Nucleated RBC % PT with INR INR PTT (Actin FS) D-Dimer Puncture Site Right radial ABG pH 7.37 ABG pCO2 at Pt Temp 33.8 L ABG pO2 at Pt Temp 86.9 ABG HCO3 18.9 L ABG O2 Sat (Measured) 96.8 ABG O2 Content 16.1 ABG Base Excess -5.2 L George Test Positive VBG pH POC VBG pCO2 POC VBG pO2 VBG HCO3 VBG O2 Sat (Yaima) VBG Base Excess Carboxyhemoglobin Methemoglobin O2 Delivery Device Nasal Oxygen Flow Rate 2l Sodium Potassium Chloride Carbon Dioxide Anion Gap BUN Creatinine Est GFR (CKD-EPI)AfAm Est GFR (CKD-EPI)NonAf POC Glucometer 560 Random Glucose Lactic Acid 5.5 H* Calcium Phosphorus Magnesium Total Bilirubin AST ALT Alkaline Phosphatase Ammonia Creatine Kinase Troponin I B-Natriuretic Peptide Total Protein Albumin Lipase Vitamin B12 Beta-Hydroxybutyrate TSH Urine Color Urine Appearance Urine pH Ur Specific Walker Urine Protein Urine Glucose (UA) Urine Ketones Urine Blood Urine Nitrite Urine Bilirubin Urine Urobilinogen Ur Leukocyte Esterase Urine WBC (Auto) Urine RBC (Auto) Urine Casts (Auto) U Epithel Cells (Auto) Urine Bacteria (Auto) CSF Appearance CSF Color CSF WBC CSF RBC CSF Neutrophils CSF Lymphocytes CSF Eosinophils CSF Basophils CSF Macrophages CSF Plasma Cells CSF Other Cells CSF Diff Comment CSF Comment CSF Glucose CSF Total Protein Opiates Screen Methadone Screen Barbiturate Screen Phencyclidine Screen Ur Amphetamines Screen MDMA (Ecstasy) Screen Benzodiazepines Screen Cocaine Screen U Marijuana (THC) Screen 01/31/19 01/31/19 01/31/19 23:35 23:35 23:35 WBC RBC Hgb Hct MCV MCH MCHC RDW Plt Count MPV Absolute Neuts (auto) Neutrophils % Lymphocytes % Monocytes % Eosinophils % Basophils % Nucleated RBC % PT with INR 12.20 INR 1.03 PTT (Actin FS) D-Dimer Puncture Site ABG pH ABG pCO2 at Pt Temp ABG pO2 at Pt Temp ABG HCO3 ABG O2 Sat (Measured) ABG O2 Content ABG Base Excess George Test VBG pH POC VBG pCO2 POC VBG pO2 VBG HCO3 VBG O2 Sat (Yaima) VBG Base Excess Carboxyhemoglobin Methemoglobin O2 Delivery Device Oxygen Flow Rate Sodium 134 L Potassium 4.3 Chloride 103 Carbon Dioxide 20 L Anion Gap 11 BUN 25.2 H Creatinine 1.4 H Est GFR (CKD-EPI)AfAm 46.23 Est GFR (CKD-EPI)NonAf 39.89 POC Glucometer Random Glucose 480 H* Lactic Acid 5.3 H* Calcium 8.7 Phosphorus Magnesium Total Bilirubin AST ALT Alkaline Phosphatase Ammonia Creatine Kinase Troponin I B-Natriuretic Peptide Total Protein Albumin Lipase Vitamin B12 678 Beta-Hydroxybutyrate TSH 0.80 Urine Color Urine Appearance Urine pH Ur Specific Walker Urine Protein Urine Glucose (UA) Urine Ketones Urine Blood Urine Nitrite Urine Bilirubin Urine Urobilinogen Ur Leukocyte Esterase Urine WBC (Auto) Urine RBC (Auto) Urine Casts (Auto) U Epithel Cells (Auto) Urine Bacteria (Auto) CSF Appearance CSF Color CSF WBC CSF RBC CSF Neutrophils CSF Lymphocytes CSF Eosinophils CSF Basophils CSF Macrophages CSF Plasma Cells CSF Other Cells CSF Diff Comment CSF Comment CSF Glucose CSF Total Protein Opiates Screen Methadone Screen Barbiturate Screen Phencyclidine Screen Ur Amphetamines Screen MDMA (Ecstasy) Screen Benzodiazepines Screen Cocaine Screen U Marijuana (THC) Screen 01/31/19 01/31/19 02/01/19 23:35 23:35 01:35 WBC RBC Hgb Hct MCV MCH MCHC RDW Plt Count MPV Absolute Neuts (auto) Neutrophils % Lymphocytes % Monocytes % Eosinophils % Basophils % Nucleated RBC % PT with INR INR PTT (Actin FS) D-Dimer Puncture Site ABG pH ABG pCO2 at Pt Temp ABG pO2 at Pt Temp ABG HCO3 ABG O2 Sat (Measured) ABG O2 Content ABG Base Excess George Test VBG pH POC VBG pCO2 POC VBG pO2 VBG HCO3 VBG O2 Sat (Yiama) VBG Base Excess Carboxyhemoglobin Methemoglobin O2 Delivery Device Oxygen Flow Rate Sodium Potassium Chloride Carbon Dioxide Anion Gap BUN Creatinine Est GFR (CKD-EPI)AfAm Est GFR (CKD-EPI)NonAf POC Glucometer Random Glucose Lactic Acid Calcium Phosphorus Magnesium Total Bilirubin AST ALT Alkaline Phosphatase Ammonia 15.70 Creatine Kinase Troponin I B-Natriuretic Peptide Total Protein Albumin Lipase 237 Vitamin B12 Beta-Hydroxybutyrate TSH Urine Color Urine Appearance Urine pH Ur Specific Walker Urine Protein Urine Glucose (UA) Urine Ketones Urine Blood Urine Nitrite Urine Bilirubin Urine Urobilinogen Ur Leukocyte Esterase Urine WBC (Auto) Urine RBC (Auto) Urine Casts (Auto) U Epithel Cells (Auto) Urine Bacteria (Auto) CSF Appearance Clear CSF Color Colorless CSF WBC 1 CSF RBC 59 CSF Neutrophils No Result Required. CSF Lymphocytes No Result Required. CSF Eosinophils No Result Required. CSF Basophils No Result Required. CSF Macrophages No Result Required. CSF Plasma Cells No Result Required. CSF Other Cells CSF Diff Comment No Result Required. CSF Comment Tube 4 CSF Glucose 203 H CSF Total Protein 52 H Opiates Screen Methadone Screen Barbiturate Screen Phencyclidine Screen Ur Amphetamines Screen MDMA (Ecstasy) Screen Benzodiazepines Screen Cocaine Screen U Marijuana (THC) Screen 02/01/19 02/01/19 02/01/19 03:53 06:27 07:10 WBC 14.6 H RBC 4.06 Hgb 11.5 Hct 34.2 D MCV 84.2 MCH 28.2 MCHC 33.5 RDW 13.7 Plt Count 316 MPV 7.7 Absolute Neuts (auto) Neutrophils % Lymphocytes % Monocytes % Eosinophils % Basophils % Nucleated RBC % PT with INR INR PTT (Actin FS) D-Dimer Puncture Site ABG pH ABG pCO2 at Pt Temp ABG pO2 at Pt Temp ABG HCO3 ABG O2 Sat (Measured) ABG O2 Content ABG Base Excess George Test VBG pH POC VBG pCO2 POC VBG pO2 VBG HCO3 VBG O2 Sat (Yaima) VBG Base Excess Carboxyhemoglobin Methemoglobin O2 Delivery Device Oxygen Flow Rate Sodium Potassium Chloride Carbon Dioxide Anion Gap BUN Creatinine Est GFR (CKD-EPI)AfAm Est GFR (CKD-EPI)NonAf POC Glucometer 303 233 Random Glucose Lactic Acid Calcium Phosphorus Magnesium Total Bilirubin AST ALT Alkaline Phosphatase Ammonia Creatine Kinase Troponin I B-Natriuretic Peptide Total Protein Albumin Lipase Vitamin B12 Beta-Hydroxybutyrate TSH Urine Color Urine Appearance Urine pH Ur Specific Walker Urine Protein Urine Glucose (UA) Urine Ketones Urine Blood Urine Nitrite Urine Bilirubin Urine Urobilinogen Ur Leukocyte Esterase Urine WBC (Auto) Urine RBC (Auto) Urine Casts (Auto) U Epithel Cells (Auto) Urine Bacteria (Auto) CSF Appearance CSF Color CSF WBC CSF RBC CSF Neutrophils CSF Lymphocytes CSF Eosinophils CSF Basophils CSF Macrophages CSF Plasma Cells CSF Other Cells CSF Diff Comment CSF Comment CSF Glucose CSF Total Protein Opiates Screen Methadone Screen Barbiturate Screen Phencyclidine Screen Ur Amphetamines Screen MDMA (Ecstasy) Screen Benzodiazepines Screen Cocaine Screen U Marijuana (THC) Screen 02/01/19 02/01/19 02/01/19 07:10 09:10 10:44 WBC RBC Hgb Hct MCV MCH MCHC RDW Plt Count MPV Absolute Neuts (auto) Neutrophils % Lymphocytes % Monocytes % Eosinophils % Basophils % Nucleated RBC % PT with INR INR PTT (Actin FS) D-Dimer Puncture Site ABG pH ABG pCO2 at Pt Temp ABG pO2 at Pt Temp ABG HCO3 ABG O2 Sat (Measured) ABG O2 Content ABG Base Excess George Test VBG pH POC VBG pCO2 POC VBG pO2 VBG HCO3 VBG O2 Sat (Yaima) VBG Base Excess Carboxyhemoglobin Methemoglobin O2 Delivery Device Oxygen Flow Rate Sodium 139 Potassium 4.6 Chloride 109 H Carbon Dioxide 22 Anion Gap 8 BUN 20.5 H Creatinine 1.0 Est GFR (CKD-EPI)AfAm 69.44 Est GFR (CKD-EPI)NonAf 59.91 POC Glucometer 222 Random Glucose 246 H Lactic Acid 2.8 H* Calcium 8.0 L Phosphorus 3.0 Magnesium 2.3 Total Bilirubin AST ALT Alkaline Phosphatase Ammonia Creatine Kinase Troponin I B-Natriuretic Peptide Total Protein Albumin Lipase Vitamin B12 Beta-Hydroxybutyrate TSH Urine Color Urine Appearance Urine pH Ur Specific Walker Urine Protein Urine Glucose (UA) Urine Ketones Urine Blood Urine Nitrite Urine Bilirubin Urine Urobilinogen Ur Leukocyte Esterase Urine WBC (Auto) Urine RBC (Auto) Urine Casts (Auto) U Epithel Cells (Auto) Urine Bacteria (Auto) CSF Appearance CSF Color CSF WBC CSF RBC CSF Neutrophils CSF Lymphocytes CSF Eosinophils CSF Basophils CSF Macrophages CSF Plasma Cells CSF Other Cells CSF Diff Comment CSF Comment CSF Glucose CSF Total Protein Opiates Screen Methadone Screen Barbiturate Screen Phencyclidine Screen Ur Amphetamines Screen MDMA (Ecstasy) Screen Benzodiazepines Screen Cocaine Screen U Marijuana (THC) Screen 02/01/19 12:45 WBC RBC Hgb Hct MCV MCH MCHC RDW Plt Count MPV Absolute Neuts (auto) Neutrophils % Lymphocytes % Monocytes % Eosinophils % Basophils % Nucleated RBC % PT with INR INR PTT (Actin FS) D-Dimer Puncture Site ABG pH ABG pCO2 at Pt Temp ABG pO2 at Pt Temp ABG HCO3 ABG O2 Sat (Measured) ABG O2 Content ABG Base Excess George Test VBG pH POC VBG pCO2 POC VBG pO2 VBG HCO3 VBG O2 Sat (Yaima) VBG Base Excess Carboxyhemoglobin Methemoglobin O2 Delivery Device Oxygen Flow Rate Sodium Potassium Chloride Carbon Dioxide Anion Gap BUN Creatinine Est GFR (CKD-EPI)AfAm Est GFR (CKD-EPI)NonAf POC Glucometer 253 Random Glucose Lactic Acid Calcium Phosphorus Magnesium Total Bilirubin AST ALT Alkaline Phosphatase Ammonia Creatine Kinase Troponin I B-Natriuretic Peptide Total Protein Albumin Lipase Vitamin B12 Beta-Hydroxybutyrate TSH Urine Color Urine Appearance Urine pH Ur Specific Walker Urine Protein Urine Glucose (UA) Urine Ketones Urine Blood Urine Nitrite Urine Bilirubin Urine Urobilinogen Ur Leukocyte Esterase Urine WBC (Auto) Urine RBC (Auto) Urine Casts (Auto) U Epithel Cells (Auto) Urine Bacteria (Auto) CSF Appearance CSF Color CSF WBC CSF RBC CSF Neutrophils CSF Lymphocytes CSF Eosinophils CSF Basophils CSF Macrophages CSF Plasma Cells CSF Other Cells CSF Diff Comment CSF Comment CSF Glucose CSF Total Protein Opiates Screen Methadone Screen Barbiturate Screen Phencyclidine Screen Ur Amphetamines Screen MDMA (Ecstasy) Screen Benzodiazepines Screen Cocaine Screen U Marijuana (THC) Screen Imaging - Results Chest X-ray: Report Reviewed Cat Scan: Report Reviewed Problem List - Problems (1) SOB (shortness of breath) Code(s): R06.02 - SHORTNESS OF BREATH (2) Diabetes mellitus Code(s): E11.9 - TYPE 2 DIABETES MELLITUS WITHOUT COMPLICATIONS Qualifiers: Diabetes mellitus type: type 2 Diabetes mellitus complication status: with neurologic complications (3) Headache Code(s): R51 - HEADACHE Qualifiers: Headache type: unspecified Headache chronicity pattern: acute headache Intractability: intractable Qualified Code(s): R51 - Headache (4) History of gastroesophageal reflux (GERD) Code(s): Z87.19 - PERSONAL HISTORY OF OTHER DISEASES OF THE DIGESTIVE SYSTEM (5) Hypertension Code(s): I10 - ESSENTIAL (PRIMARY) HYPERTENSION Qualifiers: Hypertension type: essential hypertension Qualified Code(s): I10 - Essential (primary) hypertension (6) Sepsis Code(s): A41.9 - SEPSIS, UNSPECIFIED ORGANISM Assessment/Plan 63 y.o. female with PMH of pancreatitis, IDDM, HTN, HLD, OA, panic disorder, s/ p hysterectomy, GERD, s/p cholecystectomy and appendectomy presents with c/o worsening SOB and developing cough for about 1 week SOB/cough Leukocytosis Lactic acidosis ? induced by metformin MAXIMILIAN AMS R/o meningitis/encephalitis - LP done IDDM Hx of pancreatitis HTN HLD -- continue Meropenem/Vancomycin/Acyclovir, adjust dose of Meropenem - pt appears to be tolerating, continue monitor -- request CSF HSV PCR , Influenza testing -- repeat lactic acid, monitor renal function especially on Vancomycin and Acyclovir, needs continued hydration -- preliminary csf analysis results reviewed, f/u all pending test results -- maintain droplet precautions -- continue monitor vitals closely -- case discussed with neurology and daughter at bedside Will follow Thank you Chart reviewed, lab/imaging results reviewed, case discussed at length cc time: 45 min
[2019-02-01] MEDS: VANCOMYCIN 1,250 MG in DEXTROSE 5%-WATER - 250 ML IVPB SCH (15:11)
[2019-02-01] MEDS: VANCOMYCIN HCL 1,500 MG in DEXTROSE 5%-WATER - 250 ML IVPB SCH (15:12)
[2019-02-01] MEDS ORDERED: MEROPENEM 2 GM in DEXTROSE 5%-WATER 100 ML IVPB SCH (18:00)
[2019-02-01] MEDS ORDERED: CHLORHEXIDINE GLUCONATE 4% CLEANSER FOR DECOLONIZATION TP SCH (22:00)
[2019-02-01] MEDS: ACETAMINOPHEN 325 MG TABLET (FP) PO PRN (22:04)
[2019-02-01] MEDS: MEROPENEM 2 GM in DEXTROSE 5%-WATER - 100 ML IVPB SCH (22:28)
[2019-02-02] MEDS: SODIUM CHLORIDE 1,000 ML IV SCH (00:46)
[2019-02-02] MEDS: INSULIN SLIDING SCALE (NOVOLOG) 1 VIAL SQ SCH ×9 (01:54→22:49)
[2019-02-02] MEDS: VANCOMYCIN 1,250 MG in DEXTROSE 5%-WATER - 250 ML IVPB SCH ×2 (01:55→13:31)
[2019-02-02] MEDS: DEXAMETHASONE SOD PHOSPHATE 10 MG/1 ML VIAL IVPUSH SCH ×3 (03:56→22:46)
[2019-02-02] MEDS: MEROPENEM 2 GM in DEXTROSE 5%-WATER - 100 ML IVPB SCH ×3 (03:56→19:35)
[2019-02-02] MEDS: ACYCLOVIR IVPB SCH ×3 (04:33→17:22)
[2019-02-02] MEDS: SODIUM CHLORIDE IVPB SCH ×3 (04:33→17:22)
[2019-02-02 08:05] LABS: BASO % 0.1 % (0-2.0); HEMATOCRIT 32.9 % (32.4-45.2); LYMPH % 5.6 % (8-40); MCH 28.1 pg (25.7-33.7); MCHC 33.4 g/dl (32.0-36.0); MEAN CELL VOLUME 84.1 fl (80-96); MEAN PLT VOLUME 8.1 fl (7.5-11.1); MONO % 1.5 % (3.8-10.2); NEUT % 92.8 % (42.8-82.8); PLATELET COUNT 319 K/MM3 (134-434); RBC 3.91 M/mm3 (3.60-5.2); RDW 14.4 % (11.6-15.6); WHITE BLOOD COUNT 16.3 K/mm3 (4.0-10.0)
--- NOTE | 2019-02-02 08:28 | EKG ---
Test Reason : Blood Pressure : / mmHG Vent. Rate : 096 BPM Atrial Rate : 096 BPM P-R Int : 124 ms QRS Dur : 084 ms QT Int : 346 ms P-R-T Axes : 030 031 039 degrees QTc Int : 437 ms NORMAL SINUS RHYTHM CANNOT RULE OUT ANTERIOR INFARCT , AGE UNDETERMINED ABNORMAL ECG WHEN COMPARED WITH ECG OF 06-JUN-2018 08:10, NO SIGNIFICANT CHANGE WAS FOUND Confirmed by Cat Jimenez ([id number]) on 02/02/2019 8:27:57 AM Referred By: Confirmed By:Cat Jimenez
[2019-02-02 08:47] LABS: ALBUMIN 2.9 g/dl (3.4-5.0); BILIRUBIN,TOTAL 0.3 mg/dL (0.2-1); BLOOD UREA NITROGEN 26.3 mg/dL (7-18); CALCIUM 7.9 mg/dL (8.5-10.1); CREATININE 0.9 mg/dL (0.55-1.3); MAGNESIUM 2.3 mg/dL (1.8-2.4); PHOSPHOROUS 3.1 mg/dL (2.5-4.9); POTASSIUM 4.3 mmol/L (3.5-5.1)
[2019-02-02] MEDS: ENOXAPARIN NA (PORCINE) 40 MG/0.4 ML DISP.SYRIN SQ SCH (10:49)
[2019-02-02 11:03] LABS: ANISOCYTOSIS 2+; MACROCYTOSIS 0; PLATELET ESTIMATE NORMAL; TEAR DROP CELLS 1+
--- NOTE | 2019-02-02 11:03 | PN ---
Progress Note (short form) - Note Progress Note: Resting in NAD. Feels a little better today. Some sore throat. No CP or SOB. Intake & Output 01/30/19 01/31/19 02/01/19 02/02/19 23:59 23:59 23:59 23:59 Intake Total 2730 1350 Output Total 1900 800 Balance 830 550 Weight 182 lb 3.2 oz Last Vital Signs Temp Pulse Resp BP Pulse Ox 98 F 71 18 135/73 100 02/02/19 06:37 02/02/19 06:37 02/02/19 06:37 02/02/19 06:37 02/01/19 03:00 Active Medications Acetaminophen (Tylenol -) 650 mg PO Q6H PRN PRN Reason: HEADACHE Last Admin: 02/01/19 22:04 Dose: 650 mg Chlorhexidine Gluconate (Hibiclens For Decolonization -) 1 applic TP HS [facility] Dexamethasone Sodium Phosphate (Decadron Injection -) 10 mg IVPUSH Q6H-IV [facility] Last Admin: 02/02/19 10:49 Dose: 10 mg Enoxaparin Sodium (Lovenox -) 40 mg SQ DAILY [facility] Last Admin: 02/02/19 10:49 Dose: 40 mg Sodium Chloride (Normal Saline -) 1,000 mls @ 150 mls/hr IV ASDIR [facility] Last Admin: 02/02/19 00:46 Dose: Not Given Acyclovir 800 mg/ Sodium (Chloride) 116 mls @ 116 mls/hr IVPB Q8H-IV [facility] Last Admin: 02/02/19 10:50 Dose: 116 mls/hr Vancomycin HCl 1,250 mg/ (Dextrose) 250 mls @ 166.667 mls/hr IVPB Q12H [facility]; Protocol Last Admin: 02/02/19 01:55 Dose: 166.667 mls/hr Meropenem 2 gm/ Dextrose 100 mls @ 200 mls/hr IVPB Q8H-IV [facility] Last Admin: 02/02/19 10:50 Dose: 200 mls/hr Insulin Aspart (Novolog Vial Sliding Scale -) 1 vial SQ Q3H [facility]; Protocol Last Admin: 02/02/19 07:01 Dose: 6 units Mupirocin (Bactroban Ointment (For Decolonization) -) 1 applic NS BID [facility] Stop: 02/06/19 20:26 GENERAL: Awake and alert, NAD HEAD: Atraumatic/Nomocephalic. EYES: EOMI Sclera Clear. Blurred vision EARS, NOSE, THROAT: MMM NECK: Supple LUNGS: Clear HEART: RRR S1S2 ABDOMEN: Soft, obese, (+) BS, mild non-specific tenderness to palpation LOWER EXTREMITIES: No CCE. PSYCHIATRIC: Cooperative NEURO: Non-focal SKIN: Warm, dry, normal turgor, no rashes or lesions noted. Laboratory Results - last 24 hr 02/01/19 02/01/19 02/01/19 12:45 17:31 19:05 WBC RBC Hgb Hct MCV MCH MCHC RDW Plt Count MPV Absolute Neuts (auto) Neutrophils % Lymphocytes % Monocytes % Eosinophils % Basophils % Nucleated RBC % Sodium Potassium Chloride Carbon Dioxide Anion Gap BUN Creatinine Est GFR (CKD-EPI)AfAm Est GFR (CKD-EPI)NonAf POC Glucometer 253 361 Random Glucose Lactic Acid 3.6 H* Calcium Phosphorus Magnesium Total Bilirubin AST ALT Alkaline Phosphatase Total Protein Albumin 02/01/19 02/02/19 02/02/19 22:01 01:52 04:06 WBC RBC Hgb Hct MCV MCH MCHC RDW Plt Count MPV Absolute Neuts (auto) Neutrophils % Lymphocytes % Monocytes % Eosinophils % Basophils % Nucleated RBC % Sodium Potassium Chloride Carbon Dioxide Anion Gap BUN Creatinine Est GFR (CKD-EPI)AfAm Est GFR (CKD-EPI)NonAf POC Glucometer 392 273 306 Random Glucose Lactic Acid Calcium Phosphorus Magnesium Total Bilirubin AST ALT Alkaline Phosphatase Total Protein Albumin 02/02/19 02/02/19 02/02/19 06:59 07:00 07:00 WBC 16.3 H RBC 3.91 Hgb 11.0 Hct 32.9 MCV 84.1 MCH 28.1 MCHC 33.4 RDW 14.4 Plt Count 319 MPV 8.1 Absolute Neuts (auto) 15.2 H Neutrophils % 92.8 H D Lymphocytes % 5.6 L D Monocytes % 1.5 L Eosinophils % 0.0 D Basophils % 0.1 Nucleated RBC % 0 Sodium 141 Potassium 4.3 Chloride 110 H Carbon Dioxide 22 Anion Gap 9 BUN 26.3 H Creatinine 0.9 Est GFR (CKD-EPI)AfAm 78.87 Est GFR (CKD-EPI)NonAf 68.05 POC Glucometer 251 Random Glucose 260 H Lactic Acid Calcium 7.9 L Phosphorus 3.1 Magnesium 2.3 Total Bilirubin 0.3 AST 97 H ALT 100 H Alkaline Phosphatase 81 Total Protein 6.0 L Albumin 2.9 L 02/02/19 09:15 WBC RBC Hgb Hct MCV MCH MCHC RDW Plt Count MPV Absolute Neuts (auto) Neutrophils % Lymphocytes % Monocytes % Eosinophils % Basophils % Nucleated RBC % Sodium Potassium Chloride Carbon Dioxide Anion Gap BUN Creatinine Est GFR (CKD-EPI)AfAm Est GFR (CKD-EPI)NonAf POC Glucometer Random Glucose Lactic Acid 2.5 H* Calcium Phosphorus Magnesium Total Bilirubin AST ALT Alkaline Phosphatase Total Protein Albumin ASSESSMENT/PLAN: R/O Meningitis Suspected Viral illness History of chronic pancreatitis IDDM Sepsis ABX/anti-viral per ID Follow CSF analysis O2 as needed VTE prophylaxis PO as tolerated Glycemic control Dr Negron
[2019-02-02] MEDS ORDERED: INSULIN (NOVOLOG) ASPART 100 UNITS/ML 10ML VIAL ONE (11:15)
--- NOTE | 2019-02-02 11:25 | PN ---
Progress Note (short form) - Note Progress Note: 63 year old male history of chronic pancreatiis, DM, Patient was presented for URI in Dr Zuniga office and later she become lethargic and confused. She has spinal tap and it showed there is high rbc. Patient has normal ct head, she was afebrile and her bp was normal. Patient si feeling better, and remain afebrile, and mental status has improved. She has been transferred to NEUROLOGICAL EXAMINATION Alert oriented x 3 , neck is supple vss afebrile eomi, pupils reactive no face asymmetry moving all extremity sensation is noraml gait not tested ct head is unremarkable csf protein is 52 wbc 1 rbc 59 Assessment/Plan 63 year old female history of DM, Chronic Pancreatitis came with altered mental status chage, lactic acidosis on metformin, recenlty has URI. Patient has spinal tap and wbc is 1, protein is 52 and rbc is 59, Most likley she has viral meningitis vs metabolic encpehalopathy ( lactic acidosis and blood sugar is 480) patient has improved clinincally Plan: - HSV pcr pending, continue acyclovir - no need for mri at this time - supportive care Thanking you so much Miguel Arizmendi MD
[2019-02-02] MEDS ORDERED: PT OWN MED DRAWER 7, Y5N ONE ×2 (12:47→16:28)
--- NOTE | 2019-02-02 14:38 | PN ---
Progress Note, Physician Chief Complaint: AWAKE ALERT DAUGHTER IS BEDSIDE DENIES CP OR SOB NO FEVER OR CHILLS - Current Medication List Current Medications: Active Medications Acetaminophen (Tylenol -) 650 mg PO Q6H PRN PRN Reason: HEADACHE Last Admin: 02/01/19 22:04 Dose: 650 mg Chlorhexidine Gluconate (Hibiclens For Decolonization -) 1 applic TP HS [facility] Dexamethasone Sodium Phosphate (Decadron Injection -) 10 mg IVPUSH BID [facility] Enoxaparin Sodium (Lovenox -) 40 mg SQ DAILY [facility] Last Admin: 02/02/19 10:49 Dose: 40 mg Acyclovir 800 mg/ Sodium (Chloride) 116 mls @ 116 mls/hr IVPB Q8H-IV [facility] Last Admin: 02/02/19 10:50 Dose: 116 mls/hr Vancomycin HCl 1,250 mg/ (Dextrose) 250 mls @ 166.667 mls/hr IVPB Q12H [facility]; Protocol Last Admin: 02/02/19 13:31 Dose: 166.667 mls/hr Meropenem 2 gm/ Dextrose 100 mls @ 200 mls/hr IVPB Q8H-IV [facility] Last Admin: 02/02/19 10:50 Dose: 200 mls/hr Insulin Aspart (Novolog Vial Sliding Scale -) 1 vial SQ Q3H [facility]; Protocol Last Admin: 02/02/19 13:30 Dose: 10 units Mupirocin (Bactroban Ointment (For Decolonization) -) 1 applic NS BID [facility] Stop: 02/06/19 20:26 - Objective Vital Signs: Vital Signs Temperature 98 F 02/02/19 06:37 Pulse Rate 76 02/02/19 10:00 Respiratory Rate 18 02/02/19 10:00 Blood Pressure 155/88 02/02/19 10:00 O2 Sat by Pulse Oximetry (%) 100 02/01/19 03:00 Constitutional: Yes: No Distress Cardiovascular: Yes: Regular Rate and Rhythm Respiratory: Yes: WNL Gastrointestinal: Yes: WNL Genitourinary: Yes: WNL Musculoskeletal: Yes: WNL Edema: No Integumentary: Yes: WNL Wound/Incision: Yes: Clean/Dry Neurological: Yes: WNL ...Motor Strength: WNL Psychiatric: Yes: WNL Labs: CBC, BMP 02/02/19 07:00 02/02/19 07:00 INR, PTT INR 1.03 (0.83-1.09) 01/31/19 23:35 Problem List - Problems (1) SOB (shortness of breath) Code(s): R06.02 - SHORTNESS OF BREATH (2) Abdominal pain Code(s): R10.9 - UNSPECIFIED ABDOMINAL PAIN (3) Abnormal LFTs Code(s): R79.89 - OTHER SPECIFIED ABNORMAL FINDINGS OF BLOOD CHEMISTRY (4) DM2 (diabetes mellitus, type 2) Code(s): E11.9 - TYPE 2 DIABETES MELLITUS WITHOUT COMPLICATIONS (5) Neuropathy Code(s): G62.9 - POLYNEUROPATHY, UNSPECIFIED (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 DISCUSSED FOR OVER 30 MINS WITH DAUGHTER
[2019-02-02] MEDS: MUPIROCIN 2% TOPICAL OINTMENT FOR DECOLONIZATION NS SCH (15:12)
[2019-02-02] MEDS: ESCITALOPRAM OXALATE 10 MG TABLET (FP) PO SCH (15:55)
[2019-02-02] MEDS: ACETAMINOPHEN 325 MG TABLET (FP) PO PRN ×2 (15:56→22:57)
[2019-02-02] MEDS: LOSARTAN POTASSIUM 50 MG TABLET (FP) PO SCH (15:56)
--- NOTE | 2019-02-02 17:49 | PN ---
Progress Note, Physician History of Present Illness: Pt is alert, without acute distress. Remains afebrile. Still with mild headache but at baseline mental status as per daughter at bedside. - Current Medication List Current Medications: Active Medications Acetaminophen (Tylenol -) 650 mg PO Q6H PRN PRN Reason: HEADACHE Last Admin: 02/02/19 15:56 Dose: 650 mg Dexamethasone Sodium Phosphate (Decadron Injection -) 10 mg IVPUSH BID [facility] Enoxaparin Sodium (Lovenox -) 40 mg SQ DAILY [facility] Last Admin: 02/02/19 10:49 Dose: 40 mg Escitalopram Oxalate (Lexapro -) 10 mg PO DAILY [facility] Last Admin: 02/02/19 15:55 Dose: 10 mg Acyclovir 800 mg/ Sodium (Chloride) 116 mls @ 116 mls/hr IVPB Q8H-IV [facility] Last Admin: 02/02/19 17:22 Dose: 116 mls/hr Vancomycin HCl 1,250 mg/ (Dextrose) 250 mls @ 166.667 mls/hr IVPB Q12H [facility]; Protocol Last Admin: 02/02/19 13:31 Dose: 166.667 mls/hr Meropenem 2 gm/ Dextrose 100 mls @ 200 mls/hr IVPB Q8H-IV [facility] Last Admin: 02/02/19 10:50 Dose: 200 mls/hr Insulin Aspart (Novolog Vial Sliding Scale -) 1 vial SQ Q3H [facility]; Protocol Last Admin: 02/02/19 17:23 Dose: 6 units Losartan Potassium (Cozaar -) 50 mg PO DAILY [facility] Last Admin: 02/02/19 15:56 Dose: 50 mg - Objective Vital Signs: Vital Signs Temperature 98.4 F 02/02/19 17:20 Pulse Rate 712 H 02/02/19 17:20 Respiratory Rate 0 L 02/02/19 17:20 Blood Pressure 154/80 02/02/19 17:20 O2 Sat by Pulse Oximetry (%) 100 02/01/19 03:00 Constitutional: Yes: No Distress, Calm Eyes: Yes: Conjunctiva Clear HENT: Yes: Atraumatic Neck: Yes: Supple Cardiovascular: Yes: Regular Rate and Rhythm Respiratory: Yes: On Nasal O2, Wheezes (mild expiratory) Gastrointestinal: Yes: Normal Bowel Sounds, Soft, Abdomen, Obese Genitourinary: Yes: WNL Musculoskeletal: Yes: WNL Extremities: Yes: WNL Edema: No Peripheral Pulses WNL: Yes Integumentary: Yes: WNL Neurological: Yes: Alert, Oriented Labs: CBC, BMP 02/02/19 07:00 02/02/19 07:00 INR, PTT INR 1.03 (0.83-1.09) 01/31/19 23:35 Microbiology 02/01/19 01:35 Cerebral Spinal Fluid - Lumbar Puncture Streptococcus pneumoniae Antigen (M - Final 02/01/19 01:35 Cerebral Spinal Fluid - Lumbar Puncture Gram Stain - Final 02/01/19 01:35 Cerebral Spinal Fluid - Lumbar Puncture CSF Culture - Preliminary 01/31/19 18:47 Urine - Urine Clean Catch Urine Culture - Preliminary Lactose Fermenting Neg Bacilli 01/31/19 20:25 Blood - Peripheral Venous Blood Culture - Preliminary NO GROWTH OBTAINED AFTER 24 HOURS, INCUBATION TO CONTINUE FOR 4 DAYS. 01/31/19 20:25 Blood - Peripheral Venous Blood Culture - Preliminary NO GROWTH OBTAINED AFTER 24 HOURS, INCUBATION TO CONTINUE FOR 4 DAYS. - ....Imaging Cat Scan: Report Reviewed Problem List - Problems (1) SOB (shortness of breath) Code(s): R06.02 - SHORTNESS OF BREATH (2) Diabetes mellitus Code(s): E11.9 - TYPE 2 DIABETES MELLITUS WITHOUT COMPLICATIONS Qualifiers: Diabetes mellitus type: type 2 Diabetes mellitus complication status: with neurologic complications (3) Headache Code(s): R51 - HEADACHE Qualifiers: Headache type: unspecified Headache chronicity pattern: acute headache Intractability: intractable Qualified Code(s): R51 - Headache (4) History of gastroesophageal reflux (GERD) Code(s): Z87.19 - PERSONAL HISTORY OF OTHER DISEASES OF THE DIGESTIVE SYSTEM (5) Hypertension Code(s): I10 - ESSENTIAL (PRIMARY) HYPERTENSION Qualifiers: Hypertension type: essential hypertension Qualified Code(s): I10 - Essential (primary) hypertension (6) Sepsis Code(s): A41.9 - SEPSIS, UNSPECIFIED ORGANISM Assessment/Plan 63 y.o. female with PMH of pancreatitis, IDDM, HTN, HLD, OA, panic disorder, s/ p hysterectomy, GERD, s/p cholecystectomy and appendectomy presents with c/o worsening SOB and developing cough for about 1 week SOB/cough AMS - suspect Viral meningitis vs encephalitis Leukocytosis Lactic acidosis ? induced by metformin MAXIMILIAN IDDM Hx of pancreatitis HTN HLD -- f/u final CSF cultures, will consider d/c Meropenem/Vancomycin, continue Acyclovir -- repeat lactic acid -- wbc increasing, pt on steroids, continue monitor -- monitor renal function -- f/u all pending CSF results -- CT chest/a/p - without specific findings -- continue monitor vitals closely -- case discussed with neurology and daughter at bedside Pt currently afebrile, without acute distress
[2019-02-02] MEDS ORDERED: SODIUM CHLORIDE 500 ML IV STA (19:46)
[2019-02-03] MEDS ORDERED: PT OWN MED DRAWER 7, Y5N ONE ×4 (01:31→18:50)
[2019-02-03] MEDS: INSULIN SLIDING SCALE (NOVOLOG) 1 VIAL SQ SCH ×8 (01:40→22:16)
[2019-02-03] MEDS: SODIUM CHLORIDE IVPB SCH ×3 (01:42→19:35)
[2019-02-03] MEDS: ACYCLOVIR IVPB SCH ×3 (01:42→19:35)
[2019-02-03] MEDS: MEROPENEM 2 GM in DEXTROSE 5%-WATER - 100 ML IVPB SCH ×3 (03:00→19:34)
[2019-02-03] MEDS: VANCOMYCIN 1,250 MG in DEXTROSE 5%-WATER - 250 ML IVPB SCH (03:39)
[2019-02-03] MEDS ORDERED: INSULIN (NOVOLOG) ASPART 100 UNITS/ML 10ML VIAL ONE ×2 (08:04→12:17)
[2019-02-03 08:45] LABS: BASO % 0.1 % (0-2.0); HEMATOCRIT 34.2 % (32.4-45.2); HEMOGLOBIN 11.5 GM/dL (10.7-15.3); LYMPH % 8.2 % (8-40); MCH 28.2 pg (25.7-33.7); MCHC 33.7 g/dl (32.0-36.0); MEAN CELL VOLUME 83.6 fl (80-96); MEAN PLT VOLUME 8.2 fl (7.5-11.1); MONO % 2.3 % (3.8-10.2); NEUT % 89.4 % (42.8-82.8); PLATELET COUNT 332 K/MM3 (134-434); RBC 4.09 M/mm3 (3.60-5.2); WHITE BLOOD COUNT 13.7 K/mm3 (4.0-10.0)
[2019-02-03 08:57] LABS: BLOOD UREA NITROGEN 22.6 mg/dL (7-18); CALCIUM 7.9 mg/dL (8.5-10.1); CREATININE 0.7 mg/dL (0.55-1.3); POTASSIUM 4.1 mmol/L (3.5-5.1)
--- NOTE | 2019-02-03 09:15 | PN ---
Progress Note (short form) - Note Progress Note: Resting in NAD. Feels overall better. No CP or SOB. Intake & Output 01/31/19 02/01/19 02/02/19 02/03/19 23:59 23:59 23:59 23:59 Intake Total 2730 3636 450 Output Total 1900 800 Balance 830 2836 450 Weight 182 lb 3.2 oz Last Vital Signs Temp Pulse Resp BP Pulse Ox 98.1 F 67 18 139/80 94 L 02/03/19 08:00 02/03/19 08:00 02/03/19 08:00 02/03/19 08:00 02/02/19 21:00 Active Medications Acetaminophen (Tylenol -) 650 mg PO Q6H PRN PRN Reason: HEADACHE Last Admin: 02/02/19 22:57 Dose: 650 mg Dexamethasone Sodium Phosphate (Decadron Injection -) 10 mg IVPUSH BID [facility] Last Admin: 02/02/19 22:46 Dose: 10 mg Enoxaparin Sodium (Lovenox -) 40 mg SQ DAILY [facility] Last Admin: 02/02/19 10:49 Dose: 40 mg Escitalopram Oxalate (Lexapro -) 10 mg PO DAILY [facility] Last Admin: 02/02/19 15:55 Dose: 10 mg Acyclovir 800 mg/ Sodium (Chloride) 116 mls @ 116 mls/hr IVPB Q8H-IV [facility] Last Admin: 02/03/19 01:42 Dose: 116 mls/hr Vancomycin HCl 1,250 mg/ (Dextrose) 250 mls @ 166.667 mls/hr IVPB Q12H [facility]; Protocol Last Admin: 02/03/19 03:39 Dose: 166.667 mls/hr Meropenem 2 gm/ Dextrose 100 mls @ 200 mls/hr IVPB Q8H-IV [facility] Last Admin: 02/03/19 03:00 Dose: 200 mls/hr Insulin Aspart (Novolog Vial Sliding Scale -) 1 vial SQ Q3H [facility]; Protocol Last Admin: 02/03/19 08:08 Dose: 4 units Losartan Potassium (Cozaar -) 50 mg PO DAILY [facility] Last Admin: 02/02/19 15:56 Dose: 50 mg GENERAL: Awake and alert, NAD HEAD: Atraumatic/Nomocephalic. EYES: EOMI Sclera Clear. EARS, NOSE, THROAT: MMM NECK: Supple LUNGS: Clear HEART: RRR S1S2 ABDOMEN: Soft, obese, (+) BS LOWER EXTREMITIES: No CCE. PSYCHIATRIC: Cooperative NEURO: Non-focal SKIN: Warm, dry, normal turgor, no rashes or lesions noted. Laboratory Results - last 24 hr 02/02/19 02/02/19 02/02/19 07:00 09:15 11:11 WBC RBC Hgb Hct MCV MCH MCHC RDW Plt Count MPV Absolute Neuts (auto) Neutrophils % Neutrophils % (Manual) 84.0 H Band Neutrophils % 3.0 Lymphocytes % Lymphocytes % (Manual) 11.0 Monocytes % Monocytes % (Manual) 0 L Eosinophils % Eosinophils % (Manual) 0.0 Basophils % Basophils % (Manual) 0.0 Myelocytes % (Man) 0 Promyelocytes % (Man) 0 Blast Cells % (Manual) 0 Nucleated RBC % Metamyelocytes 0 Hypochromia 0 Platelet Estimate Normal Platelet Comment Present Polychromasia 0 Poikilocytosis 1+ Anisocytosis 2+ Microcytosis 1+ Macrocytosis 0 Spherocytes 1+ Tear Drop Cells 1+ Judy Cells 1+ Sodium Potassium Chloride Carbon Dioxide Anion Gap BUN Creatinine Est GFR (CKD-EPI)AfAm Est GFR (CKD-EPI)NonAf POC Glucometer 336 Random Glucose Lactic Acid 2.5 H* Calcium 02/02/19 02/02/19 02/02/19 13:26 16:55 17:49 WBC RBC Hgb Hct MCV MCH MCHC RDW Plt Count MPV Absolute Neuts (auto) Neutrophils % Neutrophils % (Manual) Band Neutrophils % Lymphocytes % Lymphocytes % (Manual) Monocytes % Monocytes % (Manual) Eosinophils % Eosinophils % (Manual) Basophils % Basophils % (Manual) Myelocytes % (Man) Promyelocytes % (Man) Blast Cells % (Manual) Nucleated RBC % Metamyelocytes Hypochromia Platelet Estimate Platelet Comment Polychromasia Poikilocytosis Anisocytosis Microcytosis Macrocytosis Spherocytes Tear Drop Cells Judy Cells Sodium Potassium Chloride Carbon Dioxide Anion Gap BUN Creatinine Est GFR (CKD-EPI)AfAm Est GFR (CKD-EPI)NonAf POC Glucometer 353 291 Random Glucose Lactic Acid 2.8 H* Calcium 02/02/19 02/02/19 02/02/19 19:37 21:20 22:44 WBC RBC Hgb Hct MCV MCH MCHC RDW Plt Count MPV Absolute Neuts (auto) Neutrophils % Neutrophils % (Manual) Band Neutrophils % Lymphocytes % Lymphocytes % (Manual) Monocytes % Monocytes % (Manual) Eosinophils % Eosinophils % (Manual) Basophils % Basophils % (Manual) Myelocytes % (Man) Promyelocytes % (Man) Blast Cells % (Manual) Nucleated RBC % Metamyelocytes Hypochromia Platelet Estimate Platelet Comment Polychromasia Poikilocytosis Anisocytosis Microcytosis Macrocytosis Spherocytes Tear Drop Cells Judy Cells Sodium Potassium Chloride Carbon Dioxide Anion Gap BUN Creatinine Est GFR (CKD-EPI)AfAm Est GFR (CKD-EPI)NonAf POC Glucometer 259 256 Random Glucose Lactic Acid 2.1 H Calcium 02/03/19 02/03/19 02/03/19 01:39 04:45 07:48 WBC 13.7 H RBC 4.09 Hgb 11.5 Hct 34.2 MCV 83.6 MCH 28.2 MCHC 33.7 RDW 14.0 Plt Count 332 MPV 8.2 Absolute Neuts (auto) 12.3 H Neutrophils % 89.4 H Neutrophils % (Manual) Band Neutrophils % Lymphocytes % 8.2 D Lymphocytes % (Manual) Monocytes % 2.3 L Monocytes % (Manual) Eosinophils % 0.0 Eosinophils % (Manual) Basophils % 0.1 Basophils % (Manual) Myelocytes % (Man) Promyelocytes % (Man) Blast Cells % (Manual) Nucleated RBC % 0 Metamyelocytes Hypochromia Platelet Estimate Platelet Comment Polychromasia Poikilocytosis Anisocytosis Microcytosis Macrocytosis Spherocytes Tear Drop Cells Saxon Cells Sodium Potassium Chloride Carbon Dioxide Anion Gap BUN Creatinine Est GFR (CKD-EPI)AfAm Est GFR (CKD-EPI)NonAf POC Glucometer 227 230 Random Glucose Lactic Acid Calcium 02/03/19 02/03/19 02/03/19 07:48 07:48 08:06 WBC RBC Hgb Hct MCV MCH MCHC RDW Plt Count MPV Absolute Neuts (auto) Neutrophils % Neutrophils % (Manual) Band Neutrophils % Lymphocytes % Lymphocytes % (Manual) Monocytes % Monocytes % (Manual) Eosinophils % Eosinophils % (Manual) Basophils % Basophils % (Manual) Myelocytes % (Man) Promyelocytes % (Man) Blast Cells % (Manual) Nucleated RBC % Metamyelocytes Hypochromia Platelet Estimate Platelet Comment Polychromasia Poikilocytosis Anisocytosis Microcytosis Macrocytosis Spherocytes Tear Drop Cells Saxon Cells Sodium 140 Potassium 4.1 Chloride 107 Carbon Dioxide 24 Anion Gap 9 BUN 22.6 H Creatinine 0.7 Est GFR (CKD-EPI)AfAm 106.87 Est GFR (CKD-EPI)NonAf 92.21 POC Glucometer 240 Random Glucose 232 H Lactic Acid 1.7 Calcium 7.9 L ASSESSMENT/PLAN: R/O Meningitis versus Encephalitis Probable Viral illness History of chronic pancreatitis IDDM Sepsis ABX/anti-viral per ID Follow final CSF analysis O2 as needed VTE prophylaxis PO as tolerated Glycemic control Dr Negron
--- NOTE | 2019-02-03 10:06 | PN ---
Progress Note, Physician Chief Complaint: afebrile calm still a bit lethargic type of picture in no distress cx results noted awaiting for finalization - Current Medication List Current Medications: Active Medications Acetaminophen (Tylenol -) 650 mg PO Q6H PRN PRN Reason: HEADACHE Last Admin: 02/02/19 22:57 Dose: 650 mg Dexamethasone Sodium Phosphate (Decadron Injection -) 10 mg IVPUSH BID [facility] Last Admin: 02/02/19 22:46 Dose: 10 mg Enoxaparin Sodium (Lovenox -) 40 mg SQ DAILY [facility] Last Admin: 02/02/19 10:49 Dose: 40 mg Escitalopram Oxalate (Lexapro -) 10 mg PO DAILY [facility] Last Admin: 02/02/19 15:55 Dose: 10 mg Acyclovir 800 mg/ Sodium (Chloride) 116 mls @ 116 mls/hr IVPB Q8H-IV [facility] Last Admin: 02/03/19 01:42 Dose: 116 mls/hr Vancomycin HCl 1,250 mg/ (Dextrose) 250 mls @ 166.667 mls/hr IVPB Q12H [facility]; Protocol Last Admin: 02/03/19 03:39 Dose: 166.667 mls/hr Meropenem 2 gm/ Dextrose 100 mls @ 200 mls/hr IVPB Q8H-IV [facility] Last Admin: 02/03/19 03:00 Dose: 200 mls/hr Insulin Aspart (Novolog Vial Sliding Scale -) 1 vial SQ Q3H [facility]; Protocol Last Admin: 02/03/19 08:08 Dose: 4 units Losartan Potassium (Cozaar -) 50 mg PO DAILY [facility] Last Admin: 02/02/19 15:56 Dose: 50 mg - Objective Vital Signs: Vital Signs Temperature 98.1 F 02/03/19 08:00 Pulse Rate 67 02/03/19 08:00 Respiratory Rate 18 02/03/19 08:00 Blood Pressure 139/80 02/03/19 08:00 O2 Sat by Pulse Oximetry (%) 94 L 02/02/19 21:00 Constitutional: Yes: No Distress, Calm, Obese Cardiovascular: Yes: S1, S2 Respiratory: Yes: Regular, CTA Bilaterally Gastrointestinal: Yes: Normal Bowel Sounds, Soft Musculoskeletal: Yes: WNL Extremities: Yes: WNL Neurological: Yes: Alert Psychiatric: Yes: Alert Labs: CBC, BMP 02/03/19 07:48 02/03/19 07:48 INR, PTT INR 1.03 (0.83-1.09) 01/31/19 23:35 Assessment/Plan Problem List - Problems (1) SOB (shortness of breath) Code(s): R06.02 - SHORTNESS OF BREATH (2) Diabetes mellitus Code(s): E11.9 - TYPE 2 DIABETES MELLITUS WITHOUT COMPLICATIONS Qualifiers: Diabetes mellitus type: type 2 Diabetes mellitus complication status: with neurologic complications (3) Headache Code(s): R51 - HEADACHE Qualifiers: Headache type: unspecified Headache chronicity pattern: acute headache Intractability: intractable Qualified Code(s): R51 - Headache (4) History of gastroesophageal reflux (GERD) Code(s): Z87.19 - PERSONAL HISTORY OF OTHER DISEASES OF THE DIGESTIVE SYSTEM (5) Hypertension Code(s): I10 - ESSENTIAL (PRIMARY) HYPERTENSION Qualifiers: Hypertension type: essential hypertension Qualified Code(s): I10 - Essential (primary) hypertension (6) Sepsis Code(s): A41.9 - SEPSIS, UNSPECIFIED ORGANISM Assessment/Plan 63 y.o. female with PMH of pancreatitis, IDDM, HTN, HLD, OA, panic disorder, s/ p hysterectomy, GERD, s/p cholecystectomy and appendectomy presents with c/o worsening SOB and developing cough for about 1 week SOB/cough AMS - suspect Viral meningitis vs encephalitis Leukocytosis Lactic acidosis ? induced by metformin MAXIMILIAN IDDM Hx of pancreatitis HTN HLD plan will stop vanco rest continue current mgmt close watch await for finalization of cx
--- NOTE | 2019-02-03 10:18 | PN ---
Progress Note (short form) - Note Progress Note: 63 year old male history of chronic pancreatiis, DM, Patient was presented for URI in Dr Zuniga office and later she become lethargic and confused. She has spinal tap and it showed there is high rbc. Patient has normal ct head, she was afebrile and her bp was normal. Patient remains afebrile and oriented NEUROLOGICAL EXAMINATION Alert oriented x 3 , neck is supple vss afebrile eomi, pupils reactive no face asymmetry moving all extremity sensation is normal gait not tested ct head is unremarkable csf protein is 52 wbc 1 rbc 59 Assessment/Plan 63 year old female history of DM, Chronic Pancreatitis came with altered mental status chage, lactic acidosis on metformin, recenlty has URI. Patient has spinal tap and wbc is 1, protein is 52 and rbc is 59, Most likley she has viral meningitis vs metabolic encpehalopathy ( lactic acidosis and blood sugar is 480) Patient has improved and back to normal Plan: continue acyclovir, ID follow up appreciated. - supportive care Thanking you so much Miguel Arizmendi MD
[2019-02-03] MEDS: ENOXAPARIN NA (PORCINE) 40 MG/0.4 ML DISP.SYRIN SQ SCH (10:38)
[2019-02-03] MEDS: LOSARTAN POTASSIUM 50 MG TABLET (FP) PO SCH (10:39)
[2019-02-03] MEDS: ESCITALOPRAM OXALATE 10 MG TABLET (FP) PO SCH (10:39)
[2019-02-03] MEDS: DEXAMETHASONE SOD PHOSPHATE 10 MG/1 ML VIAL IVPUSH SCH ×2 (10:42→22:15)
--- NOTE | 2019-02-03 14:47 | PN ---
Progress Note, Physician Chief Complaint: patient compalinig of BERNAL and right sided back pain radiating down her whole leg - Current Medication List Current Medications: Active Medications Acetaminophen (Tylenol -) 650 mg PO Q6H PRN PRN Reason: HEADACHE Last Admin: 02/02/19 22:57 Dose: 650 mg Dexamethasone Sodium Phosphate (Decadron Injection -) 10 mg IVPUSH BID [facility] Last Admin: 02/03/19 10:42 Dose: 10 mg Enoxaparin Sodium (Lovenox -) 40 mg SQ DAILY [facility] Last Admin: 02/03/19 10:38 Dose: 40 mg Escitalopram Oxalate (Lexapro -) 10 mg PO DAILY [facility] Last Admin: 02/03/19 10:39 Dose: 10 mg Acyclovir 800 mg/ Sodium (Chloride) 116 mls @ 116 mls/hr IVPB Q8H-IV [facility] Last Admin: 02/03/19 10:43 Dose: 116 mls/hr Meropenem 2 gm/ Dextrose 100 mls @ 200 mls/hr IVPB Q8H-IV [facility] Last Admin: 02/03/19 12:15 Dose: 200 mls/hr Insulin Aspart (Novolog Vial Sliding Scale -) 1 vial SQ Q3H [facility]; Protocol Last Admin: 02/03/19 12:19 Dose: 8 units Losartan Potassium (Cozaar -) 50 mg PO DAILY [facility] Last Admin: 02/03/19 10:39 Dose: 50 mg - Objective Vital Signs: Vital Signs Temperature 98.4 F 02/03/19 10:00 Pulse Rate 69 02/03/19 10:00 Respiratory Rate 18 02/03/19 10:00 Blood Pressure 152/91 02/03/19 10:00 O2 Sat by Pulse Oximetry (%) 94 L 02/02/19 21:00 Constitutional: Yes: Mild Distress Cardiovascular: Yes: Regular Rate and Rhythm, S1, S2 Respiratory: Yes: CTA Bilaterally Gastrointestinal: Yes: Normal Bowel Sounds, Soft Musculoskeletal: Yes: Back Pain (right side), Other (hamstring tightness) Edema: Yes (right hand) Neurological: Yes: Alert, Oriented Labs: CBC, BMP 02/03/19 07:48 02/03/19 07:48 INR, PTT INR 1.03 (0.83-1.09) 01/31/19 23:35 Problem List - Problems (1) Right-sided back pain Assessment/Plan: ct scan muscle relaxant tramadol Code(s): M54.9 - DORSALGIA, UNSPECIFIED (2) Headache Assessment/Plan: pain medications. ivf iv abx for possible viral encephalitis Code(s): R51 - HEADACHE Qualifiers: Headache type: unspecified Headache chronicity pattern: acute headache Intractability: intractable Qualified Code(s): R51 - Headache
[2019-02-03] MEDS: CYCLOBENZAPRINE HCL 5 MG TABLET PO SCH (16:03)
[2019-02-03] MEDS: LIDOCAINE 5% TOPICAL PATCH TP SCH (16:03)
[2019-02-03] MEDS: SODIUM CHLORIDE 1,000 ML IV SCH (16:05)
[2019-02-03] MEDS: METHYL SALICYLATE/MENTHOL OINT 30 GM TUBE TP SCH (22:14)
[2019-02-03] MEDS: LIDOCAINE PATCH REMOVAL MC SCH (22:15)
[2019-02-04] MEDS ORDERED: PT OWN MED DRAWER 7, Y5N ONE (01:01)
[2019-02-04] MEDS: SODIUM CHLORIDE IVPB SCH (01:12)
[2019-02-04] MEDS: ACYCLOVIR IVPB SCH (01:12)
[2019-02-04] MEDS: MEROPENEM 2 GM in DEXTROSE 5%-WATER - 100 ML IVPB SCH ×3 (01:13→17:20)
[2019-02-04] MEDS: traMADol HCL 50 MG TABLET PO PRN (05:48)
[2019-02-04] MEDS: INSULIN SLIDING SCALE (NOVOLOG) 1 VIAL SQ SCH ×4 (06:00→21:34)
--- NOTE | 2019-02-04 08:18 | PN ---
Progress Note, Physician - Current Medication List Current Medications: Active Medications Acetaminophen (Tylenol -) 650 mg PO Q6H PRN PRN Reason: HEADACHE Last Admin: 02/02/19 22:57 Dose: 650 mg Cyclobenzaprine HCl (Cyclobenzaprine Hcl) 5 mg PO DAILY [facility] Last Admin: 02/03/19 16:03 Dose: 5 mg Dexamethasone Sodium Phosphate (Decadron Injection -) 10 mg IVPUSH BID [facility] Last Admin: 02/03/19 22:15 Dose: 10 mg Enoxaparin Sodium (Lovenox -) 40 mg SQ DAILY [facility] Last Admin: 02/03/19 10:38 Dose: 40 mg Escitalopram Oxalate (Lexapro -) 10 mg PO DAILY [facility] Last Admin: 02/03/19 10:39 Dose: 10 mg Acyclovir 800 mg/ Sodium (Chloride) 116 mls @ 116 mls/hr IVPB Q8H-IV [facility] Last Admin: 02/04/19 01:12 Dose: 116 mls/hr Meropenem 2 gm/ Dextrose 100 mls @ 200 mls/hr IVPB Q8H-IV [facility] Last Admin: 02/04/19 01:13 Dose: 200 mls/hr Sodium Chloride (Normal Saline -) 1,000 mls @ 100 mls/hr IV ASDIR [facility] Last Admin: 02/03/19 16:05 Dose: 100 mls/hr Insulin Aspart (Novolog Vial Sliding Scale -) 1 vial SQ ACHS [facility]; Protocol Last Admin: 02/04/19 06:00 Dose: 6 units Lidocaine (Lidoderm Patch -) 1 patch TP DAILY [facility] Last Admin: 02/03/19 16:03 Dose: 1 patch Losartan Potassium (Cozaar -) 50 mg PO DAILY [facility] Last Admin: 02/03/19 10:39 Dose: 50 mg Methyl Salicylate (Jose Luis-Valero -) 1 applic TP BID [facility] Last Admin: 02/03/19 22:14 Dose: 1 applic Miscellaneous (Lidoderm Patch Removal) 1 each MC DAILY@2200 [facility] Last Admin: 02/03/19 22:15 Dose: 1 each Tramadol HCl (Ultram -) 50 mg PO Q8H PRN PRN Reason: PAIN LEVEL 7 - 10 Last Admin: 02/04/19 05:48 Dose: 50 mg - Objective Vital Signs: Vital Signs Temperature 98 F 02/04/19 06:00 Pulse Rate 57 L 10/15/19 06:00 Respiratory Rate 20 02/04/19 06:00 Blood Pressure 139/83 02/04/19 06:00 O2 Sat by Pulse Oximetry (%) 94 L 02/02/19 21:00 Labs: CBC, BMP 02/03/19 07:48 02/03/19 07:48 INR, PTT INR 1.03 (0.83-1.09) 01/31/19 23:35 Problem List - Problems (1) Encephalitis Assessment/Plan: -LP was performed and studies sent -infectious diseases consulted -head CT negative -trend lactate--now nl -CXR/CTA negative for pulmonary process, no pneumonia or PE -on ant viral--per ID Code(s): G04.90 - ENCEPHALITIS AND ENCEPHALOMYELITIS, UNSPECIFIED (2) UTI (urinary tract infection) Assessment/Plan: per iD Code(s): N39.0 - URINARY TRACT INFECTION, SITE NOT SPECIFIED (3) DM2 (diabetes mellitus, type 2) Assessment/Plan: -ISS -BGMs Code(s): E11.9 - TYPE 2 DIABETES MELLITUS WITHOUT COMPLICATIONS
--- NOTE | 2019-02-04 09:31 | PN ---
Progress Note (short form) - Note Progress Note: Resting in NAD. Still some BERNAL and right sided leg discomfort. No CP or SOB. Intake & Output 02/01/19 02/02/19 02/03/19 02/04/19 23:59 23:59 23:59 23:59 Intake Total 2730 3636 2020 300 Output Total 2883 063 7226 Balance 830 2836 2020 -1000 Last Vital Signs Temp Pulse Resp BP Pulse Ox 98 F 57 L 20 139/83 94 L 02/04/19 06:00 02/04/19 06:00 02/04/19 06:00 02/04/19 06:00 02/02/19 21:00 Active Medications Acetaminophen (Tylenol -) 650 mg PO Q6H PRN PRN Reason: HEADACHE Last Admin: 02/02/19 22:57 Dose: 650 mg Cyclobenzaprine HCl (Cyclobenzaprine Hcl) 5 mg PO DAILY [facility] Last Admin: 02/03/19 16:03 Dose: 5 mg Dexamethasone Sodium Phosphate (Decadron Injection -) 10 mg IVPUSH BID [facility] Last Admin: 02/03/19 22:15 Dose: 10 mg Enoxaparin Sodium (Lovenox -) 40 mg SQ DAILY [facility] Last Admin: 02/03/19 10:38 Dose: 40 mg Escitalopram Oxalate (Lexapro -) 10 mg PO DAILY [facility] Last Admin: 02/03/19 10:39 Dose: 10 mg Meropenem 2 gm/ Dextrose 100 mls @ 200 mls/hr IVPB Q8H-IV [facility] Last Admin: 02/04/19 01:13 Dose: 200 mls/hr Sodium Chloride (Normal Saline -) 1,000 mls @ 100 mls/hr IV ASDIR [facility] Last Admin: 02/03/19 16:05 Dose: 100 mls/hr Acyclovir 800 mg/ Sodium (Chloride) 266 mls @ 116 mls/hr IVPB Q8H-IV [facility] Insulin Aspart (Novolog Vial Sliding Scale -) 1 vial SQ ACHS [facility]; Protocol Last Admin: 02/04/19 06:00 Dose: 6 units Lidocaine (Lidoderm Patch -) 1 patch TP DAILY [facility] Last Admin: 02/03/19 16:03 Dose: 1 patch Losartan Potassium (Cozaar -) 50 mg PO DAILY [facility] Last Admin: 02/03/19 10:39 Dose: 50 mg Methyl Salicylate (Jose Luis-Valero -) 1 applic TP BID [facility] Last Admin: 02/03/19 22:14 Dose: 1 applic Miscellaneous (Lidoderm Patch Removal) 1 each MC DAILY@2200 [facility] Last Admin: 02/03/19 22:15 Dose: 1 each Tramadol HCl (Ultram -) 50 mg PO Q8H PRN PRN Reason: PAIN LEVEL 7 - 10 Last Admin: 02/04/19 05:48 Dose: 50 mg GENERAL: Awake and alert, NAD HEAD: Atraumatic/Nomocephalic. EYES: EOMI Sclera Clear. EARS, NOSE, THROAT: MMM NECK: Supple LUNGS: Clear HEART: RRR S1S2 ABDOMEN: Soft, obese, (+) BS LOWER EXTREMITIES: No CCE. PSYCHIATRIC: Cooperative NEURO: Non-focal SKIN: Warm, dry, normal turgor, no rashes or lesions noted. Laboratory Results - last 24 hr 02/03/19 02/03/19 02/03/19 12:09 15:15 17:50 POC Glucometer 303 276 Uric Acid 2.7 02/03/19 02/04/19 22:12 05:52 POC Glucometer 304 293 Uric Acid ASSESSMENT/PLAN: R/O Meningitis versus Encephalitis Probable Viral illness History of chronic pancreatitis IDDM Sepsis ABX/anti-viral per ID O2 as needed VTE prophylaxis PO as tolerated Glycemic control Dr Negron
[2019-02-04 09:46] LABS: BASO % 0.3 % (0-2.0); HEMOGLOBIN 11.9 GM/dL (10.7-15.3); LYMPH % 15.8 % (8-40); MCH 28.3 pg (25.7-33.7); MCHC 33.2 g/dl (32.0-36.0); MEAN CELL VOLUME 85.2 fl (80-96); MEAN PLT VOLUME 8.3 fl (7.5-11.1); MONO % 6.8 % (3.8-10.2); NEUT % 77.1 % (42.8-82.8); PLATELET COUNT 297 K/MM3 (134-434); RBC 4.22 M/mm3 (3.60-5.2); WHITE BLOOD COUNT 9.4 K/mm3 (4.0-10.0)
[2019-02-04] MEDS ORDERED: ACYCLOVIR INJECTION 800 MG in SODIUM CHLORIDE 250 ML IVPB SCH (10:00)
--- NOTE | 2019-02-04 10:02 | PN ---
Progress Note (short form) - Note Progress Note: 63 year old male history of chronic pancreatiis, DM, Patient was presented for URI in Dr Zuniga office and later she become lethargic and confused. She has spinal tap and it showed there is high rbc. Patient has normal ct head, she was afebrile and her bp was normal. Patient remains afebrile and oriented , no new symptoms NEUROLOGICAL EXAMINATION Alert follow command neck is supple vss afebrile eomi, pupils reactive no face asymmetry moving all extremity sensation is normal gait not tested ct head is unremarkable csf protein is 52 wbc 1 rbc 59 Assessment/Plan 63 year old female history of DM, Chronic Pancreatitis came with altered mental status chage, lactic acidosis on metformin, recenlty has URI. Patient has spinal tap and wbc is 1, protein is 52 and rbc is 59, Most likley she has viral meningitis vs metabolic encpehalopathy ( lactic acidosis and blood sugar is 480) patient clinically improved, and unchanged in last few days Plan: continue acyclovir - supportive care Thanking you so much Miguel Arizmendi MD
[2019-02-04 10:14] LABS: ALBUMIN 2.9 g/dl (3.4-5.0); ALK PHOS 73 U/L (45-117); ANION GAP 7 MMOL/L (8-16); BILIRUBIN,TOTAL 0.4 mg/dL (0.2-1); BLOOD UREA NITROGEN 22.2 mg/dL (7-18); CALCIUM 7.7 mg/dL (8.5-10.1); CHLORIDE 104 mmol/L (98-107); CO2 26 mmol/L (21-32); CREATININE 0.8 mg/dL (0.55-1.3); GLUCOSE,RANDOM 244 mg/dL (74-106); POTASSIUM 3.9 mmol/L (3.5-5.1); SGOT/AST 25 U/L (15-37); SGPT/ALT 72 U/L (13-61); SODIUM 137 mmol/L (136-145); TOT PROT 5.9 g/dl (6.4-8.2)
[2019-02-04] MEDS: CYCLOBENZAPRINE HCL 5 MG TABLET PO SCH (11:12)
[2019-02-04] MEDS: ACETAMINOPHEN 325 MG TABLET (FP) PO PRN (11:12)
[2019-02-04] MEDS: LIDOCAINE 5% TOPICAL PATCH TP SCH (11:13)
[2019-02-04] MEDS: ESCITALOPRAM OXALATE 10 MG TABLET (FP) PO SCH (11:13)
[2019-02-04] MEDS: LOSARTAN POTASSIUM 50 MG TABLET (FP) PO SCH (11:13)
[2019-02-04] MEDS: DEXAMETHASONE SOD PHOSPHATE 10 MG/1 ML VIAL IVPUSH SCH ×2 (11:14→21:26)
[2019-02-04] MEDS: ENOXAPARIN NA (PORCINE) 40 MG/0.4 ML DISP.SYRIN SQ SCH (11:14)
[2019-02-04] MEDS: METHYL SALICYLATE/MENTHOL OINT 30 GM TUBE TP SCH ×2 (11:15→21:28)
--- NOTE | 2019-02-04 11:25 | PN ---
Progress Note, Physician History of Present Illness: patient still bit dazed - Current Medication List Current Medications: Active Medications Acetaminophen (Tylenol -) 650 mg PO Q6H PRN PRN Reason: HEADACHE Last Admin: 02/02/19 22:57 Dose: 650 mg Cyclobenzaprine HCl (Cyclobenzaprine Hcl) 5 mg PO DAILY [facility] Last Admin: 02/03/19 16:03 Dose: 5 mg Dexamethasone Sodium Phosphate (Decadron Injection -) 10 mg IVPUSH BID [facility] Last Admin: 02/03/19 22:15 Dose: 10 mg Enoxaparin Sodium (Lovenox -) 40 mg SQ DAILY [facility] Last Admin: 02/03/19 10:38 Dose: 40 mg Escitalopram Oxalate (Lexapro -) 10 mg PO DAILY [facility] Last Admin: 02/03/19 10:39 Dose: 10 mg Meropenem 2 gm/ Dextrose 100 mls @ 200 mls/hr IVPB Q8H-IV [facility] Last Admin: 02/04/19 01:13 Dose: 200 mls/hr Sodium Chloride (Normal Saline -) 1,000 mls @ 100 mls/hr IV ASDIR [facility] Last Admin: 02/03/19 16:05 Dose: 100 mls/hr Acyclovir 800 mg/ Sodium (Chloride) 266 mls @ 116 mls/hr IVPB Q8H-IV [facility] Insulin Aspart (Novolog Vial Sliding Scale -) 1 vial SQ ACHS [facility]; Protocol Last Admin: 02/04/19 06:00 Dose: 6 units Lidocaine (Lidoderm Patch -) 1 patch TP DAILY [facility] Last Admin: 02/03/19 16:03 Dose: 1 patch Losartan Potassium (Cozaar -) 50 mg PO DAILY [facility] Last Admin: 02/03/19 10:39 Dose: 50 mg Methyl Salicylate (Jose Luis-Valero -) 1 applic TP BID [facility] Last Admin: 02/03/19 22:14 Dose: 1 applic Miscellaneous (Lidoderm Patch Removal) 1 each MC DAILY@2200 [facility] Last Admin: 02/03/19 22:15 Dose: 1 each Tramadol HCl (Ultram -) 50 mg PO Q8H PRN PRN Reason: PAIN LEVEL 7 - 10 Last Admin: 02/04/19 05:48 Dose: 50 mg - Objective Vital Signs: Vital Signs Temperature 98 F 02/04/19 06:00 Pulse Rate 57 L 02/04/19 06:00 Respiratory Rate 20 02/04/19 06:00 Blood Pressure 139/83 02/04/19 06:00 O2 Sat by Pulse Oximetry (%) 94 L 02/02/19 21:00 Constitutional: Yes: No Distress, Calm Cardiovascular: Yes: S1, S2 Respiratory: Yes: Regular, CTA Bilaterally Gastrointestinal: Yes: Normal Bowel Sounds, Soft Musculoskeletal: Yes: WNL Extremities: Yes: WNL Neurological: Yes: Alert, Other Labs: CBC, BMP 02/04/19 08:45 02/04/19 08:45 INR, PTT INR 1.03 (0.83-1.09) 01/31/19 23:35 Assessment/Plan Problem List - Problems (1) SOB (shortness of breath) Code(s): R06.02 - SHORTNESS OF BREATH (2) Diabetes mellitus Code(s): E11.9 - TYPE 2 DIABETES MELLITUS WITHOUT COMPLICATIONS Qualifiers: Diabetes mellitus type: type 2 Diabetes mellitus complication status: with neurologic complications (3) Headache Code(s): R51 - HEADACHE Qualifiers: Headache type: unspecified Headache chronicity pattern: acute headache Intractability: intractable Qualified Code(s): R51 - Headache (4) History of gastroesophageal reflux (GERD) Code(s): Z87.19 - PERSONAL HISTORY OF OTHER DISEASES OF THE DIGESTIVE SYSTEM (5) Hypertension Code(s): I10 - ESSENTIAL (PRIMARY) HYPERTENSION Qualifiers: Hypertension type: essential hypertension Qualified Code(s): I10 - Essential (primary) hypertension (6) Sepsis Code(s): A41.9 - SEPSIS, UNSPECIFIED ORGANISM Assessment/Plan 63 y.o. female with PMH of pancreatitis, IDDM, HTN, HLD, OA, panic disorder, s/ p hysterectomy, GERD, s/p cholecystectomy and appendectomy presents with c/o worsening SOB and developing cough for about 1 week SOB/cough AMS - suspect Viral meningitis vs encephalitis Leukocytosis Lactic acidosis ? induced by metformin MAXIMILIAN IDDM Hx of pancreatitis HTN HLD plan will stop acylovir continue meropenam rest as per the team
[2019-02-04] MEDS ORDERED: INSULIN (NOVOLOG) ASPART 100 UNITS/ML 10ML VIAL ONE (11:34)
[2019-02-04] MEDS: SODIUM CHLORIDE 1,000 ML IV SCH (17:20)
--- NOTE | 2019-02-04 17:29 | CON.PSY ---
Psychiatry Consult Chief Complaint: 63 Year old female admitted with acutye FDElirium, history of DEpresswion and on Lexapro 10 mg kilo the past 3 yrts wioth good results. Patient spoken thru herrv daughter. Daughter repports patient is bacvk to herself now, no longer hallucionatin g or confuserd and no increase inm depression. No psych admissioons or suicidal behaviour. - Previous Psychiatric Treatment Outpatient: Less than 6 mos ago Inpatient: None - Previous Substance Abuse Treatment Outpatient: None - Reason for Previous Treatment Reason for Previous Treatment: Major Depression - Current Medications Current Medications: Active Medications Acetaminophen (Tylenol -) 650 mg PO Q6H PRN PRN Reason: HEADACHE Last Admin: 02/04/19 11:12 Dose: 650 mg Cyclobenzaprine HCl (Cyclobenzaprine Hcl) 5 mg PO DAILY [facility] Last Admin: 02/04/19 11:12 Dose: 5 mg Dexamethasone Sodium Phosphate (Decadron Injection -) 10 mg IVPUSH BID [facility] Last Admin: 02/04/19 11:14 Dose: 10 mg Enoxaparin Sodium (Lovenox -) 40 mg SQ DAILY [facility] Last Admin: 02/04/19 11:14 Dose: 40 mg Escitalopram Oxalate (Lexapro -) 10 mg PO DAILY [facility] Last Admin: 02/04/19 11:13 Dose: 10 mg Meropenem 2 gm/ Dextrose 100 mls @ 200 mls/hr IVPB Q8H-IV [facility] Last Admin: 02/04/19 17:20 Dose: 200 mls/hr Sodium Chloride (Normal Saline -) 1,000 mls @ 100 mls/hr IV ASDIR [facility] Last Admin: 02/04/19 17:20 Dose: 100 mls/hr Insulin Aspart (Novolog Vial Sliding Scale -) 1 vial SQ ACHS [facility]; Protocol Last Admin: 02/04/19 17:20 Dose: 10 units Lidocaine (Lidoderm Patch -) 1 patch TP DAILY [facility] Last Admin: 02/04/19 11:13 Dose: 1 patch Losartan Potassium (Cozaar -) 50 mg PO DAILY [facility] Last Admin: 02/04/19 11:13 Dose: 50 mg Methyl Salicylate (Jose Luis-Valero -) 1 applic TP BID [facility] Last Admin: 02/04/19 11:15 Dose: 1 applic Miscellaneous (Lidoderm Patch Removal) 1 each MC DAILY@2200 [facility] Last Admin: 02/03/19 22:15 Dose: 1 each Tramadol HCl (Ultram -) 50 mg PO Q8H PRN PRN Reason: PAIN LEVEL 7 - 10 Last Admin: 02/04/19 05:48 Dose: 50 mg - Allergies Allergies: Allergies Allergy/AdvReac Type Severity Reaction Status Date / Time Penicillins Allergy Verified 08/19/18 09:27 - Current Living Status Usual Living Arrangement: With Spouse - Current Mental Status Evaluation Appearance: Well Groomed Attitude: Cooperative - Affect Affect: Full Range Appropriateness: Appropriate to Content - Mood Mood: Euthymic - Speech/Language Expressive: Coherent - Psychomotor Activity Psychomotor Activity: Normal - Thought Content Hallucinations: Absent Delusions: Absent - Self Perception Self Perception: No Impairment - Cognition Attention: Alert Orientation: Time Memory, Immediate Recall: Intact Memory, Short Term: 3/3 Memory, Remote with Promptin/3 - Concentration Serial Sevens Intact: No Simple Calculations Intact: Yes - Abstraction Proverb Interpretation: Intact Judgement: Intact - Insight Insight: Intact - Impulse Control Impulse Control: Good Control - Suicidal Ideation Suicidal Ideation: No - Homicidal Ideation Homicidal Ideation: No Assessment/Plan 1) Continue with Lexapro 10 mg po od. 2) Discharge home when medically clear.
[2019-02-04] MEDS: LIDOCAINE PATCH REMOVAL MC SCH (21:29)
[2019-02-05] MEDS: MEROPENEM 2 GM in DEXTROSE 5%-WATER - 100 ML IVPB SCH ×2 (01:50→11:43)
[2019-02-05] MEDS: ACETAMINOPHEN 325 MG TABLET (FP) PO PRN (02:45)
[2019-02-05] MEDS: SODIUM CHLORIDE 1,000 ML IV SCH ×2 (03:25→17:25)
[2019-02-05] MEDS: INSULIN SLIDING SCALE (NOVOLOG) 1 VIAL SQ SCH ×4 (06:54→21:49)
[2019-02-05] MEDS ORDERED: INSULIN (NOVOLOG) ASPART 100 UNITS/ML 10ML VIAL ONE ×2 (06:56→21:46)
--- NOTE | 2019-02-05 08:24 | PN ---
Progress Note, Physician - Current Medication List Current Medications: Active Medications Acetaminophen (Tylenol -) 650 mg PO Q6H PRN PRN Reason: HEADACHE Last Admin: 02/05/19 02:45 Dose: 650 mg Cyclobenzaprine HCl (Cyclobenzaprine Hcl) 5 mg PO DAILY [facility] Last Admin: 02/04/19 11:12 Dose: 5 mg Dexamethasone Sodium Phosphate (Decadron Injection -) 10 mg IVPUSH BID [facility] Last Admin: 02/04/19 21:26 Dose: 10 mg Enoxaparin Sodium (Lovenox -) 40 mg SQ DAILY [facility] Last Admin: 02/04/19 11:14 Dose: 40 mg Escitalopram Oxalate (Lexapro -) 10 mg PO DAILY [facility] Last Admin: 02/04/19 11:13 Dose: 10 mg Meropenem 2 gm/ Dextrose 100 mls @ 200 mls/hr IVPB Q8H-IV [facility] Last Admin: 02/05/19 01:50 Dose: 200 mls/hr Sodium Chloride (Normal Saline -) 1,000 mls @ 100 mls/hr IV ASDIR [facility] Last Admin: 02/05/19 03:25 Dose: 100 mls/hr Insulin Aspart (Novolog Vial Sliding Scale -) 1 vial SQ [facility]; Protocol Last Admin: 02/05/19 06:54 Dose: 4 units Insulin Detemir ([facility] Vial) [facility] Lidocaine (Lidoderm Patch -) 1 patch TP DAILY [facility] Last Admin: 02/04/19 11:13 Dose: 1 patch Losartan Potassium (Cozaar -) 50 mg PO DAILY [facility] Last Admin: 02/04/19 11:13 Dose: 50 mg Methyl Salicylate (Jose Luis-Valero -) 1 applic TP BID [facility] Last Admin: 02/04/19 21:28 Dose: 1 applic Miscellaneous (Lidoderm Patch Removal) 1 each MC DAILY@2200 [facility] Last Admin: 02/04/19 21:29 Dose: Not Given Tramadol HCl (Ultram -) 50 mg PO Q8H PRN PRN Reason: PAIN LEVEL 7 - 10 Last Admin: 02/04/19 05:48 Dose: 50 mg - Objective Vital Signs: Vital Signs Temperature 98 F 02/05/19 06:35 Pulse Rate 56 L 02/05/19 06:35 Respiratory Rate 20 02/05/19 06:35 Blood Pressure 166/91 02/05/19 06:35 O2 Sat by Pulse Oximetry (%) 96 02/04/19 21:00 Cardiovascular: Yes: Regular Rate and Rhythm Respiratory: Yes: Regular, CTA Bilaterally Gastrointestinal: Yes: Normal Bowel Sounds, Soft Neurological: Yes: Alert, Oriented, Weakness Labs: CBC, BMP 02/04/19 08:45 02/04/19 08:45 INR, PTT INR 1.03 (0.83-1.09) 01/31/19 23:35 Problem List - Problems (1) Encephalitis Assessment/Plan: -LP was performed and studies sent -infectious diseases consulted -head CT negative -trend lactate--now nl -CXR/CTA negative for pulmonary process, no pneumonia or PE -off ant viral--per ID Code(s): G04.90 - ENCEPHALITIS AND ENCEPHALOMYELITIS, UNSPECIFIED (2) UTI (urinary tract infection) Assessment/Plan: dc meropenem--macrobid bid Code(s): N39.0 - URINARY TRACT INFECTION, SITE NOT SPECIFIED (3) DM2 (diabetes mellitus, type 2) Assessment/Plan: -ISS -BGMs -start levemir Code(s): E11.9 - TYPE 2 DIABETES MELLITUS WITHOUT COMPLICATIONS
--- NOTE | 2019-02-05 09:04 | PN ---
Progress Note (short form) - Note Progress Note: 63 year old male history of chronic pancreatiis, DM, Patient was presented for URI in Dr Zuniga office and later she become lethargic and confused. She has spinal tap and it showed there is high rbc. Patient has normal ct head, she was afebrile and her bp was normal. Patient remains afebrile and oriented , no new symptoms NEUROLOGICAL EXAMINATION Alert follow command neck is supple vss afebrile eomi, pupils reactive no face asymmetry moving all extremity sensation is normal gait not tested ct head is unremarkable csf protein is 52 wbc 1 rbc 59 Assessment/Plan 63 year old female history of DM, Chronic Pancreatitis came with altered mental status chage, lactic acidosis on metformin, recenlty has URI. Patient has spinal tap and wbc is 1, protein is 52 and rbc is 59, Most likley she has viral meningitis vs metabolic encpehalopathy ( lactic acidosis and blood sugar is 480) acyclovir has been stopped and she has improved alot , feeling better Plan: acyclovir was stopped by ID - Continue supportive care Thanking you so much Miguel Arizmendi MD
--- NOTE | 2019-02-05 11:17 | PN ---
Progress Note, Physician History of Present Illness: stable still c/o headaches u/s results noted off of abx now - Current Medication List Current Medications: Active Medications Acetaminophen (Tylenol -) 650 mg PO Q6H PRN PRN Reason: HEADACHE Last Admin: 02/05/19 02:45 Dose: 650 mg Cyclobenzaprine HCl (Cyclobenzaprine Hcl) 5 mg PO DAILY [facility] Last Admin: 02/04/19 11:12 Dose: 5 mg Enoxaparin Sodium (Lovenox -) 40 mg SQ DAILY [facility] Last Admin: 02/04/19 11:14 Dose: 40 mg Escitalopram Oxalate (Lexapro -) 10 mg PO DAILY [facility] Last Admin: 02/04/19 11:13 Dose: 10 mg Sodium Chloride (Normal Saline -) 1,000 mls @ 100 mls/hr IV ASDIR [facility] Last Admin: 02/05/19 03:25 Dose: 100 mls/hr Insulin Aspart (Novolog Vial Sliding Scale -) 1 vial SQ [facility]; Protocol Last Admin: 02/05/19 06:54 Dose: 4 units Insulin Detemir ([facility]) [facility] Lidocaine (Lidoderm Patch -) 1 patch TP DAILY [facility] Last Admin: 02/04/19 11:13 Dose: 1 patch Losartan Potassium (Cozaar -) 50 mg PO DAILY [facility] Last Admin: 02/04/19 11:13 Dose: 50 mg Methyl Salicylate (Jose Luis-Valero -) 1 applic TP BID [facility] Last Admin: 02/04/19 21:28 Dose: 1 applic Miscellaneous (Lidoderm Patch Removal) 1 each MC DAILY@2200 [facility] Last Admin: 02/04/19 21:29 Dose: Not Given Nitrofurantoin Macrocrystals (Macrodantin -) 100 mg PO BID [facility] Tramadol HCl (Ultram -) 50 mg PO Q8H PRN PRN Reason: PAIN LEVEL 7 - 10 Last Admin: 02/04/19 05:48 Dose: 50 mg - Objective Vital Signs: Vital Signs Temperature 98 F 02/05/19 06:35 Pulse Rate 56 L 02/05/19 06:35 Respiratory Rate 20 02/05/19 06:35 Blood Pressure 166/91 02/05/19 06:35 O2 Sat by Pulse Oximetry (%) 96 02/04/19 21:00 Constitutional: Yes: Calm, Mild Distress Cardiovascular: Yes: S1, S2 Respiratory: Yes: Regular, CTA Bilaterally Gastrointestinal: Yes: Normal Bowel Sounds, Soft Musculoskeletal: Yes: WNL Extremities: Yes: WNL Neurological: Yes: Alert, Oriented Psychiatric: Yes: Alert, Oriented Labs: CBC, BMP 02/04/19 08:45 02/04/19 08:45 INR, PTT INR 1.03 (0.83-1.09) 01/31/19 23:35 Assessment/Plan Problem List - Problems (1) SOB (shortness of breath) Code(s): R06.02 - SHORTNESS OF BREATH (2) Diabetes mellitus Code(s): E11.9 - TYPE 2 DIABETES MELLITUS WITHOUT COMPLICATIONS Qualifiers: Diabetes mellitus type: type 2 Diabetes mellitus complication status: with neurologic complications (3) Headache Code(s): R51 - HEADACHE Qualifiers: Headache type: unspecified Headache chronicity pattern: acute headache Intractability: intractable Qualified Code(s): R51 - Headache (4) History of gastroesophageal reflux (GERD) Code(s): Z87.19 - PERSONAL HISTORY OF OTHER DISEASES OF THE DIGESTIVE SYSTEM (5) Hypertension Code(s): I10 - ESSENTIAL (PRIMARY) HYPERTENSION Qualifiers: Hypertension type: essential hypertension Qualified Code(s): I10 - Essential (primary) hypertension (6) Sepsis Code(s): A41.9 - SEPSIS, UNSPECIFIED ORGANISM Assessment/Plan 63 y.o. female with PMH of pancreatitis, IDDM, HTN, HLD, OA, panic disorder, s/ p hysterectomy, GERD, s/p cholecystectomy and appendectomy presents with c/o worsening SOB and developing cough for about 1 week SOB/cough AMS - suspect Viral meningitis vs encephalitis Leukocytosis Lactic acidosis ? induced by metformin MAXIMILIAN IDDM Hx of pancreatitis HTN HLD plan continue current mgmt rest as per the team
[2019-02-05] MEDS: METHYL SALICYLATE/MENTHOL OINT 30 GM TUBE TP SCH ×2 (11:42→21:49)
[2019-02-05] MEDS: ENOXAPARIN NA (PORCINE) 40 MG/0.4 ML DISP.SYRIN SQ SCH (11:45)
[2019-02-05] MEDS: CYCLOBENZAPRINE HCL 5 MG TABLET PO SCH (11:45)
[2019-02-05] MEDS: ESCITALOPRAM OXALATE 10 MG TABLET (FP) PO SCH (11:45)
[2019-02-05] MEDS: LIDOCAINE 5% TOPICAL PATCH TP SCH (11:45)
[2019-02-05] MEDS: DEXAMETHASONE SOD PHOSPHATE 10 MG/1 ML VIAL IVPUSH SCH (11:49)
[2019-02-05] MEDS: LOSARTAN POTASSIUM 50 MG TABLET (FP) PO SCH (11:49)
[2019-02-05] MEDS: INSULIN (LEVEMIR) 100 UNITS/ML UNITS SQ SCH ×2 (12:34→17:51)
[2019-02-05] MEDS: traMADol HCL 50 MG TABLET PO PRN (12:37)
[2019-02-05] MEDS: NITROFURANTOIN MACROCRYSTAL 50 MG CAPSULE (FP) PO SCH ×2 (12:38→17:51)
--- NOTE | 2019-02-05 13:13 | CONSULT ---
Consult Consult Specialty:: PM&R Dr Rhodes for Dr Veag - History of Present Illness Chief Complaint: R buttock pain History of Present Illness: This is a 63 year old woman with a medical history of GERD, chronic pancreatitis , s/p cholecystectomy, SBO, s/p hysterectomy, DMT2, who presented to the ED 03/11 with 1 week SOB and AMS, as well as BERNAL, neck pain and abdominal pain. She was admitted to the ICU for monitoring, where Neurology was consulted, who performed LP to evaluate for possible meningitis; CT head negative. LP showed elevated RBC, and Neuro diagnosed viral meningitis vs metabolic encephalopathy following recent URI; Acyclovir was given with improvement in her symptoms. ID was consulted as well. CT lumbar spine was performed due to R buttock pain, which showed R L4-5 mild disc bulge reaching R L4 nerve without definite impingement, L L5-S1 disc bulge and spur possibly impinging the L L5 nerve root , and mild B facet arthropathy. Macrobid was started for E coli UTI. She was seen by PT, and on 02/04/19 she was Minimum Assist in Transfers, and ambulated 6 feet Minimum Assist with Rolling Walker, limited by dizziness. Physiatry is being consulted for further recommendations. 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 (Pt has been recently w/u for early dementia, which runs in her family.) Cardio/Vascular: Yes: HTN, Hyperlipdemia Gastrointestinal: Yes: Pancreatitis (?), Other (SBO) Hepatobiliary: No: Cirrhosis, Cholelithiasis, Cholecystitis, Choledocholithiasis , Hepatitis A, Hepatitis B, Hepatitis C, Other Renal/: No: Renal Failure, Renal Inusuff, BPH, Cancer, Hematuria, Hemodialysis , Neurogenic Bladder, Renal Calculi, UTI, Other ...: No Psych: Yes: Depression, Panic Musculoskeletal: Yes: Osteoarthritis, Other (Knee pain) Endocrine: Yes: Diabetes Mellitus - Past Surgical History Past Surgical History: Yes: Appendectomy, Cholecystectomy, Colonoscopy (neg 2 yrs ago at ), (x2), Hysterectomy - Alcohol/Substance Use Hx Alcohol Use: No - Smoking History Smoking history: Never smoked Have you smoked in the past 12 months: No Aproximately how many cigarettes per day: 0 If you are a former smoker, when did you quit?: november 2012 - Social History Usual Living Arrangement: With Spouse (elevator apartment) ADL: Independent History of Recent Travel: Yes ([place], not in rural environment) Home Medications - Allergies Allergies/Adverse Reactions: Allergies Allergy/AdvReac Type Severity Reaction Status Date / Time Penicillins Allergy Verified 08/19/18 09:27 - Home Medications Home Medications: Ambulatory Orders metFORMIN HCL [Glucophage] 500 mg PO BIDAC 07/06/13 Telmisartan [Micardis] 80 mg PO DAILY 06/17/16 Escitalopram Oxalate [Lexapro -] 10 mg PO DAILY 10/07/16 Insulin Lispro Protamin/Lispro [Humalog Mix 50-50 Kwikpen] 10 unit SQ ASDIR Insulin Glargine,Hum.rec.anlog [Tex Solchristopher] 30 unit SQ HS 01/31/19 Review of Systems Findings/Remarks: Denies fevers, chills, eye/ ear pain, CP, abdominal pain, nausea, vomiting, dysuria, BLE numbness/ paresthesias Notes BERNAL, neck and R buttock pain, SOB improving Physical Exam Vital Signs: Vital Signs Temperature 98 F 02/05/19 06:35 Pulse Rate 56 L 02/05/19 06:35 Respiratory Rate 20 02/05/19 06:35 Blood Pressure 166/91 02/05/19 06:35 O2 Sat by Pulse Oximetry (%) 96 02/04/19 21:00 Musculoskeletal: Yes: Other (General: calm HF lying in bed NAD on 3L NC, awake and alert; B shoulder flexion to 120 degrees, 4+/5 BUE except for 4/5 Rtriceps, 4/5 R HF 2/2 buttock pain then 4+/5 BLE; Pinprick Intact BUE/ BLE; 1+ BLE/ R hand pitting edema, no B calf tenderness; +tenderness to palpation R SI/ GT/ gluteals without lumbar spine or paraspinal tenderness) Labs: CBC, BMP 02/04/19 08:45 02/04/19 08:45 Imaging - Results Cat Scan: Report Reviewed (as per HPI) Assessment/Plan Impression: 1) Deficits mobility/ ADLs 2) Deconditioning 3) Gait abnormality 4) Viral meningitis vs metabolic encephalopathy 5) E coli UTI 6) Lumbar DJD with R L4 and L L5 irritation 7) hx GERD 8) chronic pancreatitis 9) s/p cholecystectomy 10) hx SBO 11) s/p hysterectomy 12) DMT2 13) Obesity 14) Up to date pneumovax, no documented flu shot 15) Lactic acidosis attributed to Metformin 16) hx HTN, HLD 17) hx panic disorder Recommendations: 1) PT for stretching strengthening ROM and functional mobility 2) Falls, safety precautions 3) Cardiopulmonary precautions 4) Diabetic precautions 5) Heat/ ice/ TENS to low back prn, US to lumbar spine once infection cleared 6) DVT ppx: on Lovenox 7) Bowel regimen prn 8) Skin protection: float heels, frequent turning 9) Nutrition consult for obesity 10) Continue plan per primary team 11) Discharge planning: currently limited by dizziness; if dizziness persists, she will likely need inpatient rehabilitation; if dizziness clears, she may be able to return home with services Thank you for this referral.
[2019-02-05 19:09] LABS: CMV IgG CSF < 0.20 U/mL (.); TOXOPLASMA IGG,CSF < 3.0 IU/mL (.)
[2019-02-05] MEDS: LIDOCAINE PATCH REMOVAL MC SCH (21:49)
--- NOTE | 2019-02-05 23:40 | CONSULT ---
Consult Consult Specialty:: endocrine Referred by:: dr.iyad burgess Reason for Consultation:: diabetes mellitus type 2 - History of Present Illness Chief Complaint: weak, high sugars History of Present Illness: 63 year old female with a past medical history of DMT2,chronic pancreatitis , initially presented to the hospital for 1 week history of shortness of breath that initially began as a mild productive cough that progressed to acute dyspnea this morning, prompting her to come to the emergency room. She reportedly saw her doctor only a couple days ago, was given levaquin, flonase and cough syrup, which she reported did not help her. 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 (Pt has been recently w/u for early dementia, which runs in her family.) Cardio/Vascular: Yes: HTN, Hyperlipdemia Gastrointestinal: Yes: Pancreatitis (?), Other (SBO) Hepatobiliary: No: Cirrhosis, Cholelithiasis, Cholecystitis, Choledocholithiasis , Hepatitis A, Hepatitis B, Hepatitis C, Other Renal/: No: Renal Failure, Renal Inusuff, BPH, Cancer, Hematuria, Hemodialysis , Neurogenic Bladder, Renal Calculi, UTI, Other ...: No Psych: Yes: Depression, Panic Musculoskeletal: Yes: Osteoarthritis, Other (Knee pain) Endocrine: Yes: Diabetes Mellitus - Past Surgical History Past Surgical History: Yes: Appendectomy, Cholecystectomy, Colonoscopy (neg 2 yrs ago at ), (x2), Hysterectomy - Alcohol/Substance Use Hx Alcohol Use: No - Smoking History Smoking history: Never smoked Have you smoked in the past 12 months: No Aproximately how many cigarettes per day: 0 If you are a former smoker, when did you quit?: november 2012 - Social History Usual Living Arrangement: With Spouse (elevator apartment) ADL: Independent History of Recent Travel: Yes ([place], not in rural environment) Home Medications - Allergies Allergies/Adverse Reactions: Allergies Allergy/AdvReac Type Severity Reaction Status Date / Time Penicillins Allergy Verified 08/19/18 09:27 - Home Medications Home Medications: Ambulatory Orders metFORMIN HCL [Glucophage] 500 mg PO BIDAC 07/06/13 Telmisartan [Micardis] 80 mg PO DAILY 06/17/16 Escitalopram Oxalate [Lexapro -] 10 mg PO DAILY 10/07/16 Insulin Lispro Protamin/Lispro [Humalog Mix 50-50 Kwikpen] 10 unit SQ ASDIR Insulin Glargine,Hum.rec.anlog [Tex Mccollumbrandikhadijah] 30 unit SQ HS 01/31/19 Physical Exam Vital Signs: Vital Signs Temperature 98 F 02/05/19 20:34 Pulse Rate 58 L 02/05/19 20:34 Respiratory Rate 20 02/05/19 20:34 Blood Pressure 163/93 02/05/19 20:34 O2 Sat by Pulse Oximetry (%) 96 02/04/19 21:00 Labs: CBC, BMP 02/04/19 08:45 02/04/19 08:45 Problem List - Problems (1) Diabetes mellitus type 2 with hyperosmolarity, uncontrolled Problems reviewed: Yes Assessment/Plan Current Active Problems Encephalitis (Acute) Right-sided back pain (Acute) SOB (shortness of breath) (Acute) UTI (urinary tract infection) (Acute) dm type 2 uncontrolled diabetic neuropathy Abnormal Lab Results 02/01/19 01:35 CSF Lactic Acid 40.0 H Laboratory Results - last 24 hr 02/01/19 02/01/19 02/01/19 01:35 01:35 08:00 POC Glucometer CSF Lactic Acid 40.0 H CSF Lyme IgG Ab 18 kDa Absent CSF Lyme IgG Ab 23 kDa Absent CSF Lyme IgG Ab 28 kDa Absent CSF Lyme IgG Ab 30 kDa Absent CSF Lyme IgG Ab 39 kDa Absent CSF Lyme IgG Ab 41 kDa Absent CSF Lyme IgG Ab 45 kDa Absent CSF Lyme IgG Ab 58 kDa Absent CSF Lyme IgG Ab 66 kDa Absent CSF Lyme IgG Ab 93 kDa Absent CSF Lyme IgM Ab 23 kDa Absent CSF Lyme IgM Ab 39 kDa Absent CSF Lyme IgM Ab 41 kDa Absent CSF Lyme Disease DNA Negative CSF CMV IgG Ab < 0.20 CSF Toxoplasma IgG Ab < 3.0 Lyme IgG Ab Interpret Negative Lyme IgM Ab Index Negative EBV EA IgG Ab Interp <5.0 HSV I DNA Quant (PCR) Negative HSV II DNA Quant (PCR) Negative 02/05/19 02/05/19 02/05/19 06:03 12:18 12:21 POC Glucometer 223 247 248 CSF Lactic Acid CSF Lyme IgG Ab 18 kDa CSF Lyme IgG Ab 23 kDa CSF Lyme IgG Ab 28 kDa CSF Lyme IgG Ab 30 kDa CSF Lyme IgG Ab 39 kDa CSF Lyme IgG Ab 41 kDa CSF Lyme IgG Ab 45 kDa CSF Lyme IgG Ab 58 kDa CSF Lyme IgG Ab 66 kDa CSF Lyme IgG Ab 93 kDa CSF Lyme IgM Ab 23 kDa CSF Lyme IgM Ab 39 kDa CSF Lyme IgM Ab 41 kDa CSF Lyme Disease DNA CSF CMV IgG Ab CSF Toxoplasma IgG Ab Lyme IgG Ab Interpret Lyme IgM Ab Index EBV EA IgG Ab Interp HSV I DNA Quant (PCR) HSV II DNA Quant (PCR) Laboratory Tests 02/05/19 02/05/19 02/05/19 12:18 12:21 17:23 POC Glucometer 247 248 336 02/05/19 21:01 POC Glucometer 245 plan: levemir 20 units bid novolog bgm scale diet nutrition hga1c tsh free t4
[2019-02-06] MEDS: NITROFURANTOIN MACROCRYSTAL 50 MG CAPSULE (FP) PO SCH ×5 (00:14→23:56)
[2019-02-06] MEDS: INSULIN SLIDING SCALE (NOVOLOG) 1 VIAL SQ SCH ×4 (06:02→22:19)
[2019-02-06] MEDS: INSULIN (LEVEMIR) 100 UNITS/ML UNITS SQ SCH ×2 (06:51→17:29)
[2019-02-06] MEDS ORDERED: INSULIN (NOVOLOG) ASPART 100 UNITS/ML 10ML VIAL ONE ×3 (06:54→17:18)
[2019-02-06] MEDS ORDERED: INSULIN (LEVEMIR) 100 UNITS/ML UNITS SQ ONE ×2 (06:55→17:40)
[2019-02-06] MEDS: ESCITALOPRAM OXALATE 10 MG TABLET (FP) PO SCH (09:17)
[2019-02-06] MEDS: CYCLOBENZAPRINE HCL 5 MG TABLET PO SCH (09:17)
[2019-02-06] MEDS: LIDOCAINE 5% TOPICAL PATCH TP SCH (09:17)
[2019-02-06] MEDS: LOSARTAN POTASSIUM 50 MG TABLET (FP) PO SCH (09:17)
[2019-02-06] MEDS: ENOXAPARIN NA (PORCINE) 40 MG/0.4 ML DISP.SYRIN SQ SCH (09:18)
[2019-02-06] MEDS: METHYL SALICYLATE/MENTHOL OINT 30 GM TUBE TP SCH ×2 (09:18→22:18)
--- NOTE | 2019-02-06 12:29 | PN ---
Progress Note, Physician History of Present Illness: stable feels much better - Current Medication List Current Medications: Active Medications Acetaminophen (Tylenol -) 650 mg PO Q6H PRN PRN Reason: HEADACHE Last Admin: 02/05/19 02:45 Dose: 650 mg Cyclobenzaprine HCl (Cyclobenzaprine Hcl) 5 mg PO DAILY [facility] Last Admin: 02/06/19 09:17 Dose: 5 mg Enoxaparin Sodium (Lovenox -) 40 mg SQ DAILY [facility] Last Admin: 02/06/19 09:18 Dose: 40 mg Escitalopram Oxalate (Lexapro -) 10 mg PO DAILY [facility] Last Admin: 02/06/19 09:17 Dose: 10 mg Sodium Chloride (Normal Saline -) 1,000 mls @ 100 mls/hr IV ASDIR [facility] Last Admin: 02/05/19 17:25 Dose: Not Given Insulin Aspart (Novolog Vial Sliding Scale -) 1 vial SQ [facility]; Protocol Last Admin: 02/06/19 11:17 Dose: Not Given Insulin Detemir (Levemir Vial) 20 units SQ BIDAC [facility] Last Admin: 02/06/19 06:51 Dose: 20 unit Lidocaine (Lidoderm Patch -) 1 patch TP DAILY [facility] Last Admin: 02/06/19 09:17 Dose: 1 patch Losartan Potassium (Cozaar -) 50 mg PO DAILY [facility] Last Admin: 02/06/19 09:17 Dose: 50 mg Methyl Salicylate (Jose Luis-Valero -) 1 applic TP BID [facility] Last Admin: 02/06/19 09:18 Dose: 1 applic Miscellaneous (Lidoderm Patch Removal) 1 each MC DAILY@2200 [facility] Last Admin: 02/05/19 21:49 Dose: Not Given Nitrofurantoin Macrocrystals (Macrodantin -) 50 mg PO Q6HPO [facility] Last Admin: 02/06/19 11:17 Dose: 50 mg Tramadol HCl (Ultram -) 50 mg PO Q8H PRN PRN Reason: PAIN LEVEL 7 - 10 Last Admin: 02/05/19 12:37 Dose: 50 mg - Objective Vital Signs: Vital Signs Temperature 98.4 F 02/06/19 10:00 Pulse Rate 63 02/06/19 10:00 Respiratory Rate 18 02/06/19 10:00 Blood Pressure 136/76 02/06/19 10:00 O2 Sat by Pulse Oximetry (%) 98 10/17/19 09:00 Constitutional: Yes: No Distress, Calm Cardiovascular: Yes: S1, S2 Respiratory: Yes: Regular, CTA Bilaterally Gastrointestinal: Yes: Normal Bowel Sounds, Soft Musculoskeletal: Yes: WNL Extremities: Yes: WNL Neurological: Yes: Alert, Oriented Psychiatric: Yes: Alert, Oriented Labs: CBC, BMP 02/04/19 08:45 02/04/19 08:45 INR, PTT INR 1.03 (0.83-1.09) 01/31/19 23:35 Assessment/Plan Problem List - Problems (1) SOB (shortness of breath) Code(s): R06.02 - SHORTNESS OF BREATH (2) Diabetes mellitus Code(s): E11.9 - TYPE 2 DIABETES MELLITUS WITHOUT COMPLICATIONS Qualifiers: Diabetes mellitus type: type 2 Diabetes mellitus complication status: with neurologic complications (3) Headache Code(s): R51 - HEADACHE Qualifiers: Headache type: unspecified Headache chronicity pattern: acute headache Intractability: intractable Qualified Code(s): R51 - Headache (4) History of gastroesophageal reflux (GERD) Code(s): Z87.19 - PERSONAL HISTORY OF OTHER DISEASES OF THE DIGESTIVE SYSTEM (5) Hypertension Code(s): I10 - ESSENTIAL (PRIMARY) HYPERTENSION Qualifiers: Hypertension type: essential hypertension Qualified Code(s): I10 - Essential (primary) hypertension (6) Sepsis Code(s): A41.9 - SEPSIS, UNSPECIFIED ORGANISM Assessment/Plan 63 y.o. female with PMH of pancreatitis, IDDM, HTN, HLD, OA, panic disorder, s/ p hysterectomy, GERD, s/p cholecystectomy and appendectomy presents with c/o worsening SOB and developing cough for about 1 week SOB/cough AMS - suspect Viral meningitis vs encephalitis Leukocytosis Lactic acidosis ? induced by metformin MAXIMILIAN IDDM Hx of pancreatitis HTN HLD plan continue current mgmt rest as per the team
--- NOTE | 2019-02-06 12:46 | PN ---
Progress Note, Physician Chief Complaint: patient feeling better back and leg pain improved no more HD PMR noted reviewed and PT noted seen will need SNF for STR - Current Medication List Current Medications: Active Medications Acetaminophen (Tylenol -) 650 mg PO Q6H PRN PRN Reason: HEADACHE Last Admin: 02/05/19 02:45 Dose: 650 mg Enoxaparin Sodium (Lovenox -) 40 mg SQ DAILY [facility] Last Admin: 02/06/19 09:18 Dose: 40 mg Escitalopram Oxalate (Lexapro -) 10 mg PO DAILY [facility] Last Admin: 02/06/19 09:17 Dose: 10 mg Sodium Chloride (Normal Saline -) 1,000 mls @ 100 mls/hr IV ASDIR [facility] Last Admin: 02/05/19 17:25 Dose: Not Given Insulin Aspart (Novolog Vial Sliding Scale -) 1 vial SQ [facility]; Protocol Last Admin: 02/06/19 11:17 Dose: Not Given Insulin Detemir (Levemir Vial) 20 units SQ BIDAC [facility] Last Admin: 02/06/19 06:51 Dose: 20 unit Lidocaine (Lidoderm Patch -) 1 patch TP DAILY [facility] Last Admin: 02/06/19 09:17 Dose: 1 patch Losartan Potassium (Cozaar -) 50 mg PO DAILY [facility] Last Admin: 02/06/19 09:17 Dose: 50 mg Methyl Salicylate (Jose Luis-Valero -) 1 applic TP BID [facility] Last Admin: 02/06/19 09:18 Dose: 1 applic Miscellaneous (Lidoderm Patch Removal) 1 each MC DAILY@2200 [facility] Last Admin: 02/05/19 21:49 Dose: Not Given Nitrofurantoin Macrocrystals (Macrodantin -) 50 mg PO Q6HPO [facility] Last Admin: 02/06/19 11:17 Dose: 50 mg Tramadol HCl (Ultram -) 50 mg PO Q8H PRN PRN Reason: PAIN LEVEL 7 - 10 Last Admin: 02/05/19 12:37 Dose: 50 mg - Objective Vital Signs: Vital Signs Temperature 98.4 F 02/06/19 10:00 Pulse Rate 63 02/06/19 10:00 Respiratory Rate 18 02/06/19 10:00 Blood Pressure 136/76 02/06/19 10:00 O2 Sat by Pulse Oximetry (%) 98 02/06/19 09:00 Constitutional: Yes: Calm Cardiovascular: Yes: Regular Rate and Rhythm, S1, S2 Respiratory: Yes: CTA Bilaterally Gastrointestinal: Yes: Normal Bowel Sounds, Soft Musculoskeletal: Yes: Other (hamstring is less tense) Edema: No Neurological: Yes: Alert, Oriented Labs: CBC, BMP 02/04/19 08:45 02/04/19 08:45 INR, PTT INR 1.03 (0.83-1.09) 01/31/19 23:35 Problem List - Problems (1) Right-sided back pain Assessment/Plan: ct scan l4-l5 disc bulge l5-s1 disc bujlge noted muscle relaxant effective will stop flexeril tramadol to continue STR at SNF Code(s): M54.9 - DORSALGIA, UNSPECIFIED (2) Headache Assessment/Plan: resolved Code(s): R51 - HEADACHE Qualifiers: Headache type: unspecified Headache chronicity pattern: acute headache Intractability: intractable Qualified Code(s): R51 - Headache (3) Diabetes mellitus type 2 with hyperosmolarity, uncontrolled Assessment/Plan: levemir bid hgba1c 10.7 endocrine consilt noted Code(s): E11.00 - TYPE 2 DIAB W HYPROSM W/O NONKET HYPRGLY-HYPROS COMA ([facility]); E11.65 - TYPE 2 DIABETES MELLITUS WITH HYPERGLYCEMIA (4) UTI (urinary tract infection) Assessment/Plan: macrobid 1 week Code(s): N39.0 - URINARY TRACT INFECTION, SITE NOT SPECIFIED Assessment/Plan dc pllaning to SNF for STR
--- NOTE | 2019-02-06 14:14 | PN ---
Progress Note (short form) - Note Progress Note: 63 year old male history of chronic pancreatiis, DM, Patient was presented for URI in Dr Zuniga office and later she become lethargic and confused. She has spinal tap and it showed there is high rbc. Patient has normal ct head, she was afebrile and her bp was normal. Patient remains afebrile and oriented , no new symptoms. Paitent has no problem NEUROLOGICAL EXAMINATION Alert follow command neck is supple vss afebrile eomi, pupils reactive no face asymmetry moving all extremity sensation is normal gait not tested ct head is unremarkable csf protein is 52 wbc 1 rbc 59 Assessment/Plan 63 year old female history of DM, Chronic Pancreatitis came with altered mental status chage, lactic acidosis on metformin, recenlty has URI. Patient has spinal tap and wbc is 1, protein is 52 and rbc is 59, Most likley she has viral meningitis vs metabolic encpehalopathy ( lactic acidosis and blood sugar is 480) Plan: acyclovir was stopped by ID yesterday, feeling better, and going home tomorrow. - Continue supportive care Thanking you so much Miguel Arizmendi MD
[2019-02-06] MEDS: LIDOCAINE PATCH REMOVAL MC SCH (22:18)
[2019-02-07] MEDS: NITROFURANTOIN MACROCRYSTAL 50 MG CAPSULE (FP) PO SCH ×3 (06:24→17:06)
[2019-02-07] MEDS: INSULIN (LEVEMIR) 100 UNITS/ML UNITS SQ SCH ×2 (06:24→16:58)
[2019-02-07] MEDS: INSULIN SLIDING SCALE (NOVOLOG) 1 VIAL SQ SCH ×3 (06:25→16:58)
[2019-02-07] MEDS ORDERED: INSULIN (NOVOLOG) ASPART 100 UNITS/ML 10ML VIAL ONE ×3 (06:30→16:39)
[2019-02-07] MEDS: ENOXAPARIN NA (PORCINE) 40 MG/0.4 ML DISP.SYRIN SQ SCH (10:49)
[2019-02-07] MEDS: ESCITALOPRAM OXALATE 10 MG TABLET (FP) PO SCH (10:50)
[2019-02-07] MEDS: METHYL SALICYLATE/MENTHOL OINT 30 GM TUBE TP SCH (10:50)
[2019-02-07] MEDS: LOSARTAN POTASSIUM 50 MG TABLET (FP) PO SCH (10:50)
[2019-02-07] MEDS: LIDOCAINE 5% TOPICAL PATCH TP SCH (10:50)
--- NOTE | 2019-02-07 11:09 | PN ---
Progress Note, Physician History of Present Illness: stable no new issues - Current Medication List Current Medications: Active Medications Acetaminophen (Tylenol -) 650 mg PO Q6H PRN PRN Reason: HEADACHE Last Admin: 02/05/19 02:45 Dose: 650 mg Enoxaparin Sodium (Lovenox -) 40 mg SQ DAILY [facility] Last Admin: 02/07/19 10:49 Dose: 40 mg Escitalopram Oxalate (Lexapro -) 10 mg PO DAILY [facility] Last Admin: 02/07/19 10:50 Dose: 10 mg Insulin Aspart (Novolog Vial Sliding Scale -) [address] [facility]; Protocol Last Admin: 02/07/19 06:25 Dose: Not Given Insulin Detemir (Levemir Vial) 20 units SQ BIDAC [facility] Last Admin: 02/07/19 06:24 Dose: 20 unit Lidocaine (Lidoderm Patch -) 1 patch TP DAILY [facility] Last Admin: 02/07/19 10:50 Dose: 1 patch Losartan Potassium (Cozaar -) 50 mg PO DAILY [facility] Last Admin: 02/07/19 10:50 Dose: 50 mg Methyl Salicylate (Jose Luis-Valero -) 1 applic TP BID [facility] Last Admin: 02/07/19 10:50 Dose: 1 applic Miscellaneous (Lidoderm Patch Removal) 1 each MC DAILY@2200 [facility] Last Admin: 02/06/19 22:18 Dose: Not Given Nitrofurantoin Macrocrystals (Macrodantin -) 50 mg PO Q6HPO [facility] Last Admin: 02/07/19 06:24 Dose: 50 mg Tramadol HCl (Ultram -) 50 mg PO Q8H PRN PRN Reason: PAIN LEVEL 7 - 10 Last Admin: 02/05/19 12:37 Dose: 50 mg - Objective Vital Signs: Vital Signs Temperature 97.9 F 02/07/19 10:00 Pulse Rate 60 02/07/19 10:00 Respiratory Rate 18 02/07/19 10:00 Blood Pressure 134/75 02/07/19 10:00 O2 Sat by Pulse Oximetry (%) 97 02/06/19 21:00 Constitutional: Yes: No Distress, Calm Cardiovascular: Yes: S1, S2 Respiratory: Yes: Regular, CTA Bilaterally Gastrointestinal: Yes: Normal Bowel Sounds, Soft Musculoskeletal: Yes: WNL Extremities: Yes: WNL Neurological: Yes: Alert, Oriented Psychiatric: Yes: Alert, Oriented Labs: CBC, BMP 02/04/19 08:45 02/04/19 08:45 INR, PTT INR 1.03 (0.83-1.09) 01/31/19 23:35 Assessment/Plan Problem List - Problems (1) SOB (shortness of breath) Code(s): R06.02 - SHORTNESS OF BREATH (2) Diabetes mellitus Code(s): E11.9 - TYPE 2 DIABETES MELLITUS WITHOUT COMPLICATIONS Qualifiers: Diabetes mellitus type: type 2 Diabetes mellitus complication status: with neurologic complications (3) Headache Code(s): R51 - HEADACHE Qualifiers: Headache type: unspecified Headache chronicity pattern: acute headache Intractability: intractable Qualified Code(s): R51 - Headache (4) History of gastroesophageal reflux (GERD) Code(s): Z87.19 - PERSONAL HISTORY OF OTHER DISEASES OF THE DIGESTIVE SYSTEM (5) Hypertension Code(s): I10 - ESSENTIAL (PRIMARY) HYPERTENSION Qualifiers: Hypertension type: essential hypertension Qualified Code(s): I10 - Essential (primary) hypertension (6) Sepsis Code(s): A41.9 - SEPSIS, UNSPECIFIED ORGANISM Assessment/Plan 63 y.o. female with PMH of pancreatitis, IDDM, HTN, HLD, OA, panic disorder, s/ p hysterectomy, GERD, s/p cholecystectomy and appendectomy presents with c/o worsening SOB and developing cough for about 1 week SOB/cough AMS - suspect Viral meningitis vs encephalitis Leukocytosis Lactic acidosis ? induced by metformin MAXIMILIAN IDDM Hx of pancreatitis HTN HLD plan continue current mgmt rest as per the team
--- NOTE | 2019-02-07 12:08 | PN ---
Progress Note (short form) - Note Progress Note: 63 year old male history of chronic pancreatiis, DM, Patient was presented for URI in Dr Zuniga office and later she become lethargic and confused. She has spinal tap and it showed there is high rbc. Patient has normal ct head, she was afebrile and her bp was normal. Patient remains afebrile and oriented , no new symptoms. Paitent has no problem NEUROLOGICAL EXAMINATION Alert follow command neck is supple vss afebrile eomi, pupils reactive no face asymmetry moving all extremity sensation is normal gait not tested ct head is unremarkable csf protein is 52 wbc 1 rbc 59 Assessment/Plan 63 year old female history of DM, Chronic Pancreatitis came with altered mental status chage, lactic acidosis on metformin, recenlty has URI. Patient has spinal tap and wbc is 1, protein is 52 and rbc is 59, Most likley she has viral meningitis vs metabolic encpehalopathy ( lactic acidosis and blood sugar is 480). she is recovered completely and feeling good Plan: Patient can be discharged from neurological point of view. - Continue supportive care Thanking you so much Miguel Arizmendi MD
--- NOTE | 2019-02-07 14:55 | DS ---
Physical Examination Vital Signs: Vital Signs Temperature 97.9 F 02/07/19 10:00 Pulse Rate 60 02/07/19 10:00 Respiratory Rate 18 02/07/19 10:00 Blood Pressure 134/75 02/07/19 10:00 O2 Sat by Pulse Oximetry (%) 97 02/06/19 21:00 Constitutional: Yes: Calm Cardiovascular: Yes: Regular Rate and Rhythm, S1, S2 Respiratory: Yes: CTA Bilaterally Gastrointestinal: Yes: Normal Bowel Sounds, Soft Edema: No Neurological: Yes: Alert, Oriented Labs: CBC, BMP 02/04/19 08:45 02/04/19 08:45 Discharge Summary Problems reviewed: Yes Reason For Visit: SOB Current Active Problems Diabetes mellitus type 2 with hyperosmolarity, uncontrolled (Acute) Encephalitis (Acute) Right-sided back pain (Acute) SOB (shortness of breath) (Acute) UTI (urinary tract infection) (Acute) Hospital Course: PCP: Dr. Zuniga HISTORY OF PRESENT ILLNESS: 63 year old female with a past medical history of chronic pancreatitis and diabetes mellitus type II initially presented to the hospital for 1 week history of shortness of breath that initially began as a mild productive cough that progressed to acute dyspnea this morning, prompting her to come to the emergency room. She reportedly saw her doctor only a couple days ago, was given levaquin, flonase and cough syrup, which she reported did not help her. During her evaluation in the ER, patient became acutely delirious, far off of baseline per family. She reported severe headache and neck pain as well as diffuse abdominal pain. Denied any fevers or chills, nausea, vomiting, or diarrhea. Reports recent travel to the [facility] area, no international travel. Denies sick contacts. Denies tick bites/rashes. patrient also developed leg stiffness and back pain ct scan showed disc bulge l5-s1 started on flexeril and tramadol much improved developed UTI ecoli on nitrofurantoin - Instructions Referrals: Preeti Zuniga MD [Primary Care Provider] - - Home Medications Comprehensive Discharge Medication List: Ambulatory Orders metFORMIN HCL [Glucophage] 500 mg PO BIDAC 07/06/13 Telmisartan [Micardis] 80 mg PO DAILY 06/17/16 Escitalopram Oxalate [Lexapro -] 10 mg PO DAILY 10/07/16 Insulin Lispro Protamin/Lispro [Humalog Mix 50-50 Kwikpen] 10 unit SQ ASDIR Insulin Glargine,Hum.rec.anlog [Tex Reeves] 30 unit SQ HS 01/31/19
[2019-02-07 16:14] VITALS: BP 137/67; PULSE 61; TEMP 98.5
== END 2019-02-07 19:29 | disposition home or self-care (01) | DRG 871 ==
LOC: JER 13:46 → JERBED 19:04 → J5S 21:21 → JICU 23:47 → J8W 02-01 20:25
PROVIDERS: ADMIT Internal Medicine; ATTEND Family Medicine
PROC: 009U3ZX Drainage of Spinal Canal, Percutaneous Approach, Diagnostic (ICD-10-PCS; principal; 2019-02-01)
DX: A41.9 Sepsis, unspecified organism (principal); E11.00 Type 2 diabetes mellitus with hyperosmolarity without nonketotic hyperglycemic-hyperosmolar coma (NKHHC); J96.00 Acute respiratory failure, unspecified whether with hypoxia or hypercapnia; G04.90 Encephalitis and encephalomyelitis, unspecified; G93.41 Metabolic encephalopathy; E87.2 Acidosis; N17.9 Acute kidney failure, unspecified; N39.0 Urinary tract infection, site not specified; Z79.4 Long term (current) use of insulin; E11.65 Type 2 diabetes mellitus with hyperglycemia; Z88.0 Allergy status to penicillin; K76.0 Fatty (change of) liver, not elsewhere classified; E11.40 Type 2 diabetes mellitus with diabetic neuropathy, unspecified; F41.0 Panic disorder [episodic paroxysmal anxiety]; K21.9 Gastro-esophageal reflux disease without esophagitis; E78.5 Hyperlipidemia, unspecified; I10 Essential (primary) hypertension; E66.9 Obesity, unspecified; B96.20 Unspecified Escherichia coli [E. coli] as the cause of diseases classified elsewhere; Z68.34 Body mass index [BMI] 34.0-34.9, adult
CPT/HCPCS: 36415; 36600; 70450-TC; 71045-TC-FY; 71275-TC; 72131-TC; 73110-TC-RT-FY; 73130-TC-RT-FY; 74018-TC-FY; 74177-TC; 80048; 80053; 80307; 81003; 82010; 82140; 82550; 82607; 82803; 82945; 82962; 83036; 83605; 83690; 83735; 83880; 84100; 84157; 84443; 84484; 84550; 85025; 85027; 85379; 85610; 85651; 85730; 86140; 86617; 86644; 86663; 86664; 86665; 86694; 86735; 86765; 86777; 86787; 86788; 86789; 87040; 87070; 87086; 87186; 87205; 87476; 87529; 87798; 87899; 93005; 93010; 93971; 97116-GP; 97161-GP; 99284-25; J0131; J1100; J7030

== ENCOUNTER 2019-02-19 03:28 | Inpatient (IN) | payer OTHER ==
[2019-02-19] MEDS ORDERED: SODIUM CHLORIDE 1,000 ML IV STA (04:07)
[2019-02-19] MEDS ORDERED: ONDANSETRON 4 MG/2 ML VIAL IVPB ONE (04:07)
[2019-02-19] MEDS ORDERED: ACETAMINOPHEN 1000 MG/100 ML VIAL (NON FORMULARY) IVPB ONE (04:08)
--- NOTE | 2019-02-19 04:09 | PDOC ---
Attending Attestation - Resident Resident Name: Nathaniel Delaney - ED Attending Attestation I have performed the following: I have examined & evaluated the patient, The case was reviewed & discussed with the resident, I agree w/resident's findings & plan - HPI HPI: 02/19/19 05:22 see resident hpi - Physicial Exam PE: 02/19/19 05:23 agree with resident exam - Medical Decision Making 02/19/19 05:23 63-year-old female with history of pancreatitis complaining of abdominal pain and vomiting Labs reveal elevated lipase Plan for admission to medical service for analgesics and IV fluids
--- NOTE | 2019-02-19 04:17 | PDOC ---
History of Present Illness - General Chief Complaint: Pain Stated Complaint: VOMITING,BACK AND ABDOMINAL PAIN Time Seen by Provider: 02/19/19 03:59 - History of Present Illness Initial Comments: 02/19/19 04:09 63 yo F with h/o chronic pancreatitis, IDDM who p/w epigastric abdominal pain, vomiting. Patient reports acute onset of sharp epigastric pain radiating to back , beginning at 9:00 PM 02/18/19. States pain consistent with past pancreatitis. Also endorses nausea and 6 episodes of vomitting NBNB emesis beginning at 9:00 PM. Patient denies BERNAL, vision change, palpitations, cough, wheezing, orthopena, PND, leg swelling/pain, F,C, CP, SOB, urinary complaints, hematuria, BPR, diarrhea, constipation, lightheadedness, weakness, sensory changes. No recent travel, or change in diet. Patient reports being compliant with home Insulin Regimen. Past History - Past Medical History Allergies/Adverse Reactions: Allergies Allergy/AdvReac Type Severity Reaction Status Date / Time Penicillins Allergy Verified 02/19/19 04:02 Home Medications: Ambulatory Orders Telmisartan [Micardis] 80 mg PO DAILY 06/17/16 Escitalopram Oxalate [Lexapro -] 20 mg PO DAILY 10/07/16 Clotrimazole 15 gm TP DAILY 02/19/19 Insulin Glargine,Hum.rec.anlog [Toujeo Solostar] 25 unit SQ BID 02/19/19 Insulin Lispro [Humalog] 10 unit SQ TID 02/19/19 Nystatin Powder [Nystop Topical Powder -] 15 gm TP DAILY 02/19/19 Pantoprazole Sodium [Protonix -] 40 mg PO DAILY 02/19/19 Anemia: No Asthma: No Cancer: No Cardiac Disorders: No CVA: No COPD: No CHF: No DVT: No Dementia: No Diabetes: Yes Dialysis: No GI Disorders: Yes (pancreatitis, SBO, GERD) Disorders: No HTN: Yes Hypercholesterolemia: Yes Kidney Stones: No Liver Disease: No Psychiatric Problems: No Seizures: No Thyroid Disease: No Lung CA: No - Surgical History Abdominal Surgery: Yes Appendectomy: Yes Cardiac Surgery: No Cholecystectomy: Yes Gastric Stapling: No Lung Surgery: No Neurologic Surgery: No Orthopedic Surgery: No - Immunization History Immunization Up to Date: Yes - Psycho Social/Smoking Cessation Hx Smoking Status: No Smoking History: Never smoked Have you smoked in the past 12 months: No Number of Cigarettes Smoked Daily: 0 If you are a former smoker, when did you quit?: november 2012 Hx Alcohol Use: Yes Drug/Substance Use Hx: No Substance Use Type: None Hx Substance Use Treatment: No Review of Systems - Review of Systems Comments:: 02/19/19 04:10 GENERAL/CONSTITUTIONAL: No fever or chills. No weakness. HEAD, EYES, EARS, NOSE AND THROAT: No change in vision. No ear pain or discharge. No sore throat. CARDIOVASCULAR: No chest pain or shortness of breath RESPIRATORY: No cough, wheezing, or hemoptysis. GASTROINTESTINAL: + Abdominal pain, nausea, vomiting. No constipation. GENITOURINARY: No dysuria, frequency, or change in urination. MUSCULOSKELETAL: No joint or muscle swelling or pain. No neck or back pain. SKIN: No rash NEUROLOGIC: No headache, vertigo, loss of consciousness, or change in strength/ sensation. ENDOCRINE: No increased thirst. No abnormal weight change HEMATOLOGIC/LYMPHATIC: No anemia, easy bleeding, or history of blood clots. ALLERGIC/IMMUNOLOGIC: No hives or skin allergy. *Physical Exam - Vital Signs Last Vital Signs Temp Pulse Resp BP Pulse Ox 98.2 F 81 20 157/90 97 02/19/19 03:28 02/19/19 03:28 02/19/19 03:28 02/19/19 03:28 02/19/19 03:28 - Physical Exam Comments: 02/19/19 04:11 GENERAL: Awake, alert, and fully oriented, in no acute distress HEAD: No signs of trauma, normocephalic, atraumatic EYES: PERRLA, EOMI, sclera anicteric, conjunctiva clear ENT: Hearing grossly normal, nares patent, oropharynx clear without exudates. Moist mucosa NECK: Normal ROM, supple, no lymphadenopathy, JVD, or masses LUNGS: No distress, speaks full sentences, clear to auscultation bilaterally HEART: Regular rate and rhythm, normal S1 and S2, no murmurs, rubs or gallops, peripheral pulses normal and equal bilaterally. ABDOMEN: + Epigastric ttp. Soft, NDS, normoactive bowel sounds. No guarding, no rebound. No masses. Neg CVA ttp. EXTREMITIES : Normal inspection, Normal range of motion, no edema. No clubbing or cyanosis NEUROLOGICAL: Cranial nerves II through XII grossly intact. Normal speech, normal gait, no focal sensorimotor deficits SKIN: Warm, Dry, normal turgor, no rashes or lesions noted ED Treatment Course - LABORATORY CBC & Chemistry Diagram: 02/19/19 04:10 02/19/19 04:10 Medical Decision Making - Medical Decision Making 02/19/19 04:12 63 yo F with h/o chronic pancreatitis, IDDM who p/w epigastric abdominal pain, vomiting beginning 9:00 PM (02/18/19). Worse with PO intake. Vitals wnl, AF, A& Ox3. Physical exam notable for epigastric ttp. Will consider pancreatitis, PUD , biliary dz., colitis, enteritis, gastroparesis. Will assess for electrolyte abnml, hypoglycemia, metabolic and toxic derangements. Will provide pain control and reassess. Ed course: Zofran, Tylenol, NS Patient with continued abdominal pain Morphine 4 mg Laboratory Tests 02/19/19 02/19/19 02/19/19 04:10 04:10 04:10 WBC 12.2 H Hgb 13.2 Hct 40.5 Plt Count 275 Sodium 138 Potassium 4.3 Carbon Dioxide 22 Anion Gap 10 BUN 21.9 H Creatinine 0.9 Random Glucose 293 H Total Bilirubin 0.4 AST 17 ALT 32 Alkaline Phosphatase 82 Troponin I < 0.02 Lipase 673 H Alcohol, Quantitative < 3.0 02/19/19 05:07 EKG: NSR with absent GISSELLE, STD. Nml interval duration and axis. Nml R wave progression. Absent Q waves. 02/19/19 05:18 Plan to admit intractable pain/pancreatitis 02/19/19 05:29 Pt. 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
[2019-02-19] MEDS ORDERED: ACETAMINOPHEN INJECTION 100 ML IVPB ONE (04:18)
[2019-02-19] MEDS ORDERED: ONDANSETRON 4 MG/2 ML VIAL ONE ×2 (04:18→07:28)
[2019-02-19 04:20] LABS: BASO % 1.1 % (0-2.0); EOS % 0.2 % (0-4.5); HEMATOCRIT 40.5 % (32.4-45.2); HEMOGLOBIN 13.2 GM/dL (10.7-15.3); LYMPH % 14.6 % (8-40); MCHC 32.6 g/dl (32.0-36.0); MEAN CELL VOLUME 85.8 fl (80-96); MONO % 5.7 % (3.8-10.2); NEUT % 78.4 % (42.8-82.8); PLATELET COUNT 275 K/MM3 (134-434); RBC 4.72 M/mm3 (3.60-5.2); RDW 14.6 % (11.6-15.6); WHITE BLOOD COUNT 12.2 K/mm3 (4.0-10.0)
[2019-02-19 04:41] LABS: ALBUMIN 3.7 g/dl (3.4-5.0); ALK PHOS 82 U/L (45-117); ANION GAP 10 MMOL/L (8-16); BILIRUBIN,TOTAL 0.4 mg/dL (0.2-1); BLOOD UREA NITROGEN 21.9 mg/dL (7-18); CALCIUM 9.2 mg/dL (8.5-10.1); CHLORIDE 106 mmol/L (98-107); CO2 22 mmol/L (21-32); CREATININE 0.9 mg/dL (0.55-1.3); GLUCOSE,RANDOM 293 mg/dL (74-106); LIPASE 673 U/L (73-393); POTASSIUM 4.3 mmol/L (3.5-5.1); SGOT/AST 17 U/L (15-37); SGPT/ALT 32 U/L (13-61); SODIUM 138 mmol/L (136-145)
[2019-02-19] MEDS ORDERED: morphine CARPU-JECT 4 MG/1 ML DISP.SYRIN IVPUSH ONE (04:42)
[2019-02-19] MEDS ORDERED: morphine SULFATE 4 MG/ML VIAL ONE ×2 (04:53→07:28)
[2019-02-19] MEDS ORDERED: LACTATED RINGERS SOLUTION 1,000 ML IV SCH (05:30)
--- NOTE | 2019-02-19 05:41 | HP ---
Admitting History and Physical - Primary Care Physician PCP: Preeti Zuniga - Admission Chief Complaint: Epigastric Pain, Vomiting History of Present Illness: This is a 63 yo F with h/o Chronic Pancreatitis, IDDM who p/w epigastric abdominal pain, vomiting. Who presents to the ED with acute onset of sharp epigastric pain radiating to back, beginning at 9:00 PM 02/18/19. Patient reports pain consistent with past pancreatitis. She also endorses nausea and 6 episodes of vomitting NBNB emesis beginning at 9:00 PM. Patient denies BERNAL, vision change, palpitations, cough, wheezing, orthopena, PND, leg swelling/pain , F,C, CP, SOB, urinary complaints, hematuria, BPR, diarrhea, constipation, lightheadedness, weakness, sensory changes. No recent travel, or change in diet. Patient reports being compliant with home Insulin Regimen. 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 (Pt has been recently w/u for early dementia, which runs in her family.) Cardiovascular: Yes: HTN, Hyperlipdemia Gastrointestinal: Yes: Pancreatitis (?), Other (SBO) Psych: Yes: Depression, Panic Musculoskeletal: Yes: Osteoarthritis, Other (Knee pain) Endocrine: Yes: Diabetes Mellitus - Past Surgical History Past Surgical History: Yes: Appendectomy, Cholecystectomy, Colonoscopy (neg 2 yrs ago at ), (x2), Hysterectomy - Smoking History Smoking history: Never smoked Have you smoked in the past 12 months: No Aproximately how many cigarettes per day: 0 If you are a former smoker, when did you quit?: november 2012 - Alcohol/Substance Use Hx Alcohol Use: Yes - Social History ADL: Independent History of Recent Travel: Yes ([place], [place] in rural environment) Home Medications - Allergies Allergies/Adverse Reactions: Allergies Allergy/AdvReac Type Severity Reaction Status Date / Time Penicillins Allergy Verified 02/19/19 04:02 - Home Medications Home Medications: Ambulatory Orders Telmisartan [Micardis] 80 mg PO DAILY 06/17/16 Escitalopram Oxalate [Lexapro -] 20 mg PO DAILY 10/07/16 Clotrimazole 15 gm TP DAILY 02/19/19 Insulin Glargine,Hum.rec.anlog [Toujeo Solostar] 25 unit SQ BID 02/19/19 Insulin Lispro [Humalog] 10 unit SQ TID 02/19/19 Nystatin Powder [Nystop Topical Powder -] 15 gm TP DAILY 02/19/19 Pantoprazole Sodium [Protonix -] 40 mg PO DAILY 02/19/19 Family Medical History Family History: Unable to Obtain Review of Systems - Review of Systems Constitutional: reports: Loss of Appetite Eyes: reports: No Symptoms HENT: reports: No Symptoms Neck: reports: No Symptoms Cardiovascular: reports: No Symptoms Respiratory: reports: No Symptoms Gastrointestinal: reports: Abdominal Pain, Vomiting Genitourinary: reports: No Symptoms Breasts: reports: No Symptoms Reported Musculoskeletal: reports: No Symptoms Integumentary: reports: No Symptoms Neurological: reports: No Symptoms Endocrine: reports: No Symptoms Hematology/Lymphatic: reports: No Symptoms Psychiatric: reports: No Symptoms Pain Intensity: 6 Physical Examination Vital Signs: Vital Signs Temperature 98.2 F 02/19/19 03:28 Pulse Rate 75 02/19/19 04:59 Respiratory Rate 20 02/19/19 04:59 Blood Pressure 126/70 02/19/19 04:59 O2 Sat by Pulse Oximetry (%) 98 02/19/19 04:59 Constitutional: Yes: Mild Distress, Obese Eyes: Yes: WNL, Conjunctiva Clear, EOM Intact, PERRL HENT: Yes: WNL, Atraumatic, Normocephalic Neck: Yes: WNL, Supple, Trachea Midline Cardiovascular: Yes: WNL, Regular Rate and Rhythm, S1, S2 Respiratory: Yes: WNL, Regular, CTA Bilaterally Gastrointestinal: Yes: Abdomen, Obese, Hyperactive Bowel Sounds, Tenderness (RUQ ), Tenderness, Epigastrium ...Rectal Exam: Yes: Sphincter Tone Normal Renal/: Yes: WNL Breast(s): Yes: WNL Musculoskeletal: Yes: Back Pain Extremities: Yes: WNL Edema: No Peripheral Pulses WNL: Yes Integumentary: Yes: Rash Neurological: Yes: WNL, Alert, Oriented ...Motor Strength: WNL Psychiatric: Yes: WNL, Alert, Oriented Labs: CBC, BMP 02/19/19 04:10 02/19/19 04:10 Laboratory Results - last 24 hr 02/19/19 02/19/19 02/19/19 04:10 04:10 04:10 WBC 12.2 H RBC 4.72 Hgb 13.2 Hct 40.5 MCV 85.8 MCH 28.0 MCHC 32.6 RDW 14.6 Plt Count 275 MPV 8.0 Absolute Neuts (auto) 9.6 H Neutrophils % 78.4 Lymphocytes % 14.6 Monocytes % 5.7 Eosinophils % 0.2 D Basophils % 1.1 D Nucleated RBC % 0 Sodium 138 Potassium 4.3 Chloride 106 Carbon Dioxide 22 Anion Gap 10 BUN 21.9 H Creatinine 0.9 Est GFR (CKD-EPI)AfAm 78.87 Est GFR (CKD-EPI)NonAf 68.05 Random Glucose 293 H Calcium 9.2 Total Bilirubin 0.4 AST 17 ALT 32 Alkaline Phosphatase 82 Creatine Kinase 122 Troponin I < 0.02 Total Protein 7.0 Albumin 3.7 Lipase 673 H Alcohol, Quantitative < 3.0 Intake & Output 02/16/19 02/17/19 02/18/19 02/19/19 23:59 23:59 23:59 23:59 Weight 70.76 kg Imaging - Results Chest X-ray: Image Reviewed EKG: Pending Problem List - Problems (1) Chronic recurrent pancreatitis Assessment/Plan: GI Consult No leukocytosis, afebrile Lipase 693 Continue IVF NPO Morphine Sulfate prn Zofran prn pending EKG review concern for QTc prolongation Monitor CBC, BMP Monitor vitals Code(s): K86.1 - OTHER CHRONIC PANCREATITIS (2) Epigastric abdominal pain Assessment/Plan: Likely secondary to Chronic Pancreatitis Lipase 673 No leukocytosis, pt is afebrile Appreciate GI consult Continue IVF NPO Monitor CBC, BMP Monitor vitals Consider repeat CTAP last done 01/31, if condition worsens Code(s): R10.13 - EPIGASTRIC PAIN (3) Rash Assessment/Plan: Unknown etiology- ?medication Patient reports pruritic rash to chest, extremities x 8 days Continue home meds Code(s): R21 - RASH AND OTHER NONSPECIFIC SKIN ERUPTION (4) DM2 (diabetes mellitus, type 2) Assessment/Plan: stable BGMs Hold ISS until diet resumed Code(s): E11.9 - TYPE 2 DIABETES MELLITUS WITHOUT COMPLICATIONS (5) History of gastroesophageal reflux (GERD) Assessment/Plan: Stable Continue PPI Code(s): Z87.19 - PERSONAL HISTORY OF OTHER DISEASES OF THE DIGESTIVE SYSTEM (6) Hypertension Assessment/Plan: stable Monitor BP Continue home meds Code(s): I10 - ESSENTIAL (PRIMARY) HYPERTENSION Assessment/Plan This is a 63 y/o woman PMHx of Chronic Pancreatitis, IDDM. Admitted for Chronic Pancreatitis for further evaluation of their emergent condition. Plan: See Problem List FEN LR@150ml/hr Replete lytes prn NPO DVT ppx OOB SCDs Heparin SQ Code Status: Full Code Dispo: Requires Inpatient Care Visit type - Emergency Visit Emergency Visit: Yes ED Registration Date: 02/18/19 Care time: The patient presented to the Emergency Department on the above date and was hospitalized for further evaluation of their emergent condition. - New Patient This patient is new to me today: Yes Date on this admission: 02/19/19 - Critical Care Critical Care patient: No
[2019-02-19] MEDS ORDERED: FAMOTIDINE 20 MG/50 ML IVPB 20 MG/50 ML MG IVPB ONE ×2 (07:05→07:28)
[2019-02-19] MEDS: morphine SULFATE 4 MG/ML VIAL IVPUSH PRN ×3 (07:39→18:04)
[2019-02-19] MEDS ORDERED: ONDANSETRON 4 MG/2 ML VIAL IVPUSH PRN (10:00)
--- NOTE | 2019-02-19 10:07 | PN ---
Progress Note, Physician Chief Complaint: Abdominal Pain Pancreatitis History of Present Illness: Previous notes and events reviewed awake and alert NAD complain of epigastric pain, denies vomiting but complain of nausea complain of pruritic rash to abdomen - Current Medication List Current Medications: Active Medications Acetaminophen (Ofirmev Injection -) 1,000 mg IVPB Q6H PRN PRN Reason: PAIN LEVEL 7-10 Clotrimazole (Lotrimin 1% Cream -) 1 applic TP BID [facility] Escitalopram Oxalate (Lexapro -) 20 mg PO DAILY [facility] Heparin Sodium (Porcine) (Heparin -) 5,000 unit SQ BID [facility] Lactated Ringer's (Lactated Ringers Solution) 1,000 mls @ 150 mls/hr IV ASDIR EDILIA Last Admin: 02/19/19 05:49 Dose: 150 mls/hr Morphine Sulfate (Morphine Sulfate) 4 mg IVPUSH Q4H PRN PRN Reason: PAIN LEVEL 4-6 Last Admin: 02/19/19 07:39 Dose: 4 mg Nystatin (Nystop Powder -) 1 applic TP DAILY [facility] Ondansetron HCl (Zofran Injection) 4 mg IVPUSH Q6H PRN PRN Reason: NAUSEA Last Admin: 02/19/19 07:38 Dose: 4 mg Pantoprazole Sodium (Protonix Iv) 40 mg IVPUSH DAILY [facility] Valsartan (Diovan -) 320 mg PO DAILY [facility] - Objective Vital Signs: Vital Signs Temperature 98.0 F 02/19/19 09:19 Pulse Rate 61 02/19/19 09:19 Respiratory Rate 18 02/19/19 09:19 Blood Pressure 109/63 02/19/19 09:19 O2 Sat by Pulse Oximetry (%) 95 02/19/19 09:19 Constitutional: Yes: No Distress, Calm, Obese Eyes: Yes: Conjunctiva Clear HENT: Yes: Atraumatic Cardiovascular: Yes: Regular Rate and Rhythm Respiratory: Yes: Regular, CTA Bilaterally Gastrointestinal: Yes: Normal Bowel Sounds, Soft, Abdomen, Obese, Tenderness, Epigastrium Musculoskeletal: Yes: WNL Extremities: Yes: WNL Edema: No Integumentary: Yes: Rash (abdomen) Neurological: Yes: Alert, Oriented Psychiatric: Yes: Alert, Oriented Labs: CBC, BMP 02/19/19 04:10 02/19/19 04:10 Problem List - Problems (1) Chronic recurrent pancreatitis Assessment/Plan: -GI consult -LR IV hydration -abrams control -Abdominal US -NPO -Lipase 673 -afebrile -leukocytosis -Zofran PRN for nausea Code(s): K86.1 - OTHER CHRONIC PANCREATITIS (2) Epigastric abdominal pain Assessment/Plan: -GI consult -LR IV hydration -abrams control -Abdominal US -NPO -Lipase 673 -afebrile -leukocytosis -Zofran PRN for nausea Code(s): R10.13 - EPIGASTRIC PAIN (3) DM2 (diabetes mellitus, type 2) Assessment/Plan: -BGM ACHS -currenlty NPO, resume ISS when diet resumed Code(s): E11.9 - TYPE 2 DIABETES MELLITUS WITHOUT COMPLICATIONS (4) Hypertension Assessment/Plan: -Diovan Code(s): I10 - ESSENTIAL (PRIMARY) HYPERTENSION (5) Rash Assessment/Plan: -Clotrimazole, Nystatin Code(s): R21 - RASH AND OTHER NONSPECIFIC SKIN ERUPTION Assessment/Plan see problem list dvt ppx
[2019-02-19] MEDS ORDERED: ESCITALOPRAM OXALATE 10 MG TABLET (FP) ONE (10:12)
[2019-02-19] MEDS ORDERED: DEXTROSE 5%-LACTATED RINGERS 1,000 ML IV SCH (10:15)
[2019-02-19] MEDS ORDERED: LACTATED RINGERS SOLUTION 1,000 ML/1,000 ML INFUS.BAG IV SCH ×2 (10:15→17:30)
[2019-02-19] MEDS: ACETAMINOPHEN 1000 MG/100 ML VIAL (NON FORMULARY) IVPB PRN ×2 (10:25→22:41)
[2019-02-19] MEDS: VALSARTAN 160 MG TABLET (UD) PO SCH (10:29)
[2019-02-19] MEDS: HEPARIN NA (PORCINE) 5,000 UNITS/ML 1ML VIAL SQ SCH ×2 (10:29→21:02)
[2019-02-19] MEDS: PANTOPRAZOLE SODIUM 40 MG VIAL IVPUSH SCH (10:29)
[2019-02-19] MEDS: ESCITALOPRAM OXALATE 20 MG TABLET (FP) PO SCH (10:30)
[2019-02-19] MEDS ORDERED: FLU VACCINE QUAD 60 MCG/0.5 ML (MDV 19-20) IM ONE (12:00)
--- NOTE | 2019-02-19 12:11 | EKG ---
Test Reason : Blood Pressure : / mmHG Vent. Rate : 075 BPM Atrial Rate : 075 BPM P-R Int : 130 ms QRS Dur : 084 ms QT Int : 390 ms P-R-T Axes : 021 012 041 degrees QTc Int : 435 ms NORMAL SINUS RHYTHM NORMAL ECG WHEN COMPARED WITH ECG OF 31-JAN-2019 14:05, NO SIGNIFICANT CHANGE WAS FOUND Confirmed by GREG MURCIA MD ([id number]) on 02/19/2019 12:10:53 PM Referred By: Confirmed By:GREG MURCIA MD
--- NOTE | 2019-02-19 15:41 | CON.GI ---
Consult Consult Specialty:: Gastroenterology Referred by:: Dr. Zuniga Reason for Consultation:: Abdominal pain - History of Present Illness Chief Complaint: Abdominal pain History of Present Illness: 63yo female h/o cholecystectomy, DM, idiopathic pancreatitis presenting with abdominal pain x 2 days. 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 She reports developing worsening epigastric pain 2 days ago with radiation towards back. Associated nausea and vomiting also noted. Denies obvious trigger or aggravating factor, denies association with food. Reports regular bm, denies recent alteration or blood in stools. Denies fever/chills. Denies etoh, smoking or new medications. Pt reports symptoms are similar to prior episode 2 years ago, seen by Dr. Vargas and Dr. Lofton in 2017 noted to have had extensive workup including CT, MRI, genetics testing without obvious etiology for pancreatitis identified. Also reported to have had prior pancreatic stent placement (details and reports not available). 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 (Pt has been recently w/u for early dementia, which runs in her family.) Cardio/Vascular: Yes: HTN, Hyperlipdemia Gastrointestinal: Yes: Pancreatitis (?), Other (SBO) Psych: Yes: Depression, Panic Musculoskeletal: Yes: Osteoarthritis, Other (Knee pain) Endocrine: Yes: Diabetes Mellitus - Past Surgical History Past Surgical History: Yes: Appendectomy, Cholecystectomy, Colonoscopy (neg 2 yrs ago at ), (x2), Hysterectomy - Alcohol/Substance Use Hx Alcohol Use: Yes - Smoking History Smoking history: Never smoked Have you smoked in the past 12 months: No Aproximately how many cigarettes per day: 0 If you are a former smoker, when did you quit?: november 2012 - Social History Usual Living Arrangement: With Spouse (elevator apartment) ADL: Independent History of Recent Travel: Yes ([place], [place] in rural environment) Home Medications - Allergies Allergies/Adverse Reactions: Allergies Allergy/AdvReac Type Severity Reaction Status Date / Time Penicillins Allergy Verified 02/19/19 04:02 - Home Medications Home Medications: Ambulatory Orders Telmisartan [Micardis] 80 mg PO DAILY 06/17/16 Escitalopram Oxalate [Lexapro -] 20 mg PO DAILY 10/07/16 Clotrimazole 15 gm TP DAILY 02/19/19 Insulin Glargine,Hum.rec.anlog [Toujeo Solostar] 25 unit SQ BID 02/19/19 Insulin Lispro [Humalog] 10 unit SQ TID 02/19/19 Nystatin Powder [Nystop Topical Powder -] 15 gm TP DAILY 02/19/19 Pantoprazole Sodium [Protonix -] 40 mg PO DAILY 02/19/19 Review of Systems - Review of Systems Constitutional: reports: No Symptoms Cardiovascular: reports: No Symptoms Respiratory: reports: No Symptoms Gastrointestinal: reports: Abdominal Pain, Nausea Physical Exam-GI Vital Signs: Vital Signs Temperature 97.9 F 02/19/19 10:00 Pulse Rate 65 02/19/19 10:00 Respiratory Rate 14 02/19/19 10:00 Blood Pressure 139/70 02/19/19 10:00 O2 Sat by Pulse Oximetry (%) 95 02/19/19 09:19 Constitutional: Yes: No Distress, Calm Cardiovascular: Yes: WNL, Regular Rate and Rhythm Respiratory: Yes: WNL, Regular, CTA Bilaterally ...Palpate: Yes: Other (Abd soft, tender on palpation in epigastrium and periumbilical region, non distended, no rebound, guarding or rigidity, +midline well healed incisional scar) Labs: CBC, BMP 02/19/19 04:10 02/19/19 04:10 Imaging - Results Ultrasound: Report Reviewed Problem List - Problems (1) Abdominal pain Assessment/Plan: 63yo female h/o cholecystectomy, DM, idiopathic pancreatitis presenting with epigastric/periumbilical pain x 2 days with elevated lipase. US unremarkable. Prior workup noted for pancreatitis in 2017 without obvious etiology identified. Possibly underlying pancreatitis as similar to prior episode however lipase elevation not quite diagnostic (though cannot exclude chronic pancreatitis) and other etiologies need to be excluded. LFTs normal. -Recommend NPO, IVF -Recommend NS at 200-250cc hr x 12-24 hours -Analgesia prn -CT abd/pelvis with contrast for further evaluation Code(s): R10.9 - UNSPECIFIED ABDOMINAL PAIN
[2019-02-19] MEDS: SODIUM CHLORIDE 1,000 ML IV SCH ×2 (18:02→23:00)
[2019-02-19] MEDS: NYSTATIN POWDER 100,000 UNITS/GM - 15 GM TOPICAL POWDER TP SCH (18:06)
[2019-02-19] MEDS: CLOTRIMAZOLE 1% CREAM 15 GM TUBE TP SCH ×2 (18:07→21:02)
[2019-02-19 18:39] VITALS: BMI 30.4
[2019-02-20] MEDS: morphine SULFATE 4 MG/ML VIAL IVPUSH PRN (01:44)
[2019-02-20] MEDS: SODIUM CHLORIDE 1,000 ML IV SCH (05:34)
[2019-02-20 09:08] LABS: BASO % 1.5 % (0-2.0); EOS % 0.3 % (0-4.5); HEMATOCRIT 33.7 % (32.4-45.2); HEMOGLOBIN 11.3 GM/dL (10.7-15.3); LYMPH % 18.6 % (8-40); MCH 28.8 pg (25.7-33.7); MCHC 33.5 g/dl (32.0-36.0); MEAN CELL VOLUME 86.2 fl (80-96); MEAN PLT VOLUME 8.2 fl (7.5-11.1); MONO % 5.6 % (3.8-10.2); PLATELET COUNT 215 K/MM3 (134-434); RBC 3.92 M/mm3 (3.60-5.2); RDW 14.6 % (11.6-15.6); WHITE BLOOD COUNT 6.5 K/mm3 (4.0-10.0)
[2019-02-20 09:10] LABS: BLOOD UREA NITROGEN 7.9 mg/dL (7-18); CALCIUM 7.9 mg/dL (8.5-10.1); CREATININE 0.7 mg/dL (0.55-1.3); POTASSIUM 4.3 mmol/L (3.5-5.1)
[2019-02-20] MEDS ORDERED: ESCITALOPRAM OXALATE 10 MG TABLET (FP) ONE (09:26)
[2019-02-20] MEDS: HEPARIN NA (PORCINE) 5,000 UNITS/ML 1ML VIAL SQ SCH ×2 (10:13→21:20)
[2019-02-20] MEDS: PANTOPRAZOLE SODIUM 40 MG VIAL IVPUSH SCH (10:13)
[2019-02-20] MEDS: VALSARTAN 160 MG TABLET (UD) PO SCH (10:13)
[2019-02-20] MEDS: ESCITALOPRAM OXALATE 20 MG TABLET (FP) PO SCH (10:13)
[2019-02-20] MEDS: NYSTATIN POWDER 100,000 UNITS/GM - 15 GM TOPICAL POWDER TP SCH (10:50)
[2019-02-20] MEDS: CLOTRIMAZOLE 1% CREAM 15 GM TUBE TP SCH ×2 (10:50→21:20)
--- NOTE | 2019-02-20 12:30 | PN ---
Progress Note, Physician Chief Complaint: complains of feeling nauseous and abdominal pain on ivf and zofran and morphine - Current Medication List Current Medications: Active Medications Acetaminophen (Ofirmev Injection -) 1,000 mg IVPB Q6H PRN PRN Reason: PAIN LEVEL 7-10 Last Admin: 02/19/19 22:41 Dose: 1,000 mg Clotrimazole (Lotrimin 1% Cream -) 1 applic TP BID [facility] Last Admin: 02/19/19 21:02 Dose: 1 applic Escitalopram Oxalate (Lexapro -) 20 mg PO DAILY [facility] Last Admin: 02/20/19 10:13 Dose: 20 mg Heparin Sodium (Porcine) (Heparin -) 5,000 unit SQ BID [facility] Last Admin: 02/20/19 10:13 Dose: 5,000 unit Dextrose/Sodium Chloride (D5-1/2ns -) 1,000 mls @ 100 mls/hr IV ASDIR [facility] Ketorolac Tromethamine (Toradol Injection -) 30 mg IVPUSH Q6H PRN PRN Reason: PAIN LEVEL 4 - 6 Stop: 02/24/19 17:25 Morphine Sulfate (Morphine Sulfate) 4 mg IVPUSH Q4H PRN PRN Reason: PAIN LEVEL 4-6 Last Admin: 02/20/19 01:44 Dose: 4 mg Nystatin (Nystop Powder -) 1 applic TP DAILY [facility] Last Admin: 02/19/19 18:06 Dose: 1 applic Ondansetron HCl (Zofran Injection) 4 mg IVPUSH Q6H PRN PRN Reason: NAUSEA Last Admin: 02/19/19 07:38 Dose: 4 mg Pantoprazole Sodium (Protonix Iv) 40 mg IVPUSH DAILY [facility] Last Admin: 02/20/19 10:13 Dose: 40 mg Valsartan (Diovan -) 320 mg PO DAILY [facility] Last Admin: 02/20/19 10:13 Dose: 320 mg - Objective Vital Signs: Vital Signs Temperature 98 F 02/19/19 23:00 Pulse Rate 68 02/19/19 23:00 Respiratory Rate 16 02/19/19 23:00 Blood Pressure 134/78 02/19/19 23:00 O2 Sat by Pulse Oximetry (%) 98 02/19/19 20:22 Constitutional: Yes: Mild Distress Cardiovascular: Yes: Regular Rate and Rhythm, S1, S2 Respiratory: Yes: CTA Bilaterally Gastrointestinal: Yes: Tenderness, Epigastrium Edema: No Neurological: Yes: Alert Labs: CBC, BMP 02/20/19 07:30 02/20/19 07:30 Problem List - Problems (1) Epigastric abdominal pain Assessment/Plan: NPO ivf d51/2 NS trend lipase - added to morning labs zofran ct scan noted for pancreatic head- mild edema surrounding pancreatic head and uncinate process and few shotty lymph nodes seen Code(s): R10.13 - EPIGASTRIC PAIN
[2019-02-20] MEDS: KETOROLAC TROMETHAMINE 30 MG/1 ML VIAL IVPUSH PRN (12:37)
[2019-02-20] MEDS: DEXTROSE 5%-0.45% SALINE 1,000 ML IV SCH ×2 (12:51→23:02)
--- NOTE | 2019-02-20 14:28 | PN ---
Problem List - Problems (1) Epigastric abdominal pain Code(s): R10.13 - EPIGASTRIC PAIN
[2019-02-20] MEDS ORDERED: PT OWN MED DRAWER 7, Y5N ONE (14:47)
--- NOTE | 2019-02-20 17:29 | PN.GI ---
GI Progress Note Subjective: No acute events Pain improved Daughter present at bedside. She explains that her mother is followed by piano builder Dr. Mary Aly Patient's father had pancreatitis as well (not alcohol induced) - Objective Vital Signs: Vital Signs Temperature 99.4 F 02/20/19 15:31 Pulse Rate 72 02/20/19 15:31 Respiratory Rate 18 02/20/19 15:31 Blood Pressure 142/74 02/20/19 15:31 O2 Sat by Pulse Oximetry (%) 98 02/20/19 09:00 Constitutional: Calm Eyes: No: Sclera Icterus Cardiovascular: Yes: Regular Rate and Rhythm Respiratory: Yes: CTA Bilaterally Gastrointestinal Inspection: Yes: Scars (Mid line vertical upper abdominal scar extending into vertical midline pelvic scar). No: Distention ...Auscultate: Yes: Normoactive Bowel Sounds ...Palpate: Yes: Hepatomegaly, Soft, Tenderness (Mild TTP mid abdomen) ...Percussion: No: Tympanitic Edema: No (No LE edema) Neurological: Yes: Alert Labs: CBC, BMP 02/20/19 07:30 02/20/19 07:30 - ....Imaging Cat Scan: Report Reviewed, Image Reviewed Problem List - Problems (1) Chronic recurrent pancreatitis Assessment/Plan: recurrent episodes of acute interstitial pancreatitis. ? acute on chronic pancreatitis. ? familial etiology of pancreatitis episodes given father's history. Clinically improved Advance diet to full liquids then as tolerated Ms. Cook has been following with Dr. Mary Aly, biliary endoscopist regarding her pancreatitis. Advised that she arrange follow-up with her when acute issues are resolved. Code(s): K86.1 - OTHER CHRONIC PANCREATITIS
[2019-02-21] MEDS: KETOROLAC TROMETHAMINE 30 MG/1 ML VIAL IVPUSH PRN (00:20)
[2019-02-21] MEDS ORDERED: ESCITALOPRAM OXALATE 10 MG TABLET (FP) ONE (09:23)
[2019-02-21] MEDS: PANTOPRAZOLE SODIUM 40 MG VIAL IVPUSH SCH (09:52)
[2019-02-21] MEDS: HEPARIN NA (PORCINE) 5,000 UNITS/ML 1ML VIAL SQ SCH ×2 (09:52→21:22)
[2019-02-21] MEDS: ESCITALOPRAM OXALATE 20 MG TABLET (FP) PO SCH (09:52)
[2019-02-21] MEDS: VALSARTAN 160 MG TABLET (UD) PO SCH (09:52)
[2019-02-21] MEDS: NYSTATIN POWDER 100,000 UNITS/GM - 15 GM TOPICAL POWDER TP SCH (09:54)
[2019-02-21] MEDS: CLOTRIMAZOLE 1% CREAM 15 GM TUBE TP SCH ×2 (09:54→21:31)
[2019-02-21 10:21] LABS: ALBUMIN 2.9 g/dl (3.4-5.0); BILIRUBIN,TOTAL 0.5 mg/dL (0.2-1); BLOOD UREA NITROGEN 6.8 mg/dL (7-18); CALCIUM 7.8 mg/dL (8.5-10.1); CREATININE 0.8 mg/dL (0.55-1.3); POTASSIUM 4.3 mmol/L (3.5-5.1); TOT PROT 5.6 g/dl (6.4-8.2)
--- NOTE | 2019-02-21 13:27 | PN ---
Progress Note, Physician Chief Complaint: patient feeling much better tolerating liquids diet to get on full liquid diet ini evening - Current Medication List Current Medications: Active Medications Acetaminophen (Ofirmev Injection -) 1,000 mg IVPB Q6H PRN PRN Reason: PAIN LEVEL 7-10 Last Admin: 02/19/19 22:41 Dose: 1,000 mg Clotrimazole (Lotrimin 1% Cream -) 1 applic TP BID [facility] Last Admin: 02/21/19 09:54 Dose: 1 applic Escitalopram Oxalate (Lexapro -) 20 mg PO DAILY [facility] Last Admin: 02/21/19 09:52 Dose: 20 mg Heparin Sodium (Porcine) (Heparin -) 5,000 unit SQ BID [facility] Last Admin: 02/21/19 09:52 Dose: 5,000 unit Dextrose/Sodium Chloride (D5-1/2ns -) 1,000 mls @ 100 mls/hr IV ASDIR [facility] Last Admin: 02/20/19 23:02 Dose: 100 mls/hr Ketorolac Tromethamine (Toradol Injection -) 30 mg IVPUSH Q6H PRN PRN Reason: PAIN LEVEL 4 - 6 Stop: 02/24/19 17:25 Last Admin: 02/21/19 00:20 Dose: 30 mg Morphine Sulfate (Morphine Sulfate) 4 mg IVPUSH Q4H PRN PRN Reason: PAIN LEVEL 4-6 Last Admin: 02/20/19 01:44 Dose: 4 mg Nystatin (Nystop Powder -) 1 applic TP DAILY [facility] Last Admin: 02/21/19 09:54 Dose: 1 applic Ondansetron HCl (Zofran Injection) 4 mg IVPUSH Q6H PRN PRN Reason: NAUSEA Last Admin: 02/19/19 07:38 Dose: 4 mg Pantoprazole Sodium (Protonix Iv) 40 mg IVPUSH DAILY [facility] Last Admin: 02/21/19 09:52 Dose: 40 mg Valsartan (Diovan -) 320 mg PO DAILY [facility] Last Admin: 02/21/19 09:52 Dose: 320 mg - Objective Vital Signs: Vital Signs Temperature 98.2 F 02/21/19 05:32 Pulse Rate 60 02/21/19 05:32 Respiratory Rate 20 02/21/19 05:32 Blood Pressure 134/82 02/21/19 05:32 O2 Sat by Pulse Oximetry (%) 98 02/20/19 20:42 Constitutional: Yes: Calm Cardiovascular: Yes: Regular Rate and Rhythm, S1, S2 Respiratory: Yes: CTA Bilaterally Gastrointestinal: Yes: Normal Bowel Sounds, Soft Edema: No Neurological: Yes: Alert, Oriented Labs: CBC, BMP 02/20/19 07:30 02/21/19 08:00 Problem List - Problems (1) Epigastric abdominal pain Assessment/Plan: clear liquid idet advance to full liquid diet ivf d51/2 NS trend lipase - added to morning labs now normal zofran leukocytosis resolved ct scan noted for pancreatic head- mild edema surrounding pancreatic head and uncinate process and few shotty lymph nodes seen Code(s): R10.13 - EPIGASTRIC PAIN
--- NOTE | 2019-02-21 15:13 | DS ---
Physical Examination Vital Signs: Vital Signs Temperature 99 F 02/21/19 14:27 Pulse Rate 73 02/21/19 14:27 Respiratory Rate 18 02/21/19 10:00 Blood Pressure 149/84 02/21/19 14:27 O2 Sat by Pulse Oximetry (%) 97 02/21/19 09:00 Constitutional: Yes: Calm Cardiovascular: Yes: Regular Rate and Rhythm, S1, S2 Respiratory: Yes: CTA Bilaterally, Wheezes Gastrointestinal: Yes: Normal Bowel Sounds, Soft Edema: No Neurological: Yes: Alert, Oriented Labs: CBC, BMP 02/20/19 07:30 02/21/19 08:00 Discharge Summary Problems reviewed: Yes Reason For Visit: CHRONIC RECURRENT PANCREATITIS, ABDOMINAL PAIN Current Active Problems Chronic recurrent pancreatitis (Acute) Epigastric abdominal pain (Acute) Rash (Acute) Other Procedures: ct scan abdoemn showed pacnreatitis Hospital Course: This is a 63 yo F with h/o Chronic Pancreatitis, IDDM who p/w epigastric abdominal pain, vomiting. Who presents to the ED with acute onset of sharp epigastric pain radiating to back, beginning at 9:00 PM 02/18/19. Patient reports pain consistent with past pancreatitis. She also endorses nausea and 6 episodes of vomitting NBNB emesis beginning at 9:00 PM. Patient denies BERNAL, vision change, palpitations, cough, wheezing, orthopena, PND, leg swelling/pain , F,C, CP, SOB, urinary complaints, hematuria, BPR, diarrhea, constipation, lightheadedness, weakness, sensory changes. No recent travel, or change in diet. Patient reports being compliant with home Insulin Regimen. patient admitted with pancreatitis ivf,npo, got better now tolerating clear diet Condition: Improved - Instructions Referrals: Mary Aly MD [Staff Physician] - 2 Weeks Pretei Zuniga MD [Primary Care Provider] - 1 Week Disposition: HOME - Home Medications Comprehensive Discharge Medication List: Ambulatory Orders Telmisartan [Micardis] 80 mg PO DAILY 06/17/16 Escitalopram Oxalate [Lexapro -] 20 mg PO DAILY 10/07/16 Clotrimazole 15 gm TP DAILY 02/19/19 Insulin Glargine,Hum.rec.anlog [Toujeo Solostar] 25 unit SQ BID 02/19/19 Insulin Lispro [Humalog] 10 unit SQ TID 02/19/19 Nystatin Powder [Nystop Topical Powder -] 15 gm TP DAILY 02/19/19 Pantoprazole Sodium [Protonix -] 40 mg PO DAILY 02/19/19
--- NOTE | 2019-02-21 17:45 | PN.GI ---
GI Progress Note Subjective: States feeling better Wants to eat food, tired of liquids - Objective Vital Signs: Vital Signs Temperature 99 F 02/21/19 14:27 Pulse Rate 73 02/21/19 14:27 Respiratory Rate 18 02/21/19 10:00 Blood Pressure 149/84 02/21/19 14:27 O2 Sat by Pulse Oximetry (%) 97 02/21/19 09:00 Constitutional: Calm Eyes: No: Sclera Icterus Cardiovascular: Yes: Regular Rate and Rhythm Respiratory: Yes: CTA Bilaterally Gastrointestinal Inspection: No: Distention ...Auscultate: Yes: Normoactive Bowel Sounds ...Palpate: Yes: Soft, Tenderness (Much improved TTP mid abdomen) ...Percussion: No: Tympanitic Edema: No (No LE edema) Neurological: Yes: Alert Labs: CBC, BMP 02/20/19 07:30 02/21/19 08:00 Problem List - Problems (1) Chronic recurrent pancreatitis Assessment/Plan: Clinically much improved Advance diet Outpatient f/u when ready for D/C with 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 Mary Aly Code(s): K86.1 - OTHER CHRONIC PANCREATITIS
[2019-02-21] MEDS: DEXTROSE 5%-0.45% SALINE 1,000 ML IV SCH (21:22)
[2019-02-21] MEDS: ACETAMINOPHEN 325 MG TABLET (FP) PO PRN (21:30)
[2019-02-22] MEDS: DEXTROSE 5%-0.45% SALINE 1,000 ML IV SCH (06:43)
--- NOTE | 2019-02-22 07:55 | PN.GI ---
GI Progress Note Subjective: feeling better denies any complaints of n/v/ abd pain - Objective Vital Signs: Vital Signs Temperature 98 F 02/22/19 05:48 Pulse Rate 67 02/22/19 05:48 Respiratory Rate 20 02/22/19 05:48 Blood Pressure 156/82 02/22/19 05:48 O2 Sat by Pulse Oximetry (%) 97 02/21/19 21:00 Constitutional: Well Nourished, No Distress Eyes: Yes: WNL HENT: Yes: WNL Neck: Yes: WNL Cardiovascular: Yes: WNL, Regular Rate and Rhythm Respiratory: Yes: WNL, Regular, CTA Bilaterally Gastrointestinal Inspection: Yes: WNL ...Auscultate: Yes: Normoactive Bowel Sounds Extremities: Yes: WNL Edema: No Labs: CBC, BMP 02/20/19 07:30 02/21/19 08:00 Problem List - Problems (1) Abdominal pain Assessment/Plan: low fat diet dc planning as per primary medical team outpt GI f/u Code(s): R10.9 - UNSPECIFIED ABDOMINAL PAIN
[2019-02-22] MEDS ORDERED: ESCITALOPRAM OXALATE 10 MG TABLET (FP) ONE (09:53)
[2019-02-22] MEDS: VALSARTAN 160 MG TABLET (UD) PO SCH (10:09)
[2019-02-22] MEDS: HEPARIN NA (PORCINE) 5,000 UNITS/ML 1ML VIAL SQ SCH (10:10)
[2019-02-22] MEDS: PANTOPRAZOLE SODIUM 40 MG VIAL IVPUSH SCH (10:11)
[2019-02-22] MEDS: NYSTATIN POWDER 100,000 UNITS/GM - 15 GM TOPICAL POWDER TP SCH (10:11)
[2019-02-22] MEDS: CLOTRIMAZOLE 1% CREAM 15 GM TUBE TP SCH (10:11)
[2019-02-22] MEDS: ESCITALOPRAM OXALATE 20 MG TABLET (FP) PO SCH (10:11)
[2019-02-22] MEDS ORDERED: INSULIN (NOVOLOG) ASPART 100 UNITS/ML 10ML VIAL ONE (11:11)
[2019-02-22] MEDS: ACETAMINOPHEN 325 MG TABLET (FP) PO PRN (11:56)
--- NOTE | 2019-02-22 13:33 | PN ---
Progress Note, Physician Chief Complaint: Abdominal Pain Pancreatitis History of Present Illness: Previous notes and events reviewed awake and alert NAD denies complaints of abdominal pain, nausea, vomiting patient being discharged home today, tolerating diet - Current Medication List Current Medications: Active Medications Acetaminophen (Ofirmev Injection -) 1,000 mg IVPB Q6H PRN PRN Reason: PAIN LEVEL 7-10 Last Admin: 02/19/19 22:41 Dose: 1,000 mg Acetaminophen (Tylenol -) 650 mg PO Q8H PRN PRN Reason: HEADACHE Last Admin: 02/22/19 11:56 Dose: 650 mg Clotrimazole (Lotrimin 1% Cream -) 1 applic TP BID [facility] Last Admin: 02/22/19 10:11 Dose: 1 applic Escitalopram Oxalate (Lexapro -) 20 mg PO DAILY [facility] Last Admin: 02/22/19 10:11 Dose: 20 mg Heparin Sodium (Porcine) (Heparin -) 5,000 unit SQ BID [facility] Last Admin: 02/22/19 10:10 Dose: 5,000 unit Dextrose/Sodium Chloride (D5-1/2ns -) 1,000 mls @ 100 mls/hr IV ASDIR [facility] Last Admin: 02/22/19 06:43 Dose: 100 mls/hr Ketorolac Tromethamine (Toradol Injection -) 30 mg IVPUSH Q6H PRN PRN Reason: PAIN LEVEL 4 - 6 Stop: 02/24/19 17:25 Last Admin: 02/21/19 00:20 Dose: 30 mg Morphine Sulfate (Morphine Sulfate) 4 mg IVPUSH Q4H PRN PRN Reason: PAIN LEVEL 4-6 Last Admin: 02/20/19 01:44 Dose: 4 mg Nystatin (Nystop Powder -) 1 applic TP DAILY [facility] Last Admin: 02/22/19 10:11 Dose: 1 applic Ondansetron HCl (Zofran Injection) 4 mg IVPUSH Q6H PRN PRN Reason: NAUSEA Last Admin: 02/19/19 07:38 Dose: 4 mg Pantoprazole Sodium (Protonix Iv) 40 mg IVPUSH DAILY [facility] Last Admin: 02/22/19 10:11 Dose: 40 mg Valsartan (Diovan -) 320 mg PO DAILY [facility] Last Admin: 02/22/19 10:09 Dose: 320 mg - Objective Vital Signs: Vital Signs Temperature 98 F 02/22/19 05:48 Pulse Rate 67 02/22/19 05:48 Respiratory Rate 20 02/22/19 05:48 Blood Pressure 156/82 02/22/19 05:48 O2 Sat by Pulse Oximetry (%) 97 02/21/19 21:00 Constitutional: Yes: No Distress, Calm Eyes: Yes: Conjunctiva Clear HENT: Yes: Atraumatic Cardiovascular: Yes: Regular Rate and Rhythm Respiratory: Yes: Regular, CTA Bilaterally Gastrointestinal: Yes: Normal Bowel Sounds, Soft Musculoskeletal: Yes: WNL Extremities: Yes: WNL Edema: No Neurological: Yes: Alert, Oriented Psychiatric: Yes: Alert, Oriented Labs: CBC, BMP 02/20/19 07:30 02/21/19 08:00 Problem List - Problems (1) Chronic recurrent pancreatitis Assessment/Plan: -GI consult -LR IV hydration -abrams control -Abdominal US -NPO -Lipase 673 -afebrile -leukocytosis -Zofran PRN for nausea Code(s): K86.1 - OTHER CHRONIC PANCREATITIS (2) Epigastric abdominal pain Code(s): R10.13 - EPIGASTRIC PAIN (3) DM2 (diabetes mellitus, type 2) Code(s): E11.9 - TYPE 2 DIABETES MELLITUS WITHOUT COMPLICATIONS (4) Hypertension Code(s): I10 - ESSENTIAL (PRIMARY) HYPERTENSION (5) Rash Code(s): R21 - RASH AND OTHER NONSPECIFIC SKIN ERUPTION Assessment/Plan see problem list dvt ppx d/c home today
[2019-02-22] MEDS ORDERED: Insulin (LOG) Aspart 100 UNITS/ML VIAL SQ ONE (14:47)
[2019-02-22] MEDS ORDERED: amLODIPine BESYLATE 5 MG TABLET (FP) PO ONE (14:51)
[2019-02-22 14:58] VITALS: BP 170/90; PULSE 73; TEMP 98.2
--- NOTE | 2019-02-23 06:54 | PN.GI ---
GI Progress Note - Objective Vital Signs: Vital Signs Temperature 98.2 F 02/22/19 09:10 Pulse Rate 73 02/22/19 09:10 Respiratory Rate 20 02/22/19 09:10 Blood Pressure 170/90 02/22/19 09:10 O2 Sat by Pulse Oximetry (%) 97 02/22/19 09:10 Labs: CBC, BMP 02/20/19 07:30 02/21/19 08:00 Problem List - Problems (1) Abdominal pain Code(s): R10.9 - UNSPECIFIED ABDOMINAL PAIN
== END 2019-02-22 17:00 | disposition home or self-care (01) | DRG 440 ==
LOC: JER 03:28 → JERBED 05:19 → J6S 09:40
PROVIDERS: ADMIT Internal Medicine; ATTEND Family Medicine
DX: K86.1 Other chronic pancreatitis (principal); R10.13 Epigastric pain; E11.9 Type 2 diabetes mellitus without complications; I10 Essential (primary) hypertension; R21 Rash and other nonspecific skin eruption; E78.5 Hyperlipidemia, unspecified; E66.9 Obesity, unspecified; K21.9 Gastro-esophageal reflux disease without esophagitis; D72.829 Elevated white blood cell count, unspecified; Z79.4 Long term (current) use of insulin
CPT/HCPCS: 36415; 71045-TC-FY; 74177-TC; 76700-TC; 80048; 80053; 80307; 82550; 82962; 83690; 84484; 85025; 93005; 93010; 99284-25; G0008; J0131; J1644; J7030; Q2036

== ENCOUNTER 2020-01-18 19:08 | Emergency (ER) | payer OTHER ==
[2020-01-18 19:25] VITALS: BP 125/69; PULSE 71; TEMP 98.1; BMI 32.8
--- OUTSIDE RECORDS SUMMARY | 2020-01-18 19:35 | XMS ---
:1955 Demographics Address [address] [place] [address] Preferred Language spa Marital Status or Episcopalian Affiliation [place] Race WH Ethnic Group or Author Organization [facility] Support Name Relationship Address Phone UE, UNEMPLOYED Unavailable Unavailable Unavailable UE Unavailable Unavailable Unavailable RAPHAEL COONEY DAUGHTER [address] [place] [address] RAPHAEL COONEY Child [address] [place] [address] Care Team Providers Name Role Phone EMERGENCY SERVICE, X Unavailable Unavailable NNEKA BECKER Unavailable Unavailable SHERITA, SUBHASH Unavailable Unavailable PEDRO, ANAND Unavailable Unavailable Re-disclosure Warning The records that you are about to access may contain information from federally- assisted alcohol or drug abuse programs. If such information is present, then the following federally mandated warning applies: This information has been disclosed to you from records protected by federal confidentiality rules (42 CFR part 2). The federal rules prohibit you from making any further disclosure of this information unless further disclosure is expressly permitted by the written consent of the person to whom it pertains or as otherwise permitted by 42 CFR part 2. A general authorization for the release of medical or other information is NOT sufficient for this purpose. The Federal rules restrict any use of the information to criminally investigate or prosecute any alcohol or drug abuse patient.The records that you are about to access may contain highly sensitive health information, the redisclosure of which is protected by Article 27-F of the [place] State Public Health law. If you continue you may haveaccess to information: Regarding HIV / AIDS; Provided by facilities licensed or operated by the [facility] Office of Mental Health; or Provided by the [facility] Office for People With Developmental Disabilities. If such information is present, then the following [facility] mandated warning applies: This information has been disclosed to you from confidential records which are protected by state law. State law prohibits you from making any further disclosure of this information without the specific written consent of the person to whom it pertains, or as otherwise permitted by law. Any unauthorized further disclosure in violation of state law may result in a fine or senior living sentence or both. A general authorization for the release of medical or other information is NOT sufficient authorization for further disclosure. Allergies and Adverse Reactions Type Description Substance Reaction Status Data Source(s ) Drug allergy Penicillins Penicillins [facility] Health Care [facility] Encounters Encounter Providers Location Date Indications Data Source(s ) Outpatient Attender: PEDRO [facility] [employer] ZVIAdmitter: ANAND VASQUEZReferrer: ANAND VASQUEZ K85.90 Emergency Attender: EUGENIO 10/07/2019 PANCREATITIS We [facility] JAMESAttender: 03:41:00 PM EDT [facility] EMERGENCY SERVICE, Corpor ation XAdmitter: NNEKA BECKER PANCREATITIS Medications Medication Brand Start Product Dose Route Administrative Pharmacy [facility] Indications Reaction Description Data Name Date Form Instructions Instructions Source(s) Ondansetron UNK complet Ondanset venessa [place] 4 MG Oral 2020 MG ed 4 MG Oral r Cou nty Tablet D 11:12: [facility] 07 PM [facility] EDT ng TAKE 1 Corporatio PILL EVERY 8 n HOURS NEEDED FOR NAUSEA AND VOMITING Dispense: 15 Carafate Carafa 1 gm UNK active Carafate [facility] (Sucralfate te 2019 (Sucralfate) r [facility] (Sucra 11:01: Tablet Oral [facility] 58 PM 1 gm PO Care EDT Corporatio n Medication administered onsite Pepcid Pepcid 10/07/2019 40 UNK active Pepcid Sharon (Famotidine) (Famotidine) 11:01:50 PM mg (Famotidine) [facility] EDT Injection 40 [facility] mg IVP Corporation Medication administered onsite Reglan Reglan 10/07/2019 10 UNK active Reglan Sharon (Metocloprami (Metocloprami 11:01:13 PM mg (Metoclopramide) [facility] EDT Injection 10 mg [facility] IVPB Corporation Medication administered onsite Zofran Zofran 10/07/2019 4 mg UNK active Zofran 4mg/2mL Sharon 4mg/2mL 4mg/2mL 07:34:22 PM (Ondans etron) [facility] (Onda (Onda EDT Injection 4 mg Car e [employer] Medication administered onsite MORphine MORphine 10/07/2019 4 mg UNK active MOR phine Sharon Sulfate Inj Sulfate Inj 06:20:18 PM Sulfate [facility] EDT Injection 4 Care mg [employer] Medication administered onsite Gastroview Gastroview 10/07/2019 1000 UNK active Gastroview Sharon PO Contra PO Contra 05:18:53 PM mL PO Contrast [facility] ED (Adult) Health Care Give 1000 Corporati on mL PO Medication administered onsite Zofran Zofran 10/07/2019 4 mg UNK active Zofran 4mg/2mL Sharon 4mg/2mL 4mg/2mL 04:50:55 PM (Ondans etron) [facility] (Onda (Onda EDT Injection 4 mg Car e [employer] Medication administered onsite MORphine MORphine 10/07/2019 4 mg UNK active MOR phine Sharon Sulfate Inj Sulfate Inj 04:49:32 PM Sulfate [facility] EDT Injection 4 Care mg [employer] Medication administered onsite 0.9% NaCl 0.9% NaCl 10/07/2019 999 MG UNK active 0.9% Sharon IV IV 03:46:53 PM EDT NaCl IV C [facility] Give ; Care IV rate: Corporation 100 mL/hr Medication administered onsite 3 ML Insulin Humalog 999 subcutaneous completed Humalog Sharon Lispro 200 KwikPen MG KwikPen Cou nty UNT/ML Pen Insulin Insulin [facility] Care Injector Corporation [Humalog] Humalog KwikPen Insulin gabapentin gabapentin 999 oral completed noelle apentin [facility] Health [facility] Toujeo Max 999 subcutaneous completed T oujeo Max Sharon U-300 SoloStar MG U-300 Coun ty [facility] Care [facility] Meclizine meclizine 999 oral completed mecli zine Sharon Hydrochloride [facility] 25 Oral Health Ca re Capsule Corporation meclizine telmisartan 20 telmisartan 999 oral completed telmisartan [facility] Oral Tablet MG Count y [Micardis] Health Ca re Corporation Escitalopram 5 Lexapro 999 oral completed Le xapro Sharon MG Oral Tablet MG Count y [Lexapro] Health Car e [employer] Alprazolam 0.25 alprazolam 999 oral completed alprazolam Sharon MG Oral Tablet MG Count y [Xanax] Health Care alprazolam Corporati on brimodonine brimodonine 999 eye completed b rimodonine Sharon MG [facility] Insurance Providers Payer name Policy type Policy ID Covered Covered republican's Policy P chiki / Coverage republican ID relationship to [place] Inf ormation type [place] MEDICAID [id number] SP [id number] MEDICARE [id number] SP [id number] UNK UNK UNK Problems, Conditions, and Diagnoses Code Display Name Description Problem Type Effective Data Sour ce(s) Dates K85.90 Acute pancreatitis ACUTE Diagnosis 11/14/2019 [facility] [place] kami without necrosis PANCREATITIS 06:00:00 AM Count y Health or infection, WITHOUT NECROSIS EDT Care Corporation unspecified OR INFECTION, UNSP Z88.0 Allergy status to ALLERGY STATUS TO Diagnosis 10/07/2019 Sharon penicillin PENICILLIN 03:41:00 PM [facility] EDT Care Corporati on I10 Essential ESSENTIAL Diagnosis 10/07/2019 Sharon (primary) (PRIMARY) 03:41:00 PM [facility] hypertension HYPERTENSION EDT Care Corpo ration K86.1 Other chronic OTHER CHRONIC Diagnosis 10/07/2019 [facility] pancreatitis PANCREATITIS 03:41:00 PM [facility] EDT Care Corporati on R10.13 Epigastric pain EPIGASTRIC PAIN [facility] EDT Care Corporati on Results ID Date Data Source [id number] 10/02/2019 02:05:00 PM EDT [facility] Name Value Range Interpretation Description Data Sup porting Code Source(s) Document(s ) SARS [facility] CORONAVIRUS 2 RNA This lab was ordered by [facility] and reported by [facility]. ID Date Data Source [id number] 09/29/2019 06:40:00 AM EDT [facility] Name Value Range Interpretation Description Data Sup porting Code Source(s) Document(s ) SARS [facility] CORONAVIRUS 2 RNA This lab was ordered by [facility] and reported by [facility]. ID Date Data Source [id number] 09/17/2019 10:00:00 AM EDT [facility] Name Value Range Interpretation Description Data Sup porting Code Source(s) Document(s ) SARS [facility] CORONAVIRUS 2 RNA This lab was ordered by [facility] and reported by [facility]. ID Date Data Source [id number] 09/15/2019 03:42:00 AM EDT [facility] Name Value Range Interpretation Description Data Sup porting Code Source(s) Document(s ) SARS [facility] CORONAVIRUS 2 RNA This lab was ordered by [facility] and reported by [facility]. Procedure Patient Treatment Plan of Care Planned Activity Planned Date Details Description Data Source (s) Carafate (Sucralfate 10/07/2019 11:01:[address] [facility] EDT Health Care Cor poration Pepcid (Famotidine) 10/07/2019 11:01:50 W [facility] EDT Health Care Cor poration Reglan (Metocloprami 10/07/2019 11:01:[address] [facility] EDT Health Care Cor poration Zofran 4mg/2mL (Onda 10/07/2019 07:34:[address] [facility] EDT Health Care Cor poration MORphine Sulfate Inj 10/07/2019 06:20:[address] [facility] EDT Health Care Cor poration Gastroview PO Contra 10/07/2019 05:18:[address] [facility] EDT Health Care Cor poration Zofran 4mg/2mL (Onda 10/07/2019 04:50:[address] [facility] EDT Health Care Cor poration MORphine Sulfate Inj 10/07/2019 04:49:[address] [facility] EDT Health Care Cor poration 0.9% NaCl IV 10/07/2019 03:46:53 [facility] EDT Health Care Cor poration
--- NOTE | 2020-01-18 20:27 | PDOC ---
History of Present Illness - General Chief Complaint: Respiratory Stated Complaint: HEADACHE/COUGH Time Seen by Provider: 01/18/20 19:52 History Source: Patient Exam Limitations: No Limitations Past History - Travel History Traveled outside of the country in the last 30 days: No Close contact w/someone who was outside of country & ill: No - Medical History Allergies/Adverse Reactions: Allergies Allergy/AdvReac Type Severity Reaction Status Date / Time Penicillins Allergy Verified 01/18/20 19:25 Home Medications: Ambulatory Orders Pantoprazole Sodium [Protonix -] 40 mg PO DAILY 02/19/19 Telmisartan 80 mg PO DAILY 09/15/19 Albuterol 2.5/Ipratropium 0.5 [Duoneb -] 1 amp NEB Q2H PRN amp 09/19/19 Escitalopram Oxalate [Lexapro -] 20 mg PO DAILY 09/29/19 Gabapentin [Neurontin] 300 mg PO BID 09/29/19 Humalog Mix 50-50 Kwikpen 10 units BID 09/29/19 Alprazolam [Xanax] 0.25 mg PO Q8H PRN #15 tablet MDD 3 10/06/19 Brimonidine Tartrate [Alphagan P 0.1% -] 1 drop OU TID #1 bot 10/06/19 Famotidine [Pepcid -] 20 mg PO DAILY #30 tablet 10/06/19 Gabapentin [Neurontin -] 300 mg PO BID #60 capsule 10/06/19 Insulin Glargine,Hum.rec.anlog [Toujeo Solostar] 15 unit SQ HS #1 each 10/06/19 Meclizine HCl [Antivert -] 25 mg PO TID PRN #90 tablet 10/06/19 Benzonatate [Tessalon Pearls -] 100 mg PO TID #21 capsule 01/18/20 Anemia: No Asthma: No Cancer: No Cardiac Disorders: No CVA: No COPD: No CHF: No DVT: No Dementia: No Diabetes: Yes Dialysis: No GI Disorders: Yes (pancreatitis, SBO, GERD) Disorders: No HTN: Yes Hypercholesterolemia: Yes Kidney Stones: No Liver Disease: No Psychiatric Problems: No Seizures: No Thyroid Disease: No Lung CA: No - Surgical History Abdominal Surgery: Yes Appendectomy: Yes Cardiac Surgery: No Cholecystectomy: Yes Gastric Stapling: No Lung Surgery: No Neurologic Surgery: No Orthopedic Surgery: No - Immunization History Immunization Up to Date: Yes - Psycho-Social/Smoking History Smoking Status: No Smoking History: Never smoked Have you smoked in the past 12 months: No Number of Cigarettes Smoked Daily: 0 If you are a former smoker, when did you quit?: november 2012 - Substance Abuse Hx (Audit-C & DAST Scrn) How often the patient has a drink containing alcohol: Never Score: In Men: 4 or > Positive; In Women: 3 or > Positive: 0 Screen Result (Pos requires Nsg. Audit-10AR): Negative In the last yr the pt used illegal drug/Rx for NonMed reason: No Score: Yes response is considered Positive: 0 Screen Result (Positive result requires Nsg. DAST-10): Negative Review of Systems - Review of Systems Able to Perform ROS?: Yes Comments:: 01/18/20 21:39 CONSTITUTIONAL: Absent: Fever, chills, body ache, diaphoresis, generalized weakness, malaise, loss of appetite HEENT: Present: rhinorrhea, nasal congestion, throat pain. Absent: difficulty swallowing, mouth swelling, ear pain, eye pain, visual Changes CARDIOVASCULAR: Absent: chest pain, loss of consciousness, palpitations, irregular heart rate, peripheral edema RESPIRATORY: Present: Cough Absent: shortness of breath, dyspnea with exertion, orthopnea, wheezing, stridor, hemoptysis GASTROINTESTINAL: Absent: abdominal pain, abdominal distension, nausea, vomiting, diarrhea, constipation, melena, hematochezia SKIN: Absent: rash, itching, pallor NEUROLOGIC: Present: headache Absent: focal weakness or paresthesias, dizziness, unsteady gait, seizure, mental status changes, bladder or bowel incontinence Is the patient limited Cymraes proficient: No *Physical Exam - Vital Signs Last Vital Signs Temp Pulse Resp BP Pulse Ox 98.1 F 71 18 125/69 98 01/18/20 19:23 01/18/20 19:23 01/18/20 19:23 01/18/20 19:23 01/18/20 19:23 - Physical Exam 01/18/20 21:39 GENERAL: Well developed, well nourished. Awake and alert. No acute distress. HEENT: Normocephalic, atraumatic. PERRLA, EOMI. No conjunctival pallor. Sclera are non- icteric. Moist mucous membranes. Oropharynx is clear. NECK: Supple. Full ROM. No lymphadenopathy. CARDIOVASCULAR: Regular rate and rhythm. No murmurs, rubs, or gallops. Distal pulses are 2+ and symmetric. PULMONARY: No evidence of respiratory distress. Lungs clear to auscultation bilaterally. No wheezing, rales or rhonchi. ABDOMINAL: Soft. Non-tender. Non-distended. No rebound or guarding. No organomegaly. Normoactive bowel sounds. MUSCULOSKELETAL Normal range of motion at all joints. No bony deformities or tenderness. No CVA tenderness. EXTREMITIES: No cyanosis. No clubbing. No edema. No calf tenderness. SKIN: Warm and dry. Normal capillary refill. No rashes. No jaundice. NEUROLOGICAL: Alert, awake, appropriate. Cranial nerves 2-12 intact. No deficits to light touch and temperature in face, upper extremities and lower extremities. No motor deficits in the in face, upper extremities and lower extremities. Normoreflexic in the upper and lower extremities. Normal speech. Toes are down-going bilaterally. Gait is normal without ataxia. PSYCHIATRIC: Cooperative. Good eye contact. Appropriate mood and affect. Medical Decision Making - Medical Decision Making 01/18/20 21:39 Patient is a 64-year-old female past medical history of diabetes, anxiety, presents to the ER today with 3 days of cough, sore throat, chest congestion and headache. She denies any recent travel or known cold exposure. She has not taken any medication at home for her symptoms. She states that when she coughs she produces yellow sputum. Denies fevers, chills, difficulty breathing, shortness of breath, chest pain, nausea and vomiting. A/P: Upper respiratory illness On exam lungs are clear to auscultation bilateral without wheezes rales or rhonchi. S1-S2 present, regular rate and rhythm. No murmurs rubs or gallops Throat without exudate, edema or erythema COVID and strep sent Chest x-ray shows no acute pathology. Tylenol and ibuprofen given with relief of symptoms. Likely upper respiratory infection, viral. Will instruct patient to isolate herself until COVID results come back Pending strep Reevaluate 01/18/20 21:57 Pt still pending strep. Will sign out to CLEMENTINE Mabry. Discharge - Discharge Information Problems reviewed: Yes Clinical Impression/Diagnosis: Sore throat (viral), Cough Condition: Stable Disposition: HOME - Additional Discharge Information Prescriptions: Benzonatate [Tessalon Pearls -] 100 mg PO TID #21 capsule - Follow up/Referral - Patient Discharge Instructions Patient Printed Discharge Instructions: Cough, Guaifenesin Additional Instructions: Your Discharge Instructions: You must call primary care physician within 24 hours to arrange follow-up. Return to the Emergency Department with any new, persistent or worsening symptoms, for fever, chills, SOB, dizziness or any other concerning changes that may occur. - Post Discharge Activity
[2020-01-18] MEDS ORDERED: ACETAMINOPHEN 325 MG TABLET (FP) PO ONE (20:52)
[2020-01-18] MEDS ORDERED: IBUPROFEN 600 MG TABLET (FP) PO ONE ×2 (20:52→21:18)
[2020-01-18] MEDS ORDERED: guaiFENesin/D-M SUGAR-FREE/ACLHOL-FREE 118 ML BOTTLE PO ONE (20:53)
[2020-01-18] MEDS ORDERED: ACETAMINOPHEN 325 MG TABLET (FP) ONE (21:18)
[2020-01-18] MEDS ORDERED: guaiFENesin 200 MG/10 ML 10 ML UNIT-DOSE CUPS ONE (21:20)
[2020-01-18 23:06] LABS: THROAT:GRP A STREP ANTIGEN Negative (Negative)
--- NOTE | 2020-01-18 23:24 | PDOC ---
*Physical Exam - Vital Signs Last Vital Signs Temp Pulse Resp BP Pulse Ox 98.1 F 71 18 125/69 98 01/18/20 19:23 01/18/20 19:23 01/18/20 19:23 01/18/20 19:23 01/18/20 19:23 ED Treatment Course - Medications Given in the ED: ED Medications Discontinued Medications Generic Name Dose Route Start Last Admin Trade Name Tramaine PRN Reason Stop Dose Admin Acetaminophen 650 mg 01/18/20 20:52 01/18/20 21:24 Tylenol - PO 01/18/20 20:53 650 mg ONCE ONE Administration Guaifenesin 10 ml 01/18/20 20:53 01/18/20 21:24 Diabetic Tussin Dm - PO 01/18/20 20:54 10 ml ONCE ONE Administration Ibuprofen 600 mg 01/18/20 20:52 01/18/20 21:24 Motrin - PO 01/18/20 20:53 600 mg ONCE ONE Administration Medical Decision Making - Medical Decision Making 01/18/20 23:15 Endorsed to me to follow rapid strep and disposition. Rapid strep is negative. Will discharge. I discussed the physical exam findings, ancillary test results and final diagnoses with the patient. I answered all of the patient's questions. The patient was satisfied with the care received and felt comfortable with the discharge plan and treatment plan. The Patient agrees to follow up with the primary care physician within 24-72 hours. Discharge - Discharge Information Problems reviewed: Yes Clinical Impression/Diagnosis: Sore throat (viral), Cough Condition: Stable Disposition: HOME - Follow up/Referral - Patient Discharge Instructions Patient Printed Discharge Instructions: Cough, Guaifenesin Additional Instructions: Your Discharge Instructions: You must call primary care physician within 24 hours to arrange follow-up. Return to the Emergency Department with any new, persistent or worsening symptoms, for fever, chills, SOB, dizziness or any other concerning changes that may occur. - Post Discharge Activity
== END 2020-01-18 23:42 | disposition home or self-care (01) ==
LOC: JER 19:08
DX: J02.9 Acute pharyngitis, unspecified (principal); R05 Cough
CPT/HCPCS: 71046-TC-FY; 87070; 87880; 99283-25; U0003

== ENCOUNTER 2020-12-01 19:13 | Inpatient (IN) | payer OTHER ==
[2020-12-01] MEDS ORDERED: ONDANSETRON 4 MG/2 ML VIAL IVPUSH ONE (20:15)
[2020-12-01] MEDS ORDERED: LACTATED RINGERS SOLUTION 1000 ML INFUS.BAG IV ONE ×2 (20:15→22:22)
[2020-12-01] MEDS ORDERED: ACETAMINOPHEN 1000 MG/100 ML VIAL (NON FORMULARY) IVPB ONE (20:15)
[2020-12-01] MEDS ORDERED: PANTOPRAZOLE SODIUM 40 MG VIAL IVPUSH ONE (20:31)
[2020-12-01] MEDS ORDERED: ONDANSETRON 4 MG/2 ML VIAL ONE (20:34)
[2020-12-01] MEDS ORDERED: PANTOPRAZOLE SODIUM 40 MG VIAL ONE (20:34)
[2020-12-01] MEDS ORDERED: ACETAMINOPHEN INJECTION 100 ML IVPB ONE (20:34)
[2020-12-01 20:44] LABS: BASO % 0.5 % (0-2.0); EOS % 0.9 % (0-4.5); HEMATOCRIT 43.2 % (32.4-45.2); HEMOGLOBIN 14.4 GM/dL (10.7-15.3); LYMPH % 19.6 % (8-40); MCH 27.6 pg (25.7-33.7); MCHC 33.4 g/dl (32.0-36.0); MEAN CELL VOLUME 82.8 fl (80-96); MEAN PLT VOLUME 7.8 fl (7.5-11.1); MONO % 5.7 % (3.8-10.2); NEUT % 73.3 % (42.8-82.8); PLATELET COUNT 324 10^3/uL (134-434); RBC 5.21 M/mm3 (3.60-5.2); RDW 15.5 % (11.6-15.6); WHITE BLOOD COUNT 10.7 K/mm3 (4.0-10.0)
[2020-12-01 20:48] LABS: VENOUS O2 SATURATION 79.8 % (70-80); VENOUS PCO2 40.3 mmHg (38-52); VENOUS PH 7.375 (7.310-7.410)
[2020-12-01 21:03] LABS: CHLORIDE 103 mmol/L (98-107); SODIUM 137 mmol/L (136-145)
[2020-12-01 21:06] LABS: ALBUMIN 3.7 g/dl (3.4-5.0); ANION GAP 11 MMOL/L (8-16); BLOOD UREA NITROGEN 23.6 mg/dL (7-18); CALCIUM 8.9 mg/dL (8.5-10.1); CO2 23 mmol/L (21-32); GLUCOSE,RANDOM 376 mg/dL (74-106)
[2020-12-01 21:07] LABS: LIPASE 786 U/L (73-393)
[2020-12-01 21:09] LABS: CREATININE 1.3 mg/dL (0.55-1.3); SGOT/AST 10 U/L (15-37); SGPT/ALT 22 U/L (13-61)
[2020-12-01 21:11] LABS: BILIRUBIN,TOTAL 0.3 mg/dL (0.2-1); TOT PROT 7.1 g/dl (6.4-8.2)
[2020-12-01 21:12] LABS: ALK PHOS 103 U/L (45-117)
[2020-12-01] MEDS ORDERED: morphine CARPU-JECT 4 MG/1 ML DISP.SYRIN IVPUSH ONE (21:28)
[2020-12-01] MEDS ORDERED: morphine SULFATE 4 MG/ML VIAL ONE (21:29)
[2020-12-01] MEDS ORDERED: HYDROmorphone HCL CARPU-JECT 2 MG/1 ML DISP.SYRIN IVPUSH ONE (22:22)
[2020-12-01] MEDS ORDERED: HYDROmorphone HCl 2 MG/ML VIAL ONE (22:28)
[2020-12-01 23:17] LABS: URINE APPEARANCE CLEAR; URINE BILIRUBIN NEGATIVE (NEGATIVE); URINE COLOR YELLOW; URINE GLUCOSE (UA) 3+ (NEGATIVE); URINE KETONE NEGATIVE (NEGATIVE); URINE LEUK ESTERASE NEGATIVE (NEGATIVE); URINE NITRITE NEGATIVE (NEGATIVE); URINE PROTEIN NEGATIVE (NEGATIVE); URINE UROBILINOGEN 0.2 mg/dL (0.2-1.0)
[2020-12-02] MEDS ORDERED: HYDROmorphone HCl 2 MG/ML VIAL ONE (02:19)
[2020-12-02] MEDS: INSULIN SLIDING SCALE (NOVOLOG) 1 VIAL SQ SCH ×4 (02:27→17:14)
[2020-12-02] MEDS: HYDROmorphone HCl 2 MG/ML VIAL IVPB PRN ×2 (02:27→06:06)
[2020-12-02] MEDS ORDERED: ONDANSETRON 4 MG/2 ML VIAL IVPUSH PRN (02:30)
[2020-12-02] MEDS: SODIUM CHLORIDE 1,000 ML IV SCH ×2 (02:39→09:08)
[2020-12-02 05:40] VITALS: BMI 29.7
[2020-12-02] MEDS: HEPARIN NA (PORCINE) 5,000 UNITS/ML 1ML VIAL SQ SCH ×3 (06:14→21:20)
[2020-12-02 06:28] LABS: BASO % 1.2 % (0-2.0); EOS % 1.2 % (0-4.5); HEMATOCRIT 39.3 % (32.4-45.2); HEMOGLOBIN 13.3 GM/dL (10.7-15.3); LYMPH % 29.5 % (8-40); MCH 28.5 pg (25.7-33.7); MCHC 33.9 g/dl (32.0-36.0); MEAN CELL VOLUME 84.1 fl (80-96); MEAN PLT VOLUME 7.9 fl (7.5-11.1); MONO % 7.8 % (3.8-10.2); NEUT % 60.3 % (42.8-82.8); PLATELET COUNT 291 10^3/uL (134-434); RBC 4.67 M/mm3 (3.60-5.2); RDW 15.4 % (11.6-15.6); WHITE BLOOD COUNT 8.8 K/mm3 (4.0-10.0)
[2020-12-02 06:44] LABS: ALBUMIN 3.3 g/dl (3.4-5.0); BLOOD UREA NITROGEN 18.8 mg/dL (7-18); CALCIUM 8.6 mg/dL (8.5-10.1)
[2020-12-02 06:47] LABS: CREATININE 0.9 mg/dL (0.55-1.3)
[2020-12-02 06:49] LABS: BILIRUBIN,TOTAL 0.5 mg/dL (0.2-1)
[2020-12-02] MEDS ORDERED: ONDANSETRON 4 MG/2 ML VIAL IVPB PRN (08:53)
[2020-12-02] MEDS ORDERED: LACTATED RINGERS SOLUTION 1,000 ML/1,000 ML INFUS.BAG IV SCH (09:15)
[2020-12-02] MEDS: ESCITALOPRAM OXALATE 20 MG TABLET PO SCH (09:57)
[2020-12-02] MEDS: LOSARTAN POTASSIUM 50 MG TABLET PO SCH (09:57)
[2020-12-02] MEDS: PANTOPRAZOLE SODIUM 40 MG VIAL IVPUSH SCH (09:57)
[2020-12-02] MEDS: ACETAMINOPHEN 1000 MG/100 ML VIAL (NON FORMULARY) IVPB PRN ×2 (12:28→18:30)
[2020-12-02] MEDS: POLYETHYLENE GLYCOL (HEALTHYLAX) 3350 17 GM PACKET PO SCH ×2 (13:04→21:20)
[2020-12-03] MEDS: INSULIN SLIDING SCALE (NOVOLOG) 1 VIAL SQ SCH ×4 (00:38→18:04)
[2020-12-03] MEDS: POLYETHYLENE GLYCOL (HEALTHYLAX) 3350 17 GM PACKET PO SCH ×2 (05:55→21:28)
[2020-12-03] MEDS: HEPARIN NA (PORCINE) 5,000 UNITS/ML 1ML VIAL SQ SCH ×3 (05:55→21:30)
[2020-12-03 08:59] LABS: BASO % 1.3 % (0-2.0); EOS % 0.8 % (0-4.5); HEMATOCRIT 38.9 % (32.4-45.2); HEMOGLOBIN 12.9 GM/dL (10.7-15.3); LYMPH % 27.8 % (8-40); MCH 27.8 pg (25.7-33.7); MCHC 33.1 g/dl (32.0-36.0); MEAN PLT VOLUME 8.2 fl (7.5-11.1); MONO % 5.2 % (3.8-10.2); NEUT % 64.9 % (42.8-82.8); PLATELET COUNT 275 10^3/uL (134-434); RBC 4.63 M/mm3 (3.60-5.2); RDW 15.5 % (11.6-15.6); WHITE BLOOD COUNT 6.8 K/mm3 (4.0-10.0)
[2020-12-03 09:03] LABS: INR 1.02 (0.83-1.09); PROTHROMBIN TIME (PATIENT) 12.5 SEC (9.7-13.0)
[2020-12-03 09:06] LABS: ACTIVATED PTT 33.7 SECONDS (25.2-36.5)
[2020-12-03 09:16] LABS: BLOOD UREA NITROGEN 11.4 mg/dL (7-18); CALCIUM 8.4 mg/dL (8.5-10.1)
[2020-12-03 09:22] LABS: CREATININE 0.7 mg/dL (0.55-1.3)
[2020-12-03 09:23] LABS: BILIRUBIN,TOTAL 0.4 mg/dL (0.2-1)
[2020-12-03 09:24] LABS: TOT PROT 5.9 g/dl (6.4-8.2)
[2020-12-03] MEDS: PANTOPRAZOLE SODIUM 40 MG VIAL IVPUSH SCH (10:03)
[2020-12-03] MEDS: ESCITALOPRAM OXALATE 20 MG TABLET PO SCH (10:03)
[2020-12-03] MEDS: LOSARTAN POTASSIUM 50 MG TABLET PO SCH (10:04)
[2020-12-03] MEDS ORDERED: INSULIN (NOVOLOG) ASPART 100 UNITS/ML 10ML VIAL ONE (12:16)
[2020-12-04] MEDS: INSULIN SLIDING SCALE (NOVOLOG) 1 VIAL SQ SCH ×5 (00:07→23:41)
[2020-12-04] MEDS: HEPARIN NA (PORCINE) 5,000 UNITS/ML 1ML VIAL SQ SCH ×3 (05:28→22:19)
[2020-12-04] MEDS: LOSARTAN POTASSIUM 50 MG TABLET PO SCH (09:54)
[2020-12-04] MEDS: PANTOPRAZOLE 40 MG TABLET PO SCH (09:55)
[2020-12-04] MEDS: ESCITALOPRAM OXALATE 20 MG TABLET PO SCH (09:55)
[2020-12-04] MEDS: POLYETHYLENE GLYCOL (HEALTHYLAX) 3350 17 GM PACKET PO SCH ×3 (10:00→22:33)
[2020-12-04] MEDS ORDERED: PT OWN MED DRAWER 7, Y5N ONE (11:05)
[2020-12-04] MEDS ORDERED: INSULIN (NOVOLOG) ASPART 100 UNITS/ML 10ML VIAL ONE (11:06)
[2020-12-04] MEDS: ACETAMINOPHEN 1000 MG/100 ML VIAL (NON FORMULARY) IVPB PRN ×2 (11:37→20:32)
[2020-12-05] MEDS ORDERED: MECLIZINE HCL 25 MG TABLET (FP) PO ONE (00:53)
[2020-12-05] MEDS ORDERED: ACETAMINOPHEN/CAFFEINE/BUTALBITAL 1 TAB PO ONE (02:15)
[2020-12-05] MEDS: HEPARIN NA (PORCINE) 5,000 UNITS/ML 1ML VIAL SQ SCH (05:46)
[2020-12-05] MEDS: INSULIN SLIDING SCALE (NOVOLOG) 1 VIAL SQ SCH ×2 (05:51→12:14)
[2020-12-05 07:50] LABS: BASO % 0.4 % (0-2.0); EOS % 1.1 % (0-4.5); HEMATOCRIT 39.9 % (32.4-45.2); HEMOGLOBIN 13.6 GM/dL (10.7-15.3); LYMPH % 29.7 % (8-40); MCH 28.2 pg (25.7-33.7); MCHC 34.1 g/dl (32.0-36.0); MEAN CELL VOLUME 82.9 fl (80-96); MEAN PLT VOLUME 8.7 fl (7.5-11.1); MONO % 6.7 % (3.8-10.2); NEUT % 62.1 % (42.8-82.8); PLATELET COUNT 287 10^3/uL (134-434); RBC 4.81 M/mm3 (3.60-5.2); RDW 15.3 % (11.6-15.6); WHITE BLOOD COUNT 6.3 K/mm3 (4.0-10.0)
[2020-12-05 08:11] LABS: CALCIUM 8.4 mg/dL (8.5-10.1)
[2020-12-05 08:12] LABS: BLOOD UREA NITROGEN 15.3 mg/dL (7-18); MAGNESIUM 1.8 mg/dL (1.8-2.4)
[2020-12-05 08:15] LABS: CREATININE 0.9 mg/dL (0.55-1.3)
[2020-12-05] MEDS: POLYETHYLENE GLYCOL (HEALTHYLAX) 3350 17 GM PACKET PO SCH (09:33)
[2020-12-05] MEDS: PANTOPRAZOLE 40 MG TABLET PO SCH (09:41)
[2020-12-05] MEDS: ESCITALOPRAM OXALATE 20 MG TABLET PO SCH (09:41)
[2020-12-05] MEDS: LOSARTAN POTASSIUM 50 MG TABLET PO SCH (09:51)
[2020-12-05 09:53] VITALS: BP 136/76; PULSE 60; TEMP 98.6
[2020-12-05] MEDS ORDERED: INSULIN (NOVOLOG) ASPART 100 UNITS/ML 10ML VIAL ONE (12:09)
== END 2020-12-05 15:01 | disposition home or self-care (01) | DRG 439 ==
LOC: JER 19:13 → JERBED 22:54 → J7W 12-02 05:24
PROVIDERS: ADMIT Internal Medicine; ATTEND Family Medicine
DX: K85.90 Acute pancreatitis without necrosis or infection, unspecified (principal); K56.7 Ileus, unspecified; K86.1 Other chronic pancreatitis; K21.9 Gastro-esophageal reflux disease without esophagitis; E11.9 Type 2 diabetes mellitus without complications; I10 Essential (primary) hypertension; E78.5 Hyperlipidemia, unspecified; F41.9 Anxiety disorder, unspecified; F32.9 Major depressive disorder, single episode, unspecified; Z79.4 Long term (current) use of insulin
CPT/HCPCS: 36415; 71045-TC-FY; 74018-TC-FY; 74177-TC; 80048; 80053; 80061; 81003; 82150; 82272; 82803; 82962; 83036; 83690; 83735; 84484; 85025; 85610; 85730; 86140; 93005; 93010; 99285-25; C9803; J0131; J1644; Q9967; U0003; U0005

== ENCOUNTER 2020-12-16 22:05 | Emergency (ER) | payer OTHER ==
[2020-12-16 22:16] VITALS: BMI 31.9
[2020-12-16] MEDS ORDERED: SODIUM CHLORIDE 0.9% 500 ML INFUS.BAG IV ONE (23:46)
[2020-12-16] MEDS ORDERED: ONDANSETRON 4 MG/2 ML VIAL IVPUSH ONE (23:46)
[2020-12-16] MEDS ORDERED: FAMOTIDINE 20 MG/50 ML IVPB 20 MG/50 ML MG IVPB ONE ×2 (23:46→23:58)
[2020-12-16] MEDS ORDERED: ACETAMINOPHEN 1000 MG/100 ML VIAL (NON FORMULARY) IVPB ONE (23:46)
[2020-12-16] MEDS ORDERED: ACETAMINOPHEN INJECTION 100 ML IVPB ONE (23:57)
[2020-12-16] MEDS ORDERED: ONDANSETRON 4 MG/2 ML VIAL ONE (23:58)
[2020-12-17 00:40] LABS: BASO % 0.3 % (0-2.0); EOS % 0.5 % (0-4.5); HEMATOCRIT 42.7 % (32.4-45.2); HEMOGLOBIN 14.3 GM/dL (10.7-15.3); MCH 27.8 pg (25.7-33.7); MCHC 33.5 g/dl (32.0-36.0); MEAN PLT VOLUME 7.7 fl (7.5-11.1); MONO % 4.9 % (3.8-10.2); NEUT % 80.3 % (42.8-82.8); PLATELET COUNT 364 10^3/uL (134-434); RBC 5.14 M/mm3 (3.60-5.2); RDW 14.9 % (11.6-15.6)
[2020-12-17 00:49] LABS: INR 0.99 (0.83-1.09)
[2020-12-17 01:07] LABS: CHLORIDE 103 mmol/L (98-107); SODIUM 140 mmol/L (136-145)
[2020-12-17 01:10] LABS: ANION GAP 10 MMOL/L (8-16); BLOOD UREA NITROGEN 27.1 mg/dL (7-18); CALCIUM 9.5 mg/dL (8.5-10.1); CO2 27 mmol/L (21-32); GLUCOSE,RANDOM 65 mg/dL (74-106); LIPASE 105 U/L (73-393)
[2020-12-17 01:13] LABS: CREATININE 1.2 mg/dL (0.55-1.3); SGOT/AST 21 U/L (15-37); SGPT/ALT 29 U/L (13-61)
[2020-12-17 01:15] LABS: BILIRUBIN,TOTAL 0.4 mg/dL (0.2-1); TOT PROT 7.3 g/dl (6.4-8.2)
[2020-12-17 01:16] LABS: ALK PHOS 91 U/L (45-117)
[2020-12-17 01:19] LABS: ALBUMIN 3.9 g/dl (3.4-5.0)
[2020-12-17] MEDS ORDERED: MAG HYDROX/AL HYDROX/SIMETH 30 ML UNIT-DOSE CUP PO ONE (01:27)
[2020-12-17] MEDS ORDERED: LIDOCAINE VISCOUS 2% ORAL/TOP 15 ML UNIT-DOSE CUP MM ONE (01:27)
[2020-12-17] MEDS ORDERED: DEXTROSE 50%-WATER - 25 GM/50 ML VIAL IVPUSH ONE (01:28)
[2020-12-17] MEDS ORDERED: LIDOCAINE VISCOUS 2% ORAL/TOP 15 ML UNIT-DOSE CUP ONE (01:35)
[2020-12-17] MEDS ORDERED: DEXTROSE 50%-WATER 25 GM/50 ML DISP.SYRIN ONE (01:35)
[2020-12-17] MEDS ORDERED: MAG HYDROX/AL HYDROX/SIMETH 30 ML UNIT-DOSE CUP ONE (01:35)
[2020-12-17] MEDS ORDERED: CEFTRIAXONE 1 GM in DEXTROSE 5%-WATER - 100 ML IVPB ONE (04:01)
[2020-12-17 04:19] LABS: ALBUMIN 3.4 g/dl (3.4-5.0); BLOOD UREA NITROGEN 25.1 mg/dL (7-18); CALCIUM 8.5 mg/dL (8.5-10.1)
[2020-12-17] MEDS ORDERED: CEFTRIAXONE 1 GM/50 ML BAG ONE (04:22)
[2020-12-17 04:23] LABS: CREATININE 1.2 mg/dL (0.55-1.3)
[2020-12-17 04:24] LABS: BILIRUBIN,TOTAL 0.4 mg/dL (0.2-1); TOT PROT 6.1 g/dl (6.4-8.2)
[2020-12-17] MEDS ORDERED: morphine SULFATE 4 MG/ML VIAL IVPUSH ONE ×2 (04:31→07:40)
[2020-12-17] MEDS ORDERED: morphine SULFATE 4 MG/ML VIAL ONE (05:31)
[2020-12-17] MEDS ORDERED: MORPHINE SULFATE 2 MG/ML VIAL ONE ×2 (07:47→16:11)
[2020-12-17] MEDS ORDERED: IBUPROFEN 800 MG/8 ML IJ IVPB ONE ×2 (10:15→12:34)
[2020-12-17] MEDS ORDERED: ACETAMINOPHEN 1000 MG/100 ML VIAL (NON FORMULARY) IVPB ONE (10:18)
[2020-12-17] MEDS ORDERED: ACETAMINOPHEN INJECTION 100 ML IVPB ONE (11:33)
[2020-12-17 12:55] VITALS: TEMP 98.9
[2020-12-17 13:27] LABS: BASO % 1.2 % (0-2.0); EOS % 1.4 % (0-4.5); LYMPH % 31.9 % (8-40); MCH 28.8 pg (25.7-33.7); MCHC 34.2 g/dl (32.0-36.0); MEAN CELL VOLUME 84.2 fl (80-96); MEAN PLT VOLUME 7.8 fl (7.5-11.1); MONO % 7.9 % (3.8-10.2); NEUT % 57.6 % (42.8-82.8); PLATELET COUNT 303 10^3/uL (134-434); RBC 4.51 M/mm3 (3.60-5.2); RDW 15.3 % (11.6-15.6); WHITE BLOOD COUNT 7.3 K/mm3 (4.0-10.0)
[2020-12-17 13:47] LABS: CALCIUM 8.3 mg/dL (8.5-10.1)
[2020-12-17 13:49] LABS: ALBUMIN 3.3 g/dl (3.4-5.0); BLOOD UREA NITROGEN 21.2 mg/dL (7-18)
[2020-12-17 13:52] LABS: CREATININE 1.1 mg/dL (0.55-1.3)
[2020-12-17 13:53] LABS: BILIRUBIN,TOTAL 0.6 mg/dL (0.2-1); TOT PROT 6.3 g/dl (6.4-8.2)
[2020-12-17] MEDS ORDERED: morphine CARPU-JECT 2 MG/1 ML DISP.SYRIN IVPUSH ONE (16:11)
[2020-12-17 16:21] VITALS: BP 102/61; PULSE 57
== END 2020-12-17 16:14 | disposition short-term general hospital (02) ==
LOC: JER 22:05
DX: K83.9 Disease of biliary tract, unspecified (principal)
CPT/HCPCS: 36415; 71045-TC-FY; 74177-TC; 76705-TC; 80053; 82550; 82962; 83605; 83690; 84484; 85025; 85610; 86140; 87040; 93005; 93010; 99285-25; C9803; J0131; U0003; U0005

== ENCOUNTER 2021-05-04 21:32 | Emergency (ER) | payer OTHER ==
[2021-05-04 21:53] VITALS: BMI 29.2
[2021-05-04] MEDS ORDERED: ACETAMINOPHEN 1000 MG/100 ML BAG IVPB ONE (22:38)
[2021-05-04] MEDS ORDERED: SODIUM CHLORIDE 0.9% 500 ML INFUS.BAG IV ONE (22:38)
[2021-05-04] MEDS ORDERED: DEXTROSE 5%-LACTATED RINGERS 1,000 ML IV ONE (23:00)
[2021-05-04 23:18] LABS: BASO % 1.2 % (0-2.0); HEMATOCRIT 42.4 % (32.4-45.2); HEMOGLOBIN 14.1 GM/dL (10.7-15.3); LYMPH % 13.1 % (8-40); MCH 27.2 pg (25.7-33.7); MCHC 33.3 g/dl (32.0-36.0); MEAN CELL VOLUME 81.7 fl (80-96); MEAN PLT VOLUME 7.3 fl (7.5-11.1); MONO % 6.3 % (3.8-10.2); NEUT % 79.4 % (42.8-82.8); PLATELET COUNT 395 10^3/uL (134-434); RBC 5.19 M/mm3 (3.60-5.2); RDW 15.3 % (11.6-15.6); WHITE BLOOD COUNT 14.7 K/mm3 (4.0-10.0)
[2021-05-04] MEDS ORDERED: ACETAMINOPHEN INJECTION 100 ML IVPB ONE (23:27)
[2021-05-04 23:37] LABS: SODIUM 135 mmol/L (136-145)
[2021-05-04 23:39] LABS: ALBUMIN 3.7 g/dl (3.4-5.0); CALCIUM 8.5 mg/dL (8.5-10.1); CO2 26 mmol/L (21-32); GLUCOSE,RANDOM 71 mg/dL (74-106); LIPASE 52 U/L (73-393)
[2021-05-04 23:40] LABS: BLOOD UREA NITROGEN 24.8 mg/dL (7-18)
[2021-05-04 23:42] LABS: CREATININE 1.2 mg/dL (0.55-1.3); SGOT/AST 103 U/L (15-37)
[2021-05-04 23:44] LABS: BILIRUBIN,TOTAL 0.4 mg/dL (0.2-1)
[2021-05-04 23:45] LABS: ALK PHOS 91 U/L (45-117)
[2021-05-04 23:51] LABS: ANION GAP 5 MMOL/L (8-16); CHLORIDE 104 mmol/L (98-107); SGPT/ALT 40 U/L (13-61)
[2021-05-04] MEDS ORDERED: LACTATED RINGERS SOLUTION 1,000 ML/1,000 ML INFUS.BAG IV STA (23:52)
[2021-05-04] MEDS ORDERED: ONDANSETRON 4 MG/2 ML VIAL IVPUSH ONE (23:52)
[2021-05-05] MEDS ORDERED: METOCLOPRAMIDE HCL INJECTION 10 MG/2 ML VIAL IVPUSH ONE (00:11)
[2021-05-05] MEDS ORDERED: METOCLOPRAMIDE HCL INJECTION 10 MG/2 ML VIAL ONE (00:16)
[2021-05-05 01:36] LABS: EPI CELLS >36 /uL (0-25.1); HYALINE CASTS 4 /uL (0-3.1); URINE APPEARANCE CLEAR; URINE BACTERIA 415 /uL (0-1359); URINE BILIRUBIN NEGATIVE (NEGATIVE); URINE COLOR YELLOW; URINE GLUCOSE (UA) 3+ (NEGATIVE); URINE KETONE TRACE (NEGATIVE); URINE LEUK ESTERASE NEGATIVE (NEGATIVE); URINE NITRITE NEGATIVE (NEGATIVE); URINE PROTEIN 2+ (NEGATIVE); URINE RBC 13 /uL (0-23.9); URINE UROBILINOGEN 0.2 mg/dL (0.2-1.0)
[2021-05-05 01:48] LABS: MAGNESIUM 2.5 mg/dL (1.8-2.4)
[2021-05-05 01:54] VITALS: TEMP 98.2
[2021-05-05 04:29] VITALS: BP 124/70; PULSE 67
== END 2021-05-05 04:30 | disposition home or self-care (01) ==
LOC: JER 21:32
PROC: 3E0333Z Introduction of Anti-inflammatory into Peripheral Vein, Percutaneous Approach (ICD-10-PCS; principal; 2021-05-04)
PROC: 3E033GC Introduction of Other Therapeutic Substance into Peripheral Vein, Percutaneous Approach (ICD-10-PCS; 2021-05-04)
PROC: 3E033GC Introduction of Other Therapeutic Substance into Peripheral Vein, Percutaneous Approach (ICD-10-PCS; 2021-05-04)
DX: R10.84 Generalized abdominal pain (principal)
CPT/HCPCS: 36415; 71045-TC-FY; 74177-TC; 80053; 81003; 82962; 83690; 83735; 84132; 84484; 85025; 93005; 93010; 99285-25; J0131

== ENCOUNTER 2021-06-02 17:04 | Emergency (ER) | payer OTHER ==
[2021-06-02 17:12] VITALS: BP 150/86; PULSE 83; TEMP 98.6; BMI 30.7
[2021-06-02 19:10] LABS: BASO % 1.3 % (0-2.0); EOS % 1.6 % (0-4.5); HEMATOCRIT 43.9 % (32.4-45.2); HEMOGLOBIN 14.8 GM/dL (10.7-15.3); LYMPH % 23.1 % (8-40); MCH 28.1 pg (25.7-33.7); MCHC 33.7 g/dl (32.0-36.0); MEAN CELL VOLUME 83.4 fl (80-96); MEAN PLT VOLUME 7.3 fl (7.5-11.1); MONO % 6.7 % (3.8-10.2); NEUT % 67.3 % (42.8-82.8); PLATELET COUNT 362 10^3/uL (134-434); RBC 5.26 M/mm3 (3.60-5.2); WHITE BLOOD COUNT 10.5 K/mm3 (4.0-10.0)
[2021-06-02 19:29] LABS: ALBUMIN 4.1 g/dl (3.4-5.0); BLOOD UREA NITROGEN 25.9 mg/dL (7-18); CALCIUM 9.2 mg/dL (8.5-10.1)
[2021-06-02 19:32] LABS: CREATININE 1.1 mg/dL (0.55-1.3)
[2021-06-02 19:34] LABS: BILIRUBIN,TOTAL 0.5 mg/dL (0.2-1); TOT PROT 7.7 g/dl (6.4-8.2)
[2021-06-02 19:36] LABS: EPI CELLS 31 /uL (0-25.1); HYALINE CASTS 1 /uL (0-3.1); URINE APPEARANCE CLEAR; URINE BILIRUBIN NEGATIVE (NEGATIVE); URINE COLOR YELLOW; URINE GLUCOSE (UA) 3+ (NEGATIVE); URINE KETONE NEGATIVE (NEGATIVE); URINE LEUK ESTERASE NEGATIVE (NEGATIVE); URINE NITRITE NEGATIVE (NEGATIVE); URINE PROTEIN NEGATIVE (NEGATIVE); URINE RBC 3 /uL (0-23.9); URINE UROBILINOGEN 0.2 mg/dL (0.2-1.0); URINE WBC 4 /uL (0-25.8)
[2021-06-02 19:54] LABS: URINE BACTERIA 167 /uL (0-1359)
== END 2021-06-02 22:45 | disposition home or self-care (01) ==
LOC: JER 17:04
DX: R31.9 Hematuria, unspecified (principal)
CPT/HCPCS: 36415; 76830-TC; 80053; 81003; 85025; 87077; 87086; 99284-25

== ENCOUNTER 2021-11-09 11:53 | Emergency (ER) | payer OTHER ==
[2021-11-09 12:02] VITALS: BP 148/88; TEMP 98.5; BMI 29.2
[2021-11-09] MEDS ORDERED: ONDANSETRON 4 MG/2 ML VIAL IVPUSH ONE (12:52)
[2021-11-09] MEDS ORDERED: SODIUM CHLORIDE 0.9% 500 ML INFUS.BAG IV ONE (12:52)
[2021-11-09] MEDS ORDERED: ACETAMINOPHEN 1000 MG/100 ML BAG IVPB ONE (12:52)
[2021-11-09] MEDS ORDERED: FAMOTIDINE 20 MG/50 ML IVPB 20 MG/50 ML MG IVPB ONE ×2 (13:18→13:27)
[2021-11-09 13:21] LABS: VENOUS BASE EXCESS -2.4 mmol/L (-2-2); VENOUS O2 SATURATION 61.4 % (70-80); VENOUS PCO2 43.7 mmHg (38-52); VENOUS PH 7.346 (7.310-7.410)
[2021-11-09 13:25] LABS: BASO % 0.9 % (0-2.0); EOS % 0.7 % (0-4.5); HEMATOCRIT 48.9 % (32.4-45.2); HEMOGLOBIN 16.1 GM/dL (10.7-15.3); LYMPH % 17.3 % (8-40); MCH 27.4 pg (25.7-33.7); MCHC 32.9 g/dl (32.0-36.0); MEAN CELL VOLUME 83.4 fl (80-96); MEAN PLT VOLUME 7.5 fl (7.5-11.1); MONO % 5.4 % (3.8-10.2); NEUT % 75.7 % (42.8-82.8); PLATELET COUNT 359 10^3/uL (134-434); RBC 5.86 M/mm3 (3.60-5.2); RDW 14.7 % (11.6-15.6); WHITE BLOOD COUNT 11.1 K/mm3 (4.0-10.0)
[2021-11-09] MEDS ORDERED: ACETAMINOPHEN INJECTION 100 ML IVPB ONE (13:26)
[2021-11-09] MEDS ORDERED: ONDANSETRON 4 MG/2 ML VIAL ONE (13:26)
[2021-11-09 13:48] LABS: ALBUMIN 4.1 g/dl (3.4-5.0); BLOOD UREA NITROGEN 22.8 mg/dL (7-18); CALCIUM 9.6 mg/dL (8.5-10.1); MAGNESIUM 2.3 mg/dL (1.8-2.4)
[2021-11-09 13:51] LABS: CREATININE 1.1 mg/dL (0.55-1.3)
[2021-11-09 13:52] LABS: BILIRUBIN,TOTAL 0.7 mg/dL (0.2-1)
[2021-11-09 13:53] LABS: TOT PROT 7.9 g/dl (6.4-8.2)
[2021-11-09 13:56] LABS: URINE APPEARANCE CLEAR; URINE BILIRUBIN NEGATIVE (NEGATIVE); URINE COLOR YELLOW; URINE GLUCOSE (UA) 3+ (NEGATIVE); URINE KETONE 1+ (NEGATIVE); URINE LEUK ESTERASE NEGATIVE (NEGATIVE); URINE NITRITE NEGATIVE (NEGATIVE); URINE PROTEIN TRACE (NEGATIVE); URINE UROBILINOGEN 0.2 mg/dL (0.2-1.0)
[2021-11-09] MEDS ORDERED: morphine CARPU-JECT 2 MG/1 ML DISP.SYRIN IVPUSH ONE ×2 (14:43→15:44)
[2021-11-09] MEDS ORDERED: morphine SULFATE 4 MG/ML VIAL ONE (16:13)
[2021-11-09] MEDS ORDERED: LIDOCAINE 5% TOPICAL PATCH TP ONE (17:40)
[2021-11-09] MEDS ORDERED: METOCLOPRAMIDE HCL INJECTION 10 MG/2 ML VIAL IVPUSH ONE (18:01)
[2021-11-09] MEDS ORDERED: LIDOCAINE 5% TOPICAL PATCH ONE (18:07)
[2021-11-09] MEDS ORDERED: METOCLOPRAMIDE HCL INJECTION 10 MG/2 ML VIAL ONE (18:07)
[2021-11-09] MEDS ORDERED: IBUPROFEN 600 MG TABLET (FP) PO ONE ×2 (18:07→18:16)
[2021-11-09 18:55] VITALS: PULSE 75
[2021-11-09] MEDS ORDERED: LIDOCAINE PATCH REMOVAL MC SCH (22:00)
== END 2021-11-09 19:01 | disposition home or self-care (01) ==
LOC: JER 11:53
PROC: 3E033GC Introduction of Other Therapeutic Substance into Peripheral Vein, Percutaneous Approach (ICD-10-PCS; principal; 2021-11-09)
DX: R10.12 Left upper quadrant pain (principal); M54.89 Other dorsalgia
CPT/HCPCS: 0241U-QW; 36415; 71045-TC-FY; 74177-TC; 80053; 81003; 82803; 82962; 83605; 83690; 83735; 84100; 84484; 84702; 85025; 87077; 87086; 93005; 93010; 99285-25

== ENCOUNTER 2022-07-30 16:40 | Inpatient (IN) | payer OTHER ==
[2022-07-30] MEDS ORDERED: METOCLOPRAMIDE HCL INJECTION 10 MG/2 ML VIAL IVPB ONE (17:38)
[2022-07-30] MEDS ORDERED: SODIUM CHLORIDE 0.9% 500 ML INFUS.BAG IV ONE (17:38)
[2022-07-30] MEDS ORDERED: ACETAMINOPHEN 1000 MG/100 ML BAG IVPB ONE (17:38)
[2022-07-30] MEDS ORDERED: MECLIZINE HCL 25 MG TABLET (FP) PO ONE (17:41)
[2022-07-30] MEDS ORDERED: ACETAMINOPHEN INJECTION 100 ML IVPB ONE (17:56)
[2022-07-30] MEDS ORDERED: MECLIZINE HCL 25 MG TABLET (FP) ONE (17:56)
[2022-07-30] MEDS ORDERED: METOCLOPRAMIDE HCL INJECTION 10 MG/2 ML VIAL ONE (17:56)
[2022-07-30 18:18] LABS: VENOUS BASE EXCESS 0.6 mmol/L (-2-2); VENOUS O2 SATURATION 72.2 % (70-80); VENOUS PCO2 45.1 mmHg (38-52); VENOUS PH 7.381 (7.310-7.410)
[2022-07-30 18:19] LABS: EOS % 0.3 % (0-4.5); HEMOGLOBIN 14.8 GM/dL (10.7-15.3); LYMPH % 10.7 % (8-40); MCH 27.8 pg (25.7-33.7); MCHC 33.7 g/dl (32.0-36.0); MEAN CELL VOLUME 82.6 fl (80-96); MEAN PLT VOLUME 7.5 fl (7.5-11.1); PLATELET COUNT 362 10^3/uL (134-434); RBC 5.33 M/mm3 (3.60-5.2); RDW 13.9 % (11.6-15.6); WHITE BLOOD COUNT 11.5 K/mm3 (4.0-10.0)
[2022-07-30 18:41] LABS: ALBUMIN 3.7 g/dl (3.4-5.0); BLOOD UREA NITROGEN 24.4 mg/dL (7-18); MAGNESIUM 2.2 mg/dL (1.8-2.4)
[2022-07-30 18:44] LABS: CREATININE 1.4 mg/dL (0.55-1.3)
[2022-07-30 18:45] LABS: BILIRUBIN,TOTAL 0.3 mg/dL (0.2-1); TOT PROT 7.5 g/dl (6.4-8.2)
[2022-07-30] MEDS ORDERED: KETOROLAC TROMETHAMINE 30 MG/1 ML VIAL IVPUSH ONE (22:31)
[2022-07-30] MEDS ORDERED: KETOROLAC TROMETHAMINE 30 MG/1 ML VIAL ONE (23:44)
[2022-07-31] MEDS: SODIUM CHLORIDE 1,000 ML IV SCH ×2 (02:00→16:31)
[2022-07-31] MEDS ORDERED: KETOROLAC TROMETHAMINE 15 MG/ML VIAL IM ONE (02:53)
[2022-07-31 06:02] VITALS: RESP 20; BMI 35.2
[2022-07-31] MEDS: INSULIN SLIDING SCALE (NOVOLOG) 1 VIAL SQ SCH ×4 (06:52→22:31)
[2022-07-31] MEDS ORDERED: ESCITALOPRAM OXALATE 10 MG TABLET ONE (09:09)
[2022-07-31] MEDS: LOSARTAN POTASSIUM 50 MG TABLET PO SCH (09:16)
[2022-07-31] MEDS: ASPIRIN 81 MG CHEWABLE TABLETS PO SCH (09:17)
[2022-07-31] MEDS: PANTOPRAZOLE 40 MG TABLET PO SCH (09:17)
[2022-07-31] MEDS: ENOXAPARIN NA (PORCINE) 40 MG/0.4 ML DISP.SYRIN SQ SCH (09:17)
[2022-07-31] MEDS: ESCITALOPRAM OXALATE 20 MG TABLET PO SCH (09:17)
[2022-07-31] MEDS ORDERED: SUMAtriptan SUCCINATE 25 MG TABLET PO ONE (09:44)
[2022-07-31] MEDS ORDERED: PANTOPRAZOLE 40 MG TABLET PO SCH (10:00)
[2022-07-31 10:33] LABS: HEMATOCRIT 39.8 % (32.4-45.2); HEMOGLOBIN 13.3 GM/dL (10.7-15.3); MCH 27.9 pg (25.7-33.7); MCHC 33.5 g/dl (32.0-36.0); MEAN CELL VOLUME 83.2 fl (80-96); MEAN PLT VOLUME 7.5 fl (7.5-11.1); PLATELET COUNT 315 10^3/uL (134-434); RBC 4.78 M/mm3 (3.60-5.2); RDW 14.2 % (11.6-15.6); WHITE BLOOD COUNT 8.6 K/mm3 (4.0-10.0)
[2022-07-31 10:54] LABS: CALCIUM 8.5 mg/dL (8.5-10.1)
[2022-07-31 10:57] LABS: CREATININE 1.1 mg/dL (0.55-1.3)
[2022-07-31] MEDS ORDERED: ATORVASTATIN CA 40 MG TABLET (FP) PO SCH (22:00)
[2022-07-31] MEDS: KETOROLAC TROMETHAMINE 15 MG/ML VIAL IM PRN (22:36)
[2022-08-01] MEDS: SODIUM CHLORIDE 1,000 ML IV SCH ×2 (06:28→06:43)
[2022-08-01] MEDS: INSULIN SLIDING SCALE (NOVOLOG) 1 VIAL SQ SCH ×2 (06:45→11:53)
[2022-08-01] MEDS: KETOROLAC TROMETHAMINE 15 MG/ML VIAL IM PRN (06:48)
[2022-08-01 08:29] VITALS: BP 148/77; PULSE 57; TEMP 98
[2022-08-01] MEDS ORDERED: ESCITALOPRAM OXALATE 10 MG TABLET ONE (09:40)
[2022-08-01] MEDS: ENOXAPARIN NA (PORCINE) 40 MG/0.4 ML DISP.SYRIN SQ SCH (09:42)
[2022-08-01] MEDS: ASPIRIN 81 MG CHEWABLE TABLETS PO SCH (09:42)
[2022-08-01] MEDS: LOSARTAN POTASSIUM 50 MG TABLET PO SCH (09:42)
[2022-08-01] MEDS: PANTOPRAZOLE 40 MG TABLET PO SCH (09:42)
[2022-08-01] MEDS ORDERED: ESCITALOPRAM OXALATE 10 MG TABLET PO SCH (10:41)
[2022-08-01] MEDS: ESCITALOPRAM OXALATE 20 MG TABLET PO SCH (10:45)
[2022-08-01] MEDS ORDERED: INSULIN (NOVOLOG) ASPART 100 UNITS/ML 10ML VIAL ONE ×2 (11:52→11:55)
== END 2022-08-01 13:47 | disposition home or self-care (01) | DRG 103 ==
LOC: JER 16:40 → JERBED 22:34 → OBSVTOIN 07-31 00:14 → J8W 07-31 02:14
PROVIDERS: ADMIT Internal Medicine; ATTEND Family Medicine
DX: G43.819 Other migraine, intractable, without status migrainosus (principal); K86.1 Other chronic pancreatitis; E11.51 Type 2 diabetes mellitus with diabetic peripheral angiopathy without gangrene; E11.43 Type 2 diabetes mellitus with diabetic autonomic (poly)neuropathy; I10 Essential (primary) hypertension; E11.610 Type 2 diabetes mellitus with diabetic neuropathic arthropathy; K76.0 Fatty (change of) liver, not elsewhere classified; K21.9 Gastro-esophageal reflux disease without esophagitis; E78.5 Hyperlipidemia, unspecified; R11.10 Vomiting, unspecified; E86.0 Dehydration; E11.65 Type 2 diabetes mellitus with hyperglycemia; F41.9 Anxiety disorder, unspecified
CPT/HCPCS: 0241U-QW; 36415; 70450-TC; 71045-TC-FY; 76705-TC; 80048; 80053; 82010; 82803; 82962; 83036; 83690; 83735; 84443; 84484; 85025; 85027; 93005; 93010; 99285-25; G0378

== ENCOUNTER 2022-12-24 07:59 | Observation (INO) | payer OTHER ==
[2022-12-24] MEDS ORDERED: KETOROLAC TROMETHAMINE 15 MG/ML VIAL IVPUSH ONE ×2 (09:04→11:29)
[2022-12-24] MEDS ORDERED: ACETAMINOPHEN 500 MG TABLET (FP) PO ONE (09:05)
[2022-12-24] MEDS ORDERED: LIDOCAINE 5% TOPICAL PATCH TP ONE (09:06)
[2022-12-24] MEDS ORDERED: ACETAMINOPHEN 500 MG TABLET (FP) ONE (09:28)
[2022-12-24] MEDS ORDERED: KETOROLAC TROMETHAMINE 15 MG/ML VIAL ONE ×3 (09:28→16:21)
[2022-12-24] MEDS ORDERED: LIDOCAINE 5% TOPICAL PATCH ONE (09:28)
[2022-12-24 10:05] LABS: INR 0.94 (0.83-1.09); PROTHROMBIN TIME (PATIENT) 10.9 SEC (9.7-13.0)
[2022-12-24 10:07] LABS: ACTIVATED PTT 29.8 SECONDS (25.2-36.5)
[2022-12-24 10:10] LABS: BASO % 0.9 % (0-2.0); EOS % 1.6 % (0-4.5); HEMATOCRIT 45.2 % (32.4-45.2); HEMOGLOBIN 14.5 GM/dL (10.7-15.3); LYMPH % 22.2 % (8-40); MCH 27.7 pg (25.7-33.7); MCHC 32.1 g/dl (32.0-36.0); MEAN CELL VOLUME 86.4 fl (80-96); MEAN PLT VOLUME 8.3 fl (7.5-11.1); NEUT % 68.3 % (42.8-82.8); PLATELET COUNT 293 10^3/uL (134-434); RBC 5.22 M/mm3 (3.60-5.2); RDW 14.9 % (11.6-15.6); WHITE BLOOD COUNT 8.7 K/mm3 (4.0-10.0)
[2022-12-24] MEDS ORDERED: METHOCARBAMOL 500 MG TABLET PO ONE ×2 (10:21→12:15)
[2022-12-24 10:22] LABS: CHLORIDE 105 mmol/L (98-107)
[2022-12-24 10:24] LABS: ALBUMIN 3.4 g/dl (3.4-5.0); CALCIUM 8.7 mg/dL (8.5-10.1); CO2 24 mmol/L (21-32); GLUCOSE,RANDOM 346 mg/dL (74-106)
[2022-12-24] MEDS ORDERED: INSULIN (NOVOLOG) ASPART 100 UNITS/ML 10ML VIAL SQ ONE (10:24)
[2022-12-24] MEDS ORDERED: METHOCARBAMOL 500 MG TABLET ONE ×2 (10:24→12:38)
[2022-12-24 10:27] LABS: CREATININE 1.1 mg/dL (0.55-1.3)
[2022-12-24 10:29] LABS: BILIRUBIN,TOTAL 0.5 mg/dL (0.2-1)
[2022-12-24 10:30] LABS: ALK PHOS 91 U/L (45-117)
[2022-12-24 10:32] LABS: ANION GAP 6 MMOL/L (8-16); POTASSIUM 9.4 mmol/L (3.5-5.1); SGOT/AST 109 U/L (15-37); SGPT/ALT 35 U/L (13-61); SODIUM 135 mmol/L (136-145)
[2022-12-24 12:15] LABS: URINE APPEARANCE CLEAR; URINE BILIRUBIN NEGATIVE (NEGATIVE); URINE COLOR YELLOW; URINE GLUCOSE (UA) 3+ (NEGATIVE); URINE KETONE NEGATIVE (NEGATIVE); URINE LEUK ESTERASE NEGATIVE (NEGATIVE); URINE NITRITE NEGATIVE (NEGATIVE); URINE PROTEIN NEGATIVE (NEGATIVE); URINE UROBILINOGEN 0.2 mg/dL (0.2-1.0)
[2022-12-24] MEDS ORDERED: LACTATED RINGERS SOLUTION 1000 ML INFUS.BAG IV ONE (12:15)
[2022-12-24 12:22] LABS: CHLORIDE 101 mmol/L (98-107); SODIUM 135 mmol/L (136-145)
[2022-12-24 12:24] LABS: ALBUMIN 3.3 g/dl (3.4-5.0); CALCIUM 8.6 mg/dL (8.5-10.1); CO2 25 mmol/L (21-32); GLUCOSE,RANDOM 325 mg/dL (74-106)
[2022-12-24 12:27] LABS: CREATININE 1.1 mg/dL (0.55-1.3); SGOT/AST 52 U/L (15-37); SGPT/ALT 29 U/L (13-61)
[2022-12-24 12:29] LABS: BILIRUBIN,TOTAL 0.5 mg/dL (0.2-1); TOT PROT 7.2 g/dl (6.4-8.2)
[2022-12-24 12:30] LABS: ALK PHOS 88 U/L (45-117); ANION GAP 9 MMOL/L (8-16); POTASSIUM 6.6 mmol/L (3.5-5.1)
[2022-12-24] MEDS ORDERED: morphine CARPU-JECT 4 MG/1 ML DISP.SYRIN IVPUSH ONE (13:10)
[2022-12-24] MEDS ORDERED: morphine SULFATE 4 MG/ML VIAL ONE (13:13)
[2022-12-24] MEDS ORDERED: morphine CARPU-JECT 2 MG/1 ML DISP.SYRIN IVPUSH ONE (14:43)
[2022-12-24 14:44] LABS: POTASSIUM 5.2 mmol/L (3.5-5.1)
[2022-12-24 14:46] LABS: CALCIUM 8.4 mg/dL (8.5-10.1)
[2022-12-24 14:49] LABS: CREATININE 1.1 mg/dL (0.55-1.3)
[2022-12-24] MEDS: SODIUM CHLORIDE 0.45% 1,000 ML IV SCH (16:14)
[2022-12-24] MEDS: KETOROLAC TROMETHAMINE 15 MG/ML VIAL IVPUSH PRN (16:26)
[2022-12-24] MEDS: INSULIN SLIDING SCALE (NOVOLOG) 1 VIAL SQ SCH ×2 (17:33→21:19)
[2022-12-24 20:53] VITALS: BMI 35.1
[2022-12-24] MEDS: ACETAMINOPHEN 325 MG TABLET (FP) PO PRN (21:13)
[2022-12-24] MEDS ORDERED: CYCLOBENZAPRINE HCL 5 MG TABLET PO SCH (22:00)
[2022-12-24] MEDS ORDERED: INSULIN (LEVEMIR) 100 UNITS/ML UNITS SQ SCH (22:00)
[2022-12-24] MEDS ORDERED: LIDOCAINE PATCH REMOVAL MC SCH (22:00)
[2022-12-24 22:50] VITALS: RESP 18
[2022-12-25] MEDS: INSULIN SLIDING SCALE (NOVOLOG) 1 VIAL SQ SCH ×3 (06:28→16:42)
[2022-12-25] MEDS ORDERED: ESCITALOPRAM OXALATE 10 MG TABLET ONE (09:03)
[2022-12-25] MEDS ORDERED: ESCITALOPRAM OXALATE 20 MG TABLET PO SCH (10:00)
[2022-12-25 10:38] LABS: HEMATOCRIT 40.2 % (32.4-45.2); HEMOGLOBIN 13.3 GM/dL (10.7-15.3); MCH 27.7 pg (25.7-33.7); MCHC 33.1 g/dl (32.0-36.0); MEAN CELL VOLUME 83.7 fl (80-96); MEAN PLT VOLUME 7.8 fl (7.5-11.1); PLATELET COUNT 271 10^3/uL (134-434); RDW 14.7 % (11.6-15.6)
[2022-12-25 10:57] LABS: POTASSIUM 4.8 mmol/L (3.5-5.1)
[2022-12-25 11:04] LABS: ALBUMIN 3.1 g/dl (3.4-5.0); BLOOD UREA NITROGEN 29.7 mg/dL (7-18); CALCIUM 8.3 mg/dL (8.5-10.1)
[2022-12-25 11:06] LABS: CREATININE 1.1 mg/dL (0.55-1.3)
[2022-12-25 11:10] LABS: BILIRUBIN,TOTAL 0.3 mg/dL (0.2-1)
[2022-12-25] MEDS: KETOROLAC TROMETHAMINE 15 MG/ML VIAL IVPUSH PRN (11:39)
[2022-12-25] MEDS: SODIUM CHLORIDE 0.45% 1,000 ML IV SCH ×2 (12:21→16:42)
[2022-12-25 14:46] VITALS: BP 164/88; PULSE 66; TEMP 98.8
[2022-12-25] MEDS: ACETAMINOPHEN 325 MG TABLET (FP) PO PRN (17:01)
== END 2022-12-25 17:42 | disposition home or self-care (01) ==
LOC: JER 07:59 → JERBED 12:53 → J6S 20:04
PROVIDERS: ADMIT Family Medicine; ATTEND Family Medicine
PROC: 3E013VG Introduction of Insulin into Subcutaneous Tissue, Percutaneous Approach (ICD-10-PCS; principal; 2022-12-24)
PROC: 3E0333Z Introduction of Anti-inflammatory into Peripheral Vein, Percutaneous Approach (ICD-10-PCS; 2022-12-24)
PROC: 3E0337Z Introduction of Electrolytic and Water Balance Substance into Peripheral Vein, Percutaneous Approach (ICD-10-PCS; 2022-12-24)
PROC: 3E033NZ Introduction of Analgesics, Hypnotics, Sedatives into Peripheral Vein, Percutaneous Approach (ICD-10-PCS; 2022-12-24)
DX: M54.9 Dorsalgia, unspecified (principal); E11.65 Type 2 diabetes mellitus with hyperglycemia; K21.9 Gastro-esophageal reflux disease without esophagitis; G89.29 Other chronic pain; I10 Essential (primary) hypertension; E78.5 Hyperlipidemia, unspecified; Z87.19 Personal history of other diseases of the digestive system; F41.0 Panic disorder [episodic paroxysmal anxiety]; F41.8 Other specified anxiety disorders; K86.1 Other chronic pancreatitis; M25.569 Pain in unspecified knee; Z88.0 Allergy status to penicillin; Z87.891 Personal history of nicotine dependence
CPT/HCPCS: 0241U-QW; 36415; 74177-TC; 80048; 80053; 81003; 82962; 85025; 85027; 85610; 85730; 86140; 86850; 86900; 86901; 87086; 93005; 93010; 96372; 96374; 96375; 96376; 99285-25; G0378

== ENCOUNTER 2023-07-08 19:52 | Inpatient (IN) | payer OTHER ==
[2023-07-08 19:59] VITALS: BMI 32.6
[2023-07-08] MEDS ORDERED: ONDANSETRON 4 MG/2 ML VIAL ONE (20:44)
[2023-07-08] MEDS ORDERED: ACETAMINOPHEN INJECTION 100 ML IVPB ONE (20:44)
[2023-07-08] MEDS: ACETAMINOPHEN 1000 MG/100 ML BAG IVPB ONE (20:51)
[2023-07-08] MEDS: ONDANSETRON 4 MG/2 ML VIAL IVPUSH ONE (20:52)
[2023-07-08 20:54] LABS: BASO % 0.7 % (0-2.0); EOS % 1.2 % (0-4.5); HEMATOCRIT 44.1 % (32.4-45.2); HEMOGLOBIN 14.8 GM/dL (10.7-15.3); LYMPH % 16.2 % (8-40); MCH 28.7 pg (25.7-33.7); MCHC 33.7 g/dl (32.0-36.0); MEAN CELL VOLUME 85.4 fl (80-96); MEAN PLT VOLUME 7.9 fl (7.5-11.1); NEUT % 75.9 % (42.8-82.8); PLATELET COUNT 362 10^3/uL (134-434); RBC 5.16 M/mm3 (3.60-5.2); RDW 14.9 % (11.6-15.6)
[2023-07-08 21:13] LABS: CHLORIDE 102 mmol/L (98-107); SODIUM 132 mmol/L (136-145)
[2023-07-08 21:15] LABS: BLOOD UREA NITROGEN 17.7 mg/dL (7-18); CALCIUM 8.8 mg/dL (8.5-10.1)
[2023-07-08 21:16] LABS: ALBUMIN 3.5 g/dl (3.4-5.0); CO2 26 mmol/L (21-32); GLUCOSE,RANDOM 286 mg/dL (74-106); MAGNESIUM 2.1 mg/dL (1.8-2.4)
[2023-07-08 21:18] LABS: SGPT/ALT 33 U/L (13-61)
[2023-07-08 21:19] LABS: CREATININE 1.1 mg/dL (0.55-1.3); SGOT/AST 68 U/L (15-37)
[2023-07-08 21:20] LABS: BILIRUBIN,TOTAL 0.7 mg/dL (0.2-1); TOT PROT 7.5 g/dl (6.4-8.2)
[2023-07-08 21:21] LABS: ALK PHOS 84 U/L (45-117)
[2023-07-08 21:35] LABS: ANION GAP 4 mmol/L (4-13); POTASSIUM 8.2 mmol/L (3.5-5.1)
[2023-07-08] MEDS ORDERED: morphine SULFATE 4 MG/ML VIAL ONE (22:53)
[2023-07-08] MEDS: morphine CARPU-JECT 4 MG/1 ML DISP.SYRIN IVPUSH ONE (22:59)
[2023-07-08] MEDS: SODIUM CHLORIDE 0.9% 500 ML INFUS.BAG IV ONE (23:00)
[2023-07-09] MEDS ORDERED: DOCUSATE SODIUM 100 MG CAPSULE (FP) PO PRN (00:13)
[2023-07-09] MEDS ORDERED: ACETAMINOPHEN INJECTION 100 ML IVPB ONE (01:44)
[2023-07-09] MEDS: SODIUM CHLORIDE 1,000 ML IV SCH (01:54)
[2023-07-09] MEDS: FAMOTIDINE 20 MG/50 ML IVPB 20 MG/50 ML MG IVPB ONE (01:54)
[2023-07-09] MEDS: ACETAMINOPHEN 1000 MG/100 ML BAG IVPB PRN (02:16)
[2023-07-09] MEDS: INSULIN ASPART SLIDING SCALE (NOVOLOG) 1 VIAL SQ SCH (09:00)
[2023-07-09] MEDS: LOSARTAN POTASSIUM 50 MG TABLET PO SCH (10:05)
[2023-07-09] MEDS: ESCITALOPRAM OXALATE 20 MG TABLET PO SCH (10:05)
[2023-07-09] MEDS: PANTOPRAZOLE 40 MG TABLET PO SCH (10:05)
[2023-07-09 10:16] LABS: BASO % 1.2 % (0-2.0); EOS % 0.8 % (0-4.5); HEMATOCRIT 42.5 % (32.4-45.2); HEMOGLOBIN 13.8 GM/dL (10.7-15.3); LYMPH % 16.6 % (8-40); MCH 28.4 pg (25.7-33.7); MCHC 32.4 g/dl (32.0-36.0); MEAN CELL VOLUME 87.4 fl (80-96); MEAN PLT VOLUME 7.5 fl (7.5-11.1); MONO % 5.8 % (3.8-10.2); NEUT % 75.6 % (42.8-82.8); PLATELET COUNT 311 10^3/uL (134-434); RBC 4.86 M/mm3 (3.60-5.2); RDW 14.2 % (11.6-15.6); WHITE BLOOD COUNT 11.3 K/mm3 (4.0-10.0)
[2023-07-09 10:39] LABS: POTASSIUM 4.5 mmol/L (3.5-5.1)
[2023-07-09 10:44] LABS: CALCIUM 8.3 mg/dL (8.5-10.1)
[2023-07-09 10:45] LABS: BLOOD UREA NITROGEN 13.6 mg/dL (7-18)
[2023-07-09 10:48] LABS: CREATININE 0.8 mg/dL (0.55-1.3)
[2023-07-09] MEDS: POTASSIUM CHLORIDE 10 MEQ in SODIUM CHLORIDE 0.45% 1,000 ML IVPB SCH (12:55)
[2023-07-09] MEDS: LACTATED RINGERS SOLUTION 1,000 ML/1,000 ML INFUS.BAG IV SCH (18:16)
[2023-07-09] MEDS ORDERED: POLYETHYLENE GLYCOL (HEALTHYLAX) 3350 17 GM PACKET PO SCH (22:00)
[2023-07-09] MEDS ORDERED: ROSUVASTATIN CA 10 MG TABLET PO SCH (22:00)
[2023-07-09] MEDS: POLYETHYLENE GLYCOL (HEALTHYLAX) 3350 17 GM PACKET PO SCH (22:13)
[2023-07-10] MEDS ORDERED: ACETAMINOPHEN 325 MG TABLET (FP) PO PRN (03:00)
[2023-07-10] MEDS ORDERED: ONDANSETRON 4 MG/2 ML VIAL IVPUSH PRN (03:00)
[2023-07-10 08:23] LABS: INR 1.11 (0.83-1.09); PROTHROMBIN TIME (PATIENT) 12.9 SEC (9.7-13.0)
[2023-07-10 08:31] LABS: EOS % 0.1 % (0-4.5); HEMATOCRIT 41.7 % (32.4-45.2); HEMOGLOBIN 13.5 GM/dL (10.7-15.3); LYMPH % 17.3 % (8-40); MCH 28.1 pg (25.7-33.7); MCHC 32.3 g/dl (32.0-36.0); MEAN PLT VOLUME 7.7 fl (7.5-11.1); MONO % 4.9 % (3.8-10.2); NEUT % 76.7 % (42.8-82.8); PLATELET COUNT 294 10^3/uL (134-434); RDW 14.1 % (11.6-15.6); WHITE BLOOD COUNT 10.4 K/mm3 (4.0-10.0)
[2023-07-10 08:41] LABS: POTASSIUM 4.8 mmol/L (3.5-5.1)
[2023-07-10 08:44] LABS: ALBUMIN 3.1 g/dl (3.4-5.0); BLOOD UREA NITROGEN 10.4 mg/dL (7-18); CALCIUM 9.1 mg/dL (8.5-10.1)
[2023-07-10 08:47] LABS: CREATININE 0.8 mg/dL (0.55-1.3)
[2023-07-10 08:49] LABS: BILIRUBIN,TOTAL 0.7 mg/dL (0.2-1); TOT PROT 6.5 g/dl (6.4-8.2)
[2023-07-10] MEDS ORDERED: ESCITALOPRAM OXALATE 10 MG TABLET ONE (09:54)
[2023-07-10] MEDS: POLYETHYLENE GLYCOL (HEALTHYLAX) 3350 17 GM PACKET PO SCH (13:06)
[2023-07-10] MEDS: ACETAMINOPHEN 325 MG TABLET (FP) PO PRN (13:06)
[2023-07-10] MEDS: BANATROL PLUS POWDER PACKET PO SCH (22:45)
[2023-07-11 09:38] LABS: BASO % 0.8 % (0-2.0); EOS % 0.9 % (0-4.5); HEMATOCRIT 40.3 % (32.4-45.2); HEMOGLOBIN 13.5 GM/dL (10.7-15.3); INR 1.1 (0.83-1.09); LYMPH % 16.6 % (8-40); MCH 28.6 pg (25.7-33.7); MCHC 33.6 g/dl (32.0-36.0); MEAN CELL VOLUME 85.2 fl (80-96); MEAN PLT VOLUME 7.9 fl (7.5-11.1); MONO % 5.8 % (3.8-10.2); NEUT % 75.9 % (42.8-82.8); PLATELET COUNT 288 10^3/uL (134-434); PROTHROMBIN TIME (PATIENT) 12.8 SEC (9.7-13.0); RBC 4.73 M/mm3 (3.60-5.2); RDW 13.6 % (11.6-15.6); WHITE BLOOD COUNT 8.9 K/mm3 (4.0-10.0)
[2023-07-11] MEDS ORDERED: ESCITALOPRAM OXALATE 10 MG TABLET ONE (09:42)
[2023-07-11] MEDS: LOPERAMIDE HCL 2 MG CAPSULE PO PRN (09:46)
[2023-07-11 10:15] LABS: POTASSIUM 4.1 mmol/L (3.5-5.1)
[2023-07-11 10:37] LABS: ALBUMIN 3.3 g/dl (3.4-5.0); BLOOD UREA NITROGEN 9.3 mg/dL (7-18)
[2023-07-11 10:38] LABS: CALCIUM 9.2 mg/dL (8.5-10.1)
[2023-07-11 10:41] LABS: CREATININE 0.7 mg/dL (0.55-1.3)
[2023-07-11 10:43] LABS: TOT PROT 6.4 g/dl (6.4-8.2)
[2023-07-11 10:44] LABS: BILIRUBIN,TOTAL 0.6 mg/dL (0.2-1)
[2023-07-11] MEDS: LACTATED RINGERS SOLUTION 1,000 ML/1,000 ML INFUS.BAG IV SCH (13:55)
[2023-07-11] MEDS: HYDROCORTISONE 2.5% LOTION - 1 BOTTLE TP PRN (21:37)
[2023-07-11] MEDS: CLOTRIMAZOLE 1% CREAM TP SCH (21:39)
[2023-07-12] MEDS ORDERED: ESCITALOPRAM OXALATE 10 MG TABLET ONE (09:08)
[2023-07-12 11:10] VITALS: RESP 18
[2023-07-12 15:49] VITALS: BP 85/56; PULSE 75; TEMP 98.9
[2023-07-12 18:07] LABS: GLIADIN ANTIBODY IGA 3 units (0-19); GLIADIN ANTIBODY IGG 2 units (0-19); TRANSGLUTAMINASE IGG < 2 U/mL (0-5)
== END 2023-07-12 16:00 | disposition home or self-care (01) | DRG 440 ==
LOC: JER 19:52 → JERBED 23:53 → J6S 07-09 15:54 → OBSVTOIN 07-11 14:05
PROVIDERS: ADMIT Internal Medicine; ATTEND Family Medicine
DX: K86.1 Other chronic pancreatitis (principal); R10.9 Unspecified abdominal pain; K75.81 Nonalcoholic steatohepatitis (NASH); E78.5 Hyperlipidemia, unspecified; E11.9 Type 2 diabetes mellitus without complications; K21.9 Gastro-esophageal reflux disease without esophagitis
CPT/HCPCS: 36415; 74177-TC; 76700-TC; 80048; 80053; 82105; 82784; 82962; 83036; 83516; 83690; 83735; 84132; 84478; 85025; 85610; 86140; 93005; 93010; 99285-25; G0378; J0131; Q9967

== ENCOUNTER 2023-07-15 15:34 | Emergency (ER) | payer OTHER ==
[2023-07-15 16:12] VITALS: TEMP 98.2; BMI 27.7
[2023-07-15] MEDS ORDERED: ACETAMINOPHEN INJECTION 100 ML IVPB ONE (17:01)
[2023-07-15 17:22] LABS: BASO % 1.2 % (0-2.0); EOS % 0.6 % (0-4.5); HEMATOCRIT 47.3 % (32.4-45.2); HEMOGLOBIN 15.9 GM/dL (10.7-15.3); LYMPH % 15.3 % (8-40); MCH 28.9 pg (25.7-33.7); MCHC 33.7 g/dl (32.0-36.0); MEAN PLT VOLUME 7.5 fl (7.5-11.1); MONO % 8.1 % (3.8-10.2); NEUT % 74.8 % (42.8-82.8); PLATELET COUNT 390 10^3/uL (134-434); RDW 14.1 % (11.6-15.6); WHITE BLOOD COUNT 11.8 K/mm3 (4.0-10.0)
[2023-07-15] MEDS: ACETAMINOPHEN 1000 MG/100 ML BAG IVPB ONE (17:27)
[2023-07-15] MEDS: SODIUM CHLORIDE 0.9% 500 ML INFUS.BAG IV ONE ×2 (17:28→20:19)
[2023-07-15] MEDS ORDERED: DEXTROSE 50%-WATER 25 GM/50 ML DISP.SYRIN ONE (17:32)
[2023-07-15 17:43] LABS: POTASSIUM 4.2 mmol/L (3.5-5.1)
[2023-07-15] MEDS: DEXTROSE 50%-WATER - 25 GM/50 ML VIAL IVPUSH ONE (17:43)
[2023-07-15 17:46] LABS: CALCIUM 9.7 mg/dL (8.5-10.1)
[2023-07-15 17:47] LABS: BLOOD UREA NITROGEN 29.3 mg/dL (7-18)
[2023-07-15 17:51] LABS: BILIRUBIN,TOTAL 0.3 mg/dL (0.2-1); CREATININE 1.4 mg/dL (0.55-1.3); PHOSPHOROUS 3.2 mg/dL (2.5-4.9); TOT PROT 7.8 g/dl (6.4-8.2)
[2023-07-15 17:58] LABS: ALBUMIN 4.1 g/dl (3.4-5.0)
[2023-07-15 18:18] LABS: EPI CELLS >36 /uL (0-25.1); HYALINE CASTS 2 /uL (0-3.1); URINE APPEARANCE CLEAR; URINE BACTERIA 347 /uL (0-1359); URINE BILIRUBIN NEGATIVE (NEGATIVE); URINE COLOR YELLOW; URINE GLUCOSE (UA) 3+ (NEGATIVE); URINE KETONE TRACE (NEGATIVE); URINE LEUK ESTERASE NEGATIVE (NEGATIVE); URINE NITRITE NEGATIVE (NEGATIVE); URINE PROTEIN 1+ (NEGATIVE); URINE RBC 14 /uL (0-23.9); URINE UROBILINOGEN 0.2 mg/dL (0.2-1.0); URINE WBC 48 /uL (0-25.8)
[2023-07-15] MEDS ORDERED: MAG HYDROX/AL HYDROX/SIMETH 30 ML UNIT-DOSE CUP ONE (20:22)
[2023-07-15] MEDS ORDERED: ONDANSETRON 4 MG/2 ML VIAL ONE (20:22)
[2023-07-15] MEDS ORDERED: SUCRALFATE 1 GM TABLET (FP) ONE (20:22)
[2023-07-15] MEDS ORDERED: FAMOTIDINE 20 MG/50 ML IVPB 20 MG/50 ML MG IVPB ONE (20:23)
[2023-07-15] MEDS: ONDANSETRON 4 MG/2 ML VIAL IVPUSH ONE (20:36)
[2023-07-15] MEDS: SUCRALFATE 1 GM TABLET (FP) PO ONE (20:36)
[2023-07-15] MEDS: MAG HYDROX/AL HYDROX/SIMETH -MYLANTA- ORAL SUSPENSION PO ONE (20:36)
[2023-07-15] MEDS: FAMOTIDINE 20 MG/50 ML IVPB 20 MG/50 ML MG IVPB ONE (20:36)
[2023-07-15 21:38] LABS: BLOOD UREA NITROGEN 27.6 mg/dL (7-18); CALCIUM 8.6 mg/dL (8.5-10.1)
[2023-07-15 21:41] VITALS: BP 127/66; PULSE 53; RESP 18
[2023-07-15 21:41] LABS: CREATININE 1.1 mg/dL (0.55-1.3)
== END 2023-07-15 21:41 | disposition home or self-care (01) ==
LOC: JER 15:34
PROC: 3E033GC Introduction of Other Therapeutic Substance into Peripheral Vein, Percutaneous Approach (ICD-10-PCS; principal; 2023-07-15)
PROC: 3E033GC Introduction of Other Therapeutic Substance into Peripheral Vein, Percutaneous Approach (ICD-10-PCS; 2023-07-15)
PROC: 3E033NZ Introduction of Analgesics, Hypnotics, Sedatives into Peripheral Vein, Percutaneous Approach (ICD-10-PCS; 2023-07-15)
PROC: 3E0337Z Introduction of Electrolytic and Water Balance Substance into Peripheral Vein, Percutaneous Approach (ICD-10-PCS; 2023-07-15)
DX: R10.12 Left upper quadrant pain (principal); R10.32 Left lower quadrant pain; R51.9 Headache, unspecified
CPT/HCPCS: 36415; 70450-TC; 74177-TC; 80048; 80053; 81003; 82962; 83690; 83735; 84100; 84484; 85025; 87086; 99285-25; J0131

== ENCOUNTER 2023-10-06 10:28 | Inpatient (IN) | payer OTHER ==
[2023-10-06] MEDS ORDERED: ACETAMINOPHEN INJECTION 100 ML IVPB ONE (11:46)
[2023-10-06] MEDS ORDERED: ONDANSETRON 4 MG/2 ML VIAL ONE (11:46)
[2023-10-06 11:49] LABS: EOS % 0.9 % (0-4.5); HEMATOCRIT 45.3 % (32.4-45.2); LYMPH % 18.9 % (8-40); MCH 28.4 pg (25.7-33.7); MCHC 33.1 g/dl (32.0-36.0); MEAN CELL VOLUME 85.6 fl (80-96); MEAN PLT VOLUME 7.4 fl (7.5-11.1); MONO % 5.7 % (3.8-10.2); NEUT % 73.5 % (42.8-82.8); PLATELET COUNT 315 10^3/uL (134-434); WHITE BLOOD COUNT 9.4 K/mm3 (4.0-10.0)
[2023-10-06] MEDS: ACETAMINOPHEN 1000 MG/100 ML BAG IVPB ONE (11:59)
[2023-10-06] MEDS: ONDANSETRON 4 MG/2 ML VIAL IVPUSH ONE (11:59)
[2023-10-06] MEDS: SODIUM CHLORIDE 0.9% 500 ML INFUS.BAG IV ONE (12:00)
[2023-10-06 12:13] LABS: ALBUMIN 3.7 g/dl (3.4-5.0); BLOOD UREA NITROGEN 20.4 mg/dL (7-18); URINE APPEARANCE CLEAR; URINE BILIRUBIN NEGATIVE (NEGATIVE); URINE COLOR YELLOW; URINE GLUCOSE (UA) 3+ (NEGATIVE); URINE KETONE NEGATIVE (NEGATIVE); URINE LEUK ESTERASE NEGATIVE (NEGATIVE); URINE NITRITE NEGATIVE (NEGATIVE); URINE PROTEIN TRACE (NEGATIVE); URINE UROBILINOGEN 0.2 mg/dL (0.2-1.0)
[2023-10-06 12:18] LABS: BILIRUBIN,TOTAL 0.4 mg/dL (0.2-1)
[2023-10-06] MEDS ORDERED: KETOROLAC TROMETHAMINE 15 MG/ML VIAL ONE (12:36)
[2023-10-06] MEDS: KETOROLAC TROMETHAMINE 15 MG/ML VIAL IVPUSH ONE (12:41)
[2023-10-06] MEDS ORDERED: morphine SULFATE 4 MG/ML VIAL ONE (14:51)
[2023-10-06] MEDS: morphine CARPU-JECT 4 MG/1 ML DISP.SYRIN IVPUSH ONE (14:56)
[2023-10-06] MEDS ORDERED: HYDROmorphone HCl 2 MG/ML VIAL ONE (15:38)
[2023-10-06] MEDS: HYDROmorphone HCl 2 MG/ML VIAL IVPUSH ONE (15:49)
[2023-10-06] MEDS ORDERED: ONDANSETRON 4 MG/2 ML VIAL IVPUSH PRN (17:56)
[2023-10-06] MEDS: ACETAMINOPHEN 1000 MG/100 ML BAG IVPB PRN (18:26)
[2023-10-06] MEDS: POLYETHYLENE GLYCOL (HEALTHYLAX) 3350 17 GM PACKET PO SCH (18:35)
[2023-10-06] MEDS: DEXTROSE 5%-0.45% SALINE 1,000 ML IV SCH (18:35)
[2023-10-06] MEDS: ESCITALOPRAM OXALATE 10 MG TABLET PO SCH (18:36)
[2023-10-06 20:05] VITALS: BMI 37.0
[2023-10-06] MEDS: ROSUVASTATIN CA 10 MG TABLET PO SCH (22:30)
[2023-10-06] MEDS: INSULIN ASPART SLIDING SCALE (NOVOLOG) 1 VIAL SQ SCH (22:34)
[2023-10-06] MEDS: KETOROLAC TROMETHAMINE 15 MG/ML VIAL IVPB ONE (23:04)
[2023-10-07 08:52] LABS: BASO % 0.8 % (0-2.0); EOS % 1.5 % (0-4.5); HEMATOCRIT 40.3 % (32.4-45.2); HEMOGLOBIN 13.4 GM/dL (10.7-15.3); LYMPH % 31.1 % (8-40); MCH 28.3 pg (25.7-33.7); MCHC 33.3 g/dl (32.0-36.0); MEAN PLT VOLUME 7.5 fl (7.5-11.1); MONO % 7.2 % (3.8-10.2); NEUT % 59.4 % (42.8-82.8); PLATELET COUNT 295 10^3/uL (134-434); RBC 4.74 M/mm3 (3.60-5.2); RDW 14.2 % (11.6-15.6); WHITE BLOOD COUNT 6.7 K/mm3 (4.0-10.0)
[2023-10-07 08:57] LABS: POTASSIUM 4.3 mmol/L (3.5-5.1)
[2023-10-07 09:00] LABS: ALBUMIN 3.1 g/dl (3.4-5.0); CALCIUM 7.9 mg/dL (8.5-10.1)
[2023-10-07 09:03] LABS: CREATININE 0.8 mg/dL (0.55-1.3)
[2023-10-07 09:04] LABS: BILIRUBIN,TOTAL 0.3 mg/dL (0.2-1); TOT PROT 5.9 g/dl (6.4-8.2)
[2023-10-07] MEDS: ENOXAPARIN NA (PORCINE) 40 MG/0.4 ML DISP.SYRIN SQ SCH (09:17)
[2023-10-07] MEDS: ASPIRIN 81 MG CHEWABLE TABLETS PO SCH (09:17)
[2023-10-07] MEDS: PANTOPRAZOLE SODIUM 40 MG VIAL IVPUSH SCH (09:18)
[2023-10-07] MEDS: LOSARTAN POTASSIUM 50 MG TABLET PO SCH (09:18)
[2023-10-08] MEDS: ACETAMINOPHEN 1000 MG/100 ML BAG IVPB ONE (06:30)
[2023-10-08] MEDS: PANTOPRAZOLE 40 MG TABLET PO SCH (10:06)
[2023-10-08] MEDS: POLYETHYLENE GLYCOL (HEALTHYLAX) 3350 17 GM PACKET PO SCH (10:07)
[2023-10-08] MEDS ORDERED: ACETAMINOPHEN 325 MG TABLET (FP) PO PRN (11:47)
[2023-10-09 05:44] VITALS: PULSE 69; RESP 18; TEMP 98.6
[2023-10-09 07:15] VITALS: BP 152/72
[2023-10-09 08:04] LABS: EOS % 0.6 % (0-4.5); HEMATOCRIT 43.9 % (32.4-45.2); HEMOGLOBIN 14.3 GM/dL (10.7-15.3); LYMPH % 15.1 % (8-40); MCHC 32.5 g/dl (32.0-36.0); MEAN CELL VOLUME 86.1 fl (80-96); MEAN PLT VOLUME 7.7 fl (7.5-11.1); NEUT % 77.3 % (42.8-82.8); PLATELET COUNT 282 10^3/uL (134-434); RDW 13.6 % (11.6-15.6); WHITE BLOOD COUNT 9.6 K/mm3 (4.0-10.0)
[2023-10-09 08:13] LABS: INR 1.04 (0.83-1.09); PROTHROMBIN TIME (PATIENT) 11.9 SEC (9.7-13.0)
[2023-10-09 08:18] LABS: POTASSIUM 4.7 mmol/L (3.5-5.1)
[2023-10-09 08:21] LABS: ALBUMIN 3.5 g/dl (3.4-5.0); BLOOD UREA NITROGEN 10.6 mg/dL (7-18)
[2023-10-09 08:24] LABS: BILIRUBIN,TOTAL 0.8 mg/dL (0.2-1); CREATININE 0.9 mg/dL (0.55-1.3)
[2023-10-09 08:25] LABS: TOT PROT 6.6 g/dl (6.4-8.2)
[2023-10-09 08:41] LABS: CALCIUM 9.1 mg/dL (8.5-10.1)
== END 2023-10-09 11:39 | disposition home or self-care (01) | DRG 392 ==
LOC: JER 10:28 → JERBED 15:05 → J8W 16:32
PROVIDERS: ADMIT Family Medicine; ATTEND Family Medicine
DX: K59.00 Constipation, unspecified (principal); K86.1 Other chronic pancreatitis; K75.81 Nonalcoholic steatohepatitis (NASH); K74.60 Unspecified cirrhosis of liver; E11.9 Type 2 diabetes mellitus without complications; I10 Essential (primary) hypertension; E78.5 Hyperlipidemia, unspecified; K21.9 Gastro-esophageal reflux disease without esophagitis; F32.A Depression, unspecified; R16.0 Hepatomegaly, not elsewhere classified; D13.6 Benign neoplasm of pancreas
CPT/HCPCS: 36415; 74177-TC; 76705-TC; 80053; 81003; 82150; 82962; 83036; 83690; 85025; 85610; 87086; 93005; 93010; 99285-25; J0131; Q9967